=== PATIENT | male | born 1955 | race Caucasian/White ===

== ENCOUNTER 2016-12-30 10:31 | Inpatient (IN) | payer OTHER ==
[~2016-12-30] VITALS: Ht 165.1 cm; Wt 63.0 kg
--- NOTE | ~2016-12-30 | HC ---
[facility] [place] [address] CONSULTATION Name: LORENZA ARMENDARIZ Room #: 211-P ADM IN M.R.#: [id number] Admission: 12/30/16 Attend Phys: Demond Bonner MD Discharge: Date of : 53 Report #: [id number] THIS REPORT FOR: //name// CC: Kyler Bonner REASON FOR CONSULTATION: I was asked to evaluate concerning recurring fever. HISTORY OF PRESENT ILLNESS: The patient was a 61-year-old with short bowel syndrome, on chronic TPN for many years. He has had recurring central venous catheter infections. Two weeks ago, he developed dysuria. He presented to [facility] with fever along with dysuria and some low back discomfort. He was found to have positive urine culture. I do not have access to these cultures at this time. He was treated with antibiotics for 3 or 4 days and then was discharged this weekend on Augmentin. Now returns with fever up to 104 degrees. He has had intermittent cough with minimal sputum production. No change in his chronic shortness of breath. He does have underlying COPD. Has had some low back discomfort. Still has some dysuria without hematuria. No history of nephrolithiasis. No history of prostatitis. He has had one urinary tract infection when he was a boy. No change in his short bowel syndrome. He has an ileostomy, which has been functioning. ALLERGIES: None known. MEDICATIONS: As noted on his MAR, which was reviewed in detail. Most recently on Augmentin. PAST MEDICAL HISTORY: COPD, on 2 liters of oxygen at bedtime; lumbar spine disease with previous surgery; coronary artery disease; Chiari malformation; short bowel syndrome with colon resection; ileostomy; CABG; stroke; umbilical and inguinal hernias; multiple central venous catheters; previous central venous catheter infections; oral surgery with dental extractions; vocal cord papule; anxiety; depression; deaf in his left ear; and MRSA positive in April 2016. FAMILY HISTORY: Noncontributory. SOCIAL HISTORY: Smoker of cigarettes. No alcohol use. REVIEW OF SYSTEMS: Noted above with no additions. PHYSICAL EXAMINATION: VITAL SIGNS: Afebrile, maximum temperature here has been 99.5 degrees, hemodynamically stable with heart rate 103, blood pressure 93/58. Oxygen saturation on 2 liters was 95%. GENERAL: He was alert and cooperative. He had a left upper extremity PICC that he has had in since April that was unremarkable. No adenopathy. HEENT: Dentures otherwise unremarkable. [facility] [address] [place] [address] CONSULTATION Name: LORENZA ARMENDARIZ Room #: 211-P [facility] IN [facility]#: [id number] Admission: 12/30/16 Attend Phys: Demond Bonner MD Discharge: Date of : 53 Report #: [id number] LUNGS: Coarse breath sounds heard mostly anterior. Posterior was clear. HEART: Regular without murmur. ABDOMEN: Soft, mild tenderness in the right lower quadrant. He has right CVA tenderness. Ileostomy was unremarkable. GENITOURINARY: External genitalia unremarkable. RECTAL: Not performed. EXTREMITIES: Unremarkable. LABORATORY STUDIES: Urinalysis: 0-5 wbc's, 0-2 rbc's, moderate bacteria. Hemoglobin 10, WBC 13.3 with 14% bands, platelet count 177,000. Sodium 136, potassium 3.1, bicarbonate 20, creatinine 1.9, lactate 1.6 and magnesium 1.2. IMPRESSION: This is a 61-year-old with recurring fever. In the past, this has been related to central venous catheter infections. I would question whether we are dealing with that at this time. He does have bacteriuria and was diagnosed with urinary tract infection last week. This may still be the case. Mild renal insufficiency. PLAN: Recommend CT scan imaging to ensure no obstruction and to reevaluate his abdomen and pelvis. Continue IV antibiotic therapy, both gram-positive and gram-negative coverage. Repeat urine culture. Check blood cultures. We will adjust his antibiotics pending culture results. Obtain outside microbiology reports. <ELECTRONICALLY SIGNED> By: Anthony Bullard MD 01/01/17 0839 1756 [id number] Anthony Bullard MD /nt
[~2016-12-30 10:31] MED LIST: ACETAMINOPHEN325 M1 PO; ACTIGALL300 MG PO; ALBUTEROL2.5 MG/0.5 INH; AMBIEN 10 MG TA10 MG PO; AMINOPHYLLINE PO; AMITRIPTYLINE H50 M2 PO; AMITRIPTYLINE H50 M4 PO; AMOXICILLIN 50500 M1 PO; ANACIN 400-321 EACH PO; ASPIR-TRIN325 MG PO; ASPIRIN EC325 M1 PO; ASPIRIN325 PO; ASPIRIN81 M2 PO; ATORVASTATIN CA40 MG PO; AUGMENTIN 875875 MG PO; BACLOFEN 10 MG10 MG PO; BACLOFEN 10MG T10 M1 PO; BACLOFEN 10MG T10 MG PO; BAYER CHEWABLE81 MG PO; CARISOPRODOL 3350 M1 PO; CARISOPRODOL 3350 MG PO; CARISOPRODOL350 MG PO; CELEXA 20 MG TA20 M1 PO; CELEXA 20 MG TA20 MG PO; CENTRUM SILVER1 EAC2 PO; CENTRUM SILVER1 EAC4 PO; CHANTIX1 EACH PO; DILAUDID 2 MG TA2 MG PO; FENTANYL PA12 MCG/H1 TRANSDERM; FENTANYL PA50 MCG/HR TRANSDERM; FLOMAX0.4 MG PO; GATTEX5 MG SUBQ; HYDROCODON-ACE1 EA12 PO; HYDROCODON-ACE1 EAC8 PO; HYDROCODON-ACE1 EACH PO; HYDROCODONE-AP1 EA10 PO; HYDROCODONE-AP1 EA12 PO; HYDROCODONE-APA1 TA1 PO; IMDUR 30 MG TAB30 M1 PO; ITRACONAZOLE 1100 M1; KEFLEX500 MG PO; KLOR-CON 1010 MEQ PO; LACTINEX PO; LASIX 20 MG TAB20 MG PO; LASIX 40 MG TAB40 M1 PO; LEVAQUIN 500 M500 M2 PO; LIPITOR40 MG PO; LOMOTIL TABLET1 EACH PO; LOPRESSOR50 PO; LORTAB 5-500 T1 EAC1 PO; NEXIUM40 MG PO; NICOTINE TRANSD21 M1 TRANSDERM; NITROGLYCERIN0.4 MG SUBLING; NORCO 5-325 TA1 EACH PO; NORMAL SALINE 0.9% IV; NORMAL SALINE FL5 ML IV; NYSTATIN; NYSTATIN 1100000 U/M SW&SWALLOW; NYSTATIN100000 UN1 PO; ONDANSETRON HCL4 M2 PO; OPIUM TINC10 MG/1 ML PO; OXYCODONE-ACET1 EACH PO; PANTOPRAZOLE SO40 MG PO; PERCOCET 7.5-31 EACH PO; POTASSIUM20 PO; PPN IV; PREDNISONE 10 M10 M1 PO; PREDNISONE 10 M10 MG PO; PREDNISONE 20 M20 MG PO; PREDNISONE PO; PREDNISONE50 MG PO; PROMETHAZINE-C120 ML PO; PROZAC 10 MG CA10 MG PO; PROZAC 20 MG20 M1 PO; QUETIAPINE FUMA25 MG PO; RISPERDAL 1 MG T1 MG PO; SEROQUEL 25 MG25 M1 PO; SEROQUEL 25 MG25 M2 PO; SIMVASTATIN40 MG PO; SLOW-MAG64 M1 PO; SLOW-MAG64 MG PO; SODIUM CHLORI1000 ML IR; SODIUM CHLORID100 M4 IV; SOMA250 MG PO; SPIRIVA INH; SPORANOX10 MG/ML SWISH&SPIT; SYMBICORT160 MCG/4. INH; TAMSULOSIN HCL0.4 M1 PO; TESSALON PERLE100 MG PO; TOPROL XL50 MG PO; TPN ELECTROLYTE20 M1; TRAMADOL 50 MG50 MG PO; ULTRAM 50MG TAB50 MG PO; URSODIOL300 MG PO; VANC750 IV; VANCOMYCIN HCL IV; VANCOMYCIN HCL1 GM IV; VENTOLIN HFA 1818 GM INH; VENTOLIN17 GM INH; VITAMIN D 5050000 I1 PO; VITAMIN D1000 UNI1 PO; VITAMIN D310000 UNIT PO; ZOCOR40 MG PO; ZOFRAN4 MG PO
[2016-12-30 11:32] LABS: HEMATOCRIT 29.7 % (42.0-52.0); MCH 29.6 pg (26.0-34.0); MCHC 33.8 g/dL (28.0-37.0); MCV 87.6 fL (80.0-100.0); PLATELET COUNT 177 thou/uL (150-400); RBC 3.39 mil/uL (4.50-6.00); WBC 13.3 thou/uL (4.0-11.0)
[2016-12-30 11:33] LABS: MANUAL DIFF YES
[2016-12-30 11:34] LABS: CALCIUM 7.9 mg/dL (8.5-10.1); CREATININE 1.9 mg/dL (0.7-1.3); POTASSIUM 3.1 mmol/L (3.5-5.1)
[2016-12-30 12:08] LABS: ABSOLUTE NEUTROPHILS 12.5 thou/uL (1.4-8.2); PLATELET ESTIMATE NORMAL; TOTAL CELL COUNT 100
[2016-12-30 12:26] LABS: URINE BILIRUBIN NEGATIVE (Negative); URINE BLOOD 3+ (Negative); URINE COLOR YELLOW; URINE GLUCOSE-RANDOM* NEGATIVE (Negative); URINE KETONES NEGATIVE (Negative); URINE LEUKOCYTES-REFLEX 1+ (Negative); URINE PROTEIN (DIPSTICK) TRACE (Negative); URINE SPECIFIC GRAVITY 1.015 (1.003-1.035); URINE UROBILINOGEN 0.2 E.U./dl (0.2-1.0)
[2016-12-30 12:48] LABS: CASTS None Seen /LPF (None Seen); CRYSTALS None Seen /LPF (None Seen); SQUAMOUS None Seen /LPF (0-3); URINE RBC 0-2 Rare /HPF (0-2); URINE WBC-REFLEX 0-5 Rare /HPF (0-5)
[2016-12-30 14:03] VITALS: BP 93/58
[2016-12-30 14:20] VITALS: BP 93/58
[2016-12-30 20:07] VITALS: BP 107/64
[2016-12-30 23:35] VITALS: BP 80/48
[2016-12-31 04:32] VITALS: BP 115/90
[2016-12-31 07:46] LABS: HEMATOCRIT 27.4 % (42.0-52.0); HEMOGLOBIN 9.1 gm/dL (14.0-18.0); MCH 29.6 pg (26.0-34.0); MCHC 33.3 g/dL (28.0-37.0); MCV 89.1 fL (80.0-100.0); PLATELET COUNT 176 thou/uL (150-400); RBC 3.08 mil/uL (4.50-6.00); RDW 14.3 % (10.5-14.5); WBC 14.3 thou/uL (4.0-11.0)
[2016-12-31 07:48] LABS: MANUAL DIFF YES
[2016-12-31 08:08] LABS: ALBUMIN 2.1 g/dL (3.4-5.0); CALCIUM 8.1 mg/dL (8.5-10.1); MAGNESIUM 3.1 mg/dL (1.8-2.4); TOTAL BILIRUBIN 0.9 mg/dL (<0.1-1.0); TOTAL PROTEIN 6.1 g/dL (6.4-8.2)
[2016-12-31 08:09] LABS: POTASSIUM 4.1 mmol/L (3.5-5.1)
[2016-12-31 08:17] VITALS: BP 101/54
[2016-12-31 09:00] LABS: ABSOLUTE NEUTROPHILS 11.9 thou/uL (1.4-8.2); PLATELET ESTIMATE NORMAL; TOTAL CELL COUNT 100
[2016-12-31 11:52] VITALS: BP 112/63
[2016-12-31 15:37] VITALS: BP 99/52
[2016-12-31 20:00] VITALS: BP 149/81
[2017-01-01 04:45] VITALS: BP 116/61
[2017-01-01 08:20] LABS: ABSOLUTE NEUTROPHILS 6.5 thou/uL (1.4-8.2); BASOPHILS 0.3 % (0.0-2.0); EOSINOPHILS 2.1 % (0.0-3.0); HEMATOCRIT 26.4 % (42.0-52.0); HEMOGLOBIN 8.9 gm/dL (14.0-18.0); LYMPHOCYTES 9.7 % (24.0-44.0); MCH 29.9 pg (26.0-34.0); MCHC 33.8 g/dL (28.0-37.0); MCV 88.6 fL (80.0-100.0); MONOCYTES 9.8 % (1.0-8.0); PLATELET COUNT 169 thou/uL (150-400); POLYS 78.1 % (36.0-66.0); RBC 2.98 mil/uL (4.50-6.00); RDW 14.6 % (10.5-14.5); WBC 8.4 thou/uL (4.0-11.0)
[2017-01-01 08:31] LABS: CALCIUM 8.3 mg/dL (8.5-10.1); CREATININE 1.8 mg/dL (0.7-1.3); MAGNESIUM 2.3 mg/dL (1.8-2.4); POTASSIUM 3.7 mmol/L (3.5-5.1)
[2017-01-01 08:35] LABS: MANUAL DIFF NO
[2017-01-01 15:41] VITALS: BP 115/59
[2017-01-01 19:29] VITALS: BP 152/89
[2017-01-02 02:46] VITALS: BP 132/75
[2017-01-02 02:48] LABS: ABSOLUTE NEUTROPHILS 6.4 thou/uL (1.4-8.2); BASOPHILS 0.3 % (0.0-2.0); EOSINOPHILS 2.7 % (0.0-3.0); HEMOGLOBIN 10.1 gm/dL (14.0-18.0); MCH 29.6 pg (26.0-34.0); MCHC 33.7 g/dL (28.0-37.0); MCV 87.7 fL (80.0-100.0); MONOCYTES 7.8 % (1.0-8.0); PLATELET COUNT 196 thou/uL (150-400); POLYS 76.2 % (36.0-66.0); RBC 3.43 mil/uL (4.50-6.00); RDW 14.2 % (10.5-14.5); WBC 8.5 thou/uL (4.0-11.0)
[2017-01-02 02:58] LABS: MANUAL DIFF NO
[2017-01-02 03:01] LABS: CALCIUM 8.6 mg/dL (8.5-10.1); CREATININE 1.6 mg/dL (0.7-1.3); POTASSIUM 3.4 mmol/L (3.5-5.1)
[2017-01-02 07:33] VITALS: BP 139/69
[2017-01-02 11:47] VITALS: BP 174/110
[2017-01-02 15:41] VITALS: BP 146/67
[2017-01-02 15:46] VITALS: BP 146/67
[2017-01-02 19:42] VITALS: BP 158/72
[2017-01-03] VITALS (7 sets, daily range): BP systolic 139–169; BP diastolic 64–91
[2017-01-03] MEDS ORDERED: CEFTRIAXON1 GM/50 M1 IVPB (08:32)
== END 2017-01-03 16:46 | disposition home health service (06) | DRG 314 ==
LOC: ER 10:31 → EROBS 13:33 → 2N 13:33 → ENTRNSPT 01-03 16:06 → 2N 01-03 16:46
PROVIDERS: Emergency Medicine; Internal Medicine; Nurse Practitioner
PROC: 02HV33Z Insertion of Infusion Device into Superior Vena Cava, Percutaneous Approach (ICD-10-PCS; principal; 2017-01-03)
PROC: 3E0436Z Introduction of Nutritional Substance into Central Vein, Percutaneous Approach (ICD-10-PCS; 2017-01-03)
PROC: 02HV33Z Insertion of Infusion Device into Superior Vena Cava, Percutaneous Approach (ICD-10-PCS; 2017-01-03)
PROC: B5181ZA Fluoroscopy of Superior Vena Cava using Low Osmolar Contrast, Guidance (ICD-10-PCS; 2017-01-03)
PROC: B548ZZA Ultrasonography of Superior Vena Cava, Guidance (ICD-10-PCS; 2017-01-03)
DX: T80.219A Unspecified infection due to central venous catheter, initial encounter (principal); A41.50 Gram-negative sepsis, unspecified; R65.21 Severe sepsis with septic shock; E43 Unspecified severe protein-calorie malnutrition; N17.9 Acute kidney failure, unspecified; K56.69 Other intestinal obstruction; N39.0 Urinary tract infection, site not specified; E87.6 Hypokalemia; E16.2 Hypoglycemia, unspecified; I25.10 Atherosclerotic heart disease of native coronary artery without angina pectoris; J44.9 Chronic obstructive pulmonary disease, unspecified; F32.9 Major depressive disorder, single episode, unspecified; F41.9 Anxiety disorder, unspecified; F17.210 Nicotine dependence, cigarettes, uncomplicated; Z86.73 Personal history of transient ischemic attack (TIA), and cerebral infarction without residual deficits; I25.2 Old myocardial infarction; Z68.23 Body mass index [BMI] 23.0-23.9, adult; Z95.1 Presence of aortocoronary bypass graft; Z93.2 Ileostomy status; Z87.442 Personal history of urinary calculi; Z99.81 Dependence on supplemental oxygen
CPT/HCPCS: 10081

== ENCOUNTER 2017-01-25 13:09 | Inpatient (IN) | payer OTHER ==
[~2017-01-25] VITALS: Ht 165.1 cm; Wt 59.9 kg
--- NOTE | ~2017-01-25 | HC ---
[facility] [place] [place] [address] CONSULTATION Name: LORENZA ARMENDARIZ Room #: 460-P ADM IN M.R.#: [id number] Admission: 01/25/17 Attend Phys: Dee Kumar Discharge: Date of : 53 Report #: [id number] THIS REPORT FOR: //name// CC: Dee Kumar NO PCP REASON FOR CONSULTATION: I was asked to evaluate concerning high fever. HISTORY OF PRESENT ILLNESS: The patient was a 61-year-old, known from his previous hospitalizations where he has had recurring central venous catheter infections. He has underlying chronic obstructive pulmonary disease, coronary artery disease, short bowel syndrome on home total parenteral nutrition. His current issues started after ischemic bowel issue in 08/2012. He had gut that required distal two thirds of small bowel resection and a subtotal colectomy. Since then he has been on total parenteral nutrition. He has had a short period of time when they tried him off, but he was losing weight and not doing well. Subsequently, he has had recurring bacteremia. Over the last 4 years, in 10/2012 he had Barbara glabrata bacteremia, in 01/2013 a Klebsiella and a Staph epidermidis bacteremia, in 2014 had diphtheroids bacteremia, 07/2015 Staph epidermidis, 09/2015 Staph epidermidis diphtheroids, 12/2016 Klebsiella pneumoniae, presents now with 2/2 cultures positive for gram-negative bacilli. Yesterday, he had acute onset of rigors with hypotension, confusion, shortness of breath. He was brought in to the Emergency Room. Blood cultures were drawn and now are growing gram-negative bacilli. He has a right internal jugular PICC catheter that was placed in December. He requires nocturnal total parenteral nutrition. There has been no significant change in his respiratory status prior to this event. He did have an episode of nausea and vomiting. That has resolved. His small bowel ostomy has been functioning well. No dysuria. No rashes or decubiti. He has had no travel. ALLERGIES: None. MEDICATIONS: As noted on his MAR, now on vancomycin, cefepime, micafungin. He just finished a course of ceftriaxone for his recent bacteremia. PAST MEDICAL, FAMILY HISTORY, AND SOCIAL HISTORY: As noted on his history and physical, which are reviewed in detail, also that in my previous consultations. REVIEW OF SYSTEMS: Noted above. PHYSICAL EXAMINATION: VITAL SIGNS: He is afebrile and hemodynamically stable. Maximum temperature yesterday was 103 degrees. He is on 3 liters of oxygen per nasal cannula. GENERAL: He was alert and cooperative and pleasant, in no acute distress. He was thin. HEENT: Unremarkable. He is edentulous. NECK: Supple. [address] [address] CONSULTATION Name: KALALORENZA YESICA Room #: 460-P [facility] IN M.R.#: [id number] Admission: 01/25/17 Attend Phys: Dee Kumar Discharge: Date of : 53 Report #: [id number] LUNGS: Decreased breath sounds bilaterally. No consolidation. HEART: Regular, without murmur. CHEST: Right chest tunneled catheter site was unremarkable. ABDOMEN: Soft and nontender. His ostomy was unremarkable. GENITOURINARY: External genitalia unremarkable. EXTREMITIES: Unremarkable. LABORATORY STUDIES: CT scan of his chest did show a left lung nodule that is being followed. Right upper lobe infiltrate is new from his previous scan. Sodium 137, potassium 5.1, bicarbonate 23, creatinine 1.4. Hemoglobin 9.5, platelet count 134,000, white count was 7.2. Blood cultures, gram-negative bacilli 2/2. IMPRESSION: A 61-year-old with gram-negative bacteremia, central venous catheter source seems most likely. This is an ongoing problem over the last 4 years following a short bowel syndrome with need for total parenteral nutrition. Also, underlying chronic obstructive pulmonary disease, coronary artery disease. He does have a nodule in his left lung that will need further follow up by Pulmonary Medicine. The right upper lobe area may be aspiration induced. RECOMMENDATIONS: We will continue combination antibiotic coverage pending identification of the bacteremia. We will need to have the central venous catheter taken out. We will have GI Service evaluate again for the consideration of nocturnal tube feeding possibly or any other thoughts to improve his nutrition without the use of total parenteral nutrition. Since these have been different organisms in the past, I am doubting endocarditis, more likely just poor technique in his infusion program. <ELECTRONICALLY SIGNED> By: Anthony Bullard MD 01/27/17 1215 1139 1206 Anthony Bullard MD /nt
--- NOTE | ~2017-01-25 | EKG ---
[address] [place] [address] ELECTROCARDIOGRAM REPORT Name: SANIYALORENZA Ervin YESICA Room #: 460-P ADM IN M.R.#: [id number] Admission: 01/25/17 Attend Phys: Dee Kumar Discharge: Date of : 53 Report #: [id number] THIS REPORT FOR: //name// [facility] ED Test Date: 2017-01-25 Test Time: 13:18:12 Pat Name: LORENZA ARMENDARIZ Department: Room: 460 Gender: M Glass Maker: DEDE : 1955 Requested By: Ke Franco Order Number: [id number] MD: Tim Godinez Measurements Intervals [place] Rate: 103 P: 74 FL: 132 QRS: 77 QRSD: 107 T: 89 QT: 379 QTc: 496 Interpretive Statements Sinus tachycardia RSR' in V1 or V2, right VCD Borderline prolonged QT interval Compared to ECG 04/22/2016 12:48:13 Atrial premature complex(es) no longer present Electronically Signed On 01-27-2017 8:20:21 CDT by Tim Godinez [email or web address] <ELECTRONICALLY SIGNED> By: Tim Godinez MD, [facility] 01/27/17 0820 1318 1318 Tim Godinez MD, [facility] /EPI
--- NOTE | ~2017-01-25 | HC ---
[facility] [place] [address] CONSULTATION Name: LORENZA ARMENDARIZ Room #: 460-P [facility] IN M.R.#: [id number] Admission: 01/25/17 Attend Phys: Dee Kumar Discharge: 01/29/17 Date of : 53 Report #: [id number] THIS REPORT FOR: //name// CC: Dee Kumar NO PCP DATE OF SERVICE: 01/25/2017 REFERRING PROVIDER: Dr. Kumar. REASON FOR CONSULTATION: Chest pain and shortness of breath. HISTORY OF PRESENT ILLNESS: Our group was asked to see the patient in consultation while hospitalized at [facility]. A pleasant 61-year-old male with a past history of COPD, states reasonably well controlled on Symbicort twice daily ____ p.r.n. albuterol, also has a history of short gut syndrome for which he has been on TPN, he states for about 1 year, was just recently hospitalized for Klebsiella bacteremia in December for which he had a central venous catheter exchange. PICC line was removed and a tunneled IJ catheter was put in place. Family brought him to the Emergency Department because of pain in the left upper quadrant and left lower chest, near syncope and perhaps some confusion ____ recalls awakening this morning, but does not remember details arriving to the hospital, was much more alert this evening. Has been afebrile here, but denies any fever at home, chills or sweats. He was placed initially on BiPAP for unclear reasons, perhaps due to tachypnea and possibly hypoxemia, although he is much more comfortable this evening. He is on nasal cannula 3 liters. The patient typically requires 2 liters nasal cannula with sleep. ALLERGIES: None known. CURRENT MEDICATIONS: 1. Micafungin. 2. DuoNeb. 3. Isosorbide mononitrate. 4. Seroquel 25 at bedtime. 5. Citalopram 20 mg at bedtime. 6. Metoprolol 50 mg twice daily. 7. Enoxaparin daily. 8. Solu-Medrol. 9. Cefepime. PAST MEDICAL HISTORY: 1. Short bowel syndrome, chronically on TPN in the past year, although able to take oral medications, chronic ileostomy. 2. COPD. [facility] [address] [place] [address] CONSULTATION Name: LORENZA ARMENDARIZ YESICA Room #: 460-P [facility] IN .R.#: [id number] Admission: 01/25/17 Attend Phys: Dee Kumar Discharge: 01/29/17 Date of : 53 Report #: [id number] 3. Coronary artery disease. 4. History of prior CVA. 5. Umbilical and inguinal hernias. 6. Prior dental extractions. SOCIAL HISTORY: History of tobacco use. No alcohol consumption. FAMILY HISTORY: Noncontributory due to significant pulmonary disease. REVIEW OF SYSTEMS: CONSTITUTIONAL: Denies any fevers or chills. Some disorientation noted. ENT: No upper respiratory congestion, rhinorrhea or dysphagia. CARDIOVASCULAR: Some left-sided lower chest pain, somewhat pleuritic in nature. GASTROINTESTINAL: No nausea or vomiting. Has an ileostomy and prior colon resection, significant thin ostomy output. GENITOURINARY: No dysuria, no frequency. INTEGUMENT: Denies any rash. MUSCULOSKELETAL: Generalized weakness and difficulty maintaining weight on TPN. PHYSICAL EXAMINATION: VITAL SIGNS: Temperature max 39.4, temperature current 36.8, pulse 60s, respiratory rate 18, blood pressure 113/60. GENERAL: This is a thin, cachectic elderly male, in no distress. Awake, conversant. HEENT: Clear oropharynx. No thrush. Mallampati 1 airway. NECK: Supple, no lymphadenopathy, right tunneled IJ catheter in place. No surrounding erythema or fluctuance. LUNGS: Diminished in the left base, but otherwise clear. No wheezes or crackles. CARDIOVASCULAR: Heart regular. No murmurs noted. ABDOMEN: Soft. Ostomy in place. No masses, nontender. EXTREMITIES: With muscular atrophy, 2+ pulses, no edema. LABORATORY DATA: White blood cell count 7000, hemoglobin 9.5, hematocrit 28 and platelet count 134. Sodium 142, potassium 2.7, chloride 114, bicarbonate 15, BUN 17, creatinine 1.1, glucose 55, calcium 5.7, alkaline phosphatase 291. Total protein 4.6, albumin 2.0, lipase 36. Arterial blood gas on BiPAP revealed pH 7.38, pCO2 of 29, pO2 of 72, bicarbonate 17. Cultures are pending. Chest x-ray reveals a tunneled right IJ catheter in place. There is significant elevation in the left hemidiaphragm with some opacification of the left base of the chest; mild scoliosis, mediastinal shift to the left appreciated, although the patient is rotated to left making more difficult to interpret, right lung appears clear. IMPRESSION: 1. Delirium, likely due to infectious process. [facility] [address] [place] [address] CONSULTATION Name: LORENZA ARMENDARIZ Room #: 460-P DIS IN M.R.#: [id number] Admission: 01/25/17 Attend Phys: Dee Kumar Discharge: 01/29/17 Date of : 53 Report #: [id number] 2. Possible left basilar infiltrate or pleural effusion. 3. Febrile illness, worrisome for pneumonia and/or recurrent central venous catheter infection, most likely other source. 4. Chronic obstructive pulmonary disease. 5. Metabolic acidosis, likely related to ostomy loss. 6. Multiple electrolyte abnormalities, also likely to ostomy loss. SUGGESTIONS: 1. Supplemental oxygen, BiPAP p.r.n. for refractory hypoxemia. 2. CT scan of the chest. 3. Infectious Disease was consulted to assist with management of previously evaluated before for bacteremia. 4. Replace electrolytes. 5. IV fluids. 6. Resume TPN when able. 7. Additional recommendations to follow. Thank you for requesting our suggestions. <ELECTRONICALLY SIGNED> By: Nabeel Mc MD 02/03/17 0916 2132 04 Nabeel Mc MD /nt
--- NOTE | ~2017-01-25 | HC ---
[facility] [place] [address] CONSULTATION Name: LORENZA ARMENDARIZ Room #: 460-P ADM IN M.R.#: [id number] Admission: 01/25/17 Attend Phys: Dee Kumar Discharge: Date of : 53 Report #: [id number] THIS REPORT FOR: //name// CC: Dee Kumar NO PCP DATE OF SERVICE: 01/27/2017 DATE OF SERVICE: 01/27/2017. REFERRING PROVIDER: Dee Kumar MD. REASON FOR CONSULTATION: Line sepsis. HISTORY OF PRESENT ILLNESS: The patient is a 61-year-old male who is well known to me as I have operated on him numerous times for acute bowel and multiple take backs, leaving him with short bowel syndrome. The patient has had a few subsequent events of jejunostomy prolapsing that has required revision as well. The patient is sustained with IV fluids through tunneled lines after trying multiple bouts of administrating fluids through a port, which continuously became infected. The patient has been doing well at his usual state of health until last month when he was admitted for fever of unknown origin. The patient was ultimately treated with IV antibiotics and dismissed home and unfortunately has returned once again with dyspnea and shortness of breath with findings of an infected tunneled line. The patient's line has been removed and as he is doing much better now, I am requested to evaluate for the possibility of replacement of a central line for long-term access. PAST MEDICAL HISTORY: Ischemic bowel status post multiple explorations, short bowel syndrome, chronic pain syndrome, dyslipidemia, prior TIA, Chiari malformation, multiple episodes of line sepsis, protein-calorie malnutrition, COPD with nocturnal oxygen utilization, coronary artery disease status post CABG, anemia of chronic disease, chronic panic disorder, and hiatal hernia status post EGD with dilatation. HOME MEDICATIONS: Tramadol, Gas-X, nitroglycerin, Celexa, Ambien, Flomax, fentanyl patch, ursodiol, amitriptyline, Symbicort, aspirin, Seroquel, albuterol, Percocet, Zofran, and [place]. ALLERGIES: No known drug allergies. FAMILY HISTORY: Reviewed and noncontributory. SOCIAL HISTORY: The patient continues to smoke 1 pack per day and has done so for 47 years. He does not utilize alcohol or illicit drugs. [address] [address] CONSULTATION Name: KALALORENZA YESICA Room #: 460-P [facility] IN M.R.#: [id number] Admission: 01/25/17 Attend Phys: Dee Kumar Discharge: Date of : 53 Report #: [id number] REVIEW OF SYSTEMS: GENERAL: The patient denies any recent fevers or chills. HEENT: No change in vision or change in hearing. NECK: No swelling or difficulty swallowing. HEART: No chest pain or palpitations. LUNGS: No cough or shortness of breath. ABDOMEN: No abdominal pain, nausea, or vomiting. GENITOURINARY: No dysuria or hematuria. ENDOCRINE: No polyuria or polydipsia. HEMATOLOGIC: No history of bleeding or easy bruising. EXTREMITIES: No history of weakness or limited range of motion. NEUROLOGIC: No history of syncope or near syncopal episodes. SKIN AND INTEGUMENT: No history of abnormal lesions or moles. PSYCHIATRIC: Chronic panic disorder. PHYSICAL EXAMINATION: VITAL SIGNS: Temperature 96.8, pulse 52, respirations 19, and blood pressure 150/85. He stands 5 feet 5 inches tall and weighs 132 pounds. GENERAL: Alert and oriented, in no acute distress. HEENT: Normocephalic and atraumatic. Pupils are equal, round, and reactive to light. NECK: Supple without lymphadenopathy. Trachea is midline. HEART: Regular rate and rhythm. LUNGS: Decreased air entry at the bases bilaterally with coarse breath sounds. ABDOMEN: Soft, nontender, and nondistended. Jejunostomy is pink, patent, and functional. GENITOURINARY: Normal external male genitalia. EXTREMITIES: No clubbing, cyanosis, or edema. NEUROLOGIC: Cranial nerves 2-12 are grossly intact. PSYCHIATRIC: Normal mood and affect. SKIN AND INTEGUMENT: No other abnormal lesions or moles. LABORATORY AND X-RAY DATA: CBC showed white blood cell count of 12,300, hemoglobin 11.4, and platelets 167,000. Creatinine is 1.3. Liver function enzymes are largely normal. Albumin is low at 2.8. Culture results were positive for Gram-negative bacteremia. ASSESSMENT AND PLAN: A 61-year-old male with short bowel syndrome, chronic obstructive pulmonary disease, and shortness of breath as of late who was recently admitted with Gram-negative bacteremia, likely secondary to infected tunneled central venous catheter. At this time, once it is okay with Dr. Bullard from the infectious disease standpoint, we will proceed with IR placed tunneled line once again. I have no objection to the patient taking oral intake in addition to IV fluids for staying hydrated and will defer this to the gastroenterology service for management of short bowel syndrome. [address] [address] CONSULTATION Name: LORENZA ARMENDARIZ Room #: 460-P ADM IN M.R.#: [id number] Admission: 01/25/17 Attend Phys: Dee Kumar Discharge: Date of : 53 Report #: [id number] I sincerely appreciate this consult. I will follow closely and leave any further recommendations in the patient's chart as appropriate. <ELECTRONICALLY SIGNED> By: Jennifer Orellana MD, FACS 01/29/17 0914 1517 0046 Jennifer Orellana MD, FACS /nt
[~2017-01-25 13:09] MED LIST changes: +CEFTRIAXON1 GM/50 M1 IVPB
[2017-01-25 13:10] VITALS: BP 151/80
[2017-01-25 13:40] LABS: HEMATOCRIT 27.9 % (42.0-52.0); HEMOGLOBIN 9.5 gm/dL (14.0-18.0); MCH 30.6 pg (26.0-34.0); MCHC 34.1 g/dL (28.0-37.0); MCV 89.5 fL (80.0-100.0); PLATELET COUNT 134 thou/uL (150-400); RBC 3.12 mil/uL (4.50-6.00); RDW 14.8 % (10.5-14.5); WBC 7.2 thou/uL (4.0-11.0)
[2017-01-25 13:42] LABS: MANUAL DIFF YES
[2017-01-25 13:49] LABS: ABG SAMPLE TYPE ARTERIAL; BE(vivo) -7.3 mmol/L (-2 to +3); HCO3 16.6 mmol/L (22.0-26.0); LACTATE 1.24 mmol/L (0.5-2.0); O2(CT) 16.2 mL/dL (15.0-23.0); O2Hb 84.3 % (92.0-98.0); PCO2 29.1 mmHg (35.0-45.0); PO2 56.4 mmHg (80.0-100.0); pH 7.373 (7.360-7.450); sO2 89.2 % (92.0-98.0); tCO2 17.5 mmol/L (24.0-30.0)
[2017-01-25 13:50] LABS: STICK SITE R.RADIAL
[2017-01-25 13:57] LABS: ALKALINE PHOSPHATASE 291 U/L (46-116); ANION GAP 13 mmol/L (7-16); BUN 17 mg/dL (7-18); CHLORIDE 114 mmol/L (98-107); CO2 15 mmol/L (21-32); CREATININE 1.1 mg/dL (0.7-1.3); GLUCOSE 55 mg/dL (74-106); SGOT 41 U/L (15-37); SGPT 35 U/L (30-65); SODIUM 142 mmol/L (136-145); TOTAL BILIRUBIN 0.4 mg/dL (<0.1-1.0); TOTAL PROTEIN 4.6 g/dL (6.4-8.2); TROPONIN-I < 0.04 ng/mL (<0.04-0.07)
[2017-01-25 13:59] LABS: CALCIUM 5.7 mg/dL (8.5-10.1); POTASSIUM 2.7 mmol/L (3.5-5.1)
[2017-01-25 14:10] LABS: ABSOLUTE NEUTROPHILS 6.4 thou/uL (1.4-8.2); TOTAL CELL COUNT 100
[2017-01-25 15:03] VITALS: BP 144/72
[2017-01-25 15:08] LABS: ABG SAMPLE TYPE ARTERIAL; HCO3 16.8 mmol/L (22.0-26.0); LACTATE 0.94 mmol/L (0.5-2.0); O2(CT) 16.7 mL/dL (15.0-23.0); O2Hb 91.7 % (92.0-98.0); PO2 72.5 mmHg (80.0-100.0); pH 7.381 (7.360-7.450); sO2 94.6 % (92.0-98.0); tCO2 17.7 mmol/L (24.0-30.0)
[2017-01-25 15:09] LABS: Pressure Support 6 cm H20; STICK SITE R.RADIAL
[2017-01-25 15:52] VITALS: BP 144/72
[2017-01-25 16:00] VITALS: BP 101/72
[2017-01-25 19:13] VITALS: BP 113/60
[2017-01-26 00:12] VITALS: BP 112/63
[2017-01-26 04:16] VITALS: BP 101/42
[2017-01-26 05:31] LABS: ABG SAMPLE TYPE ARTERIAL; BE(vivo) -3.9 mmol/L (-2 to +3); HCO3 21.7 mmol/L (22.0-26.0); LACTATE 0.93 mmol/L (0.5-2.0); O2(CT) 17.5 mL/dL (15.0-23.0); O2Hb 96.8 % (92.0-98.0); PCO2 41.5 mmHg (35.0-45.0); PO2 102.1 mmHg (80.0-100.0); pH 7.336 (7.360-7.450); sO2 97.3 % (92.0-98.0)
[2017-01-26 05:32] LABS: STICK SITE LBA
[2017-01-26 06:33] VITALS: BP 141/60
[2017-01-26 07:00] LABS: ALBUMIN 2.8 g/dL (3.4-5.0); CREATININE 1.4 mg/dL (0.7-1.3); PHOSPHORUS 4.7 mg/dL (2.5-4.9)
[2017-01-26 07:09] LABS: CALCIUM 9.1 mg/dL (8.5-10.1); POTASSIUM 5.1 mmol/L (3.5-5.1)
[2017-01-26 09:00] VITALS: BP 131/66
[2017-01-26 16:09] VITALS: BP 118/62
[2017-01-26 20:00] VITALS: BP 114/63
[2017-01-27 04:00] VITALS: BP 128/66
[2017-01-27 05:36] LABS: ABSOLUTE NEUTROPHILS 10.7 thou/uL (1.4-8.2); BASOPHILS 0.9 % (0.0-2.0); HEMOGLOBIN 11.4 gm/dL (14.0-18.0); LYMPHOCYTES 7.8 % (24.0-44.0); MCH 29.7 pg (26.0-34.0); MCHC 33.5 g/dL (28.0-37.0); MCV 88.6 fL (80.0-100.0); MONOCYTES 4.5 % (1.0-8.0); PLATELET COUNT 167 thou/uL (150-400); POLYS 86.8 % (36.0-66.0); RBC 3.83 mil/uL (4.50-6.00); RDW 15.4 % (10.5-14.5); WBC 12.3 thou/uL (4.0-11.0)
[2017-01-27 05:41] LABS: MANUAL DIFF NO
[2017-01-27 05:55] LABS: ALBUMIN 2.8 g/dL (3.4-5.0); CALCIUM 8.9 mg/dL (8.5-10.1); CREATININE 1.3 mg/dL (0.7-1.3); MAGNESIUM 1.9 mg/dL (1.8-2.4); POTASSIUM 5.2 mmol/L (3.5-5.1); TOTAL BILIRUBIN 0.3 mg/dL (<0.1-1.0)
[2017-01-27 08:34] VITALS: BP 154/72
[2017-01-27 19:46] VITALS: BP 150/85
[2017-01-28 04:43] VITALS: BP 140/77
[2017-01-28 06:54] LABS: ALBUMIN 3.3 g/dL (3.4-5.0); CALCIUM 9.9 mg/dL (8.5-10.1); CREATININE 1.5 mg/dL (0.7-1.3); MAGNESIUM 1.9 mg/dL (1.8-2.4); PHOSPHORUS 3.9 mg/dL (2.5-4.9); POTASSIUM 5.3 mmol/L (3.5-5.1)
[2017-01-28 08:10] VITALS: BP 135/81
[2017-01-28 08:29] VITALS: BP 135/81
[2017-01-28 13:33] VITALS: BP 123/63
[2017-01-28 15:53] VITALS: BP 145/85
[2017-01-28 20:14] VITALS: BP 133/67
[2017-01-29 04:47] VITALS: BP 133/70
[2017-01-29 07:09] LABS: ALBUMIN 2.9 g/dL (3.4-5.0); CALCIUM 9.4 mg/dL (8.5-10.1); CREATININE 1.4 mg/dL (0.7-1.3); PHOSPHORUS 3.6 mg/dL (2.5-4.9)
[2017-01-29 08:00] VITALS: BP 139/62
[2017-01-29 08:24] LABS: POTASSIUM 4.1 mmol/L (3.5-5.1)
[2017-01-29 12:29] VITALS: BP 111/73
[2017-01-29 15:18] VITALS: BP 111/73
[2017-01-29] MEDS ORDERED: LEVAQUIN 7750 MG/152 IV (15:30)
[2017-01-29 15:34] VITALS: BP 139/70
[2017-01-29 15:43] VITALS: BP 111/73
== END 2017-01-29 17:31 | disposition home health service (06) | DRG 314 ==
LOC: ER 13:09 → EROBS 14:46 → 4W 14:46
PROVIDERS: Hospitalist; Internal Medicine Pulmonary Disease; Physician Assistant; Specialist
DX: T80.211A Bloodstream infection due to central venous catheter, initial encounter (principal); A41.9 Sepsis, unspecified organism; J69.0 Pneumonitis due to inhalation of food and vomit; J96.21 Acute and chronic respiratory failure with hypoxia; J44.1 Chronic obstructive pulmonary disease with (acute) exacerbation; E87.2 Acidosis; K91.2 Postsurgical malabsorption, not elsewhere classified; N17.9 Acute kidney failure, unspecified; E46 Unspecified protein-calorie malnutrition; I69.351 Hemiplegia and hemiparesis following cerebral infarction affecting right dominant side; I25.10 Atherosclerotic heart disease of native coronary artery without angina pectoris; F17.210 Nicotine dependence, cigarettes, uncomplicated; E83.51 Hypocalcemia; E87.6 Hypokalemia; K76.0 Fatty (change of) liver, not elsewhere classified; Y83.8 Other surgical procedures as the cause of abnormal reaction of the patient, or of later complication, without mention of misadventure at the time of the procedure; Z93.2 Ileostomy status; Z95.1 Presence of aortocoronary bypass graft; I25.2 Old myocardial infarction; Z79.899 Other long term (current) drug therapy; Z68.22 Body mass index [BMI] 22.0-22.9, adult; Y92.89 Other specified places as the place of occurrence of the external cause; K21.9 Gastro-esophageal reflux disease without esophagitis
CPT/HCPCS: 10045

== ENCOUNTER 2017-02-04 10:02 | Inpatient (IN) | payer OTHER ==
[2017-02-04] VITALS (7 sets, daily range): BP systolic 120–157; BP diastolic 70–100
[~2017-02-04] VITALS: Ht 165.1 cm; Wt 54.9 kg
--- NOTE | ~2017-02-04 | EKG ---
[address] [place] [place] [address] ELECTROCARDIOGRAM REPORT Name: KALALORENZA YESICA Room #: 170-10 ADM IN M.R.#: [id number] Admission: 02/04/17 Attend Phys: Leonardo Clayton DO Discharge: Date of : 53 Report #: [id number] THIS REPORT FOR: //name// [facility] ED Test Date: 2017-02-04 Test Time: 10:45:10 Pat Name: LORENZA ARMENDARIZ Department: Room: 170 Gender: M Financial Aid: Doug GOOD : 1955 Requested By: Richie Santana Order Number: [id number] MD: Larry Castillo Measurements Intervals [place] Rate: 109 P: 66 [place]: 151 QRS: 26 QRSD: 89 T: 57 QT: 278 QTc: 375 Interpretive Statements Sinus tachycardia Atrial premature complex Biatrial enlargement RSR' in V1 or V2, right VCD or RVH Compared to ECG 01/25/2017 13:18:12 Atrial premature complex(es) now present Atrial abnormality now present Right ventricular hypertrophy now present Electronically Signed On 02-04-2017 13:07:04 CDT by Larry Castillo [email or web address] <ELECTRONICALLY SIGNED> By: Larry Castillo MD 02/04/17 1307 1045 1045 Larry Castillo MD /EPI
[~2017-02-04 10:02] MED LIST changes: +LEVAQUIN 7750 MG/152 IV
[2017-02-04 10:50] LABS: ABSOLUTE NEUTROPHILS 10.4 thou/uL (1.4-8.2); BASOPHILS 0.2 % (0.0-2.0); EOSINOPHILS 3.3 % (0.0-3.0); HEMATOCRIT 47.7 % (42.0-52.0); HEMOGLOBIN 16.2 gm/dL (14.0-18.0); LYMPHOCYTES 20.1 % (24.0-44.0); MCH 29.4 pg (26.0-34.0); MCHC 33.9 g/dL (28.0-37.0); MCV 86.7 fL (80.0-100.0); MONOCYTES 9.4 % (1.0-8.0); PLATELET COUNT 459 thou/uL (150-400); RDW 14.8 % (10.5-14.5); WBC 15.6 thou/uL (4.0-11.0)
[2017-02-04 10:52] LABS: ANION GAP 10 mmol/L (7-16); BUN 58 mg/dL (7-18); CALCIUM 10.3 mg/dL (8.5-10.1); CHLORIDE 94 mmol/L (98-107); CO2 25 mmol/L (21-32); CREATININE 2.8 mg/dL (0.7-1.3); MANUAL DIFF NO; POTASSIUM 4.4 mmol/L (3.5-5.1); SODIUM 129 mmol/L (136-145)
[2017-02-04 11:02] LABS: ALBUMIN 3.9 g/dL (3.4-5.0); ALKALINE PHOSPHATASE 375 U/L (46-116); SGPT 88 U/L (30-65); TOTAL BILIRUBIN 0.4 mg/dL (<0.1-1.0); TROPONIN-I < 0.04 ng/mL (<0.04-0.07)
[2017-02-04 11:48] LABS: SGOT 67 U/L (15-37)
[2017-02-04 11:49] LABS: GLUCOSE 106 mg/dL (74-106); TOTAL PROTEIN 9.8 g/dL (6.4-8.2)
[2017-02-05 00:03] VITALS: BP 130/71
[2017-02-05 05:08] VITALS: BP 110/49
[2017-02-05 06:16] LABS: HEMATOCRIT 40.3 % (42.0-52.0); MCH 29.4 pg (26.0-34.0); MCHC 33.5 g/dL (28.0-37.0); MCV 87.7 fL (80.0-100.0); RDW 14.4 % (10.5-14.5); WBC 16.5 thou/uL (4.0-11.0)
[2017-02-05 06:20] LABS: HEMOGLOBIN 13.5 gm/dL (14.0-18.0); MANUAL DIFF YES; PLATELET COUNT 366 thou/uL (150-400)
[2017-02-05 07:01] LABS: CALCIUM 9.2 mg/dL (8.5-10.1); CREATININE 2.8 mg/dL (0.7-1.3); MAGNESIUM 2.2 mg/dL (1.8-2.4)
[2017-02-05 07:02] LABS: POTASSIUM 3.2 mmol/L (3.5-5.1)
[2017-02-05 08:16] VITALS: BP 112/51
[2017-02-05 08:42] LABS: ABSOLUTE NEUTROPHILS 11.6 thou/uL (1.4-8.2); TOTAL CELL COUNT 100
[2017-02-05 08:43] LABS: ANISOCYTOSIS SLIGHT
[2017-02-05 15:30] VITALS: BP 96/52
[2017-02-05 19:43] VITALS: BP 105/53
[2017-02-06 04:30] VITALS: BP 104/55; BP 105/42
[2017-02-06 08:00] VITALS: BP 107/59
[2017-02-06 08:33] LABS: ABSOLUTE NEUTROPHILS 6.1 thou/uL (1.4-8.2); BASOPHILS 0.6 % (0.0-2.0); EOSINOPHILS 5.3 % (0.0-3.0); HEMATOCRIT 35.1 % (42.0-52.0); HEMOGLOBIN 11.7 gm/dL (14.0-18.0); LYMPHOCYTES 19.2 % (24.0-44.0); MCH 29.4 pg (26.0-34.0); MCHC 33.3 g/dL (28.0-37.0); MCV 88.2 fL (80.0-100.0); MONOCYTES 9.3 % (1.0-8.0); POLYS 65.6 % (36.0-66.0); RBC 3.98 mil/uL (4.50-6.00); RDW 14.5 % (10.5-14.5); WBC 9.4 thou/uL (4.0-11.0)
[2017-02-06 08:36] LABS: MANUAL DIFF NO; PLATELET COUNT 259 thou/uL (150-400)
[2017-02-06 08:41] LABS: CALCIUM 8.7 mg/dL (8.5-10.1); POTASSIUM 4.2 mmol/L (3.5-5.1)
[2017-02-06 08:42] LABS: CREATININE 1.5 mg/dL (0.7-1.3)
[2017-02-06 16:00] VITALS: BP 99/54
[2017-02-06 16:28] VITALS: BP 99/54
[2017-02-06 17:18] VITALS: BP 99/54
== END 2017-02-06 16:59 | disposition home health service (06) | DRG 314 ==
LOC: ER 10:02 → EROBS 12:10 → 4S 12:10 → ENTRNSPT 02-06 16:52 → 4S 02-06 16:59
PROVIDERS: Emergency Medicine; Family Medicine; Nurse Practitioner
PROC: 3E0336Z Introduction of Nutritional Substance into Peripheral Vein, Percutaneous Approach (ICD-10-PCS; principal; 2017-02-04)
DX: T80.211A Bloodstream infection due to central venous catheter, initial encounter (principal); N17.1 Acute kidney failure with acute cortical necrosis; E87.1 Hypo-osmolality and hyponatremia; I69.351 Hemiplegia and hemiparesis following cerebral infarction affecting right dominant side; E46 Unspecified protein-calorie malnutrition; K91.2 Postsurgical malabsorption, not elsewhere classified; F41.9 Anxiety disorder, unspecified; J44.9 Chronic obstructive pulmonary disease, unspecified; F32.9 Major depressive disorder, single episode, unspecified; F17.210 Nicotine dependence, cigarettes, uncomplicated; Y83.8 Other surgical procedures as the cause of abnormal reaction of the patient, or of later complication, without mention of misadventure at the time of the procedure; I25.10 Atherosclerotic heart disease of native coronary artery without angina pectoris; Z95.1 Presence of aortocoronary bypass graft; I25.2 Old myocardial infarction; Z93.2 Ileostomy status; Z79.899 Other long term (current) drug therapy; Z68.20 Body mass index [BMI] 20.0-20.9, adult; Z71.6 Tobacco abuse counseling; Z28.21 Immunization not carried out because of patient refusal; Y92.89 Other specified places as the place of occurrence of the external cause
CPT/HCPCS: 10100

== ENCOUNTER 2017-04-22 12:09 | Emergency (ER) | payer OTHER ==
[~2017-04-22] VITALS: Ht 165.1 cm; Wt 62.9 kg
--- NOTE | ~2017-04-22 | EKG ---
[place] [address] [facility] [place] [employer] [address] ELECTROCARDIOGRAM REPORT Name: DIDIMADISYNLORENZA RUGGIERO YESICA Room #: DEP [facility]#: [id number] Admission: 04/22/17 Attend Phys: Discharge: 04/22/17 Date of : 53 Report #: [id number] THIS REPORT FOR: //name// [facility] ED Test Date: 2017-04-22 Test Time: 12:20:45 Pat Name: LORENZA ARMENDARIZ Department: Room: Gender: M Filter Tender: [id number] : 1955 Requested By: Sangeeta Saldana Order Number: [id number] MD: Tim Godinez Measurements Intervals [place] Rate: 56 P: 23 [place]: 152 QRS: 13 QRSD: 126 T: 88 QT: 452 QTc: 437 Interpretive Statements Sinus rhythm Incomplete right bundle branch block Nonspecific ST and T wave abnormality Compared to ECG 02/04/2017 10:45:10 Sinus tachycardia no longer present Electronically Signed On 04-23-2017 9:22:45 POTABLE W[employer] TREATMENT OPERATOR by Tim Godinez [email or web address] <ELECTRONICALLY SIGNED> By: Tim Godinez MD, [facility] 12/921 1220 1220 Tim Godinez MD, [facility] /EPI
[2017-04-22 12:40] LABS: ABG SAMPLE TYPE ARTERIAL; BE(vivo) 0.2 mmol/L (-2 to +3); LACTATE 0.59 mmol/L (0.5-2.0); O2(CT) 15.9 mL/dL (15.0-23.0); O2Hb 90.8 % (92.0-98.0); PCO2 47.1 mmHg (35.0-45.0); PO2 70.4 mmHg (80.0-100.0); sO2 93.4 % (92.0-98.0); tCO2 27.5 mmol/L (24.0-30.0)
[2017-04-22 12:41] LABS: STICK SITE L.BRACHIAL
[2017-04-22 12:51] LABS: ABSOLUTE NEUTROPHILS 4.2 thou/uL (1.4-8.2); BASOPHILS 0.2 % (0.0-2.0); EOSINOPHILS 10.7 % (0.0-3.0); HEMATOCRIT 34.9 % (42.0-52.0); HEMOGLOBIN 11.6 gm/dL (14.0-18.0); LYMPHOCYTES 26.5 % (24.0-44.0); MCH 28.2 pg (26.0-34.0); MCHC 33.3 g/dL (28.0-37.0); MCV 84.7 fL (80.0-100.0); MONOCYTES 6.4 % (1.0-8.0); PLATELET COUNT 241 thou/uL (150-400); POLYS 56.2 % (36.0-66.0); RBC 4.12 mil/uL (4.50-6.00); RDW 13.2 % (10.5-14.5); WBC 7.4 thou/uL (4.0-11.0)
[2017-04-22 12:53] LABS: MANUAL DIFF NO
[2017-04-22 12:55] LABS: ANION GAP 9 mmol/L (7-16); BUN 19 mg/dL (7-18); CALCIUM 9.1 mg/dL (8.5-10.1); CHLORIDE 106 mmol/L (98-107); CO2 27 mmol/L (21-32); CREATININE 1.3 mg/dL (0.7-1.3); GLUCOSE 90 mg/dL (74-106); POTASSIUM 3.1 mmol/L (3.5-5.1); SODIUM 142 mmol/L (136-145)
[2017-04-22 12:57] LABS: APTT 28.4 Seconds (24.5-32.8); PROTIME 10.2 Seconds (9.3-11.4)
[2017-04-22 13:03] LABS: TROPONIN-I < 0.04 ng/mL (<0.06)
[2017-04-22] MEDS ORDERED: DURAGESIC1 EAC1 TRANSDERM (13:27)
[2017-04-22] MEDS ORDERED: ULTRAM 50MG TAB50 MG PO (13:28)
[2017-04-22] MEDS ORDERED: PERCOCET 7.5-31 EACH PO (13:28)
[2017-04-22] MEDS ORDERED: ATORVASTATIN CA40 MG PO (13:29)
[2017-04-22] MEDS ORDERED: FLEXERIL PO (13:33)
[2017-04-22] MEDS ORDERED: ZOFRAN4 MG PO (13:33)
[2017-04-22] MEDS ORDERED: MAGNESIUM (13:33)
[2017-04-22] MEDS ORDERED: POTASSIUM (13:33)
[2017-04-22] MEDS ORDERED: DOXYCYCLINE 10100 MG PO (14:43)
[2017-04-22] MEDS ORDERED: PREDNISONE 20 M20 MG PO (14:43)
[2017-04-22 15:06] VITALS: BP 151/51
== END 2017-04-22 15:07 | disposition home or self-care (01) ==
LOC: ER 12:09
PROVIDERS: Emergency Medicine
DX: J44.9 Chronic obstructive pulmonary disease, unspecified (principal); J18.9 Pneumonia, unspecified organism; F17.210 Nicotine dependence, cigarettes, uncomplicated; F41.9 Anxiety disorder, unspecified; F32.9 Major depressive disorder, single episode, unspecified; I25.2 Old myocardial infarction; I25.10 Atherosclerotic heart disease of native coronary artery without angina pectoris; Z86.73 Personal history of transient ischemic attack (TIA), and cerebral infarction without residual deficits; Z95.1 Presence of aortocoronary bypass graft

== ENCOUNTER → 2017-05-09 | Outpatient (CLI) | payer OTHER ==
[~2017-05-09] MED LIST changes: +AMBIEN 5 MG TABL5 M1 PO; +CEFTRIAXONE250 MG IJ; +DOXYCYCLINE 10100 MG PO; +DURAGESIC1 EAC1 TRANSDERM; +FLEXERIL PO; +IRON325 PO; +LEVAQUIN 750 M750 MG PO; -LOPRESSOR50 PO; +MAGNESIUM; +MUCINEX600 MG PO; +MYCAMINE100 MG IV; +NITROSTAT0.4 M1 SUBLING; +POTASSIUM; +PROBIOTIC1 EAC2 PO; +PROTONIX40 M1 PO; +TOPROL XL25 MG PO; +VANCOMYCIN1 GM/1001 IV; +VITAMIN D31000 UNIT PO
== END ==
LOC: RAD 09:36
DX: J98.11 Atelectasis (principal); G47.33 Obstructive sleep apnea (adult) (pediatric)

== ENCOUNTER 2017-06-30 18:48 | Inpatient (IN) | payer OTHER ==
[~2017-06-30] VITALS: Ht 152.4 cm; Wt 58.1 kg
--- NOTE | ~2017-06-30 | EKG ---
[place] [address] [facility] [place] [address] ELECTROCARDIOGRAM REPORT Name: KALALORENZA YESICA Room #: 170-20 ADM IN M.R.#: [id number] Admission: 06/30/17 Attend Phys: Dee Kumar Discharge: Date of : 53 Report #: [id number] THIS REPORT FOR: //name// [facility] ED Test Date: 2017-06-30 Test Time: 19:12:33 Pat Name: LORENZA ARMENDARIZ Department: Room: 170 Gender: M Admissions Evaluator: MZOOK : 1955 Requested By: Austin Gilbert Order Number: [id number] MD: Tim Godinez Measurements Intervals [place] Rate: 104 P: 37 NC: 137 QRS: 58 QRSD: 119 T: 41 QT: 338 QTc: 445 Interpretive Statements Sinus tachycardia Incomplete right bundle branch block Compared to ECG 04/22/2017 12:20:45 Sinus tachycardia is now present Nonspecific change in the ST and T-wave segments Electronically Signed On 07-01-2017 7:22:10 DATA REVIEW SPECIALIST by Tim Godinez [email or web address] <ELECTRONICALLY SIGNED> By: Tim Godinez MD, [facility] 07/01/17 07 11 11 Tim Godinez MD, [facility] /EPI
[~2017-06-30 18:48] MED LIST changes: -AMBIEN 5 MG TABL5 M1 PO; -CEFTRIAXONE250 MG IJ; -IRON325 PO; -LEVAQUIN 750 M750 MG PO; -MUCINEX600 MG PO; -MYCAMINE100 MG IV; -NITROSTAT0.4 M1 SUBLING; -PROBIOTIC1 EAC2 PO; -PROTONIX40 M1 PO; -VANCOMYCIN1 GM/1001 IV; -VITAMIN D31000 UNIT PO
[2017-06-30 18:59] VITALS: BP 116/70
[2017-06-30 19:09] LABS: ABSOLUTE NEUTROPHILS 5.3 thou/uL (1.4-8.2); BASOPHILS 0.5 % (0.0-2.0); EOSINOPHILS 1.5 % (0.0-3.0); HEMATOCRIT 37.9 % (42.0-52.0); MCH 29.4 pg (26.0-34.0); MCHC 34.2 g/dL (28.0-37.0); MONOCYTES 6.9 % (1.0-8.0); PLATELET COUNT 261 thou/uL (150-400); POLYS 77.1 % (36.0-66.0); RBC 4.41 mil/uL (4.50-6.00); RDW 15.3 % (10.5-14.5); WBC 6.8 thou/uL (4.0-11.0)
[2017-06-30 19:13] LABS: CALCIUM 9.1 mg/dL (8.5-10.1); CREATININE 1.5 mg/dL (0.7-1.3); POTASSIUM 4.5 mmol/L (3.5-5.1)
[2017-07-01] VITALS (7 sets, daily range): BP systolic 115–163; BP diastolic 56–79
[2017-07-01] MEDS ORDERED: SYMBICORT160 MCG/4. INH (01:57)
[2017-07-01 05:09] LABS: HEMATOCRIT 42.3 % (42.0-52.0); HEMOGLOBIN 14.1 gm/dL (14.0-18.0); MCHC 33.3 g/dL (28.0-37.0); MCV 87.2 fL (80.0-100.0); RBC 4.86 mil/uL (4.50-6.00); RDW 15.8 % (10.5-14.5)
[2017-07-01 05:18] LABS: ALBUMIN 3.2 g/dL (3.4-5.0); CALCIUM 9.3 mg/dL (8.5-10.1); CREATININE 1.6 mg/dL (0.7-1.3); POTASSIUM 4.5 mmol/L (3.5-5.1); TOTAL BILIRUBIN 0.4 mg/dL (<0.1-1.0)
[2017-07-01 05:33] LABS: TOTAL PROTEIN 7.7 g/dL (6.4-8.2)
[2017-07-01] MEDS ORDERED: ATORVASTATIN CA40 MG PO (11:45)
[2017-07-01] MEDS ORDERED: VITAMIN D31000 UNIT PO (11:46)
[2017-07-01] MEDS ORDERED: NITROSTAT0.4 M1 SUBLING (11:46)
[2017-07-01] MEDS ORDERED: CENTRUM SILVER1 EAC2 PO (11:46)
[2017-07-01] MEDS ORDERED: IRON325 PO (16:24)
[2017-07-02 04:24] LABS: HEMATOCRIT 33.8 % (42.0-52.0); MCH 29.2 pg (26.0-34.0); MCHC 33.5 g/dL (28.0-37.0); MCV 87.3 fL (80.0-100.0); RBC 3.87 mil/uL (4.50-6.00); WBC 2.7 thou/uL (4.0-11.0)
[2017-07-02 04:40] LABS: CALCIUM 8.1 mg/dL (8.5-10.1); CREATININE 1.4 mg/dL (0.7-1.3); PHOSPHORUS 3.4 mg/dL (2.5-4.9); POTASSIUM 3.9 mmol/L (3.5-5.1)
[2017-07-02 04:42] LABS: HEMOGLOBIN 11.3 gm/dL (14.0-18.0)
[2017-07-02 09:06] VITALS: BP 114/56
[2017-07-02 09:08] VITALS: BP 116/65
[2017-07-02 16:29] VITALS: BP 139/73
[2017-07-02 19:26] VITALS: BP 152/75
[2017-07-02 22:15] LABS: URINE BILIRUBIN NEGATIVE (Negative); URINE BLOOD NEGATIVE (Negative); URINE CLARITY CLEAR; URINE COLOR YELLOW; URINE GLUCOSE-RANDOM* NEGATIVE (Negative); URINE KETONES NEGATIVE (Negative); URINE LEUKOCYTES NEGATIVE (Negative); URINE NITRITE NEGATIVE (Negative); URINE PROTEIN (DIPSTICK) NEGATIVE (Negative); URINE SPECIFIC GRAVITY <= 1.005 (1.005-1.035); URINE UROBILINOGEN 0.2 E.U./dl (0.2-1.0)
[2017-07-03 04:20] LABS: ABSOLUTE NEUTROPHILS 2.6 thou/uL (1.4-8.2); BASOPHILS 0.4 % (0.0-2.0); EOSINOPHILS 5.9 % (0.0-3.0); HEMATOCRIT 33.9 % (42.0-52.0); HEMOGLOBIN 11.4 gm/dL (14.0-18.0); LYMPHOCYTES 25.3 % (24.0-44.0); MCH 28.9 pg (26.0-34.0); MCHC 33.5 g/dL (28.0-37.0); MCV 86.2 fL (80.0-100.0); MONOCYTES 11.9 % (1.0-8.0); PLATELET COUNT 186 thou/uL (150-400); POLYS 56.5 % (36.0-66.0); RBC 3.93 mil/uL (4.50-6.00); RDW 15.6 % (10.5-14.5); WBC 4.6 thou/uL (4.0-11.0)
[2017-07-03 04:29] LABS: CALCIUM 8.7 mg/dL (8.5-10.1); CREATININE 1.5 mg/dL (0.7-1.3); POTASSIUM 4.2 mmol/L (3.5-5.1)
[2017-07-03 05:35] VITALS: BP 102/56
[2017-07-03 08:22] VITALS: BP 122/61
[2017-07-03 16:34] VITALS: BP 125/64
[2017-07-03 20:11] VITALS: BP 110/50
[2017-07-03 22:11] LABS: ADENOVIRUS Negative (Negative); INFLUENZA A Negative (Negative); INFLUENZA B Negative (Negative); METAPNEUMOVIRUS Negative (Negative); PARAINFLUENZA 1 Negative (Negative); PARAINFLUENZA 2 Negative (Negative); PARAINFLUENZA 3 Negative (Negative); RHINOVIRUS Negative (Negative); RSV A Negative (Negative); RSV B Negative (Negative)
[2017-07-04 02:07] LABS: HEMATOCRIT 32.1 % (42.0-52.0); HEMOGLOBIN 10.8 gm/dL (14.0-18.0); MCH 29.4 pg (26.0-34.0); MCHC 33.6 g/dL (28.0-37.0); MCV 87.4 fL (80.0-100.0); RBC 3.67 mil/uL (4.50-6.00); RDW 15.9 % (10.5-14.5)
[2017-07-04 02:38] LABS: CALCIUM 8.5 mg/dL (8.5-10.1); CREATININE 1.7 mg/dL (0.7-1.3); POTASSIUM 4.3 mmol/L (3.5-5.1)
[2017-07-04 03:11] VITALS: BP 97/44
[2017-07-04 08:00] VITALS: BP 112/61
[2017-07-04 16:00] VITALS: BP 145/71
[2017-07-04 19:29] VITALS: BP 121/58
[2017-07-05 03:59] VITALS: BP 109/50
[2017-07-05 08:42] VITALS: BP 107/51
[2017-07-05 16:45] VITALS: BP 125/58
[2017-07-05 19:50] VITALS: BP 119/78
[2017-07-06 04:18] VITALS: BP 109/44
[2017-07-06 05:14] LABS: HEMATOCRIT 33.3 % (42.0-52.0); HEMOGLOBIN 11.1 gm/dL (14.0-18.0); MCH 29.4 pg (26.0-34.0); MCHC 33.5 g/dL (28.0-37.0); MCV 87.9 fL (80.0-100.0); RBC 3.78 mil/uL (4.50-6.00); RDW 15.9 % (10.5-14.5); WBC 4.7 thou/uL (4.0-11.0)
[2017-07-06 05:28] LABS: CALCIUM 8.4 mg/dL (8.5-10.1); CREATININE 1.4 mg/dL (0.7-1.3); POTASSIUM 4.5 mmol/L (3.5-5.1)
[2017-07-06 08:00] VITALS: BP 138/85
[2017-07-06 16:00] VITALS: BP 132/62
[2017-07-06 19:23] VITALS: BP 133/76
[2017-07-07 03:55] VITALS: BP 126/48
[2017-07-07 06:09] LABS: HEMATOCRIT 36.5 % (42.0-52.0); MCH 28.7 pg (26.0-34.0); MCHC 32.9 g/dL (28.0-37.0); MCV 87.3 fL (80.0-100.0); RBC 4.18 mil/uL (4.50-6.00); RDW 15.5 % (10.5-14.5); WBC 6.1 thou/uL (4.0-11.0)
[2017-07-07 06:25] LABS: CALCIUM 8.8 mg/dL (8.5-10.1); CREATININE 1.5 mg/dL (0.7-1.3); POTASSIUM 4.2 mmol/L (3.5-5.1)
[2017-07-07 07:28] VITALS: BP 120/64
[2017-07-07 10:07] VITALS: BP 120/64
[2017-07-07 12:31] VITALS: BP 120/64
[2017-07-07] MEDS ORDERED: MUCINEX600 MG PO (13:58)
[2017-07-07] MEDS ORDERED: MYCAMINE100 MG IV (13:58)
[2017-07-07] MEDS ORDERED: PROTONIX40 M1 PO (13:58)
[2017-07-07] MEDS ORDERED: VANCOMYCIN1 GM/1001 IV (13:58)
[2017-07-07] MEDS ORDERED: PROBIOTIC1 EAC2 PO (13:58)
== END 2017-07-07 18:21 | disposition home or self-care (01) | DRG 314 ==
LOC: ER 18:48 → 4S 21:24 → EROBS 21:24 → 4S 07-01 14:30 → ENTRNSPT 07-07 17:35 → 4S 07-07 18:21
PROVIDERS: Hospitalist; Nurse Practitioner; Nurse Practitioner Acute Care; Radiology Diagnostic Radiology; Specialist
PROC: 02PYX3Z Removal of Infusion Device from Great Vessel, External Approach (ICD-10-PCS; principal; 2017-07-04)
PROC: B548ZZA Ultrasonography of Superior Vena Cava, Guidance (ICD-10-PCS; 2017-07-07)
PROC: 02HV33Z Insertion of Infusion Device into Superior Vena Cava, Percutaneous Approach (ICD-10-PCS; 2017-07-07)
PROC: B5181ZA Fluoroscopy of Superior Vena Cava using Low Osmolar Contrast, Guidance (ICD-10-PCS; 2017-07-07)
DX: T80.211A Bloodstream infection due to central venous catheter, initial encounter (principal); A41.9 Sepsis, unspecified organism; J18.9 Pneumonia, unspecified organism; J44.0 Chronic obstructive pulmonary disease with (acute) lower respiratory infection; J96.10 Chronic respiratory failure, unspecified whether with hypoxia or hypercapnia; K91.2 Postsurgical malabsorption, not elsewhere classified; E46 Unspecified protein-calorie malnutrition; I25.10 Atherosclerotic heart disease of native coronary artery without angina pectoris; F17.210 Nicotine dependence, cigarettes, uncomplicated; G89.29 Other chronic pain; Y83.8 Other surgical procedures as the cause of abnormal reaction of the patient, or of later complication, without mention of misadventure at the time of the procedure; Z95.1 Presence of aortocoronary bypass graft; Z79.82 Long term (current) use of aspirin; Z79.899 Other long term (current) drug therapy; Y92.89 Other specified places as the place of occurrence of the external cause
CPT/HCPCS: 10100

== ENCOUNTER 2017-07-26 19:17 | Inpatient (IN) | payer OTHER ==
[~2017-07-26] VITALS: Ht 165.1 cm; Wt 59.0 kg
--- NOTE | ~2017-07-26 | HC ---
[facility] [place] [address] CONSULTATION Name: LORENZA ARMENDARIZ Room #: 402-P ADM IN M.R.#: [id number] Admission: 07/26/17 Attend Phys: Bar Hannah MD Discharge: Date of : 53 Report #: [id number] THIS REPORT FOR: //name// CC: FAM physician/PCP Kyler Vega DATE OF SERVICE: 07/27/2017 ATTENDING PHYSICIAN: Dr. Vega. REASON FOR EVALUATION: Gram-negative septicemia. HISTORY OF PRESENT ILLNESS: Chart reviewed, the patient examined. This is a 62-year-old gentleman with extensive medical history. He has been hospitalized multiple times, has severe chronic obstructive pulmonary disease, O2 requiring; chronic pain, on narcotics; does have short gut, is on total parenteral nutrition; longstanding indwelling central venous catheter, currently a PICC line in his right upper extremity who apparently was found by his sisters at home down. He had fallen, presumably hit his head. He was not responsive. He was febrile to 103, perhaps up to the last 2-3 days. Evaluation included chest x-ray, which showed some linear infiltrates. Influenza antigen was negative. CBC, white count was normal initially, with a jump to 24.5 earlier today. Blood cultures collected at the time of admission are now growing gram-negative rods. Previously he has had several septicemias including klebsiella, stenotrophomonas, valentina and Staphylococcus epidermidis. Empirically started on ciprofloxacin and vancomycin. He is actually fairly lucid at this point. ALLERGIES: None known. MEDICATIONS: Include Zosyn, isosorbide mononitrate, tamsulosin, quetiapine, citalopram, vancomycin, metoprolol, ferrous sulfate, cholecalciferol, atorvastatin, aspirin, pantoprazole, ursodiol, amitriptyline, oxycodone. PAST MEDICAL HISTORY: Above noted, O2 requiring chronic obstructive pulmonary disease, has vasculopathy with known coronary artery disease, chronic back pain with previous surgery, short bowel syndrome, complete colonic resection with ileostomy, Chiari malformation, previous strokes. SOCIAL HISTORY: Smokes 3-5 cigarettes a day. No ethanol. No illicit drug use. FAMILY HISTORY: Noncontributory. REVIEW OF SYSTEMS: Does admit to a nonproductive cough. He notes his pulmonary status is about the same. He has not had significant GI related complaint; however, earlier had some dry heaves. [address] [address] CONSULTATION Name: LORENZA ARMENDARIZ YESICA Room #: 402-P [facility]#: [id number] Admission: 07/26/17 Attend Phys: Bar Hannah MD Discharge: Date of : 53 Report #: [id number] PHYSICAL EXAMINATION: GENERAL: He is alert. He appears chronically ill, undernourished, mild to moderate distress. VITAL SIGNS: Temperature 98, pulse 66, respirations 18, blood pressure 111/65. SKIN: Warm. HEENT: Nasal cannula oxygen in place. NECK: Supple. LUNGS: Diminished, few scattered crackles. I do not think there is anything for consolidation. HEART: Regular, has some ectopy, soft systolic murmur. ABDOMEN: Soft, nontender, nondistended. There are no peritoneal signs. GENITOURINARY: Deferred. RECTAL: Deferred. LABORATORY DATA: Blood cultures, as described above, gram-negative rods. CBC: White count 24.5, H and H 11.6 and 34.6, platelets of 148. Electrolytes: Sodium 129, potassium 3.9, chloride 96, bicarbonate 22, BUN and creatinine 36 and 2.2, glucose of 109. ABGs, pH 7.417, pCO2 of 27.7, pO2 of 86.9, lactate of 1.28. ASSESSMENT AND PLAN: Gram-negative septicemia without a clear source, certainly cannot exclude the lungs given the severity of his illness, although his lack of symptomology in the setting of, I am sure, minimal reserve makes it less likely. Line is a possibility as this has been diagnosed in the past. We will check a urinalysis, although he has been on antibiotics. Go and check some liver function tests as well to exclude the possibility of perhaps some biliary source. Based on what is isolated, we may need additional imaging studies to exclude an intraabdominal process. At this point, he is not overtly toxic. <ELECTRONICALLY SIGNED> By: Eliseo Aponte MD 07/28/17 [phone] Eliseo Aponte MD /nt
--- NOTE | ~2017-07-26 | EKG ---
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 : 1955 Requested By: Selin Mayen Order Number: [id number] MD: Tim Godinez Measurements Intervals [place] Rate: 107 P: 58 [place]: 140 QRS: 48 QRSD: 104 T: 195 QT: 302 QTc: 403 Interpretive Statements Sinus tachycardia Atrial premature complexes RSR' in V1 or V2, right VCD Nonspecific T abnormalities, lateral leads Compared to ECG 06/30/2017 19:12:33 Atrial premature complex(es) now present T-wave abnormality now present Electronically Signed On 07-27-2017 14:06:54 CDT by Tim Godinez [email or web address] <ELECTRONICALLY SIGNED> By: Tim Godinez MD, [facility] 07/27/17 1406 24 Tim Godinez MD, [facility] /EPI
--- NOTE | ~2017-07-26 | 2DMMODE ---
[facility] [address] [facility] [place] [address] 2 D/M-MODE ECHOCARDIOGRAM Name: KALALORENZA YESICA Room #: 402-P ADM IN M.R.#: [id number] Admission: 07/26/17 Attend Phys: Bar Hannah MD Discharge: Date of : 53 Date of Service: 07/29/17 0850 Report #: [id number] THIS REPORT FOR: //name// APPROVED REPORT Study performed: 07/29/2017 08:05:55 EXAM: Comprehensive 2D, Doppler, and color-flow Echocardiogram Patient Location: Bedside Room #: 402 Status: routine BSA: 1.67 HR: 66 bpm BP: 97/46 mmHg Rhythm: NSR, IRREGULAR Other Information Study Quality: Fair Technically limited study due to body habitus, lung disease. Indications Recurrent sepsis/bacteremia. Hx: CABG, CVA, COPD 2D Dimensions RVDd: 34.97 mm LVEF(%): 44.87 (>50%) IVSd: 13.31 (7-11mm) LVOT Diam: 21.05 (18-24mm) LVDd: 53.44 mm PWd: 12.65 (7-11mm) LVDs: 41.43 (25-40mm) Aortic Root: 38.40 mm Schaeffer's LVEF: 44.87 % Volumes Left Atrial Volume (Systole) Single Plane 4CH: 46.73 mL Single Plane 2CH: 38.95 mL LA ESV Index: 27.00 mL/m2 Aortic Valve AoV Peak Jose J.: 1.50 m/s AO Peak Gr.: 9.05 mmHg LVOT Max P.59 mmHg LVOT Max V: 1.38 m/s JOSE A Vmax: 3.19 cm2 Mitral Valve [facility] [address] [place] [address] 2 D/M-MODE ECHOCARDIOGRAM Name: LORENZA ARMENDARIZ YESICA Room #: [address] [place] [address] IN ..#: [id number] Admission: 07/26/17 Attend Phys: Bar Hannah MD Discharge: Date of : 53 Date of Service: 07/29/17 0850 Report #: [id number] E/A Ratio: 0.8 MV Decel. Time: 269.88 ms MV E Max Jose J.: 0.76 m/s MV A Jose J.: 0.93 m/s MV PHT: 78.26 ms IVRT: 87.66 ms Pulmonary Vein P Vein S: 0.50 m/s P Vein D: 0.67 m/s P Vein S/D Ratio: 0.75 Tricuspid Valve TR Peak Jose J.: 2.61 m/s RAP Estimate: 10.00 mmHg TR Peak Gr.: 27.22 mmHg PA Pressure: 37.00 mmHg Left Ventricle The left ventricle is normal size. There is normal LV segmental wall motion. Mild concentric left ventricular hypertrophy. Left ventricular systolic function is normal. LVEF is 50-55%. Mild diastolic dysfunction is present (impaired relaxation pattern). Right Ventricle The right ventricle is normal size. The right ventricular systolic function is normal. Atria The left atrium size is normal. The right atrium size is normal. Aortic Valve The aortic valve is not well visualized. Appears sclerotic. No aortic regurgitation is present. There is no aortic valvular stenosis. Mitral Valve Mild mitral annular calcification, submitral calcification. No mitral regurgitation. Tricuspid Valve The tricuspid valve is normal in structure. Mild tricuspid regurgitation. Estimated PAP is 35-40mmHg. Pulmonic Valve [facility] [address] [place] [address] 2 D/M-MODE ECHOCARDIOGRAM Name: LORENZA ARMENDARIZ YESICA Room #: 402-P [facility] IN M.R.#: [id number] Admission: 07/26/17 Attend Phys: Bar Hannah MD Discharge: Date of : 53 Date of Service: 07/29/17 0850 Report #: [id number] Pulmonic valve is not well visualized. Great Vessels Aortic root is borderline dilated. Ascending aorta is not well visualized. IVC is normal in size and collapses <50% with inspiration. Pericardium There is no pericardial effusion. <Conclusion> Left ventricular systolic function is normal. There is normal LV segmental wall motion. LVEF 50-55%. Mild diastolic dysfunction The aortic valve is not well visualized. Appears sclerotic. No aortic regurgitation or stenosis. Mild mitral annular calcification, submitral calcification. No mitral regurgitation. Mild tricuspid regurgitation. Estimated pulmonary artery pressure 35-40mmHg. There is no pericardial effusion. <ELECTRONICALLY SIGNED> By: Tim Godinez MD, FACC 07/29/1750 9 9 Tim Godinez MD, FACC /INF
--- NOTE | ~2017-07-26 | P ---
[facility] [place] [address] PROCEDURE REPORT Name: LORENZA ARMENDARIZ Room #: 402-P [facility] IN M.R.#: [id number] Admission: 07/26/17 Attend Phys: Bar Hannah MD Discharge: Date of : 53 Report #: [id number] THIS REPORT FOR: //name// CC: [facility] physician/PCP Bar Hannah BRIEF HISTORY: The patient is a 62-year-old male with a history of short-bowel syndrome who has been receiving TPN on a long-term basis. He has had multiple episodes of line sepsis and recently admitted with another episode of line sepsis. After discussion, it was felt best to manage him with tube feedings rather than TPN. PREOPERATIVE DIAGNOSES: Short-bowel syndrome with malnutrition, also solid food dysphagia. POSTOPERATIVE DIAGNOSES: Short-bowel syndrome with malnutrition, also solid food dysphagia and duodenal diverticulum. MEDICATIONS: Deep sedation with propofol per anesthesia. SPECIMEN: None. ESTIMATED BLOOD LOSS: 3 mL. PROCEDURE: Percutaneous endoscopic gastrostomy tube placement and Uriostegui dilation. FINDINGS: Prior to propofol sedation, procedure of PEG tube placement discussed with the patient as well as potential risks, benefits, and complications. He indicates he understands and desires to proceed. With the patient in supine position, head and chest raised about 20 degrees, the Fuji video endoscope was inserted in the cervical esophagus under direct vision without difficulty. Examination of this organ through its entire length with normal esophageal mucosa down the squamocolumnar junction. The patient reports intermittent dysphagia. He has been dilated in the past, which has been helpful. No strictures or masses were seen in the esophagus today. Scope was advanced in the stomach, was examined on end view as well as retroflexed views. He had normal appearing mucosa. Upon retroflexion, no mass lesions were seen. A hiatus hernia was not seen. Distal stomach was normal. Pylorus, normal. Duodenal bulb was normal. Examination of the duodenal sweep revealed a postbulbar duodenal diverticulum. This has been previously noted. The scope was then withdrawn back into the stomach. In the body of the stomach, the light was aimed against the anterior gastric wall and excellent transilluminating light was seen just left of midline about the costal margin above the ostomy site. The stomach was fully insufflated with air. The skin was prepped and draped using usual sterile technique. Subsequently, the skin was infiltrated [address] [address] PROCEDURE REPORT Name: LORENZA ARMENDARIZ Room #: 402-P [facility] IN .R.#: [id number] Admission: 07/26/17 Attend Phys: Bar Hannah MD Discharge: Date of : 53 Report #: [id number] with Xylocaine and using the safetrack technique, a skinny needle was guided into gastric lumen under direct endoscopic vision. Subsequently, the needle was withdrawn. A small skin incision was made with a scalpel and the introducing trocar was introduced through the same tract without difficulty under direct endoscopic vision. Guidewire was inserted, retrieved and pulled out the mouth. Subsequently, a 20-Indonesian feeding gastrostomy tube was guided over the wire. The tube was pulled into position. The external restraining disk was applied. The scope was reinserted and final adjustments were made under direct endoscopic vision. The patient tolerated the procedure well. Subsequently, he was dilated with a passage of 52-Indonesian Uriostegui dilator with no resistance. DISPOSITION: PEG tube placed without difficulty. We will allow him to start liquids in about 6 hours and resume tube feedings later today. He should return for dilation on an as needed basis. <ELECTRONICALLY SIGNED> By: Michael Michael MD 08/05/17 2032 1138 1315 Michael Michael MD /nt
[~2017-07-26 19:17] MED LIST changes: +IRON325 PO; +MUCINEX600 MG PO; +MYCAMINE100 MG IV; +NITROSTAT0.4 M1 SUBLING; +PROBIOTIC1 EAC2 PO; +PROTONIX40 M1 PO; +VANCOMYCIN1 GM/1001 IV; +VITAMIN D31000 UNIT PO
[2017-07-26 19:19] VITALS: BP 101/63
[2017-07-26 19:44] LABS: BE(vivo) -5.6 mmol/L (-2 to +3); HCO3 17.4 mmol/L (22.0-26.0); PCO2 27.7 mmHg (35.0-45.0); PO2 86.9 mmHg (80.0-100.0); pH 7.417 (7.360-7.450); sO2 96.9 % (92.0-98.0)
[2017-07-26 19:47] LABS: HEMATOCRIT 36.4 % (42.0-52.0); HEMOGLOBIN 12.3 gm/dL (14.0-18.0); MCH 29.1 pg (26.0-34.0); MCHC 33.7 g/dL (28.0-37.0); MCV 86.4 fL (80.0-100.0); PLATELET COUNT 150 thou/uL (150-400); RBC 4.22 mil/uL (4.50-6.00); RDW 15.5 % (10.5-14.5); WBC 9.1 thou/uL (4.0-11.0)
[2017-07-26 19:53] LABS: CALCIUM 9.1 mg/dL (8.5-10.1); CREATININE 2.1 mg/dL (0.7-1.3); POTASSIUM 3.2 mmol/L (3.5-5.1)
[2017-07-26] MEDS ORDERED: PERCOCET 7.5-31 EACH PO (20:12)
[2017-07-26] MEDS ORDERED: TOPROL XL50 MG PO (20:13)
[2017-07-26] MEDS ORDERED: SPIRIVA INH (20:14)
[2017-07-26] MEDS ORDERED: FLEXERIL PO (20:15)
[2017-07-26 20:27] LABS: ABSOLUTE NEUTROPHILS 7.9 thou/uL (1.4-8.2)
[2017-07-26 21:03] VITALS: BP 104/54
[2017-07-26 22:09] VITALS: BP 113/65
[2017-07-27 05:23] LABS: HEMATOCRIT 34.6 % (42.0-52.0); HEMOGLOBIN 11.6 gm/dL (14.0-18.0); MCH 28.5 pg (26.0-34.0); MCHC 33.6 g/dL (28.0-37.0); MCV 84.8 fL (80.0-100.0); RBC 4.08 mil/uL (4.50-6.00); RDW 15.6 % (10.5-14.5)
[2017-07-27 05:32] LABS: CALCIUM 9.3 mg/dL (8.5-10.1); CREATININE 2.2 mg/dL (0.7-1.3); POTASSIUM 3.9 mmol/L (3.5-5.1)
[2017-07-27 05:34] LABS: WBC 24.5 thou/uL (4.0-11.0)
[2017-07-27 05:40] VITALS: BP 119/66
[2017-07-27 07:36] VITALS: BP 105/57
[2017-07-27 17:20] VITALS: BP 117/65
[2017-07-27 20:00] VITALS: BP 121/70
[2017-07-27 20:55] LABS: ALBUMIN 2.6 g/dL (3.4-5.0); DIRECT BILIRUBIN 0.2 mg/dL (<0.1-0.3); TOTAL BILIRUBIN 0.5 mg/dL (<0.1-1.0); TOTAL PROTEIN 6.9 g/dL (6.4-8.2)
[2017-07-28 03:13] LABS: URINE BILIRUBIN NEGATIVE (Negative); URINE BLOOD TRACE (Negative); URINE CLARITY CLEAR; URINE COLOR YELLOW; URINE GLUCOSE-RANDOM* NEGATIVE (Negative); URINE KETONES NEGATIVE (Negative); URINE LEUKOCYTES-REFLEX NEGATIVE (Negative); URINE NITRITE-REFLEX NEGATIVE (Negative); URINE PROTEIN (DIPSTICK) NEGATIVE (Negative); URINE SPECIFIC GRAVITY <= 1.005 (1.005-1.035); URINE UROBILINOGEN 0.2 E.U./dl (0.2-1.0)
[2017-07-28 04:00] VITALS: BP 111/62
[2017-07-28 07:47] LABS: BASOPHILS 0.3 % (0.0-2.0); EOSINOPHILS 6.4 % (0.0-3.0); HEMATOCRIT 32.9 % (42.0-52.0); HEMOGLOBIN 11.1 gm/dL (14.0-18.0); LYMPHOCYTES 15.2 % (24.0-44.0); MCH 28.8 pg (26.0-34.0); MCHC 33.8 g/dL (28.0-37.0); MCV 85.2 fL (80.0-100.0); MONOCYTES 11.8 % (1.0-8.0); PLATELET COUNT 158 thou/uL (150-400); POLYS 66.3 % (36.0-66.0); RBC 3.86 mil/uL (4.50-6.00); RDW 15.8 % (10.5-14.5); WBC 12.1 thou/uL (4.0-11.0)
[2017-07-28 08:04] LABS: CALCIUM 8.8 mg/dL (8.5-10.1); POTASSIUM 3.3 mmol/L (3.5-5.1)
[2017-07-28 09:26] VITALS: BP 103/64
[2017-07-28 16:25] VITALS: BP 103/56
[2017-07-28 16:39] LABS: AMP/METHAMP Negative (Negative); BARBITURATES Negative (Negative); BENZODIAZEPINES Negative (Negative); COCAINE Negative (Negative); METHADONE Negative (Negative); OPIATES Negative (Negative); PCP Negative (Negative)
[2017-07-28 20:00] VITALS: BP 95/56
[2017-07-29 04:00] VITALS: BP 97/46
[2017-07-29 07:26] LABS: ABSOLUTE NEUTROPHILS 5.5 thou/uL (1.4-8.2); BASOPHILS 0.4 % (0.0-2.0); EOSINOPHILS 13.2 % (0.0-3.0); HEMATOCRIT 32.7 % (42.0-52.0); HEMOGLOBIN 11.2 gm/dL (14.0-18.0); LYMPHOCYTES 18.1 % (24.0-44.0); MCH 29.2 pg (26.0-34.0); MCHC 34.4 g/dL (28.0-37.0); MCV 84.9 fL (80.0-100.0); MONOCYTES 8.2 % (1.0-8.0); PLATELET COUNT 167 thou/uL (150-400); POLYS 60.1 % (36.0-66.0); RBC 3.85 mil/uL (4.50-6.00); RDW 14.9 % (10.5-14.5); WBC 9.1 thou/uL (4.0-11.0)
[2017-07-29 07:45] LABS: CALCIUM 8.5 mg/dL (8.5-10.1); CREATININE 1.9 mg/dL (0.7-1.3); POTASSIUM 3.3 mmol/L (3.5-5.1)
[2017-07-29 07:51] LABS: ALBUMIN 2.4 g/dL (3.4-5.0); DIRECT BILIRUBIN 0.2 mg/dL (<0.1-0.3); TOTAL BILIRUBIN 0.5 mg/dL (<0.1-1.0); TOTAL PROTEIN 6.6 g/dL (6.4-8.2)
[2017-07-29 09:26] VITALS: BP 98/57
[2017-07-29 12:40] VITALS: BP 105/64; BP 112/51; BP 95/59
[2017-07-29 16:13] VITALS: BP 98/53
[2017-07-29 20:25] VITALS: BP 118/55
[2017-07-29 22:14] LABS: ADENOVIRUS Negative (Negative); INFLUENZA A Negative (Negative); INFLUENZA B Negative (Negative); METAPNEUMOVIRUS Negative (Negative); PARAINFLUENZA 1 Negative (Negative); PARAINFLUENZA 2 Negative (Negative); PARAINFLUENZA 3 Negative (Negative); RHINOVIRUS Negative (Negative); RSV A Negative (Negative); RSV B Negative (Negative)
[2017-07-30 04:00] VITALS: BP 95/58
[2017-07-30 04:08] LABS: BASOPHILS 0.4 % (0.0-2.0); EOSINOPHILS 15.2 % (0.0-3.0); LYMPHOCYTES 24.5 % (24.0-44.0); MCH 29.3 pg (26.0-34.0); MCHC 34.3 g/dL (28.0-37.0); MCV 85.4 fL (80.0-100.0); PLATELET COUNT 199 thou/uL (150-400); POLYS 50.9 % (36.0-66.0); RBC 3.75 mil/uL (4.50-6.00); RDW 15.1 % (10.5-14.5); WBC 7.9 thou/uL (4.0-11.0)
[2017-07-30 04:22] LABS: CALCIUM 8.6 mg/dL (8.5-10.1); CREATININE 1.8 mg/dL (0.7-1.3); POTASSIUM 3.6 mmol/L (3.5-5.1)
[2017-07-30 07:05] VITALS: BP 112/67
[2017-07-30 11:15] VITALS: BP 109/71
[2017-07-30 15:36] VITALS: BP 121/73
[2017-07-30 20:00] VITALS: BP 107/66
[2017-07-30 23:56] VITALS: BP 103/51
[2017-07-31 04:00] VITALS: BP 97/67
[2017-07-31 05:39] LABS: HEMOGLOBIN 11.5 gm/dL (14.0-18.0); MCHC 33.8 g/dL (28.0-37.0); MCV 85.9 fL (80.0-100.0); RBC 3.96 mil/uL (4.50-6.00); WBC 10.9 thou/uL (4.0-11.0)
[2017-07-31 05:51] LABS: POTASSIUM 4.5 mmol/L (3.5-5.1)
[2017-07-31 07:03] LABS: CREATININE 1.7 mg/dL (0.7-1.3)
[2017-07-31 07:05] LABS: CALCIUM 8.2 mg/dL (8.5-10.1); TOTAL BILIRUBIN 0.4 mg/dL (<0.1-1.0)
[2017-07-31 07:07] LABS: ALBUMIN 2.6 g/dL (3.4-5.0); TOTAL PROTEIN 5.8 g/dL (6.4-8.2)
[2017-07-31 07:15] VITALS: BP 120/74
[2017-07-31 15:07] VITALS: BP 104/58
[2017-07-31 20:24] VITALS: BP 118/72
[2017-08-01 04:06] VITALS: BP 133/59
[2017-08-01 05:35] LABS: ABSOLUTE NEUTROPHILS 7.1 thou/uL (1.4-8.2); BASOPHILS 0.4 % (0.0-2.0); EOSINOPHILS 15.3 % (0.0-3.0); HEMATOCRIT 32.5 % (42.0-52.0); HEMOGLOBIN 11.2 gm/dL (14.0-18.0); MCH 29.5 pg (26.0-34.0); MCHC 34.6 g/dL (28.0-37.0); MCV 85.4 fL (80.0-100.0); MONOCYTES 5.9 % (1.0-8.0); PLATELET COUNT 298 thou/uL (150-400); POLYS 58.4 % (36.0-66.0); RBC 3.81 mil/uL (4.50-6.00); RDW 15.1 % (10.5-14.5); WBC 12.2 thou/uL (4.0-11.0)
[2017-08-01 05:42] LABS: CALCIUM 8.7 mg/dL (8.5-10.1); CREATININE 1.7 mg/dL (0.7-1.3); POTASSIUM 4.9 mmol/L (3.5-5.1)
[2017-08-01 07:05] VITALS: BP 99/40
[2017-08-01 07:23] VITALS: BP 143/58
[2017-08-01 15:00] VITALS: BP 107/53
[2017-08-01 20:27] VITALS: BP 113/67
[2017-08-02 03:26] LABS: ABSOLUTE NEUTROPHILS 5.7 thou/uL (1.4-8.2); BASOPHILS 0.4 % (0.0-2.0); HEMATOCRIT 31.8 % (42.0-52.0); HEMOGLOBIN 10.9 gm/dL (14.0-18.0); LYMPHOCYTES 20.7 % (24.0-44.0); MCH 29.4 pg (26.0-34.0); MCHC 34.3 g/dL (28.0-37.0); MCV 85.7 fL (80.0-100.0); PLATELET COUNT 322 thou/uL (150-400); POLYS 56.9 % (36.0-66.0); RBC 3.71 mil/uL (4.50-6.00); RDW 15.5 % (10.5-14.5)
[2017-08-02 03:33] LABS: CALCIUM 8.5 mg/dL (8.5-10.1); CREATININE 1.6 mg/dL (0.7-1.3); POTASSIUM 4.5 mmol/L (3.5-5.1)
[2017-08-02 03:37] LABS: ALBUMIN 2.4 g/dL (3.4-5.0); DIRECT BILIRUBIN 0.1 mg/dL (<0.1-0.3); TOTAL BILIRUBIN 0.4 mg/dL (<0.1-1.0); TOTAL PROTEIN 6.5 g/dL (6.4-8.2)
[2017-08-02 04:21] VITALS: BP 99/56
[2017-08-02 07:10] VITALS: BP 106/59
[2017-08-02 20:00] VITALS: BP 144/59
[2017-08-03 04:30] LABS: ABSOLUTE NEUTROPHILS 5.8 thou/uL (1.4-8.2); BASOPHILS 0.4 % (0.0-2.0); EOSINOPHILS 12.7 % (0.0-3.0); HEMATOCRIT 34.5 % (42.0-52.0); HEMOGLOBIN 11.7 gm/dL (14.0-18.0); MCH 29.4 pg (26.0-34.0); MCHC 33.8 g/dL (28.0-37.0); PLATELET COUNT 350 thou/uL (150-400); POLYS 53.9 % (36.0-66.0); RBC 3.97 mil/uL (4.50-6.00); RDW 15.5 % (10.5-14.5); WBC 10.7 thou/uL (4.0-11.0)
[2017-08-03 04:42] LABS: CALCIUM 8.9 mg/dL (8.5-10.1); CREATININE 1.6 mg/dL (0.7-1.3)
[2017-08-03 07:05] VITALS: BP 110/36
[2017-08-03 13:56] VITALS: BP 116/64
[2017-08-03 17:02] VITALS: BP 113/55
[2017-08-03 19:09] VITALS: BP 118/62
[2017-08-04] VITALS (9 sets, daily range): BP systolic 90–173; BP diastolic 33–91
[2017-08-04 06:36] LABS: ABSOLUTE NEUTROPHILS 3.6 thou/uL (1.4-8.2); BASOPHILS 0.6 % (0.0-2.0); HEMATOCRIT 29.2 % (42.0-52.0); HEMOGLOBIN 10.2 gm/dL (14.0-18.0); LYMPHOCYTES 26.5 % (24.0-44.0); MCH 30.1 pg (26.0-34.0); MCHC 34.9 g/dL (28.0-37.0); MCV 86.4 fL (80.0-100.0); MONOCYTES 7.1 % (1.0-8.0); PLATELET COUNT 305 thou/uL (150-400); POLYS 51.8 % (36.0-66.0); RBC 3.38 mil/uL (4.50-6.00)
[2017-08-04 06:48] LABS: CALCIUM 8.5 mg/dL (8.5-10.1); CREATININE 1.6 mg/dL (0.7-1.3); POTASSIUM 4.3 mmol/L (3.5-5.1)
[2017-08-05] VITALS: BP 99/66
[2017-08-05 04:00] VITALS: BP 124/62
[2017-08-05 06:23] LABS: ABSOLUTE NEUTROPHILS 8.5 thou/uL (1.4-8.2); BASOPHILS 0.4 % (0.0-2.0); EOSINOPHILS 3.1 % (0.0-3.0); HEMATOCRIT 32.7 % (42.0-52.0); HEMOGLOBIN 11.2 gm/dL (14.0-18.0); LYMPHOCYTES 17.1 % (24.0-44.0); MCH 29.1 pg (26.0-34.0); MCHC 34.1 g/dL (28.0-37.0); MCV 85.2 fL (80.0-100.0); MONOCYTES 3.8 % (1.0-8.0); PLATELET COUNT 332 thou/uL (150-400); POLYS 75.6 % (36.0-66.0); RBC 3.83 mil/uL (4.50-6.00); RDW 14.9 % (10.5-14.5); WBC 11.2 thou/uL (4.0-11.0)
[2017-08-05 06:36] LABS: CALCIUM 9.2 mg/dL (8.5-10.1); CREATININE 1.6 mg/dL (0.7-1.3); POTASSIUM 4.1 mmol/L (3.5-5.1)
[2017-08-05 09:40] VITALS: BP 119/72
[2017-08-05 16:29] VITALS: BP 110/62
[2017-08-05 20:00] VITALS: BP 123/52
[2017-08-06 04:00] VITALS: BP 119/63
[2017-08-06 05:50] LABS: ABSOLUTE NEUTROPHILS 7.3 thou/uL (1.4-8.2); BASOPHILS 0.4 % (0.0-2.0); EOSINOPHILS 5.1 % (0.0-3.0); HEMATOCRIT 32.3 % (42.0-52.0); HEMOGLOBIN 10.9 gm/dL (14.0-18.0); LYMPHOCYTES 15.9 % (24.0-44.0); MCH 29.3 pg (26.0-34.0); MCHC 33.7 g/dL (28.0-37.0); MCV 86.8 fL (80.0-100.0); MONOCYTES 5.9 % (1.0-8.0); PLATELET COUNT 286 thou/uL (150-400); POLYS 72.7 % (36.0-66.0); RBC 3.72 mil/uL (4.50-6.00); RDW 14.7 % (10.5-14.5)
[2017-08-06 06:10] LABS: CALCIUM 8.7 mg/dL (8.5-10.1); CREATININE 1.4 mg/dL (0.7-1.3); POTASSIUM 3.6 mmol/L (3.5-5.1)
[2017-08-06 07:26] VITALS: BP 120/64
[2017-08-06 11:23] VITALS: BP 106/60
[2017-08-06 19:21] VITALS: BP 124/74
[2017-08-07 04:45] VITALS: BP 111/50
[2017-08-07 06:03] LABS: ABSOLUTE NEUTROPHILS 4.3 thou/uL (1.4-8.2); BASOPHILS 0.4 % (0.0-2.0); EOSINOPHILS 9.8 % (0.0-3.0); HEMATOCRIT 29.3 % (42.0-52.0); LYMPHOCYTES 20.4 % (24.0-44.0); MCH 29.5 pg (26.0-34.0); MCV 86.7 fL (80.0-100.0); MONOCYTES 6.3 % (1.0-8.0); PLATELET COUNT 257 thou/uL (150-400); POLYS 63.1 % (36.0-66.0); RBC 3.38 mil/uL (4.50-6.00); RDW 14.8 % (10.5-14.5); WBC 6.8 thou/uL (4.0-11.0)
[2017-08-07 06:18] LABS: CALCIUM 8.6 mg/dL (8.5-10.1); CREATININE 1.5 mg/dL (0.7-1.3); POTASSIUM 3.7 mmol/L (3.5-5.1)
[2017-08-07 08:28] VITALS: BP 103/52
[2017-08-07 17:37] VITALS: BP 121/42
[2017-08-07 20:10] VITALS: BP 119/70
[2017-08-08 04:24] VITALS: BP 137/57
[2017-08-08 08:13] VITALS: BP 123/69
[2017-08-08 16:45] VITALS: BP 126/62
[2017-08-08 17:18] VITALS: BP 126/62
[2017-08-08 17:20] VITALS: BP 126/62
[2017-08-08 17:59] VITALS: BP 126/62
== END 2017-08-08 18:41 | disposition home health service (06) | DRG 314 ==
LOC: ER 19:17 → 4N 20:33 → EROBS 20:33 → 4N 21:33
PROVIDERS: Emergency Medicine; Family Medicine; Hospitalist; Nurse Practitioner; Nurse Practitioner Acute Care; Specialist
DX: T80.211A Bloodstream infection due to central venous catheter, initial encounter (principal); J18.9 Pneumonia, unspecified organism; N17.9 Acute kidney failure, unspecified; J96.11 Chronic respiratory failure with hypoxia; E87.1 Hypo-osmolality and hyponatremia; K91.2 Postsurgical malabsorption, not elsewhere classified; E46 Unspecified protein-calorie malnutrition; F11.20 Opioid dependence, uncomplicated; T85.79XA Infection and inflammatory reaction due to other internal prosthetic devices, implants and grafts, initial encounter; J44.0 Chronic obstructive pulmonary disease with (acute) lower respiratory infection; I25.10 Atherosclerotic heart disease of native coronary artery without angina pectoris; F41.8 Other specified anxiety disorders; F17.210 Nicotine dependence, cigarettes, uncomplicated; E87.6 Hypokalemia; G89.29 Other chronic pain; M54.9 Dorsalgia, unspecified; E86.0 Dehydration; I12.9 Hypertensive chronic kidney disease with stage 1 through stage 4 chronic kidney disease, or unspecified chronic kidney disease; R74.0 Nonspecific elevation of levels of transaminase and lactic acid dehydrogenase [LDH]; N18.3 Chronic kidney disease, stage 3 (moderate); R13.10 Dysphagia, unspecified; K57.10 Diverticulosis of small intestine without perforation or abscess without bleeding; B34.9 Viral infection, unspecified; K21.9 Gastro-esophageal reflux disease without esophagitis; E78.5 Hyperlipidemia, unspecified; Z93.2 Ileostomy status; Z95.1 Presence of aortocoronary bypass graft; Z86.73 Personal history of transient ischemic attack (TIA), and cerebral infarction without residual deficits; Z68.21 Body mass index [BMI] 21.0-21.9, adult; Z79.899 Other long term (current) drug therapy; Z79.82 Long term (current) use of aspirin
CPT/HCPCS: 10790; 62110; 62900; 70005

== ENCOUNTER 2017-08-13 18:18 | Inpatient (IN) | payer OTHER ==
[~2017-08-13] VITALS: Ht 165.1 cm; Wt 61.2 kg
--- NOTE | ~2017-08-13 | HC ---
[facility] [place] [address] CONSULTATION Name: LORENZA ARMENDARIZ Room #: 463-P [facility] IN M.R.#: [id number] Admission: 08/13/17 Attend Phys: Israel Damon MD Discharge: 08/22/17 Date of : 53 Report #: [id number] THIS REPORT FOR: //name// CC: Israel Carrion DATE OF SERVICE: 08/14/2017 REASON FOR CONSULTATION: Acute renal failure. HISTORY OF PRESENT ILLNESS: This 62-year-old patient well known to our service, previously followed with known short gut syndrome, on chronic TPN, prone to dehydration and electrolyte abnormalities. He has been stable on TPN until recently when he underwent the removal of a central venous catheter for Gram-negative septicemia and was placed with a PEG tube. He had been receiving 4-5 liters of intravenous fluids daily to remain hydrated due to his excessive jejunostomy losses, has been getting only 1-2 liters total enterally, has become obviously rather dehydrated on that program, his creatinine has risen and electrolytes are abnormal. PAST MEDICAL HISTORY: He has had previous severe longstanding COPD, on home oxygen with previous stroke, coronary artery bypass, marked ischemic bowel disease, multiple ischemic bowel, multiple bowel resections, and short gut syndrome. FAMILY HISTORY: Positive for throat cancer and lymphoma. SOCIAL HISTORY: He is a cigarette smoker. HOME MEDICATIONS: Include albuterol inhaler, Elavil 50 mg t.i.d., aspirin 325 mg daily, atorvastatin 40 mg daily, vitamin D3 2000 units daily, Celexa 40 mg daily, fentanyl patch every 3 days, iron, furosemide 20 mg p.r.n., isosorbide 30 mg daily, metoprolol 50 mg daily, Protonix 40 mg daily, Flomax 0.4 mg daily, Spiriva, ursodiol 300 mg daily and Ambien. REVIEW OF SYSTEMS: GENERAL: He is feeling poorly. He is weak. He has high jejunostomy output. EYES: His vision is okay. ENT: Hearing okay, swallows okay. ENDOCRINE: He has had some glucose intolerance in the past. RESPIRATORY: Easily short winded on home O2. CARDIAC: No chest pain, previous heart bypass, severe peripheral vascular disease. GASTROINTESTINAL: Large jejunostomy outputs. GENITOURINARY: Occasional decreased urinary stream. NEUROLOGIC: Intermittent confusion, generalized weakness. [facility] [address] [place] [address] CONSULTATION Name: LORENZA ARMENDARIZ Room #: 463-P [facility] IN M.R.#: [id number] Admission: 08/13/17 Attend Phys: Israel Damon MD Discharge: 08/22/17 Date of : 53 Report #: [id number] PHYSICAL EXAMINATION: GENERAL: This is a cachectic elderly gentleman, looking older than his stated age. SKIN: Somewhat decreased turgor. SKELETAL: Well developed, well nourished, nonobese. HEENT: Extraocular movements are full. Vision intact. No scleral icterus. Hearing intact. Mucous membranes dry. NECK: Veins are flat. CHEST: Shows diminished breath sounds. HEART: Regular. ABDOMEN: Soft with jejunostomy and PEG tube. EXTREMITIES: Show no edema. LABORATORY DATA: Sodium 120, potassium 4.1, chloride 79, bicarbonate 30, creatinine 2.6, and BUN 63. ASSESSMENT: 1. Acute kidney injury. Creatinine is up. Sodium is down. Decreased free water clearance. Severe volume depletion. IV saline appropriately being given. This should correct the situation. I will increase fluids. He certainly needs a better fluid regimen if he is to survive outside the hospital. 2. Short gut syndrome with chronic malnutrition, formally on TPN. 3. Severe chronic obstructive pulmonary disease, on home oxygen. 4. Cigarette smoking. 5. History of coronary artery bypass. 6. Peripheral arterial disease. 7. Multiple bowel resections for ischemic bowel. <ELECTRONICALLY SIGNED> By: Davonte Tate MD 08/25/17 1052 0955 1302 Davonte Tate MD /nt
--- NOTE | ~2017-08-13 | HC ---
[facility] [place] [address] CONSULTATION Name: LORENZA ARMENDARIZ Room #: 463-P ADM IN M.R.#: [id number] Admission: 08/13/17 Attend Phys: Israel Damon MD Discharge: Date of : 53 Report #: [id number] THIS REPORT FOR: //name// CC: Israel Carrion DATE OF SERVICE: 08/17/2017 REFERRING PROVIDER: Liban Bucio MD REASON FOR CONSULTATION: Malnutrition and short gut syndrome. HISTORY OF PRESENT ILLNESS: The patient is a 62-year-old male who is well known to me as he underwent numerous abdominal explorations for necrotic bowel resulting in short gut syndrome. The patient has been on chronic longstanding TPN and IV fluid rehydration through various ports and tunneled catheters over the years with recurrent infections. He is admitted now for Gram-negative septicemia where his PICC line has shown gram-negative rods and has been removed. As the patient does have short gut syndrome, he necessitates long-term IV access and request was made for evaluation for possible port placement once again. PAST MEDICAL HISTORY: Extensive and includes necrotic bowel, COPD that is oxygen dependent, peripheral vascular disease, coronary artery disease, chronic back pain, short gut syndrome, Chiari malformation, prior strokes. HOME MEDICATIONS: Include isosorbide mononitrate, Flomax, quetiapine, citalopram, metoprolol, iron, cholecalciferol, atorvastatin, aspirin, pantoprazole, ursodiol, amitriptyline, oxycodone and he is on Zosyn and vancomycin. ALLERGIES: No known drug allergies. FAMILY HISTORY: Reviewed and noncontributory. SOCIAL HISTORY: He smokes 3-5 cigarettes daily and has done so for several years, does not utilize illicit drugs or alcohol. REVIEW OF SYSTEMS: GENERAL: The patient denies nocturnal fevers or chills. HEENT: No change in vision, change in hearing. NECK: No swelling or difficulty swallowing. HEART: No chest pain, palpitations. LUNGS: No cough or shortness of breath. ABDOMEN: No nausea, no vomiting. GENITOURINARY: No dysuria or hematuria. [facility] [address] [place] [address] CONSULTATION Name: LORENZA ARMENDARIZ Room #: 463-P [facility] IN .R.#: [id number] Admission: 08/13/17 Attend Phys: Israel Damon MD Discharge: Date of : 53 Report #: [id number] ENDOCRINE: No polyuria, polydipsia. HEMATOLOGIC: No history of bleeding or easy bruising. EXTREMITIES: No history of weakness or limited range of motion. NEUROLOGIC: No history of syncope or near syncopal episodes. SKIN AND INTEGUMENT: No history of abnormal lesions or moles. PSYCHIATRIC: No history of anxiety or depression. PHYSICAL EXAMINATION: VITAL SIGNS: Temperature 98.2, pulse 55, respirations 20, blood pressure 143/59. He is 5 feet 5 inches tall and weighs 120 pounds. GENERAL: Alert and oriented, in no acute distress. HEENT: Normocephalic, atraumatic. Pupils are equal, round, reactive to light. NECK: Supple, without lymphadenopathy. Trachea midline. HEART: Regular rate and rhythm. LUNGS: Decreased air entry at the bases bilaterally. ABDOMEN: Soft, nontender, nondistended. Ostomy is pink, patent and functional. GENITOURINARY: Normal external male genitalia. EXTREMITIES: No clubbing, cyanosis or edema. NEUROLOGIC: Cranial nerves 2-12 are grossly intact. PSYCHIATRIC: Normal mood and affect. SKIN AND INTEGUMENT: No abnormal lesions or moles. LABORATORY AND X-RAY DATA: CBC shows white blood cell count of 4.0 thousand, hemoglobin 9.8, platelets 230,000, creatinine 1.3. ASSESSMENT AND PLAN: A 62-year-old male with gram-negative septicemia from a line infection who has short gut syndrome and necessitates long-term IV access of some form. At this time, the patient is on IV antibiotic therapy per the direction of Infectious Disease and underwent PEG tube placement recently by Gastroenterology. As the patient does necessitate new access, once cleared by Infectious Disease, I will have Interventional Radiology attempt to place a port either in the thigh or in the lower abdomen where the patient has some subcutaneous tissue present. Placement of a port in the upper chest would certainly result in erosion as he has no subcutaneous tissue that would be present overlying the port. All the above was discussed with the patient in detail and he agrees to proceed as outlined. I sincerely appreciate this consult. I will follow along closely and leave any further recommendations in the patient's chart as appropriate. <ELECTRONICALLY SIGNED> By: Jennifer Orellana MD, FACS 08/19/17 1934 0928 1056 Jennifer Orellana MD, FACS /nt
[2017-08-13 18:19] VITALS: BP 146/76
[2017-08-13 20:28] LABS: ABSOLUTE NEUTROPHILS 5.5 thou/uL (1.4-8.2); BASOPHILS 0.2 % (0.0-2.0); EOSINOPHILS 1.6 % (0.0-3.0); HEMATOCRIT 39.1 % (42.0-52.0); HEMOGLOBIN 13.6 gm/dL (14.0-18.0); LYMPHOCYTES 18.3 % (24.0-44.0); MCH 29.5 pg (26.0-34.0); MCHC 34.8 g/dL (28.0-37.0); MCV 84.8 fL (80.0-100.0); MONOCYTES 11.7 % (1.0-8.0); PLATELET COUNT 383 thou/uL (150-400); POLYS 68.2 % (36.0-66.0); RBC 4.61 mil/uL (4.50-6.00); RDW 14.1 % (10.5-14.5); WBC 8.1 thou/uL (4.0-11.0)
[2017-08-13 20:37] LABS: CREATININE 2.5 mg/dL (0.7-1.3); POTASSIUM 4.8 mmol/L (3.5-5.1)
[2017-08-13 21:34] VITALS: BP 134/63
[2017-08-13 21:35] VITALS: BP 134/63
[2017-08-14 00:56] LABS: CALCIUM 9.4 mg/dL (8.5-10.1); CREATININE 2.6 mg/dL (0.7-1.3); POTASSIUM 4.1 mmol/L (3.5-5.1)
[2017-08-14 04:52] VITALS: BP 100/54
[2017-08-14 08:09] LABS: URINE CREATININE-RANDOM* 49.7 mg/dL; URINE SODIUM-RANDOM* < 5.0 mmol/L
[2017-08-14 08:56] VITALS: BP 120/64
[2017-08-14 09:35] LABS: HEMATOCRIT 36.4 % (42.0-52.0); HEMOGLOBIN 12.7 gm/dL (14.0-18.0); MCH 29.6 pg (26.0-34.0); MCV 84.5 fL (80.0-100.0); RBC 4.31 mil/uL (4.50-6.00); RDW 13.7 % (10.5-14.5); WBC 6.7 thou/uL (4.0-11.0)
[2017-08-14 09:45] LABS: POTASSIUM 4.1 mmol/L (3.5-5.1)
[2017-08-14 09:48] LABS: CALCIUM 9.6 mg/dL (8.5-10.1); CREATININE 2.6 mg/dL (0.7-1.3)
[2017-08-14 16:00] LABS: CALCIUM 9.1 mg/dL (8.5-10.1); CREATININE 2.5 mg/dL (0.7-1.3); POTASSIUM 3.7 mmol/L (3.5-5.1)
[2017-08-14 16:14] VITALS: BP 122/64
[2017-08-14 20:19] VITALS: BP 125/66
[2017-08-15 05:09] VITALS: BP 95/48
[2017-08-15 05:50] LABS: ALBUMIN 2.5 g/dL (3.4-5.0); CALCIUM 8.5 mg/dL (8.5-10.1); CREATININE 1.8 mg/dL (0.7-1.3); MAGNESIUM 1.3 mg/dL (1.8-2.4); PHOSPHORUS 3.8 mg/dL (2.5-4.9); POTASSIUM 3.5 mmol/L (3.5-5.1)
[2017-08-15 08:51] VITALS: BP 95/57
[2017-08-15 16:03] VITALS: BP 109/57
[2017-08-15 19:44] VITALS: BP 106/50
[2017-08-16 04:22] VITALS: BP 87/56
[2017-08-16 05:54] LABS: ALBUMIN 2.3 g/dL (3.4-5.0); CALCIUM 8.3 mg/dL (8.5-10.1); CREATININE 1.4 mg/dL (0.7-1.3); MAGNESIUM 1.8 mg/dL (1.8-2.4); POTASSIUM 4.4 mmol/L (3.5-5.1)
[2017-08-16 08:00] VITALS: BP 90/39
[2017-08-16 16:01] VITALS: BP 100/61
[2017-08-16 19:46] VITALS: BP 138/69
[2017-08-17 03:29] VITALS: BP 101/40
[2017-08-17 05:21] LABS: HEMATOCRIT 28.5 % (42.0-52.0); MCHC 34.4 g/dL (28.0-37.0); MCV 87.2 fL (80.0-100.0); RBC 3.27 mil/uL (4.50-6.00)
[2017-08-17 05:35] LABS: CALCIUM 8.7 mg/dL (8.5-10.1); CREATININE 1.3 mg/dL (0.7-1.3); POTASSIUM 4.6 mmol/L (3.5-5.1)
[2017-08-17 05:37] LABS: HEMOGLOBIN 9.8 gm/dL (14.0-18.0); PLATELET COUNT 230 thou/uL (150-400)
[2017-08-17 09:44] LABS: ABSOLUTE NEUTROPHILS 1.4 thou/uL (1.4-8.2); ANISOCYTOSIS SLIGHT
[2017-08-17 16:00] VITALS: BP 133/86
[2017-08-17 20:28] VITALS: BP 143/59
[2017-08-18 05:00] VITALS: BP 108/54
[2017-08-18 07:59] VITALS: BP 105/57
[2017-08-18 09:08] LABS: ALBUMIN 2.7 g/dL (3.4-5.0); CALCIUM 9.6 mg/dL (8.5-10.1); CREATININE 1.4 mg/dL (0.7-1.3); MAGNESIUM 1.2 mg/dL (1.8-2.4); PHOSPHORUS 3.9 mg/dL (2.5-4.9); POTASSIUM 5.4 mmol/L (3.5-5.1)
[2017-08-18 15:42] VITALS: BP 107/49
[2017-08-18 19:12] LABS: IgA 128 mg/dL (61-437); IgG 937 mg/dL (700-1600)
[2017-08-18 19:46] VITALS: BP 115/62
[2017-08-18 20:07] LABS: IgM 756 mg/dL (20-172)
[2017-08-19 04:47] VITALS: BP 95/38
[2017-08-19 06:35] LABS: ALBUMIN 2.2 g/dL (3.4-5.0); CALCIUM 8.7 mg/dL (8.5-10.1); CREATININE 1.4 mg/dL (0.7-1.3); MAGNESIUM 1.1 mg/dL (1.8-2.4)
[2017-08-19 06:46] LABS: HEMATOCRIT 29.4 % (42.0-52.0); HEMOGLOBIN 9.9 gm/dL (14.0-18.0); MCH 29.6 pg (26.0-34.0); MCHC 33.7 g/dL (28.0-37.0); MCV 87.8 fL (80.0-100.0); RBC 3.35 mil/uL (4.50-6.00); WBC 4.9 thou/uL (4.0-11.0)
[2017-08-19 06:56] LABS: INR 1.1; PROTIME 11.4 Seconds (9.3-11.4)
[2017-08-19 07:12] LABS: SGOT 19 U/L (15-37); SGPT 25 U/L (30-65); TOTAL BILIRUBIN 0.3 mg/dL (<0.1-1.0); TOTAL PROTEIN 6.1 g/dL (6.4-8.2)
[2017-08-19 07:50] VITALS: BP 86/38
[2017-08-19 16:47] VITALS: BP 116/59
[2017-08-19 20:08] VITALS: BP 118/58
[2017-08-20 05:37] VITALS: BP 99/65
[2017-08-20 07:58] VITALS: BP 104/46
[2017-08-20 16:08] VITALS: BP 135/62
[2017-08-20 19:40] VITALS: BP 122/56
[2017-08-21 03:07] VITALS: BP 89/58
[2017-08-21 07:34] VITALS: BP 95/56
[2017-08-21 16:30] VITALS: BP 121/71
[2017-08-21 20:02] VITALS: BP 117/62
[2017-08-22 04:05] VITALS: BP 107/82
[2017-08-22 08:21] VITALS: BP 116/58
[2017-08-22 15:20] VITALS: BP 98/55
[2017-08-22 15:42] VITALS: BP 116/58
[2017-08-22 18:14] VITALS: BP 116/58
== END 2017-08-22 19:15 | disposition home or self-care (01) | DRG 314 ==
LOC: ER 18:18 → EROBS 20:52 → 4W 20:52
PROVIDERS: Emergency Medicine; Hospitalist; Internal Medicine Geriatric Medicine; Internal Medicine Nephrology; Nurse Practitioner Family; Radiology Diagnostic Radiology
PROC: B548ZZA Ultrasonography of Superior Vena Cava, Guidance (ICD-10-PCS; principal; 2017-08-20)
PROC: B5181ZA Fluoroscopy of Superior Vena Cava using Low Osmolar Contrast, Guidance (ICD-10-PCS; principal; 2017-08-20)
PROC: 02HV33Z Insertion of Infusion Device into Superior Vena Cava, Percutaneous Approach (ICD-10-PCS; principal; 2017-08-20)
PROC: 0JH83WZ Insertion of Totally Implantable Vascular Access Device into Abdomen Subcutaneous Tissue and Fascia, Percutaneous Approach (ICD-10-PCS; principal; 2017-08-20)
DX: T80.211A Bloodstream infection due to central venous catheter, initial encounter (principal); E43 Unspecified severe protein-calorie malnutrition; N17.9 Acute kidney failure, unspecified; E87.1 Hypo-osmolality and hyponatremia; K91.2 Postsurgical malabsorption, not elsewhere classified; E46 Unspecified protein-calorie malnutrition; J44.9 Chronic obstructive pulmonary disease, unspecified; I25.10 Atherosclerotic heart disease of native coronary artery without angina pectoris; F17.210 Nicotine dependence, cigarettes, uncomplicated; I73.9 Peripheral vascular disease, unspecified; G89.29 Other chronic pain; M54.9 Dorsalgia, unspecified; F32.9 Major depressive disorder, single episode, unspecified; F41.9 Anxiety disorder, unspecified; N18.9 Chronic kidney disease, unspecified; K21.9 Gastro-esophageal reflux disease without esophagitis; E78.5 Hyperlipidemia, unspecified; R13.10 Dysphagia, unspecified; E86.0 Dehydration; E87.5 Hyperkalemia; Z93.2 Ileostomy status; Z95.1 Presence of aortocoronary bypass graft; I25.2 Old myocardial infarction; Z86.73 Personal history of transient ischemic attack (TIA), and cerebral infarction without residual deficits; Z80.8 Family history of malignant neoplasm of other organs or systems; Z68.22 Body mass index [BMI] 22.0-22.9, adult; Z79.82 Long term (current) use of aspirin; Z79.899 Other long term (current) drug therapy
CPT/HCPCS: 10045

== ENCOUNTER 2017-08-23 17:06 | Inpatient (IN) | payer OTHER ==
[~2017-08-23] VITALS: Ht 152.4 cm; Wt 60.3 kg
--- NOTE | ~2017-08-23 | EKG ---
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1955 Requested By: Anthony Odom Order Number: [id number] MD: Tim Godinez Measurements Intervals [place] Rate: 81 P: 75 VT: 144 QRS: 60 QRSD: 101 T: 42 QT: 406 QTc: 472 Interpretive Statements Sinus rhythm RSR' in V1 or V2, right VCD Abnormal T, consider ischemia, anterior leads Compared to ECG 07/26/2017 19:25:38 Sinus tachycardia no longer present Atrial premature complex(es) no longer present Electronically Signed On 08-24-2017 12:07:23 CDT by Tim Godinez [email or web address] <ELECTRONICALLY SIGNED> By: Tim Godinez MD, [facility] 08/24/17 [phone] Tim Godinez MD, [facility] /EPI
[2017-08-23 17:21] VITALS: BP 127/81
[2017-08-23 18:03] LABS: BASOPHILS 0.4 % (0.0-2.0); EOSINOPHILS 4.5 % (0.0-3.0); HEMATOCRIT 34.1 % (42.0-52.0); HEMOGLOBIN 11.6 gm/dL (14.0-18.0); LYMPHOCYTES 23.9 % (24.0-44.0); MCH 29.5 pg (26.0-34.0); MCV 86.8 fL (80.0-100.0); MONOCYTES 7.4 % (1.0-8.0); PLATELET COUNT 252 thou/uL (150-400); POLYS 63.8 % (36.0-66.0); RBC 3.93 mil/uL (4.50-6.00); RDW 13.9 % (10.5-14.5); WBC 7.8 thou/uL (4.0-11.0)
[2017-08-23 18:12] LABS: ANION GAP 8 mmol/L (7-16); BUN 21 mg/dL (7-18); CALCIUM 9.7 mg/dL (8.5-10.1); CHLORIDE 97 mmol/L (98-107); CO2 29 mmol/L (21-32); CREATININE 1.5 mg/dL (0.7-1.3); GLUCOSE 132 mg/dL (74-106); POTASSIUM 4.3 mmol/L (3.5-5.1); SODIUM 134 mmol/L (136-145)
[2017-08-23 18:20] LABS: ALBUMIN 2.9 g/dL (3.4-5.0); LIPASE 61 U/L (73-393); SGOT 42 U/L (15-37); SGPT 44 U/L (30-65); TOTAL BILIRUBIN 0.3 mg/dL (<0.1-1.0); TOTAL PROTEIN 7.6 g/dL (6.4-8.2)
[2017-08-23 18:35] LABS: TROPONIN-I < 0.04 ng/mL (<0.06)
[2017-08-23 20:17] VITALS: BP 136/65
[2017-08-23 21:30] VITALS: BP 145/84
[2017-08-23 21:34] VITALS: BP 136/74
[2017-08-24 03:28] VITALS: BP 84/44
[2017-08-24 05:44] LABS: CALCIUM 9.2 mg/dL (8.5-10.1); CREATININE 1.4 mg/dL (0.7-1.3); MAGNESIUM 2.1 mg/dL (1.8-2.4); POTASSIUM 4.1 mmol/L (3.5-5.1)
[2017-08-24 16:17] VITALS: BP 117/61
[2017-08-24 20:11] VITALS: BP 112/66
[2017-08-25 03:08] VITALS: BP 91/47
[2017-08-25 08:00] VITALS: BP 115/78
[2017-08-25 12:13] VITALS: BP 115/78
[2017-08-25 12:17] VITALS: BP 115/78
[2017-08-25 12:48] VITALS: BP 115/78
== END 2017-08-25 15:45 | disposition home health service (06) | DRG 392 ==
LOC: ER 17:06 → EROBS 21:24 → 4W 21:24
PROVIDERS: Emergency Medicine; Nurse Practitioner Acute Care
DX: K91.2 Postsurgical malabsorption, not elsewhere classified (principal); J96.10 Chronic respiratory failure, unspecified whether with hypoxia or hypercapnia; I25.10 Atherosclerotic heart disease of native coronary artery without angina pectoris; F32.9 Major depressive disorder, single episode, unspecified; F41.9 Anxiety disorder, unspecified; G89.4 Chronic pain syndrome; F17.210 Nicotine dependence, cigarettes, uncomplicated; J44.9 Chronic obstructive pulmonary disease, unspecified; N18.3 Chronic kidney disease, stage 3 (moderate); E83.42 Hypomagnesemia; F15.90 Other stimulant use, unspecified, uncomplicated; Z93.1 Gastrostomy status; Z87.01 Personal history of pneumonia (recurrent); Z79.899 Other long term (current) drug therapy; Z93.3 Colostomy status; I25.2 Old myocardial infarction; Z86.73 Personal history of transient ischemic attack (TIA), and cerebral infarction without residual deficits; Z95.1 Presence of aortocoronary bypass graft; Z99.81 Dependence on supplemental oxygen
CPT/HCPCS: 10045

== ENCOUNTER 2017-08-27 03:33 | Emergency (ER) | payer OTHER ==
[~2017-08-27] VITALS: Ht 165.1 cm; Wt 59.4 kg
[2017-08-27 04:41] VITALS: BP 120/69
== END 2017-08-27 04:43 | disposition home or self-care (01) ==
LOC: ER 03:33
DX: Z43.1 Encounter for attention to gastrostomy (principal); I25.10 Atherosclerotic heart disease of native coronary artery without angina pectoris; J44.9 Chronic obstructive pulmonary disease, unspecified; Z95.1 Presence of aortocoronary bypass graft; F32.9 Major depressive disorder, single episode, unspecified; F41.9 Anxiety disorder, unspecified; Z86.73 Personal history of transient ischemic attack (TIA), and cerebral infarction without residual deficits; F17.210 Nicotine dependence, cigarettes, uncomplicated

== ENCOUNTER → 2017-08-29 | Outpatient (CLI) | payer OTHER ==
--- NOTE | ~2017-08-29 | P ---
[facility] [place] [address] PROCEDURE REPORT Name: LORENZA ARMENDARIZ Room #: REG [facility]#: [id number] Admission: 08/29/17 Attend Phys: Kyler Carrion MD Discharge: Date of : 53 Report #: [id number] THIS REPORT FOR: //name// CC: KYLER Carrion DATE OF SERVICE: 08/29/2017 BRIEF HISTORY: The patient is a 62-year-old male well known to me with short bowel syndrome. A PEG tube was placed several weeks ago. The tube became dislodged and he presented to the Emergency Room where a temporary tube was placed. He presents today for insertion of a gastrostomy tube. It is noted that this fistula is only several weeks old and may not be fully matured. PREOPERATIVE DIAGNOSIS: Short bowel syndrome with need for nutritional support and dislodged PEG tube. POSTOPERATIVE DIAGNOSIS: Short bowel syndrome with need for nutritional support and dislodged PEG tube. MEDICATIONS: Deep sedation with propofol for anesthesia. SPECIMEN: None. ESTIMATED BLOOD LOSS: None. PROCEDURE: Percutaneous endoscopic PEG tube placement. FINDINGS: Since the fistula may not be fully matured, it was decided the safest approach would be to place a new PEG tube through the existing fistula. DESCRIPTION OF PROCEDURE: With the patient in supine position, his head and chest raised about 20-30 degrees, the [employer] video endoscope was inserted in the cervical esophagus under direct vision without difficulty. Examination of this organ through its entire length revealed normal esophageal mucosa down the squamocolumnar junction. Squamocolumnar junction was noted to be unremarkable. Scope was advanced in the stomach, was examined on end view as well as retroflexed views. He had normal-appearing mucosa. Upon retroflexion, no mass lesions were seen. The pylorus, duodenal bulb and postbulbar duodenal sweep were inspected and noted to be unremarkable. Scope was drawn back in the stomach and the existing tube and balloon were seen in the body of the stomach anteriorly. We passed the guidewire alongside the tube into the gastric lumen. We then grasped the guidewire with a polypectomy snare. Subsequently, the balloon was let down and the temporary tube was withdrawn. The guidewire was pulled, the wire was pulled out of the mouth, a 20-Maltese feeding gastrostomy tube was advanced over the wire. The leading edge was seen coming through the [facility] [address] [place] [address] PROCEDURE REPORT Name: LORENZA ARMENDARIZ [facility] [id number] Admission: 08/29/17 Attend Phys: Kyler Carrion MD Discharge: Date of : 53 Report #: [id number] fistula. The tube was pulled in position and an external restraining device was applied. The patient tolerated the procedure well. CONDITION OF THE PATIENT UPON DISCHARGE: Follow the procedure, the patient was drowsy, will be discharged home when fully ambulatory. INSTRUCTIONS TO THE PATIENT AND FAMILY AT THE TIME OF DISCHARGE: We will have the patient resume his tube feedings. He has also continued to take supplemental fluids due to short bowel syndrome. He will follow up in the office as previously instructed. By: 1225 2224 Michael Michael MD /nt
== END | disposition home or self-care (01) ==
LOC: GI 09:20
DX: K91.2 Postsurgical malabsorption, not elsewhere classified (principal); K94.20 Gastrostomy complication, unspecified; J44.9 Chronic obstructive pulmonary disease, unspecified; I50.9 Heart failure, unspecified; Z87.440 Personal history of urinary (tract) infections; Z79.82 Long term (current) use of aspirin; Z79.899 Other long term (current) drug therapy; Z98.0 Intestinal bypass and anastomosis status; Z79.891 Long term (current) use of opiate analgesic; Z98.890 Other specified postprocedural states; Z86.19 Personal history of other infectious and parasitic diseases

== ENCOUNTER 2017-09-27 20:36 | Inpatient (IN) | payer OTHER ==
[~2017-09-27] VITALS: Ht 165.1 cm; Wt 55.8 kg
--- NOTE | ~2017-09-27 | EKG ---
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1955 Requested By: Richie Santana Order Number: [id number] MD: Larry Castillo Measurements Intervals [place] Rate: 92 P: 72 [place]: 140 QRS: 49 QRSD: 103 T: 89 QT: 427 QTc: 529 Interpretive Statements Sinus rhythm RSR' in V1 or V2, probably normal variant Abnrm T, anterior lead, similar to prior Prolonged QT interval Compared to ECG 08/23/2017 17:47:53 Prolonged QT interval now present Electronically Signed On 09-28-2017 12:15:34 CDT by Larry Castillo [email or web address] <ELECTRONICALLY SIGNED> By: Larry Castillo MD 09/28/17 1215 34 34 Larry Castillo MD /EPI
--- NOTE | ~2017-09-27 | EKG ---
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
--- NOTE | ~2017-09-27 | 2DMMODE ---
[facility] [address] [place] [address] 2 D/M-MODE ECHOCARDIOGRAM Name: LORENZA ARMENDARIZ Room #: 211-P [facility] IN M.R.#: [id number] Admission: 09/27/17 Attend Phys: Kyler Vega MD Discharge: Date of : 53 Date of Service: 09/30/17 0947 Report #: [id number] THIS REPORT FOR: //name// APPROVED REPORT Study performed: 09/30/2017 09:18:56 EXAM: Comprehensive 2D, Doppler, and color-flow Echocardiogram Patient Location: Echo lab Room #: 211 Status: routine BSA: 1.61 HR: 62 bpm BP: 103/66 mmHg Rhythm: NSR Other Information Study Quality: Adequate/low window. Technically limited study due to COPD. Indications Elevated troponin. Hx: [place], CABG, CVA, COPD. (Complete echo done 07/29/17) 2D Dimensions LVEF(%): 48.85 (>50%) IVSd: 13.26 (7-11mm) LVDd: 57.29 mm PWd: 10.63 (7-11mm) LVDs: 42.95 (25-40mm) Schaeffer's LVEF: 48.85 % Aortic Valve AoV Peak Jose J.: 1.43 m/s AO Peak Gr.: 8.20 mmHg Tricuspid Valve TR Peak Jose J.: 2.42 m/s RAP Estimate: 10.00 mmHg TR Peak Gr.: 23.35 mmHg PA Pressure: 33.00 mmHg Left Ventricle The left ventricle is normal size. Left ventricular systolic function is low normal. LVEF is 50%. Mild diastolic dysfunction is present (impaired relaxation pattern). [facility] [email or web address] [address] 2 D/M-MODE ECHOCARDIOGRAM Name: LORENZA ARMENDARIZ Room #: 211-P [facility] IN .R.#: [id number] Admission: 09/27/17 Attend Phys: Kyler Vega MD Discharge: Date of : 53 Date of Service: 09/30/17 0947 Report #: [id number] Right Ventricle The right ventricle is normal size. Aortic Valve The Aortic valve is sclerotic. No aortic regurgitation is present. There is no aortic valvular stenosis. Mitral Valve The mitral valve is normal in structure. Mild mitral annular calcification. Trace mitral regurgitation. No evidence of mitral valve stenosis. Tricuspid Valve The tricuspid valve is normal in structure. Trace tricuspid regurgitation. Estimated PAP is 30-35mmHg. Great Vessels IVC is normal in size and collapses <50% with inspiration. Pericardium There is no pericardial effusion. <Conclusion> The left ventricle is normal size. Left ventricular systolic function is low normal. Mild diastolic dysfunction is present (impaired relaxation pattern). The right ventricle is normal size. The Aortic valve is sclerotic. Mild mitral annular calcification. Trace mitral regurgitation. Trace tricuspid regurgitation. Estimated PAP is 30-35mmHg. <ELECTRONICALLY SIGNED> By: Jonathan Kang MD 09/30/17946 6 6 Jonathan Kang MD /INF
--- NOTE | ~2017-09-27 | EKG ---
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
[2017-09-27 20:36] VITALS: BP 134/74
[2017-09-27] MEDS ORDERED: AMBIEN 5 MG TABL5 M1 PO (21:01)
[2017-09-27] MEDS ORDERED: CEFTRIAXONE250 MG IJ (21:02)
[2017-09-27] MEDS ORDERED: PREDNISONE 10 M10 MG PO (21:03)
[2017-09-27 21:40] LABS: ABSOLUTE NEUTROPHILS 5.3 thou/uL (1.4-8.2); BASOPHILS 0.4 % (0.0-2.0); HEMOGLOBIN 11.3 gm/dL (14.0-18.0); LYMPHOCYTES 21.5 % (24.0-44.0); MCH 29.7 pg (26.0-34.0); MCHC 33.3 g/dL (28.0-37.0); MCV 89.3 fL (80.0-100.0); MONOCYTES 8.5 % (1.0-8.0); PLATELET COUNT 234 thou/uL (150-400); POLYS 68.6 % (36.0-66.0); RBC 3.81 mil/uL (4.50-6.00); RDW 13.9 % (10.5-14.5); WBC 7.8 thou/uL (4.0-11.0)
[2017-09-27 21:49] LABS: CALCIUM 9.3 mg/dL (8.5-10.1); CREATININE 1.2 mg/dL (0.7-1.3); POTASSIUM 4.3 mmol/L (3.5-5.1)
[2017-09-27 21:57] LABS: TOTAL BILIRUBIN 0.9 mg/dL (<0.1-1.0); TOTAL PROTEIN 7.2 g/dL (6.4-8.2)
[2017-09-27 22:14] VITALS: BP 131/79
[2017-09-27 23:04] LABS: INR 1.1; PROTIME 11.1 Seconds (9.3-11.4)
[2017-09-27 23:30] VITALS: BP 141/85
[2017-09-28 04:30] VITALS: BP 130/86
[2017-09-28 06:42] LABS: HEMATOCRIT 36.5 % (42.0-52.0); MCH 29.1 pg (26.0-34.0); MCHC 32.9 g/dL (28.0-37.0); MCV 88.5 fL (80.0-100.0); RBC 4.12 mil/uL (4.50-6.00); RDW 13.9 % (10.5-14.5); WBC 6.8 thou/uL (4.0-11.0)
[2017-09-28 06:56] LABS: CALCIUM 9.8 mg/dL (8.5-10.1); CREATININE 1.3 mg/dL (0.7-1.3); POTASSIUM 4.5 mmol/L (3.5-5.1)
[2017-09-28 06:59] LABS: TROPONIN-I 0.69 ng/mL (<0.06)
[2017-09-28 07:30] VITALS: BP 124/80
[2017-09-28 11:35] VITALS: BP 105/83
[2017-09-28 15:30] VITALS: BP 98/58
[2017-09-28 19:38] VITALS: BP 110/59
[2017-09-29 03:32] LABS: CALCIUM 9.2 mg/dL (8.5-10.1); CREATININE 1.7 mg/dL (0.7-1.3)
[2017-09-29 04:30] VITALS: BP 115/66
[2017-09-29 07:05] VITALS: BP 108/65
[2017-09-29 11:15] VITALS: BP 105/64
[2017-09-29 15:30] VITALS: BP 92/53
[2017-09-29 17:39] LABS: MAGNESIUM 1.3 mg/dL (1.8-2.4)
[2017-09-29 19:52] VITALS: BP 89/52
[2017-09-29 21:33] VITALS: BP 110/62
[2017-09-30 04:03] VITALS: BP 108/61
[2017-09-30 04:45] LABS: HEMATOCRIT 36.1 % (42.0-52.0); HEMOGLOBIN 11.9 gm/dL (14.0-18.0); MCH 29.1 pg (26.0-34.0); MCHC 32.9 g/dL (28.0-37.0); MCV 88.6 fL (80.0-100.0); RBC 4.08 mil/uL (4.50-6.00); RDW 13.8 % (10.5-14.5); WBC 10.1 thou/uL (4.0-11.0)
[2017-09-30 04:54] LABS: ALBUMIN 2.5 g/dL (3.4-5.0); BUN 47 mg/dL (7-18); CALCIUM 8.3 mg/dL (8.5-10.1); CHLORIDE 51 mmol/L (98-107); CO2 31 mmol/L (21-32); CREATININE 1.7 mg/dL (0.7-1.3); MAGNESIUM 1.2 mg/dL (1.8-2.4); SGOT 16 U/L (15-37); SGPT 21 U/L (30-65); TOTAL BILIRUBIN 0.4 mg/dL (<0.1-1.0); TOTAL PROTEIN 6.8 g/dL (6.4-8.2)
[2017-09-30 04:56] LABS: ANION GAP < 0 mmol/L (7-16)
[2017-09-30 04:58] LABS: POTASSIUM 2.2 mmol/L (3.5-5.1); SODIUM 75 mmol/L (136-145)
[2017-09-30 05:05] LABS: GLUCOSE 152 mg/dL (74-106)
[2017-09-30 07:25] VITALS: BP 103/66
[2017-09-30 12:45] VITALS: BP 123/69
[2017-09-30 15:05] LABS: CALCIUM 8.2 mg/dL (8.5-10.1); MAGNESIUM 1.3 mg/dL (1.8-2.4)
[2017-09-30 15:12] LABS: POTASSIUM 4.5 mmol/L (3.5-5.1)
[2017-09-30 15:20] VITALS: BP 108/57
[2017-09-30 20:00] VITALS: BP 118/71
[2017-10-01 04:00] VITALS: BP 115/57
[2017-10-01 04:18] LABS: HEMATOCRIT 32.5 % (42.0-52.0); HEMOGLOBIN 10.9 gm/dL (14.0-18.0); MCH 29.6 pg (26.0-34.0); MCHC 33.7 g/dL (28.0-37.0); MCV 87.6 fL (80.0-100.0); RBC 3.7 mil/uL (4.50-6.00); RDW 13.8 % (10.5-14.5)
[2017-10-01 04:30] LABS: MAGNESIUM 1.9 mg/dL (1.8-2.4); PHOSPHORUS 3.8 mg/dL (2.5-4.9)
[2017-10-01 04:32] LABS: ALBUMIN 2.2 g/dL (3.4-5.0); CALCIUM 7.9 mg/dL (8.5-10.1); CREATININE 1.7 mg/dL (0.7-1.3); POTASSIUM 3.9 mmol/L (3.5-5.1); TOTAL BILIRUBIN 0.3 mg/dL (<0.1-1.0); TOTAL PROTEIN 5.8 g/dL (6.4-8.2)
[2017-10-01 07:20] VITALS: BP 118/59
[2017-10-01 11:33] VITALS: BP 126/54
[2017-10-01 15:06] VITALS: BP 126/54
[2017-10-01 15:20] VITALS: BP 104/58
[2017-10-01 19:47] VITALS: BP 122/58
[2017-10-02 04:30] VITALS: BP 11/56; BP 110/56
[2017-10-02 05:32] LABS: ABSOLUTE NEUTROPHILS 6.9 thou/uL (1.4-8.2); BASOPHILS 0.1 % (0.0-2.0); HEMATOCRIT 34.2 % (42.0-52.0); HEMOGLOBIN 11.4 gm/dL (14.0-18.0); LYMPHOCYTES 9.2 % (24.0-44.0); MCH 29.6 pg (26.0-34.0); MCHC 33.2 g/dL (28.0-37.0); MCV 89.1 fL (80.0-100.0); MONOCYTES 6.6 % (1.0-8.0); PLATELET COUNT 363 thou/uL (150-400); POLYS 84.1 % (36.0-66.0); RBC 3.84 mil/uL (4.50-6.00); RDW 13.9 % (10.5-14.5); WBC 8.2 thou/uL (4.0-11.0)
[2017-10-02 05:53] LABS: CALCIUM 8.4 mg/dL (8.5-10.1); CREATININE 1.2 mg/dL (0.7-1.3); POTASSIUM 5.2 mmol/L (3.5-5.1)
[2017-10-02 07:19] VITALS: BP 117/63
[2017-10-02 11:28] VITALS: BP 117/75
[2017-10-02] MEDS ORDERED: PREDNISONE 10 M10 MG PO (13:59)
[2017-10-02] MEDS ORDERED: LEVAQUIN 750 M750 MG PO (13:59)
[2017-10-02 14:17] VITALS: BP 126/54
== END 2017-10-02 15:15 | disposition home health service (06) | DRG 280 ==
LOC: ER 20:36 → EROBS 21:49 → 2N 21:49 → ENTRNSPT 10-02 14:25 → EDTRNSPTSTS 10-02 14:29 → 2N 10-02 15:15
PROVIDERS: Emergency Medicine; Hospitalist; Internal Medicine Cardiovascular Disease; Nurse Practitioner Family
PROC: 05HY33Z Insertion of Infusion Device into Upper Vein, Percutaneous Approach (ICD-10-PCS; principal; 2017-09-27)
DX: I21.4 Non-ST elevation (NSTEMI) myocardial infarction (principal); G93.40 Encephalopathy, unspecified; I50.33 Acute on chronic diastolic (congestive) heart failure; N17.9 Acute kidney failure, unspecified; J44.1 Chronic obstructive pulmonary disease with (acute) exacerbation; J96.11 Chronic respiratory failure with hypoxia; K91.2 Postsurgical malabsorption, not elsewhere classified; I69.951 Hemiplegia and hemiparesis following unspecified cerebrovascular disease affecting right dominant side; I13.0 Hypertensive heart and chronic kidney disease with heart failure and stage 1 through stage 4 chronic kidney disease, or unspecified chronic kidney disease; I25.10 Atherosclerotic heart disease of native coronary artery without angina pectoris; J44.9 Chronic obstructive pulmonary disease, unspecified; F32.9 Major depressive disorder, single episode, unspecified; F41.9 Anxiety disorder, unspecified; G89.4 Chronic pain syndrome; E78.00 Pure hypercholesterolemia, unspecified; E86.0 Dehydration; N18.3 Chronic kidney disease, stage 3 (moderate); F17.210 Nicotine dependence, cigarettes, uncomplicated; Z79.899 Other long term (current) drug therapy; Z95.1 Presence of aortocoronary bypass graft; I25.2 Old myocardial infarction; Z93.2 Ileostomy status; Z90.3 Acquired absence of stomach [part of]
CPT/HCPCS: 10081

== ENCOUNTER 2017-11-07 14:20 | Inpatient (IN) | payer OTHER ==
[~2017-11-07] VITALS: Ht 165.1 cm; Wt 57.9 kg
--- NOTE | ~2017-11-07 | O ---
[facility] [place] [address] OPERATIVE REPORT Name: LORENZA ARMENDARIZ Room #: 417-I ADM IN M.R.#: [id number] Admission: 11/07/17 Attend Phys: Harsh Winter MD Discharge: Date of : 53 Report #: [id number] THIS REPORT FOR: //name// CC: Harsh Winter NO PCP DATE OF SERVICE: 11/10/2017 PREOPERATIVE DIAGNOSES: 1. Indwelling PEG tube with desire for removal. 2. Short bowel syndrome. 3. Prior necrotic bowel. 4. Oxygen dependent chronic obstructive pulmonary disease. 5. Coronary artery disease. POSTOPERATIVE DIAGNOSES: 1. Indwelling PEG tube with desire for removal. 2. Short bowel syndrome. 3. Prior necrotic bowel. 4. Oxygen dependent chronic obstructive pulmonary disease. 5. Coronary artery disease. PROCEDURE PERFORMED: Thorough esophagogastroduodenoscopy (EGD) with removal of indwelling percutaneous endoscopic gastrostomy (PEG) tube. SURGEON: Jennifer Orellana MD. PHOTO TECHNOLOGIST: None. ANESTHESIA: Monitored anesthesia care. ESTIMATED BLOOD LOSS: None. COMPLICATIONS: None. SPECIMENS: PEG tube to pathology. INDICATIONS: The patient is a 62-year-old male, well known to me from a prior episode of necrotic bowel that required multiple exploratory laparotomies and bowel resections, which has ultimately left him with short bowel syndrome and chronic malnutrition. The patient has been maintained with long-term Gas-X therapy as well as TPN and IV fluids via multiple indwelling subcutaneous ports that intermittently become infected. A trial was performed with PEG tube placement for enteral supplementation; however, the patient has had no absorption whatsoever from any tube feeds delivered into his stomach and has actually made him feel significantly worse with weight loss and general [facility] [address] [place] [address] OPERATIVE REPORT Name: LORENZA ARMENDARIZ Room #: 417-I [facility] IN .R.#: [id number] Admission: 11/07/17 Attend Phys: Harsh Winter MD Discharge: Date of : 53 Report #: [id number] malaise. As the patient's PEG tube has been in place for 3-1/2 months and he has had worsening in his overall functional status, he has requested removal, which is being performed today. DESCRIPTION OF PROCEDURE: After explaining the risks, benefits and alternatives of the procedure with the patient in detail in the preoperative holding area and obtaining consent, the patient was brought to the endoscopy suite supine on his hospital bed. After conducting a thorough timeout procedure verifying correct patient and procedure, the patient was given monitored anesthesia care. Once adequate anesthesia was obtained, the Olympus upper endoscope was used to intubate the oropharynx, was traversed down into the gastric lumen with ease. Scope was advanced to second portion of duodenum where no evidence of duodenitis, gastritis, esophagitis, mass, lesions or ulcerations were seen. A retroflexion view of the scope within the gastric lumen showed evidence of a very small hiatal hernia. Scope was straightened out, and the stomach was fully insufflated. A loop snare was placed down the EGD scope and was used to grasp the internal flange of the PEG tube, which was pushed away from the gastric wall. The PEG tube was then pulled up externally and cut at the skin level with suture scissors. The entire stomach was fully desufflated and the EGD scope with the snare and the internal flange of the PEG tube were then removed in full via the oropharynx. This completed the procedure with full removal of the entire PEG tube. At the end of the procedure, all instrument, needle and sponge counts were correct. The patient tolerated the procedure without incident, was awakened in the endoscopy suite and transitioned to the recovery room in stable condition where his gastrocutaneous fistula tract will be covered with a dry gauze dressing and allowed to close on its own accord. <ELECTRONICALLY SIGNED> By: Jennifer Orellana MD, FACS 11/10/17 1329 0805 0927 Jennifer Orellana MD, FACS /nt
--- NOTE | ~2017-11-07 | HC ---
[facility] [place] [address] CONSULTATION Name: LORENZA ARMENDARIZ Room #: 417-I ADM IN M.R.#: [id number] Admission: 11/07/17 Attend Phys: Harsh Winter MD Discharge: Date of : 53 Report #: [id number] THIS REPORT FOR: //name// CC: Harsh Winter NO PCP REASON FOR CONSULTATION: I was asked to evaluate the patient concerning candidemia. HISTORY OF PRESENT ILLNESS: The patient was a 62-year-old, admitted on 11/07/2017 with a 3-day history of fever up to 104 degrees. Along with this, he has been lethargic. He has had mild chills. Some sweats. No seizure activity. No change in mental status. He does have a right groin Port-A-Cath in place. This is due to his underlying short bowel syndrome and need for IV access. He has had multiple IV access placements in his upper extremities. He has had multiple complications including recurring bacteremia and candidemia. His most recent bacteremia documented was in July of this year with Pseudomonas aeruginosa. Prior to that, he had one blood culture positive for yeast. Prior to that he had Stenotrophomonas in the blood in January 2017, Klebsiella bacteremia December 2016, diphtheroids September 2015, coag negative Staph September 2015, coag negative Staph July 2015. I attempted to remove his IV access and get him off TPN. He had a PEG tube placed and had been working with GI service to increase his antimotility agents. Apparently, according to the patient, he failed this and was losing weight. He was therefore put back on TPN after he had replacement of his Port-A-Cath into his right groin region August 20. His weight now remains stable. He has been very fatigued. No change in his intermittent cough with occasional sputum production. No pleuritic chest pain. No palpitations or syncopal episodes. He is edentulous. He has had no oral lesions. Denies any visual changes or hearing changes. No rashes or decubiti. He has had no nausea or vomiting. His PEG tube was removed today. He has moderate to large amount of small bowel output from his small bowel ostomy. This dramatically increases with any fluids placed into his PEG tube or taken orally. No dysuria or frequency. No back or flank pain. No neurologic issues. Mental status has been normal. Mood has been unremarkable. ALLERGIES: None known. MEDICATIONS: As noted on his JUL, now including ceftriaxone, fluconazole, azithromycin, Solu-Medrol, pantoprazole, Seroquel, citalopram, isosorbide mononitrate, tamsulosin, enoxaparin, ursodiol, amitriptyline, cyclobenzaprine, multivitamin, aspirin, metoprolol, atorvastatin, iron, guaifenesin, albuterol, oxycodone, fentanyl. While at home, he was doing vancomycin locks in the Port-A-Cath. He has been doing this for the last 2 months. PAST MEDICAL HISTORY AND PAST SURGICAL HISTORY: As noted in his history and [address] [address] CONSULTATION Name: LORENZA ARMENDARIZ YESICA Room #: 417-I ADM IN M.R.#: [id number] Admission: 11/07/17 Attend Phys: Harsh Winter MD Discharge: Date of : 53 Report #: [id number] physical, which was reviewed. Most notable for gastroesophageal reflux, short bowel syndrome, coronary artery disease, COPD, hypertension, hyperlipidemia, previous ischemic bowel, coronary artery bypass grafting, back surgery, multiple abdominal surgeries with small bowel ostomy, Chiari malformation, dental extractions, vocal cord papule, anxiety, depression, deaf in his left ear, multiple central venous access infections, umbilical and inguinal herniorrhaphies. FAMILY HISTORY: Noncontributory. SOCIAL HISTORY: He is a smoker of cigarettes. No significant alcohol intake. REVIEW OF SYSTEMS: As noted above. PHYSICAL EXAMINATION: VITAL SIGNS: Currently afebrile and hemodynamically stable. GENERAL: He is alert and cooperative. He had a loose nonproductive cough. HEENT: Eyes: Unremarkable. He is deaf in left ear, unchanged. Edentulous with no oral lesions. NECK: Supple. No adenopathy. SKIN: Unremarkable with no rashes or decubiti. LUNGS: Decreased breath sounds bilaterally. No consolidation. HEART: Regular without appreciable murmur, gallop or rub. ABDOMEN: Right groin Port-A-Cath site was unremarkable. Abdomen was soft. His small bowel ostomy was unremarkable. PEG tube site was dressed. Abdomen is otherwise soft. Nontender. No masses. No hepatosplenomegaly. No CVA tenderness. GENITOURINARY: External genitalia unremarkable. EXTREMITIES: Unremarkable. NEUROLOGIC: Nonfocal. PSYCHIATRIC EVALUATION: Normal mood and mental status. LABORATORY STUDIES: Chest x-ray was reviewed. Found no acute pulmonary infiltrates. Abdominal ultrasound, fatty liver. Sodium 139, potassium 4.7, bicarbonate 24, creatinine 1.2, alkaline phosphatase 272, ALT 43, albumin at 2.4, hemoglobin 10.9. WBC 7.4, platelet count 169,000. Blood cultures from 11/07/2017, yeast in 1 out of 2 cultures. IMPRESSION: A 62-year-old with complicated intraabdominal infection with yeast. Previously had Barbara lusitaniae which was fluconazole resistant as of June 2017. Would be concerned about similar organism. His risk factor for candidemia is his central venous access including his Port-A-Cath as well as he is on TPN for short bowel syndrome. Renal function now improved. He had acute kidney injury with a creatinine to 1.6, now down to 1.2, which is his baseline. Anemia with hemoglobin of 10.9, [facility] [address] [place] [address] CONSULTATION Name: LORENZA ARMENDARIZ Room #: 417-I [facility]#: [id number] Admission: 11/07/17 Attend Phys: Harsh Winter MD Discharge: Date of : 53 Report #: [id number] which is stable from his previous. No leukocytosis. Now has his PEG tube removed. His malnutrition due to his short bowel syndrome controlled with TPN. RECOMMENDATION: We will continue IV antibiotic therapy with micafungin. Repeat blood cultures. The patient had an echocardiogram in September, which showed no definite valvular heart disease. We will continue observation with next set of blood cultures. If he has continued candidemia, will need further evaluation of the heart valves as well as removal of his Port-A-Cath. We will need to have discussion regarding his TPN and Port-A-Cath at this time. Very difficult to manage this with central venous catheter remaining in place. Definitely is at risk for relapse. Will also need ophthalmology evaluation. We will continue with nutritional support. Respiratory care for his bronchitis, underlying COPD. <ELECTRONICALLY SIGNED> By: Anthony Bullard MD 11/12/17 1213 1141 1536 Anthony Bullard MD /nt
--- NOTE | ~2017-11-07 | HC ---
[facility] [place] [address] CONSULTATION Name: LORENZA ARMENDARIZ Room #: 417-I ADM IN M.R.#: [id number] Admission: 11/07/17 Attend Phys: Kyler Vega MD Discharge: Date of : 53 Report #: [id number] THIS REPORT FOR: //name// CC: Kyler Vega NO PCP DATE OF SERVICE: 11/08/2017 REFERRING PROVIDER: Kyler Vega MD. REASON FOR CONSULT: Indwelling PEG tube with desire for removal. 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 The patient has been maintained with ongoing IV fluids and TPN through multiple ports, which has intermittently become infected and required removal and replacement. The patient most recently underwent placement of a PEG tube on multiple occasions by Dr. Michael first on 07/26 and then replacement on the after accidental dislodgement and as it has been in place for 2-1/2 to 3 months, he has seen progressive decline as far as weight loss is concerned and a generalized feeling of being unwell. Any time he received any tube feed material, it immediately came out of his ostomy due to his short bowel syndrome and his malnutrition has worsened as opposed to ongoing TPN from prior. As such, he requests removal of his PEG tube with conversion back to TPN for maintenance of nutrition. It is for that reason, I am asked to evaluate as I have operated on him numerous times in the past. PAST MEDICAL HISTORY: Extensive and includes necrotic bowel, COPD that is oxygen independent, peripheral vascular disease, coronary artery disease, chronic back pain, short gut syndrome, prior Chiari malformation and prior strokes. HOME MEDICATIONS: Includes isosorbide mononitrate, Flomax, quetiapine, citalopram, metoprolol, iron, cholecalciferol, atorvastatin, aspirin, pantoprazole, ursodiol, amitriptyline, oxycodone. ALLERGIES: No known drug allergies. FAMILY HISTORY: Reviewed and noncontributory. SOCIAL HISTORY: The patient smokes 3-5 cigarettes daily and has done so for several years, does not utilize alcohol or illicit drugs. REVIEW OF SYSTEMS: GENERAL: The patient denies nocturnal fevers or chills. HEENT: No change in vision, change in hearing. [facility] [address] [place] [address] CONSULTATION Name: LORENZA ARMENDARIZ YESICA Room #: 417-I [facility] IN ..#: [id number] Admission: 11/07/17 Attend Phys: Kyler Vega MD Discharge: Date of : 53 Report #: [id number] NECK: No swelling or difficulty swallowing. HEART: No chest pain or palpitations. LUNGS: No cough or shortness of breath. ABDOMEN: No nausea, no vomiting. GENITOURINARY: No dysuria or hematuria. ENDOCRINE: No polyuria, polydipsia. HEMATOLOGIC: No history of bleeding or easy bruising. EXTREMITIES: No history of weakness or limited range of motion. NEUROLOGIC: No history of syncope or near syncopal episodes. SKIN AND INTEGUMENT: No history of abnormal lesions or moles. PSYCHIATRIC: No history of anxiety or depression. PHYSICAL EXAMINATION: VITAL SIGNS: Temperature 97.6, pulse 66, respirations 20, blood pressure 124/72. He is 5 feet 5 inches tall and weighs 127 pounds. GENERAL: Alert and oriented, in no acute distress. HEENT: Normocephalic, atraumatic. Pupils equal, round, reactive to light. NECK: Supple, without lymphadenopathy. Trachea midline. HEART: Regular rate and rhythm. LUNGS: Decreased air entry at his bases bilaterally. ABDOMEN: Soft, nontender, nondistended. Ostomy is pink, patent and functional. PEG tube is intact. GENITOURINARY: Normal external male genitalia. EXTREMITIES: No clubbing, cyanosis or edema. NEUROLOGIC: Cranial nerves 2-12 are grossly intact. PSYCHIATRIC: Normal mood and affect. SKIN AND INTEGUMENT: No abnormal lesions or moles. LABORATORY AND X-RAY DATA: CBC showed a white blood cell count of 4.5 thousand, hemoglobin 11.7, platelets 150,000. Creatinine is 1.6. Troponin is negative. Lactic acid normal at 1.2. Urinalysis negative. BNP 971. ASSESSMENT AND PLAN: A 62-year-old male who presented to the hospital with shortness of air and fever, which has shown resolution while hospitalized and could be secondary to atelectasis or some other pulmonic process. The patient has had a PEG tube in place for nearly 2-1/2 months and desires removal as he has shown worsening in his nutrition and overall feeling of being unwell. He would like to convert back to TPN, which is a reasonable thing at this juncture. As such, we will proceed with the EGD and PEG removal Friday morning. Risks, benefits, and alternatives of that have been discussed with the patient in detail and he agrees to proceed as outlined. [address] [address] CONSULTATION Name: LORENZA ARMENDARIZ Room #: 417-I ADM IN M.R.#: [id number] Admission: 11/07/17 Attend Phys: Kyler Vega MD Discharge: Date of : 53 Report #: [id number] I sincerely appreciate this consult. I will follow along while hospitalized and leave any further recommendations in the patient's chart as appropriate. <ELECTRONICALLY SIGNED> By: Jennifer Orellana MD, FACS 11/09/17 1000 1549 56 Jennifer Orellana MD, FACS /nt
[~2017-11-07 14:20] MED LIST changes: +AMBIEN 5 MG TABL5 M1 PO; +CEFTRIAXONE250 MG IJ; +LEVAQUIN 750 M750 MG PO
[2017-11-07 14:24] VITALS: BP 106/42
[2017-11-07 15:46] LABS: ABSOLUTE NEUTROPHILS 3.9 thou/uL (1.4-8.2); BASOPHILS 0.9 % (0.0-2.0); EOSINOPHILS 0.1 % (0.0-3.0); HEMATOCRIT 34.7 % (42.0-52.0); HEMOGLOBIN 11.7 gm/dL (14.0-18.0); LYMPHOCYTES 7.6 % (24.0-44.0); MCH 29.3 pg (26.0-34.0); MCHC 33.7 g/dL (28.0-37.0); MCV 86.9 fL (80.0-100.0); MONOCYTES 4.8 % (1.0-8.0); PLATELET COUNT 150 thou/uL (150-400); POLYS 86.6 % (36.0-66.0); RBC 3.99 mil/uL (4.50-6.00); RDW 14.2 % (10.5-14.5); WBC 4.5 thou/uL (4.0-11.0)
[2017-11-07 15:51] LABS: ANION GAP 9 mmol/L (7-16); BUN 27 mg/dL (7-18); CALCIUM 9.1 mg/dL (8.5-10.1); CHLORIDE 99 mmol/L (98-107); CO2 25 mmol/L (21-32); CREATININE 1.6 mg/dL (0.7-1.3); GLUCOSE 99 mg/dL (74-106); POTASSIUM 3.7 mmol/L (3.5-5.1); SODIUM 133 mmol/L (136-145)
[2017-11-07 16:00] LABS: TROPONIN-I <0.06 ng/mL (<0.06)
[2017-11-07 20:45] LABS: URINE BILIRUBIN NEGATIVE (Negative); URINE BLOOD 2+ (Negative); URINE CLARITY CLEAR; URINE COLOR YELLOW; URINE GLUCOSE-RANDOM* NEGATIVE (Negative); URINE KETONES NEGATIVE (Negative); URINE LEUKOCYTES-REFLEX NEGATIVE (Negative); URINE NITRITE-REFLEX NEGATIVE (Negative); URINE PROTEIN (DIPSTICK) 1+ (Negative); URINE UROBILINOGEN 0.2 E.U./dl (0.2-1.0)
[2017-11-07 20:54] LABS: BACTERIA-REFLEX 1-9 Few /HPF (None Seen); CASTS None Seen /LPF (None Seen); CRYSTALS None Seen /LPF (None Seen); SQUAMOUS None Seen /LPF (0-3); URINE RBC 0-2 Rare /HPF (0-2); URINE WBC-REFLEX None Seen /HPF (0-5)
[2017-11-07 22:26] VITALS: BP 136/71
[2017-11-07 22:58] VITALS: BP 144/72
[2017-11-08 03:32] VITALS: BP 125/48
[2017-11-08 05:54] LABS: CALCIUM 8.8 mg/dL (8.5-10.1); CREATININE 1.6 mg/dL (0.7-1.3); POTASSIUM 4.4 mmol/L (3.5-5.1)
[2017-11-08 08:10] VITALS: BP 124/72
[2017-11-08 16:34] VITALS: BP 122/70
[2017-11-08 19:48] VITALS: BP 113/63
[2017-11-09 04:27] VITALS: BP 129/72
[2017-11-09 05:28] LABS: HEMATOCRIT 32.6 % (42.0-52.0); HEMOGLOBIN 11.1 gm/dL (14.0-18.0); MCH 29.3 pg (26.0-34.0); MCHC 34.1 g/dL (28.0-37.0); MCV 85.9 fL (80.0-100.0); RBC 3.79 mil/uL (4.50-6.00); RDW 14.2 % (10.5-14.5)
[2017-11-09 05:49] LABS: ALBUMIN 2.4 g/dL (3.4-5.0); CALCIUM 8.7 mg/dL (8.5-10.1); CREATININE 1.3 mg/dL (0.7-1.3); POTASSIUM 4.9 mmol/L (3.5-5.1); TOTAL BILIRUBIN 0.2 mg/dL (<0.1-1.0); TOTAL PROTEIN 6.6 g/dL (6.4-8.2)
[2017-11-09 07:45] VITALS: BP 133/71
[2017-11-09 19:23] VITALS: BP 153/75
[2017-11-10 04:21] VITALS: BP 137/66
[2017-11-10 06:13] LABS: HEMATOCRIT 32.7 % (42.0-52.0); HEMOGLOBIN 10.9 gm/dL (14.0-18.0); MCH 29.1 pg (26.0-34.0); MCHC 33.3 g/dL (28.0-37.0); MCV 87.4 fL (80.0-100.0); RBC 3.75 mil/uL (4.50-6.00); RDW 14.5 % (10.5-14.5); WBC 7.4 thou/uL (4.0-11.0)
[2017-11-10 06:40] LABS: ALBUMIN 2.4 g/dL (3.4-5.0); CALCIUM 8.4 mg/dL (8.5-10.1); CREATININE 1.2 mg/dL (0.7-1.3); POTASSIUM 4.7 mmol/L (3.5-5.1); TOTAL BILIRUBIN 0.2 mg/dL (<0.1-1.0); TOTAL PROTEIN 6.5 g/dL (6.4-8.2)
[2017-11-10 10:00] VITALS: BP 151/70
[2017-11-10 19:20] VITALS: BP 136/75
[2017-11-11 03:56] VITALS: BP 148/75
[2017-11-11 07:00] VITALS: BP 156/75
[2017-11-11 07:08] VITALS: BP 118/60
[2017-11-11 14:36] LABS: CALCIUM 8.6 mg/dL (8.5-10.1); CREATININE 1.3 mg/dL (0.7-1.3); MAGNESIUM 1.5 mg/dL (1.8-2.4)
[2017-11-11 15:46] VITALS: BP 144/73
[2017-11-11 19:15] VITALS: BP 148/80
[2017-11-12 04:00] VITALS: BP 122/62
[2017-11-12 07:07] VITALS: BP 150/75
[2017-11-12 07:59] LABS: MAGNESIUM 1.4 mg/dL (1.8-2.4); TOTAL PROTEIN 5.7 g/dL (6.4-8.2)
[2017-11-12 08:02] LABS: CREATININE 1.3 mg/dL (0.7-1.3); POTASSIUM 4.7 mmol/L (3.5-5.1); TOTAL BILIRUBIN 0.3 mg/dL (<0.1-1.0)
[2017-11-12 08:03] LABS: ALBUMIN 2.4 g/dL (3.4-5.0); CALCIUM 8.2 mg/dL (8.5-10.1)
[2017-11-12 16:07] VITALS: BP 152/74
[2017-11-12 16:15] VITALS: BP 154/78
[2017-11-12 20:10] VITALS: BP 149/90
[2017-11-13 03:40] VITALS: BP 125/75
[2017-11-13 07:00] VITALS: BP 125/81
[2017-11-13 08:57] LABS: CALCIUM 8.4 mg/dL (8.5-10.1); CREATININE 1.2 mg/dL (0.7-1.3); MAGNESIUM 1.6 mg/dL (1.8-2.4); POTASSIUM 4.7 mmol/L (3.5-5.1)
[2017-11-13 15:43] VITALS: BP 140/60
[2017-11-13 19:10] VITALS: BP 130/74
[2017-11-14 04:36] VITALS: BP 127/72
[2017-11-14 07:00] VITALS: BP 126/82
[2017-11-14 07:26] LABS: CALCIUM 8.2 mg/dL (8.5-10.1); MAGNESIUM 1.7 mg/dL (1.8-2.4); PHOSPHORUS 2.1 mg/dL (2.5-4.9); POTASSIUM 4.2 mmol/L (3.5-5.1)
[2017-11-14 09:19] LABS: HEMATOCRIT 32.1 % (42.0-52.0); HEMOGLOBIN 10.8 gm/dL (14.0-18.0); MCH 29.2 pg (26.0-34.0); MCHC 33.7 g/dL (28.0-37.0); MCV 86.7 fL (80.0-100.0); RBC 3.71 mil/uL (4.50-6.00); RDW 14.3 % (10.5-14.5); WBC 10.2 thou/uL (4.0-11.0)
[2017-11-14 14:48] VITALS: BP 126/82
[2017-11-14] MEDS ORDERED: MYCAMINE100 MG IV (15:11)
[2017-11-14 15:43] VITALS: BP 126/82
[2017-11-14 16:27] VITALS: BP 126/82
== END 2017-11-14 17:30 | disposition home health service (06) | DRG 314 ==
LOC: ER 14:20 → 4E 20:34 → EROBS 20:34 → 4E 23:00 → ENTRNSPT 11-14 17:23 → 4E 11-14 17:30
PROVIDERS: Emergency Medicine; Hospitalist; Internal Medicine; Nurse Practitioner Family
PROC: 0DP6XUZ Removal of Feeding Device from Stomach, External Approach (ICD-10-PCS; 2017-11-10)
PROC: 0DJ08ZZ Inspection of Upper Intestinal Tract, Via Natural or Artificial Opening Endoscopic (ICD-10-PCS; 2017-11-10)
PROC: B548ZZA Ultrasonography of Superior Vena Cava, Guidance (ICD-10-PCS; principal; 2017-11-13)
PROC: B5181ZA Fluoroscopy of Superior Vena Cava using Low Osmolar Contrast, Guidance (ICD-10-PCS; principal; 2017-11-13)
PROC: 02HV33Z Insertion of Infusion Device into Superior Vena Cava, Percutaneous Approach (ICD-10-PCS; principal; 2017-11-13)
DX: T80.211A Bloodstream infection due to central venous catheter, initial encounter (principal); E43 Unspecified severe protein-calorie malnutrition; J18.9 Pneumonia, unspecified organism; A41.9 Sepsis, unspecified organism; N17.9 Acute kidney failure, unspecified; K91.2 Postsurgical malabsorption, not elsewhere classified; J44.1 Chronic obstructive pulmonary disease with (acute) exacerbation; B49 Unspecified mycosis; I69.951 Hemiplegia and hemiparesis following unspecified cerebrovascular disease affecting right dominant side; J44.0 Chronic obstructive pulmonary disease with (acute) lower respiratory infection; I25.10 Atherosclerotic heart disease of native coronary artery without angina pectoris; F32.9 Major depressive disorder, single episode, unspecified; F41.9 Anxiety disorder, unspecified; G89.4 Chronic pain syndrome; N18.3 Chronic kidney disease, stage 3 (moderate); F17.210 Nicotine dependence, cigarettes, uncomplicated; I73.9 Peripheral vascular disease, unspecified; I12.9 Hypertensive chronic kidney disease with stage 1 through stage 4 chronic kidney disease, or unspecified chronic kidney disease; B37.9 Candidiasis, unspecified; E78.5 Hyperlipidemia, unspecified; K21.9 Gastro-esophageal reflux disease without esophagitis; Z93.3 Colostomy status; Z79.82 Long term (current) use of aspirin; Z99.81 Dependence on supplemental oxygen; I25.2 Old myocardial infarction; Z93.2 Ileostomy status; Z90.49 Acquired absence of other specified parts of digestive tract; Z95.1 Presence of aortocoronary bypass graft; Z93.1 Gastrostomy status; Z68.21 Body mass index [BMI] 21.0-21.9, adult; Y83.8 Other surgical procedures as the cause of abnormal reaction of the patient, or of later complication, without mention of misadventure at the time of the procedure; Y92.89 Other specified places as the place of occurrence of the external cause
CPT/HCPCS: 10183; 62110; 62900

== ENCOUNTER 2018-02-24 13:20 | Emergency (ER) | payer OTHER ==
[~2018-02-24] VITALS: Ht 165.1 cm; Wt 59.0 kg
[2018-02-24 16:35] VITALS: BP 103/68
== END 2018-02-24 16:30 | disposition home or self-care (01) ==
LOC: ER 13:20
DX: Z45.2 Encounter for adjustment and management of vascular access device (principal); I25.2 Old myocardial infarction; I25.10 Atherosclerotic heart disease of native coronary artery without angina pectoris; J44.9 Chronic obstructive pulmonary disease, unspecified; G89.29 Other chronic pain; N18.3 Chronic kidney disease, stage 3 (moderate); F17.210 Nicotine dependence, cigarettes, uncomplicated; Z99.81 Dependence on supplemental oxygen; Z95.1 Presence of aortocoronary bypass graft

== ENCOUNTER → 2018-02-25 | Outpatient (CLI) | payer OTHER ==
[~2018-02-25] VITALS: Ht 165.1 cm; Wt 59.0 kg
[2018-02-25 09:05] LABS: HEMATOCRIT 35.1 % (42.0-52.0); HEMOGLOBIN 11.9 gm/dL (14.0-18.0); MCH 27.9 pg (26.0-34.0); MCHC 33.8 g/dL (28.0-37.0); MCV 82.5 fL (80.0-100.0); RBC 4.26 mil/uL (4.50-6.00); RDW 13.8 % (10.5-14.5)
[2018-02-25 09:12] LABS: CALCIUM 9.7 mg/dL (8.5-10.1); CREATININE 1.4 mg/dL (0.7-1.3); POTASSIUM 3.8 mmol/L (3.5-5.1)
[2018-02-25 09:19] LABS: APTT 27.7 Seconds (24.5-32.8); PROTIME 10.5 Seconds (9.3-11.4)
== END | disposition home or self-care (01) ==
LOC: SPEC 06:25
PROVIDERS: Radiology Vascular & Interventional Radiology
DX: Z45.2 Encounter for adjustment and management of vascular access device (principal); I13.0 Hypertensive heart and chronic kidney disease with heart failure and stage 1 through stage 4 chronic kidney disease, or unspecified chronic kidney disease; N18.3 Chronic kidney disease, stage 3 (moderate); I50.9 Heart failure, unspecified; I25.2 Old myocardial infarction; E78.5 Hyperlipidemia, unspecified; J44.9 Chronic obstructive pulmonary disease, unspecified; G89.4 Chronic pain syndrome; F32.9 Major depressive disorder, single episode, unspecified; F41.9 Anxiety disorder, unspecified; F17.210 Nicotine dependence, cigarettes, uncomplicated; Z79.01 Long term (current) use of anticoagulants; Z98.890 Other specified postprocedural states; Z86.73 Personal history of transient ischemic attack (TIA), and cerebral infarction without residual deficits; Z95.1 Presence of aortocoronary bypass graft; Z79.899 Other long term (current) drug therapy; Z87.440 Personal history of urinary (tract) infections

== ENCOUNTER → 2018-03-10 | Outpatient (CLI) | payer OTHER | END | disposition home or self-care (01) | LOC: SPEC 11:54 | DX: Z45.2 Encounter for adjustment and management of vascular access device (principal); I25.10 Atherosclerotic heart disease of native coronary artery without angina pectoris; I25.2 Old myocardial infarction; J44.1 Chronic obstructive pulmonary disease with (acute) exacerbation; F41.9 Anxiety disorder, unspecified; F32.9 Major depressive disorder, single episode, unspecified; F17.210 Nicotine dependence, cigarettes, uncomplicated; Z79.899 Other long term (current) drug therapy; Z98.890 Other specified postprocedural states; Z90.49 Acquired absence of other specified parts of digestive tract; Z95.1 Presence of aortocoronary bypass graft; Z99.81 Dependence on supplemental oxygen ==

== ENCOUNTER 2018-03-21 20:14 | Emergency (ER) | payer OTHER ==
[~2018-03-21] VITALS: Ht 165.1 cm; Wt 59.9 kg
[2018-03-21 20:18] VITALS: BP 123/70
[2018-03-22] MEDS ORDERED: HEP-LOCK F100 UNIT/1 IV (22:54)
== END 2018-03-21 20:51 | disposition home or self-care (01) ==
LOC: ER 20:14
DX: Z43.1 Encounter for attention to gastrostomy (principal); Z23 Encounter for immunization; J44.9 Chronic obstructive pulmonary disease, unspecified; F32.9 Major depressive disorder, single episode, unspecified; F41.9 Anxiety disorder, unspecified; I25.2 Old myocardial infarction; I25.810 Atherosclerosis of coronary artery bypass graft(s) without angina pectoris; N18.3 Chronic kidney disease, stage 3 (moderate); F17.210 Nicotine dependence, cigarettes, uncomplicated

== ENCOUNTER 2018-03-22 20:00 | Inpatient (IN) | payer OTHER ==
[~2018-03-22] VITALS: Ht 152.4 cm; Wt 59.0 kg
--- NOTE | ~2018-03-22 | EKG ---
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 : 1955 Requested By: Mariam Rocha Order Number: [id number] MD: Larry Castillo Measurements Intervals [place] Rate: 98 P: 61 LA: 141 QRS: 11 QRSD: 104 T: 49 QT: 435 QTc: 556 Interpretive Statements Sinus rhythm RSR' in V1 or V2, right VCD or RVH Compared to ECG 09/28/2017 10:29:49 Right ventricular hypertrophy now present RSR' in V1 or V2 now present Possible ischemia no longer present Electronically Signed On 03-22-2018 20:58:27 DIRECTOR PAYER by Larry Castillo [email or web address] <ELECTRONICALLY SIGNED> By: Larry Castillo MD 03/22/182057 10 10 Larry Castillo MD /EPI
--- NOTE | ~2018-03-22 | HC ---
[facility] [place] [address] CONSULTATION Name: LORENZA ARMENDARIZ Room #: 463-P ADM IN M.R.#: [id number] Admission: 03/22/18 Attend Phys: Bar Hannah MD Discharge: Date of : 53 Report #: [id number] THIS REPORT FOR: //name// CC: RAIN physician/PCP FAM unknown Bar Hannah DATE OF SERVICE: 03/23/2018 REASON FOR CONSULTATION: Evaluate fever, leukocytosis and dyspnea. HISTORY OF PRESENT ILLNESS: The patient is a 62-year-old, known from his previous hospitalizations with underlying COPD and short gut syndrome. He has had issues with recurring central venous catheter infections. He has been dealing with this for several years now. He has had repeated trials to maintain nutrition and hydration of intravenous fluids, but has failed. He now has a left upper extremity PICC in place. This was placed several weeks ago. His previous one fell out. He received daily TPN and supplements with enteral nutrition and hydration. Still has a large output from his ileostomy. He has not been feeling well for several days. Yesterday, he became more short of breath, having chills, cough with clear sputum production, presents to the Emergency Room. Initial white count was 2000, on repeat it is up to 23,000. Also noted to have increased liver function test. The patient has had no abdominal pain, nausea, vomiting. He has had no dysuria or frequency. No rash or decubiti. No chest pain. He is dyspneic on exertion mostly. Typically, he is on 3 liters of oxygen per nasal cannula and now is up to 4 liters. REVIEW OF SYSTEMS: A 10-point review of systems is otherwise negative. ALLERGIES: None known. MEDICATIONS: As noted on his MAR, now on azithromycin and ceftriaxone. PAST MEDICAL HISTORY: Extensive, but most notable for gastroesophageal reflux, short bowel syndrome, coronary artery disease, peripheral vascular disease, COPD, hypertension, hyperlipidemia. He has an ischemic bowel requiring his bowel resections. Coronary artery bypass grafting, back surgery, multiple abdominal surgeries most recently with revision of his ileostomy, Budd-Chiari malformation, dental extractions, vocal cord papule, anxiety, depression, deaf in his left ear, umbilical and inguinal herniorrhaphies. FAMILY HISTORY: Noncontributory. SOCIAL HISTORY: Smoker of cigarettes. No significant alcohol intake. PHYSICAL EXAMINATION: [facility] [address] [place] [address] CONSULTATION Name: LORENZA ARMENDARIZ Room #: 463-P [facility] IN M.R.#: [id number] Admission: 03/22/18 Attend Phys: Bar Hannah MD Discharge: Date of : 53 Report #: [id number] VITAL SIGNS: He was afebrile. Maximum temperature was 38.6 earlier today. Heart rate was 68, respiratory rate 20, blood pressure 113/60. GENERAL: He was alert and cooperative. Hoarse voice, thin, appeared his stated age. HEENT: Eyes without icterus. Mouth without mucositis or lesion. Deaf in his left ear unchanged. NECK: Supple with no thyromegaly, adenopathy or JVD. SKIN: Without rashes or decubiti. No palpable adenopathy. LUNGS: Decreased breath sounds bilaterally with no consolidation. HEART: Regular without appreciable murmur, gallop or rub. ABDOMEN: Soft, nontender, no hepatosplenomegaly or mass. Ileostomy, left lower quadrant was unremarkable. EXTREMITIES: Left upper extremity PICC site without drainage or erythema. External genitalia unremarkable without lesion or rash. NEUROLOGIC: Cranial nerves intact, other than evidence of a hoarse voice and left ear deafness. Strength in his upper and lower extremities was normal. Sensation in upper and lower extremities to touch normal. PSYCHIATRIC: Normal mood and mental status. LABORATORY STUDIES: Chest x-ray, left lower lobe atelectasis versus infiltrate. Blood cultures are pending. ABG on 3 liters showed a pO2 of 66, pCO2 of 37, pH 7.39. Sodium 137, potassium 4.1, bicarbonate 27, creatinine 1.8. Hemoglobin 9.3, platelet count 92,000, WBC 23.1. Lactate 1.9. Influenza antigen negative. Alkaline phosphatase 1428, AST 94, ALT 117, bilirubin 1.2. Note that his baseline creatinine is 1 and previous alkaline phosphatase on 11/12 was 211. IMPRESSION: A 62-year-old with fever, leukocytosis, acute renal injury, elevated liver function test and shortness of breath of left lower lobe, atelectasis, infiltrate. At this point, it is still possible we are dealing with central venous catheter infection. Exacerbation of chronic obstructive pulmonary disease also considered. May be developing community-acquired pneumonia with more hydration. We will need to watch his left lower lobe infiltrate. I am suspecting elevated alkaline phosphatase from his TPN. Primary biliary tract disease also considered. RECOMMENDATION: We will continue antibiotic coverage for possible pneumonia versus central venous catheter infection versus cholangitis. We will use vancomycin, Zosyn, micafungin. Image his liver by ultrasound. Repeat liver function tests and CBC as well as chest x-ray. Continue full support for COPD exacerbation. <ELECTRONICALLY SIGNED> By: Anthony Bullard MD 03/24/18 1813 1406 1639 Anthony Bullard MD /nt
[2018-03-22 20:04] VITALS: BP 105/51
[2018-03-22 20:24] LABS: HEMATOCRIT 30.3 % (42.0-52.0); HEMOGLOBIN 10.2 gm/dL (14.0-18.0); MCH 27.4 pg (26.0-34.0); MCHC 33.6 g/dL (28.0-37.0); MCV 81.4 fL (80.0-100.0); RBC 3.73 mil/uL (4.50-6.00); RDW 14.2 % (10.5-14.5); WBC 2.4 thou/uL (4.0-11.0)
[2018-03-22 20:37] LABS: ANION GAP 12 mmol/L (7-16); BUN 27 mg/dL (7-18); CALCIUM 8.8 mg/dL (8.5-10.1); CHLORIDE 104 mmol/L (98-107); CO2 24 mmol/L (21-32); CREATININE 1.8 mg/dL (0.7-1.3); GLUCOSE 80 mg/dL (74-106); POTASSIUM 3.1 mmol/L (3.5-5.1); SODIUM 140 mmol/L (136-145)
[2018-03-22 20:46] LABS: BE(vivo) -2.4 mmol/L (-2 to +3); HCO3 22.2 mmol/L (22.0-26.0); PCO2 37.1 mmHg (35.0-45.0); PO2 66.5 mmHg (80.0-100.0); pH 7.394 (7.360-7.450); sO2 93.2 % (92.0-98.0)
[2018-03-22 20:47] LABS: ALBUMIN 2.6 g/dL (3.4-5.0); SGOT 94 U/L (15-37); SGPT 117 U/L (30-65); TOTAL BILIRUBIN 1.2 mg/dL (<0.1-1.0); TOTAL PROTEIN 6.8 g/dL (6.4-8.2); TROPONIN-I <0.06 ng/mL (<0.06)
[2018-03-22 20:52] LABS: PLATELET COUNT 97 thou/uL (150-400)
[2018-03-22 21:57] VITALS: BP 165/79
[2018-03-22 22:04] VITALS: BP 95/48
[2018-03-22] MEDS ORDERED: HEP-LOCK F100 UNIT/1 IV (22:54)
[2018-03-22 23:05] VITALS: BP 102/54
[2018-03-23 04:21] VITALS: BP 127/50
[2018-03-23 05:43] LABS: HEMATOCRIT 27.8 % (42.0-52.0); HEMOGLOBIN 9.3 gm/dL (14.0-18.0); MCH 27.2 pg (26.0-34.0); MCHC 33.5 g/dL (28.0-37.0); MCV 81.1 fL (80.0-100.0); RBC 3.42 mil/uL (4.50-6.00); RDW 14.3 % (10.5-14.5)
[2018-03-23 05:48] LABS: WBC 23.1 thou/uL (4.0-11.0)
[2018-03-23 05:57] LABS: CALCIUM 8.2 mg/dL (8.5-10.1); CREATININE 1.8 mg/dL (0.7-1.3); MAGNESIUM 1.3 mg/dL (1.8-2.4); POTASSIUM 4.1 mmol/L (3.5-5.1)
[2018-03-23 08:13] VITALS: BP 113/60
[2018-03-23 15:01] VITALS: BP 96/56
[2018-03-23 20:12] VITALS: BP 109/61
[2018-03-24 00:20] VITALS: BP 102/63
[2018-03-24 04:06] VITALS: BP 117/63
[2018-03-24 07:00] LABS: EOSINOPHILS 0.6 % (0.0-3.0); HEMATOCRIT 25.9 % (42.0-52.0); HEMOGLOBIN 8.5 gm/dL (14.0-18.0); LYMPHOCYTES 4.5 % (24.0-44.0); MCH 27.3 pg (26.0-34.0); MCHC 32.9 g/dL (28.0-37.0); MCV 83.1 fL (80.0-100.0); MONOCYTES 3.5 % (1.0-8.0); POLYS 91.4 % (36.0-66.0); RBC 3.11 mil/uL (4.50-6.00); RDW 14.7 % (10.5-14.5)
[2018-03-24 07:36] LABS: ALBUMIN 2.1 g/dL (3.4-5.0); CALCIUM 8.2 mg/dL (8.5-10.1); CREATININE 1.5 mg/dL (0.7-1.3); POTASSIUM 4.6 mmol/L (3.5-5.1); TOTAL BILIRUBIN 0.7 mg/dL (<0.1-1.0)
[2018-03-24 08:00] VITALS: BP 116/59
[2018-03-24 08:30] LABS: PLATELET COUNT 69 thou/uL (150-400); PLATELET ESTIMATE SLIGHTLY DECREASED
[2018-03-24 16:00] VITALS: BP 134/71
[2018-03-24 20:38] VITALS: BP 128/61
[2018-03-25 02:00] VITALS: BP 133/69
[2018-03-25 03:53] LABS: ALBUMIN 2.2 g/dL (3.4-5.0); CREATININE 1.4 mg/dL (0.7-1.3); MAGNESIUM 2.6 mg/dL (1.8-2.4); PHOSPHORUS 3.5 mg/dL (2.5-4.9); POTASSIUM 4.4 mmol/L (3.5-5.1); TOTAL BILIRUBIN 0.6 mg/dL (<0.1-1.0); TOTAL PROTEIN 6.3 g/dL (6.4-8.2)
[2018-03-25 08:15] VITALS: BP 148/74
[2018-03-25 13:16] VITALS: BP 144/80
[2018-03-25 19:12] VITALS: BP 167/78
[2018-03-26 04:04] LABS: CREATININE 1.4 mg/dL (0.7-1.3); MAGNESIUM 2.3 mg/dL (1.8-2.4); PHOSPHORUS 2.8 mg/dL (2.5-4.9); POTASSIUM 4.2 mmol/L (3.5-5.1)
[2018-03-26 05:00] VITALS: BP 129/52
[2018-03-26 06:08] LABS: ADENOVIRUS Negative (Negative); INFLUENZA A Negative (Negative); INFLUENZA B Negative (Negative); METAPNEUMOVIRUS Negative (Negative); PARAINFLUENZA 1 Negative (Negative); PARAINFLUENZA 2 Negative (Negative); PARAINFLUENZA 3 Negative (Negative); RHINOVIRUS Negative (Negative); RSV A Negative (Negative); RSV B Negative (Negative)
[2018-03-26 08:56] VITALS: BP 147/63
[2018-03-26 16:50] VITALS: BP 148/76
[2018-03-26 19:51] VITALS: BP 150/72
[2018-03-27 04:26] VITALS: BP 155/78
[2018-03-27 05:19] LABS: ALBUMIN 2.1 g/dL (3.4-5.0); CALCIUM 7.9 mg/dL (8.5-10.1); CREATININE 1.4 mg/dL (0.7-1.3); PHOSPHORUS 3.4 mg/dL (2.5-4.9); POTASSIUM 4.6 mmol/L (3.5-5.1)
[2018-03-27 09:27] VITALS: BP 150/63
[2018-03-27 14:55] VITALS: BP 178/86
[2018-03-27 19:52] VITALS: BP 178/90
[2018-03-28 04:03] VITALS: BP 129/45
[2018-03-28 04:29] LABS: CALCIUM 7.5 mg/dL (8.5-10.1); CREATININE 1.3 mg/dL (0.7-1.3)
[2018-03-28 07:47] VITALS: BP 135/53
[2018-03-28 14:31] VITALS: BP 125/69
[2018-03-28 20:30] VITALS: BP 137/62
[2018-03-29 04:30] VITALS: BP 134/59
[2018-03-29 07:48] LABS: MAGNESIUM 1.7 mg/dL (1.8-2.4); PHOSPHORUS 3.6 mg/dL (2.5-4.9)
[2018-03-29 07:50] LABS: CALCIUM 7.7 mg/dL (8.5-10.1); CREATININE 1.2 mg/dL (0.7-1.3); POTASSIUM 3.4 mmol/L (3.5-5.1); TOTAL BILIRUBIN 0.5 mg/dL (<0.1-1.0); TOTAL PROTEIN 5.7 g/dL (6.4-8.2)
[2018-03-29 08:45] VITALS: BP 147/90
[2018-03-29 11:33] VITALS: BP 175/82
[2018-03-29 20:55] VITALS: BP 145/77
[2018-03-30 07:59] LABS: CALCIUM 8.2 mg/dL (8.5-10.1); CREATININE 1.1 mg/dL (0.7-1.3); MAGNESIUM 1.9 mg/dL (1.8-2.4); PHOSPHORUS 3.3 mg/dL (2.5-4.9); POTASSIUM 3.8 mmol/L (3.5-5.1)
[2018-03-30 08:19] VITALS: BP 175/104
[2018-03-30 12:45] VITALS: BP 175/81
[2018-03-30 21:00] VITALS: BP 167/82
[2018-03-31 08:08] VITALS: BP 159/88
[2018-03-31 10:21] VITALS: BP 159/88
[2018-03-31 14:20] VITALS: BP 162/80
[2018-03-31 16:13] VITALS: BP 163/72
[2018-03-31 19:44] VITALS: BP 156/78
[2018-04-01 08:29] VITALS: BP 126/50
[2018-04-01 08:32] VITALS: BP 126/50
[2018-04-01] MEDS ORDERED: ZOSYN 3.373.375 GM/1 IV (08:55)
[2018-04-01 22:22] VITALS: BP 116/74
[2018-04-02 07:35] VITALS: BP 104/60
[2018-04-02 17:59] VITALS: BP 159/88
== END 2018-04-02 18:30 | disposition home health service (06) | DRG 314 ==
LOC: ER 20:00 → 4W 21:12 → SICU 21:12 → EROBS 21:12 → 4W 22:44 → SICU 03-29 11:27
PROVIDERS: Hospitalist; Nurse Practitioner Acute Care; Specialist; Student in an Organized Health Care Education/Training Program
PROC: 05HC33Z Insertion of Infusion Device into Left Basilic Vein, Percutaneous Approach (ICD-10-PCS; principal; 2018-03-25)
PROC: 0W9B3ZZ Drainage of Left Pleural Cavity, Percutaneous Approach (ICD-10-PCS; 2018-04-02)
DX: T80.211A Bloodstream infection due to central venous catheter, initial encounter (principal); A41.9 Sepsis, unspecified organism; J96.21 Acute and chronic respiratory failure with hypoxia; J18.9 Pneumonia, unspecified organism; K83.1 Obstruction of bile duct; N17.9 Acute kidney failure, unspecified; J44.1 Chronic obstructive pulmonary disease with (acute) exacerbation; K91.2 Postsurgical malabsorption, not elsewhere classified; D61.818 Other pancytopenia; J90 Pleural effusion, not elsewhere classified; J44.0 Chronic obstructive pulmonary disease with (acute) lower respiratory infection; I25.10 Atherosclerotic heart disease of native coronary artery without angina pectoris; F32.9 Major depressive disorder, single episode, unspecified; F41.9 Anxiety disorder, unspecified; G89.4 Chronic pain syndrome; N18.3 Chronic kidney disease, stage 3 (moderate); R74.0 Nonspecific elevation of levels of transaminase and lactic acid dehydrogenase [LDH]; K21.9 Gastro-esophageal reflux disease without esophagitis; I73.9 Peripheral vascular disease, unspecified; E78.5 Hyperlipidemia, unspecified; F17.210 Nicotine dependence, cigarettes, uncomplicated; I12.9 Hypertensive chronic kidney disease with stage 1 through stage 4 chronic kidney disease, or unspecified chronic kidney disease; E87.6 Hypokalemia; Z60.2 Problems related to living alone; E86.0 Dehydration; Z23 Encounter for immunization; I25.2 Old myocardial infarction; Z90.49 Acquired absence of other specified parts of digestive tract; Z93.2 Ileostomy status; Z95.1 Presence of aortocoronary bypass graft; Z86.73 Personal history of transient ischemic attack (TIA), and cerebral infarction without residual deficits; Z93.1 Gastrostomy status; Z98.818 Other dental procedure status; Z79.82 Long term (current) use of aspirin; Z79.899 Other long term (current) drug therapy
CPT/HCPCS: 10045; 15002

== ENCOUNTER 2018-04-17 11:17 | Emergency (ER) | payer OTHER ==
[~2018-04-17] VITALS: Ht 165.1 cm; Wt 55.3 kg
[~2018-04-17 11:17] MED LIST changes: +HEP-LOCK F100 UNIT/1 IV; +ZOSYN 3.373.375 GM/1 IV
[2018-04-17 12:44] VITALS: BP 142/103
== END 2018-04-17 12:46 | disposition home or self-care (01) ==
LOC: ER 11:17
DX: T82.524A Displacement of infusion catheter, initial encounter (principal); I25.10 Atherosclerotic heart disease of native coronary artery without angina pectoris; J44.9 Chronic obstructive pulmonary disease, unspecified; F32.9 Major depressive disorder, single episode, unspecified; F41.9 Anxiety disorder, unspecified; G89.4 Chronic pain syndrome; N18.3 Chronic kidney disease, stage 3 (moderate); Z90.49 Acquired absence of other specified parts of digestive tract; Z86.73 Personal history of transient ischemic attack (TIA), and cerebral infarction without residual deficits

== ENCOUNTER → 2018-04-30 | Outpatient (CLI) | payer OTHER ==
[~2018-04-30] VITALS: Ht 165.1 cm; Wt 59.0 kg
--- NOTE | ~2018-04-30 | P ---
[facility] [place] [address] PROCEDURE REPORT Name: LORENZA ARMENDARIZ Room #: REG [facility]#: [id number] Admission: 04/30/18 Attend Phys: Michael Michael MD Discharge: Date of : 53 Report #: [id number] THIS REPORT FOR: //name// CC: Michael Carrion MD TYPE OF REPORT: Upper endoscopy report. BRIEF HISTORY: The patient is a 62-year-old male known to me with a history of dysphagia and previous dilation. PREOPERATIVE DIAGNOSIS: Recurrent dysphagia. POSTOPERATIVE DIAGNOSES: 1. Dysphagia. 2. Small hiatus hernia. 3. Diverticulum, second portion of the duodenum. MEDICATIONS: Deep sedation with propofol per Anesthesia. SPECIMEN: None. ESTIMATED BLOOD LOSS: None. PROCEDURE: EGD with insertion of the guidewire and dilation of esophagus. FINDINGS: Prior to propofol sedation, procedure of upper endoscopy and dilation was reviewed with the patient as well as potential risks and its complications. He indicates he understands and desires to proceed. DESCRIPTION OF PROCEDURE: With the patient in the left lateral decubitus position, the Olympus videoendoscope was inserted in the cervical esophagus under direct vision without difficulty. Examination of this organ through its entire length revealed normal esophageal mucosa down the squamocolumnar junction. No evidence of ulcers, erosions or Van esophagus. Intermittently, a 2 cm sliding type of hiatus hernia was seen. As far as his dysphagia, no strictures or rings were seen. However, he did have benefit from her previous dilation about 2 years ago. Scope was advanced in the stomach, was examined on end view as well as retroflexed views. He was noted to have normal-appearing mucosa. No ulcers or erosions were seen. The defect from previous PEG tube was noted in the body of the stomach and was well healed. Pylorus and duodenal bulb were unremarkable. The second portion of duodenum, a diverticulum was seen. The duodenal papilla was on the edge of the diverticulum. The scope was advanced down to the third portion of the duodenum, which was noted to be unremarkable. At that point, [facility] [address] [place] [address] PROCEDURE REPORT Name: LORENZA ARMENDARIZ Room #: REG [facility].#: [id number] Admission: 04/30/18 Attend Phys: Michael Michael MD Discharge: Date of : 53 Report #: [id number] scope was slowly withdrawn and careful circumferential views confirmed the above finding. A guidewire was inserted through the scope with the tip of the antrum of the stomach. He was subsequently dilated over a wire with a 51-Mohawk Uriostegui dilator. CONDITION OF THE PATIENT UPON DISCHARGE: Following procedure, the patient drowsy and will be discharged home when fully ambulatory. INSTRUCTIONS TO THE PATIENT AND FAMILY AT THE TIME OF DISCHARGE: He has had recurrent dysphagia. No strictures were seen today. He is to return for dilation on an as needed basis due to recurrence symptoms of dysphagia. He will otherwise follow up with Dr. Kyler Carrion. The patient did make a statement that when drinking liquids, he will often cough. He may be having a component of aspiration of thin liquids. We will have him return on a later date for a video swallow to further evaluate for aspiration. By: 0948 [id number] Michael Michael MD /nt
== END | disposition home or self-care (01) ==
LOC: GI
DX: R13.10 Dysphagia, unspecified (principal); K44.9 Diaphragmatic hernia without obstruction or gangrene; K57.10 Diverticulosis of small intestine without perforation or abscess without bleeding; J45.901 Unspecified asthma with (acute) exacerbation; D64.9 Anemia, unspecified; I21.4 Non-ST elevation (NSTEMI) myocardial infarction; I25.10 Atherosclerotic heart disease of native coronary artery without angina pectoris; F41.9 Anxiety disorder, unspecified; F32.9 Major depressive disorder, single episode, unspecified; F17.210 Nicotine dependence, cigarettes, uncomplicated; E78.5 Hyperlipidemia, unspecified; I13.0 Hypertensive heart and chronic kidney disease with heart failure and stage 1 through stage 4 chronic kidney disease, or unspecified chronic kidney disease; N18.9 Chronic kidney disease, unspecified; I50.9 Heart failure, unspecified; K21.9 Gastro-esophageal reflux disease without esophagitis; Z98.890 Other specified postprocedural states; Z79.899 Other long term (current) drug therapy; Z99.81 Dependence on supplemental oxygen; Z95.1 Presence of aortocoronary bypass graft
CPT/HCPCS: 62110; 62900

== ENCOUNTER 2018-05-20 16:18 | Emergency (ER) | payer OTHER ==
[~2018-05-20] VITALS: Ht 165.1 cm; Wt 56.7 kg
[2018-05-20 16:52] LABS: BE(vivo) -2.9 mmol/L (-2 to +3); HCO3 21.6 mmol/L (22.0-26.0); PCO2 36.1 mmHg (35.0-45.0); PO2 70.1 mmHg (80.0-100.0); pH 7.394 (7.360-7.450); sO2 94.1 % (92.0-98.0)
--- NOTE | 2018-05-20 17:03 | EKG ---
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1955 Requested By: Felicita Barrett Order Number: [id number] MD: Tim Godinez Measurements Intervals [place] Rate: 76 P: 52 WV: 137 QRS: 45 QRSD: 107 T: 134 QT: 450 QTc: 507 Interpretive Statements Sinus rhythm RSR' in V1 or V2, right VCD Nonspecific repol abnormality, diffuse leads Prolonged QT interval Baseline wander in lead(s) Compared to ECG 03/22/2018 20:11:44 Nonspecific change in the ST and T-wave segments Electronically Signed On 05-20-2018 17:03:22 SHOE IRONER by Tim Godinez [email or web address] <ELECTRONICALLY SIGNED> By: Tim Godinez MD, [facility] 05/20/18 1703 1628 1628 Tim Godinez MD, [facility] /EPI
[2018-05-20 17:20] LABS: ABSOLUTE NEUTROPHILS 4.1 thou/uL (1.4-8.2); BASOPHILS 0.8 % (0.0-2.0); EOSINOPHILS 3.5 % (0.0-3.0); HEMATOCRIT 28.5 % (42.0-52.0); HEMOGLOBIN 9.6 gm/dL (14.0-18.0); LYMPHOCYTES 30.7 % (24.0-44.0); MCHC 33.8 g/dL (28.0-37.0); MCV 79.9 fL (80.0-100.0); PLATELET COUNT 315 thou/uL (150-400); RBC 3.56 mil/uL (4.50-6.00); RDW 16.8 % (10.5-14.5); WBC 7.6 thou/uL (4.0-11.0)
[2018-05-20 17:25] LABS: ANION GAP 8 mmol/L (7-16); BUN 10 mg/dL (7-18); CALCIUM 8.6 mg/dL (8.5-10.1); CHLORIDE 100 mmol/L (98-107); CO2 29 mmol/L (21-32); CREATININE 1.2 mg/dL (0.7-1.3); GLUCOSE 99 mg/dL (74-106); POTASSIUM 3.3 mmol/L (3.5-5.1); SODIUM 137 mmol/L (136-145)
[2018-05-20 17:33] LABS: ALBUMIN 2.3 g/dL (3.4-5.0); SGOT 26 U/L (15-37); SGPT 22 U/L (30-65); TOTAL BILIRUBIN 0.2 mg/dL (<0.1-1.0); TOTAL PROTEIN 7.4 g/dL (6.4-8.2); TROPONIN-I <0.06 ng/mL (<0.06)
[2018-05-20] MEDS ORDERED: MEDROLDOSEPACK PO (18:05)
[2018-05-20] MEDS ORDERED: VIBRAMYCIN 100100 M2 PO (18:05)
[2018-05-20 18:06] VITALS: BP 119/53
== END 2018-05-20 18:11 | disposition home or self-care (01) ==
LOC: ER 16:18
PROVIDERS: Physician Assistant
DX: J44.1 Chronic obstructive pulmonary disease with (acute) exacerbation (principal); R09.02 Hypoxemia; R94.5 Abnormal results of liver function studies; I21.4 Non-ST elevation (NSTEMI) myocardial infarction; I25.10 Atherosclerotic heart disease of native coronary artery without angina pectoris; F32.9 Major depressive disorder, single episode, unspecified; F41.9 Anxiety disorder, unspecified; G89.4 Chronic pain syndrome; N18.3 Chronic kidney disease, stage 3 (moderate); F17.210 Nicotine dependence, cigarettes, uncomplicated; Z95.1 Presence of aortocoronary bypass graft; Z86.73 Personal history of transient ischemic attack (TIA), and cerebral infarction without residual deficits; Z87.01 Personal history of pneumonia (recurrent); Z86.14 Personal history of Methicillin resistant Staphylococcus aureus infection

== ENCOUNTER 2018-05-29 19:27 | Inpatient (IN) | payer OTHER ==
[~2018-05-29] VITALS: Ht 165.1 cm; Wt 67.9 kg
[2018-05-29 19:27] VITALS: BP 136/71
[~2018-05-29 19:27] MED LIST changes: +MEDROLDOSEPACK PO; +VIBRAMYCIN 100100 M2 PO
[2018-05-29 20:00] LABS: ABSOLUTE NEUTROPHILS 8.1 thou/uL (1.4-8.2); BASOPHILS 0.7 % (0.0-2.0); EOSINOPHILS 1.1 % (0.0-3.0); HEMATOCRIT 29.4 % (42.0-52.0); HEMOGLOBIN 9.8 gm/dL (14.0-18.0); LYMPHOCYTES 13.3 % (24.0-44.0); MCH 26.5 pg (26.0-34.0); MCHC 33.2 g/dL (28.0-37.0); MCV 79.7 fL (80.0-100.0); MONOCYTES 8.7 % (1.0-8.0); PLATELET COUNT 245 thou/uL (150-400); POLYS 76.2 % (36.0-66.0); RBC 3.68 mil/uL (4.50-6.00); WBC 10.7 thou/uL (4.0-11.0)
[2018-05-29 20:10] LABS: ANION GAP 7 mmol/L (7-16); BUN 27 mg/dL (7-18); CALCIUM 8.9 mg/dL (8.5-10.1); CHLORIDE 97 mmol/L (98-107); CO2 28 mmol/L (21-32); CREATININE 1.3 mg/dL (0.7-1.3); GLUCOSE 95 mg/dL (74-106); POTASSIUM 3.8 mmol/L (3.5-5.1); SODIUM 132 mmol/L (136-145)
[2018-05-29 20:18] LABS: ALBUMIN 2.4 g/dL (3.4-5.0); MAGNESIUM 1.5 mg/dL (1.8-2.4); SGOT 30 U/L (15-37); SGPT 27 U/L (30-65); TOTAL BILIRUBIN 0.4 mg/dL (<0.1-1.0); TOTAL PROTEIN 7.2 g/dL (6.4-8.2); TROPONIN-I <0.06 ng/mL (<0.06)
[2018-05-29 20:25] LABS: HCO3 23.7 mmol/L (22.0-26.0); PCO2 VENOUS 44.6 mmHg (41.0-51.0)
[2018-05-29 21:12] VITALS: BP 125/75
[2018-05-29 21:41] VITALS: BP 135/88
[2018-05-29 22:00] VITALS: BP 137/80
--- NOTE | 2018-05-30 03:03 | NUR ---
PT ARRIVED BY TRANSPORT FROM ED PT ORIENTATED TO ROOM AND CALL LIGHT VS STABLE NO ISSUES OVERNIGHT.
[2018-05-30 04:42] VITALS: BP 125/57
[2018-05-30 07:28] VITALS: BP 159/67
--- NOTE | 2018-05-30 10:24 | NUR ---
VASCULAR ACCESS ASSESSED PT. PICC LINE PULLED OUT NUMEROUS CM AND DRESSED BY HVN ON 05/27. CXR SHOWS LINE TIP IS AT JUNCTION OF SVC AND INOMINATE VEIN. DISCUSSED POSITION WITH PT. ALSO NOTIFIED ROM RN THAT DR FRAZIER NEEDS TO LOOK AT CXR. RECOMMENDED THAT PT GO TO IR ON FRIDAY TO HAVE LINE REPOSITIONED FOR OPTIMAL PLACEMENT. CURRENTLY HAS MEROPENUM AND METHYPREDNISONE ORDERED.
--- NOTE | 2018-05-30 12:41 | NUR ---
SPOKE TO DR FRAZIER, ORDERS PLACED FOR IR TO CHANGE OUT EXISTING PICC LINE ON FRIDAY
--- NOTE | 2018-05-30 13:41 | EKG ---
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1955 Requested By: Anthony Odom Order Number: [id number] MD: Larry Castillo Measurements Intervals [place] Rate: 70 P: 49 MT: 140 QRS: 30 QRSD: 105 T: 48 QT: 405 QTc: 437 Interpretive Statements Sinus rhythm Probable left atrial enlargement Nonspecific T abnrm, anterolateral leads Compared to ECG 05/20/2018 16:28:59 Early repolarization no longer present Electronically Signed On 05-30-2018 13:40:56 A AUXILIARY by Larry Castillo [email or web address] <ELECTRONICALLY SIGNED> By: Larry Castillo MD 05/30/18 1340 46 46 Larry Castillo MD /EPI
[2018-05-30 14:00] VITALS: BP 130/51
--- NOTE | 2018-05-30 14:39 | NUR ---
TOWARDS POC PT A/O X4, VSS, AFEBRILE. PAIN MANAGED BY MEDS. TPN ON HOLD FOR TONIGHT DUE TO IV PICC LINE CONCERNS. PT NEED TO BE SCHEDULED FOR IR FOR ADVANCEMENT OF PICC LINE. IV TEAM CANT DO IT BECAUSE OF CHRONIC SCARRING OF VEINS. PROVIDER IS AWARE. NO CONCERNS VOICED WILL CONTINUE TO MONITOR.
[2018-05-30 19:14] VITALS: BP 143/61
--- NOTE | 2018-05-31 01:56 | NUR ---
PT GIVEN ORAL PAIN MEDICINE PT WAS ABLE TO SLEEP MOST OF THE NIGHT NO ISSUES OVERNIGHT PT USED CALL LIGHT EFFECTIVELY.
[2018-05-31 03:47] VITALS: BP 113/57
--- NOTE | 2018-05-31 05:26 | HC ---
[facility] [place] [address] CONSULTATION Name: LORENZA ARMENDARIZ Room #: 457-P [facility] IN M.R.#: [id number] Admission: 05/29/18 Attend Phys: Dee Kumar Discharge: Date of : 53 Report #: [id number] THIS REPORT FOR: //name// CC: Dee Carrion DATE OF SERVICE: 05/30/2018 INFECTIOUS DISEASE CONSULTATION ATTENDING PHYSICIAN: Dee Kumar MD REASON FOR EVALUATION: Pneumonitis, complicated by hypoxemia. HISTORY OF PRESENT ILLNESS: Chart reviewed, patient examined. This is a 62-year-old with extensive medical history including known O2-requiring COPD, also has a short gut syndrome, on long-term parenteral nutrition. He has had multiple infectious complications including line-related sepsis previously and more recently was confirmed to have yeast species. Also, he was seen in the Emergency Room on 05/20/2018. He was discharged home. At that point, blood cultures did confirm yeast septicemia and also, sputum with Gram-negatives including Haemophilus influenza and Pseudomonas that was intermediate to ceftazidime and cefepime. He returned to the Emergency Room with complaints of progressive shortness of breath, in particular over the course of last week with associated cough that has been nonproductive. Apparently, he has had some rhinorrhea as well, fevers, chills and has required increased O2 per nasal cannula, which he takes on a chronic basis. He is not encephalopathic. He was started empirically on meropenem and given a dose of fluconazole. ALLERGIES: None known. MEDICATIONS: Currently include fluconazole 200 IV daily, isosorbide mononitrate, tamsulosin, quetiapine, citalopram, metoprolol, Lactobacillus, ferrous sulfate, cholecalciferol, atorvastatin, aspirin, budesonide, pantoprazole, Ursodiol, amitriptyline, meropenem 1 g q. 8, methylprednisolone, TPN, p.r.n. analgesics and antiemetics. PAST MEDICAL HISTORY: As described above, has known severe vasculopathy including coronary artery disease, previous strokes with right-sided paresis with previous CABG x 2, short gut with colon resection, ileostomy, has chronic TPN, has malabsorption issue, O2 requiring COPD, depression, anxiety, recurrent infectious complications. SOCIAL HISTORY: Smokes 1/2 pack a day for 50 years. No ethanol. No illicit drug use. [address] [address] CONSULTATION Name: LORENZA ARMENDARIZ YESICA Room #: 457-P [facility] IN .R.#: [id number] Admission: 05/29/18 Attend Phys: Dee Kumar Discharge: Date of : 53 Report #: [id number] FAMILY HISTORY: Noncontributory. REVIEW OF SYSTEMS: A 10-point review of systems otherwise as above. Denies significant gastrointestinal-related complaints at this point. No abdominal pain. PHYSICAL EXAMINATION: GENERAL: He appears chronically ill, acute component, is undernourished. He is pleasant, alert, cooperative. VITAL SIGNS: Temperature 97.5, pulse 65, respirations 18, blood pressure 125/57. SKIN: Warm, dry, no rashes. HEENT: Nasal cannula oxygen in place. NECK: Supple. Extraocular muscles intact. LUNGS: Scattered coarse breath sounds, overall diminished. HEART: Regular. I do not appreciate any murmur. ABDOMEN: Soft. There are no peritoneal signs. It is not tender. EXTREMITIES: Distal lower extremities without edema. GENITOURINARY: Deferred. RECTAL: Deferred. LABORATORY DATA: Influenza antigen was negative. Electrolytes: Sodium 132, potassium 3.8, chloride 97, bicarbonate is 28, BUN and creatinine 27 and 1.3, anion gap of 7, glucose of 95. LFTs unremarkable with the exception of alkaline phosphatase elevated at 384, albumin 2.4, total protein 7.2. Estimated GFR of 56. CBC: White count of 10.7, H and H of 9.8 and 29.4, platelets of 245. Chest x-ray, no acute processes. Chronic left basilar scarring. ASSESSMENT: Yeast fungemia. Blood cultures have been repeated. We will increase the fluconazole to 400 IV daily. Does have the positive sputum, although there is no evidence radiographically of pneumonitis. I think it is reasonable to continue the meropenem to cover what was isolated within the last 10 days. At baseline, he is very tenuous. In all likelihood, we will have to exchange out the catheter. We will see what the followup blood cultures determine. We will continue supportive care with supplemental oxygen at this point and I do not think he requires positive pressure assistance. We will monitor expectantly. <ELECTRONICALLY SIGNED> By: Eliseo Aponte MD 05/31/18 0526 0733 2301 Eliseo Aponte MD /nt
[2018-05-31 07:18] VITALS: BP 108/58
--- NOTE | 2018-05-31 12:46 | NUR ---
TOWARDS POC PT A/O X4, VSS, AFEBRILE. PAIN MANAGED BY MEDS. PT IN 3L O2 PER RT. NO CONCERNS VOICED. WILL CONTINUE TO MONITOR.
[2018-05-31 16:06] VITALS: BP 129/57
[2018-05-31 19:25] VITALS: BP 134/72
[2018-06-01 03:43] VITALS: BP 111/59
--- NOTE | 2018-06-01 06:15 | NUR ---
CONCERNS ABOUT INSOMNIA. ORDER OBTAINED FOR HOME DOSE OF AMBIEN 10MG QHS, SLEPT WELL THRU NIGHT. GIVEN OXYCODONE FOR HEADACHE, BACK PAIN. I MADE DANISHA DAVIDSON NP AWARE OF POSITIVE GRAM STAIN BLOOD CULTURE = YEAST. PICC LINE TO BE REPOSITIONED TODAY FOR TPN INFUSIONS TO RESUME. IVF NS STARTED 75ML/HR.
--- NOTE | 2018-06-01 10:16 | NUR ---
Nutrition: REC resume pt's usual TPN regimen when appropriate. 2100 ML to run nocturnally: 200 gm dextrose, 90 gm AA, 240 mL 20% lipids MWF.
[2018-06-01 12:08] VITALS: BP 123/72
--- NOTE | 2018-06-01 13:42 | NUR ---
PT ADMITTED RELATED TO COPD EXACERBATION. CM REVIEWED CHART AND SPOKE WITH CARE TEAM. CM MET WITH PT AT BEDSIDE THIS DAY. PT IS A&O X4. CM ROLE INTRODUCED. PT INDICATED HE LIVES IN A HOUSE WITH HIS FAMILY WITH 4 STEPS TO ENTER AND NO STEPS INSIDE. PT INDICATED HE HAD BEEN ON SERVICE WITH [facility] AND THE HER WOULD LIKE TO USE THEM AGAIN UPON DC. PT HAD TPN NIKHIL BARON. PT INDICATED HE HAS ALL RECOMMENDED DME WALKER, WHEELCHAIRS, AND HOME O2. PT INDICATED SHE PLANS TO RETURN HOME ONCE MEDICALLY STABLE. CM TO FOLLOW INDICATED WITH DC PLANNING.
[2018-06-01 15:24] VITALS: BP 139/83
[2018-06-01 15:27] VITALS: BP 146/72
--- NOTE | 2018-06-01 15:41 | NUR ---
PT A/OX4, CONVERSANT, VSS, PAIN MANAGED WITH MEDICATION. PICC REPLACED WITH IR TODAY. TPN TO START TONIGHT WITH PHARMACY MANAGAING. FOLLOWED BY DR BALDERRAMA. CONTINUES ON ANTIBIOTICS. ILEOSTOMY OUTPUT PER HIS NORM PROVIDES SELF CARE OF ILLIOSTOMY, CONTINENT WITH URINAL. ABLE TO MAKE NEEDS KNOWN. CALL LIGHT IN REACH. CONTINUE TO MONITOR
--- NOTE | 2018-06-01 15:49 | 2DMMODE ---
[facility] [address] [place] [address] 2 D/M-MODE ECHOCARDIOGRAM Name: KALALORENZA YESICA Room #: 457-P ADM IN M.R.#: [id number] Admission: 05/29/18 Attend Phys: Dee Amaral Discharge: Date of : 53 Date of Service: 06/01/18 1549 Report #: [id number] THIS REPORT FOR: //name// APPROVED REPORT Study performed: 06/01/2018 14:10:02 EXAM: Comprehensive 2D, Doppler, and color-flow Echocardiogram Patient Location: Echo lab Room #: [facility] Status: routine BSA: 1.75 HR: 60 bpm BP: 123/72 mmHg Rhythm: NSR Other Information Study Quality: Fair Indications NSTEMI, CABG, CVA, COPD, SOA 2D Dimensions IVSd: 11.63 (7-11mm) LVOT Diam: 20.69 (18-24mm) LVDd: 64.28 mm PWd: 11.11 (7-11mm) LVDs: 38.13 (25-40mm) Aortic Root: 41.46 mm IVC: 25.00 mm Volumes Left Atrial Volume (Systole) Single Plane 4CH: 38.79 mL Single Plane 2CH: 40.44 mL LA ESV Index: 26.19 mL/m2 Aortic Valve AoV Peak Jose J.: 1.46 m/s AO Peak Gr.: 8.55 mmHg LVOT Max P.38 mmHg LVOT Max V: 1.36 m/s JOSE A Vmax: 3.12 cm2 Mitral Valve E/A Ratio: 1.2 MV Decel. Time: 249.36 ms MV E Max Jose J.: 1.11 m/s MV A Jose J.: 0.91 m/s MV PHT: 72.32 ms [facility] [address] [address] 2 D/M-MODE ECHOCARDIOGRAM Name: LORENZA ARMENDARIZ YESICA Room #: 457-P [facility] IN M.R.#: [id number] Admission: 05/29/18 Attend Phys: Dee Amaral Discharge: Date of : 53 Date of Service: 06/01/18 1549 Report #: [id number] IVRT: 110.73 ms Pulmonary Valve PV Peak Jose J.: 0.88 m/s PV Peak Gr.: 3.15 mmHg Pulmonary Vein P Vein S: 0.76 m/s P Vein D: 0.59 m/s P Vein S/D Ratio: 1.29 Tricuspid Valve TR Peak Jose J.: 1.00 m/s RAP Estimate: 15.00 mmHg TR Peak Gr.: 3.99 mmHg Left Ventricle The left ventricle is normal size. There is normal LV segmental wall motion. There is normal left ventricular wall thickness. The left ventricular systolic function is normal. The left ventricular ejection fraction is within the normal range. LVEF is 55-60%. Right Ventricle Right ventricle is not well visualized. The right ventricular systolic function is normal. Atria The left atrium size is normal. The right atrium size is normal. Aortic Valve The aortic valve is not well visualized, mild sclerosis suggested. No aortic regurgitation is present. There is no aortic valvular stenosis. Mitral Valve Mild mitral annular calcification Trace mitral regurgitation. No evidence of mitral valve stenosis. Tricuspid Valve The tricuspid valve is normal in structure. Trace tricuspid regurgitation. Unable to assess PA pressure. Pulmonic Valve Pulmonic valve is not well visualized. There [place] [address] 2 D/M-MODE ECHOCARDIOGRAM Name: LORENZA ARMENDARIZ YESICA Room #: 457-P [facility] IN .R.#: [id number] Admission: 05/29/18 Attend Phys: Dee Amaral Discharge: Date of : 53 Date of Service: 06/01/18 1549 Report #: [id number] regurgitation. Great Vessels Aortic root is dilated. IVC is dilated and collapses <50% with inspiration. Pericardium There is no pericardial effusion. <Conclusion> Technically difficult study The left ventricular systolic function is normal. There is normal LV segmental wall motion. LVEF 55-60%. The aortic valve is not well visualized, mild sclerosis suggested. No aortic regurgitation or stenosis Mild mitral annular calcification. Trace mitral regurgitation. Pulmonary artery pressure could not be reliably ascertained There is no pericardial effusion. <ELECTRONICALLY SIGNED> By: Tim Godinez MD, FAC 06/01/18 1549 1549 1549 Tim Godinez MD, FACC /INF
[2018-06-01 19:27] VITALS: BP 146/63
[2018-06-02 06:39] VITALS: BP 142/68
[2018-06-02 07:17] LABS: CALCIUM 8.5 mg/dL (8.5-10.1); CREATININE 1.2 mg/dL (0.7-1.3); MAGNESIUM 2.4 mg/dL (1.8-2.4); PHOSPHORUS 3.4 mg/dL (2.5-4.9); TOTAL BILIRUBIN 0.3 mg/dL (<0.1-1.0); TOTAL PROTEIN 5.7 g/dL (6.4-8.2)
[2018-06-02 07:22] VITALS: BP 137/71
--- NOTE | 2018-06-02 14:21 | NUR ---
TOWARDS POC PT A/O X4, VSS, AFEBRILE, PAIN MANAGED BY MEDS. REMAINED TO 3L O2. PT SEEMS COMFORTABLE ON HIS ROOM. NO CONCERNS VOICED. WILL CONTINUE TO MONITOR.
--- NOTE | 2018-06-02 15:25 | NUR ---
IT IS ANTIPCATED THAT PT WILL EVENTUALLY DISCHARGE HOME WITH [facility] AND IV ABX AND TPN THROUGH [facility]. REFERRAL SENT TO [facility] AWAITING IV RECS. CM TO FOLLOW INDICATED WITH DC PLANNING.
--- NOTE | 2018-06-02 15:30 | NUR ---
dp sent referral to [facility], will follow up to ensure delivery of fax.
[2018-06-02 16:50] VITALS: BP 141/69
[2018-06-02 20:03] VITALS: BP 133/64
[2018-06-03 04:12] LABS: ADENOVIRUS Negative (Negative); INFLUENZA A Negative (Negative); INFLUENZA B Negative (Negative); METAPNEUMOVIRUS Negative (Negative); PARAINFLUENZA 1 Negative (Negative); PARAINFLUENZA 2 Negative (Negative); PARAINFLUENZA 3 Negative (Negative); RHINOVIRUS Negative (Negative); RSV A Negative (Negative); RSV B Negative (Negative)
[2018-06-03 04:40] VITALS: BP 144/83
[2018-06-03 06:22] LABS: CALCIUM 8.6 mg/dL (8.5-10.1); CREATININE 1.1 mg/dL (0.7-1.3); MAGNESIUM 2.5 mg/dL (1.8-2.4); PHOSPHORUS 3.5 mg/dL (2.5-4.9); POTASSIUM 4.9 mmol/L (3.5-5.1)
--- NOTE | 2018-06-03 06:22 | NUR ---
ASSUME CARE 1900. PT/VITSALS STABLE. INTERMITTENT BACK/HIP PAIN. PT/OT WORKING TO HELP WITH ACTIVITY LEVEL. ASSESSMENT CHARTED. PROGRESSING WELL WITH POC. PLAN IS TOP CONTINUE MONITOR AND IMPROVING PULMONARY FUNCTION. CONTINUE TPN FEEDING AND MONITOR OVERALL HEALTH. WILL CONTINUE TO MONITOR AND FOLLOW WITH POC
[2018-06-03 08:20] VITALS: BP 132/71
[2018-06-03 15:30] VITALS: BP 154/70
[2018-06-03 19:06] VITALS: BP 169/56
[2018-06-04 03:51] VITALS: BP 120/66
--- NOTE | 2018-06-04 04:21 | NUR ---
PT EDEMATOUS AND SOB WITH CRACKLE LUNG SOUNDS AT BEGINNING OF SHIFT PROVIDER CALLED ORDER FOR LASIXS GIVEN AND HOLD FLUIDS AND TPN. PT WAS ABLE TO BE WEANED BACK DOWN TO 2L AT 2ND HALF OF SHIFT.
[2018-06-04 05:42] LABS: ALBUMIN 2.1 g/dL (3.4-5.0); CALCIUM 8.6 mg/dL (8.5-10.1); CREATININE 1.1 mg/dL (0.7-1.3); PHOSPHORUS 4.1 mg/dL (2.5-4.9); POTASSIUM 4.7 mmol/L (3.5-5.1)
[2018-06-04 07:30] VITALS: BP 143/76
--- NOTE | 2018-06-04 11:35 | NUR ---
PATIENT STATES HE IS DOING MUCH BETTER TODAY. NO COMPLAINTS EXCEPT FOR CHRONIC BACK AND HIP PAIN. RESTING QUIETLY IN BED. TOLERATING DIET. LEFT HAND EDEMA NOTED BUT IMPROVING. BLOOD CULTURE POSITIVE FOR YEAST THIS AM. NIGHT RN NOTIFIED SLAVA LARSON NP. PATIENT ON FLUCONAZOLE AND ERTAPENEM. PATIENT IS HOPING TO GO HOME SOON. WAITING ON DR. BALDERRAMA TO ROUND FOR ANTIBIOTIC ORDER TO GO HOME ON. PATIENT VERY PLEASANT AND COOPERATIVE. USING URINAL AT BEDSIDE. MONITORING ON HOURLY ROUNDS.
--- NOTE | 2018-06-04 14:31 | NUR ---
CM CALLED [facility] AND NOTIFIED THEM THAT PT WILL LIKELY DC ON PPN AND TWO IV ABX. THEY INDICATED THEY WOULD BE ABLE TO SUPPLY HIS PPN. CM TO FAX HIS IV ABX RECS ONCE INDICATED. CM TO FOLLOW INDICATED WITH DC PLANNING.
[2018-06-04 16:45] VITALS: BP 145/67
[2018-06-04 18:58] VITALS: BP 146/77
[2018-06-05 03:12] VITALS: BP 135/68
[2018-06-05 07:18] VITALS: BP 129/71
--- NOTE | 2018-06-05 07:28 | NUR ---
progress pt a/o x4. vss, tele intact reading sr/st/sb with some pacs. voiding per urinal. taking oxycodone for pain. picc to manda with good blood return to both ports left hand is edematous tpn on hold. has ileostomy that he performs self care of, loose brown stool noted. o2 at 2 to 3 liters. iv antibiotics continue, possible picc removal and midline placement sometime this shift. continue to monitor.
--- NOTE | 2018-06-05 09:07 | TEE ---
[facility] [address] [place] [address] TRANSESOPHAGEAL ECHOCARDIOGRAM Name: LORENZA ARMENDARIZ Room #: 457-P ADM IN M.R.#: [id number] Admission: 05/29/18 Attend Phys: Dee Amaral Discharge: Date of : 53 Date of Service: 06/05/18906 Report #: [id number] THIS REPORT FOR: //name// APPROVED REPORT Study performed: 06/05/2018 08:37:09 EXAM: Comprehensive 2D, Doppler, and color-flow Echocardiogram Patient Location: [facility] Room #: 457 Status: routine BSA: 1.59 HR: 66 bpm BP: 129/71 mmHg Rhythm: NSR Other Information Study Quality: Good Indications Recurrent cadidemia. Hx:CABG, COPD Procedure After obtaining informed consent, patient underwent transesophageal echo in the [employer] [facility]. Type of Sedation : Conscious Sedation Sedation was administered by Yandy Cano RN. Sedation was achieved intravenously with: Versed (4) Fentanyl (50) Transesophageal probe was inserted and advanced into esophagus without difficulty by Tim Godinez MD. The GIA was performed without complications. Throughout the procedure, the blood pressure, pulse oximetry, cardiac rhythm, and rate were monitored. The patient tolerated the procedure without adverse effects. Recovery from conscious sedation was uneventful and vital signs were stable. Left Ventricle The left ventricle is normal size. There is normal LV segmental wall motion. There is normal left ventricular wall thickness. The left ventricular systolic function is normal. [facility] [address] [place] [address] TRANSESOPHAGEAL ECHOCARDIOGRAM Name: LORENZA ARMENDARIZ Room #: 457-P ADM IN M.R.#: [id number] Admission: 05/29/18 Attend Phys: Dee Amaral Discharge: Date of : 53 Date of Service: 06/05/18 0907 Report #: [id number] The left ventricular ejection fraction is within the normal range. LVEF is 55-60%. Right Ventricle The right ventricle is normal size. The right ventricular systolic function is normal. Atria The left atrium size is normal. No thrombus is visualized in the left atrium or appendage. No shunting noted by contrast bubble injection. The right atrium size is normal. Catheter tip is present in the right atrium. Aortic Valve The aortic valve is normal in structure. No aortic regurgitation is present. There is no aortic valvular stenosis. Mitral Valve The mitral valve is normal in structure. Mild mitral regurgitation. No evidence of mitral valve stenosis. Tricuspid Valve The tricuspid valve is normal in structure. Trace tricuspid regurgitation. Pulmonic Valve The pulmonary valve is normal in structure. There is no pulmonic valvular regurgitation. Great Vessels The aortic root is normal in size. Mild scattered atherosclerosis of aorta IVC is normal in size and collapses >50% with inspiration. Pericardium There is no pericardial effusion. <Conclusion> The left ventricular systolic function is normal. There is normal LV segmental wall motion. LVEF is 55-60%. No thrombus is visualized in the left atrium or appendage. No shunting noted by contrast bubble injection. Catheter tip is present in the right atrium. The aortic valve is normal in structure. No aortic regurgitation or stenosis [facility] [address] [address] TRANSESOPHAGEAL ECHOCARDIOGRAM Name: LORENZA ARMENDARIZ YESICA Room #: 457-P ADM IN M.R.#: [id number] Admission: 05/29/18 Attend Phys: Dee Amaral Discharge: Date of : 53 Date of Service: 06/05/18906 Report #: [id number] The mitral valve is normal in structure. Mild mitral regurgitation Mild scattered atherosclerosis of aorta There is no pericardial effusion. <ELECTRONICALLY SIGNED> By: Tim Godinez MD, FACC 06/05/18906 6 6 Tim Godinez MD, FACC /INF
--- NOTE | 2018-06-05 09:58 | NUR ---
REPORT CALLED TO WES LOCKHART RN TO ASSUME CARE POST GIA, PATIENT REMAINS DROWSY, VSS
[2018-06-05 10:44] VITALS: BP 127/75
--- NOTE | 2018-06-05 14:03 | NUR ---
Nutrition: Need for PPN noted. Would recommend ordering 250 mL 20% lipids daily to provide nearly comparable amount of calories as TPN was providing.
--- NOTE | 2018-06-05 15:45 | NUR ---
CARE TEAM INDICATED THAT PT WILL LIKELY HER HERE OVER THE WEEKEND. CM NOTIFIED [facility] AND [facility]. SHOULD PT DISCHARGE OVER THER WEEKEND [facility] WILL NEED TO HAVE ORDERS FAXED FOR HOME HEALTH SERVICES AND ORDERS WILL NEED TO BE SENT TO [facility] FOR IV ABX AND PPN. CM TO FOLLOW INDICATED WITH DC PLANNING. [facility]--
[2018-06-05 15:51] VITALS: BP 137/72
--- NOTE | 2018-06-05 19:52 | NUR ---
ASSUMED CARE AT 0700. AXOX4. GIA DONE. PICC D/C AND MIDLINE PUT IN PER ID. PPN STARTED PER . ILEOSTOMY INTACT AND SELF CARE DONE BY PT. NO S/S ACUTE DISTRESS NOTED OR REPORTED AM SHIFT.
[2018-06-05 20:06] VITALS: BP 167/69
--- NOTE | 2018-06-06 03:54 | NUR ---
PT GIVEN ORAL PAIN MEDICINE PT SLEPT MOST OF THE NIGHT PT USED CALL LIGHT EFFECTIVELY NO ISSUES OVERNIGHT.
[2018-06-06 04:05] VITALS: BP 141/65
[2018-06-06 06:04] LABS: CALCIUM 8.2 mg/dL (8.5-10.1); PHOSPHORUS 3.5 mg/dL (2.5-4.9); POTASSIUM 4.5 mmol/L (3.5-5.1)
[2018-06-06 08:00] VITALS: BP 120/68
--- NOTE | 2018-06-06 15:28 | NUR ---
TOWARDS POC PT A/O X4, VSS, AFEBRILE. PAIN MANAGED BY MEDS. NO CONCERNS VOICED. WILL CONTINUE TO MONITOR.
[2018-06-06 15:58] VITALS: BP 104/68
[2018-06-06 19:10] VITALS: BP 109/66
--- NOTE | 2018-06-07 01:47 | NUR ---
PT SLEPT MOST OF THE NIGHT NO ISSUES OVERNIGHT PT USED CALL LIGHT EFFECTIVELY VS STABLE.
[2018-06-07 04:00] VITALS: BP 112/66
[2018-06-07 05:24] LABS: ABSOLUTE NEUTROPHILS 5.2 thou/uL (1.4-8.2); BASOPHILS 0.1 % (0.0-2.0); EOSINOPHILS 4.9 % (0.0-3.0); HEMATOCRIT 30.9 % (42.0-52.0); HEMOGLOBIN 9.9 gm/dL (14.0-18.0); LYMPHOCYTES 19.7 % (24.0-44.0); MCH 26.3 pg (26.0-34.0); MCHC 32.1 g/dL (28.0-37.0); MCV 81.9 fL (80.0-100.0); MONOCYTES 11.9 % (1.0-8.0); PLATELET COUNT 217 thou/uL (150-400); POLYS 63.4 % (36.0-66.0); RBC 3.77 mil/uL (4.50-6.00); RDW 17.1 % (10.5-14.5); WBC 8.2 thou/uL (4.0-11.0)
[2018-06-07 05:43] LABS: ALBUMIN 1.8 g/dL (3.4-5.0); CALCIUM 8.6 mg/dL (8.5-10.1); POTASSIUM 4.8 mmol/L (3.5-5.1); TOTAL BILIRUBIN 0.4 mg/dL (<0.1-1.0); TOTAL PROTEIN 5.3 g/dL (6.4-8.2)
[2018-06-07 07:45] VITALS: BP 98/67
--- NOTE | 2018-06-07 11:07 | NUR ---
ASSUMED CARE THIS AM, SHIFT ASSESSMENT DONE. BP LOW THIS AM. RECEIVING PPN, ANTIBITOCS. REPORTED BACK PAIN, PRN PAIN MED GTIVEN. DENIES ANY NAUSEA, VOMITING. WILL CONTINUE TO ASSESS AND ASSIST WITH ADLs NEEDED.
[2018-06-07 12:49] VITALS: BP 114/76
[2018-06-07 20:10] VITALS: BP 114/65
[2018-06-08 03:22] VITALS: BP 115/66
--- NOTE | 2018-06-08 05:36 | NUR ---
PT LYING IN BED. VOIDING PER URINAL. PERCOCET PROVIDING PAIN RELIEF. RESTING COMFORTABLY. NO NEEDS VOICED. CALL LIGHT WITHIN REACH. WILL CONTINUE TO PROVIDE FREQUENT OBSERVATION.
[2018-06-08 07:18] VITALS: BP 103/71
[2018-06-08 14:51] VITALS: BP 128/72
[2018-06-08 15:16] VITALS: BP 128/72
[2018-06-08] MEDS ORDERED: FLUCONAZOL400 MG/205 IVPB (16:28)
[2018-06-08] MEDS ORDERED: CLINIMIX IV (16:30)
[2018-06-08 19:05] VITALS: BP 118/69
--- NOTE | 2018-06-08 20:12 | NUR ---
Pt stable during the shift, is progressing towards goals. Pain medication given for chronic back pain. PPN and lipids started. No issues or complaints noted for this shift.
[2018-06-09 03:22] VITALS: BP 103/87
--- NOTE | 2018-06-09 05:40 | NUR ---
PT ON 3L NC WITH DIMINISHED LUNG SOUNDS. PPN AND LIPIDS RUNNING THROUGH MIDLINE. PAIN MEDICATION GIVEN X2. PT SLEPT WELL ALL NIGHT. PROGRESSING TOWARDS MEETING GOALS.
[2018-06-09 07:25] VITALS: BP 94/63
[2018-06-09 13:10] VITALS: BP 128/72
[2018-06-09 14:59] VITALS: BP 97/65
--- NOTE | 2018-06-09 15:00 | NUR ---
PT IS TO DISCHARGE HOME THIS DAY. PT IS TO HAVE HOME IV ABX THROUGH [facility] AND HH SERVICES TH[facility]OUGH [facility]. DRUG IS TO BE DELIVERED THIS EVENING. PT IS TO BE SEEN BY HOME HEALTH TOMORROW. NO OTHER CM INTERVENTION INDICATED AT THIS TIME. CASE CLOSED. [facility]--
== END 2018-06-09 17:36 | disposition home health service (06) | DRG 314 ==
LOC: ER 19:27 → 4W 20:48 → EROBS 20:48 → 4W 21:39 → ENTRNSPT 06-09 16:52 → 4W 06-09 17:36
PROVIDERS: Emergency Medicine; Internal Medicine Infectious Disease; Nurse Practitioner Acute Care; ADMIT Hospitalist
PROC: B5181ZA Fluoroscopy of Superior Vena Cava using Low Osmolar Contrast, Guidance (ICD-10-PCS; principal; 2018-06-01)
PROC: 02HV33Z Insertion of Infusion Device into Superior Vena Cava, Percutaneous Approach (ICD-10-PCS; principal; 2018-06-01)
PROC: 05PYX3Z Removal of Infusion Device from Upper Vein, External Approach (ICD-10-PCS; principal; 2018-06-01)
PROC: 05HY33Z Insertion of Infusion Device into Upper Vein, Percutaneous Approach (ICD-10-PCS; 2018-06-05)
PROC: B24BZZ4 Ultrasonography of Heart with Aorta, Transesophageal (ICD-10-PCS; 2018-06-05)
DX: T80.211A Bloodstream infection due to central venous catheter, initial encounter (principal); A41.89 Other specified sepsis; J15.1 Pneumonia due to Pseudomonas; J96.20 Acute and chronic respiratory failure, unspecified whether with hypoxia or hypercapnia; J44.0 Chronic obstructive pulmonary disease with (acute) lower respiratory infection; J44.1 Chronic obstructive pulmonary disease with (acute) exacerbation; K91.2 Postsurgical malabsorption, not elsewhere classified; B49 Unspecified mycosis; E46 Unspecified protein-calorie malnutrition; I25.10 Atherosclerotic heart disease of native coronary artery without angina pectoris; F32.9 Major depressive disorder, single episode, unspecified; M62.84 Sarcopenia; D50.9 Iron deficiency anemia, unspecified; E83.42 Hypomagnesemia; F41.9 Anxiety disorder, unspecified; H91.92 Unspecified hearing loss, left ear; N18.3 Chronic kidney disease, stage 3 (moderate); F17.210 Nicotine dependence, cigarettes, uncomplicated; E83.41 Hypermagnesemia; K21.9 Gastro-esophageal reflux disease without esophagitis; B37.9 Candidiasis, unspecified; Y83.8 Other surgical procedures as the cause of abnormal reaction of the patient, or of later complication, without mention of misadventure at the time of the procedure; Z68.24 Body mass index [BMI] 24.0-24.9, adult; Y92.89 Other specified places as the place of occurrence of the external cause; Z86.14 Personal history of Methicillin resistant Staphylococcus aureus infection; I25.2 Old myocardial infarction; Z95.1 Presence of aortocoronary bypass graft; Z86.73 Personal history of transient ischemic attack (TIA), and cerebral infarction without residual deficits; Z79.82 Long term (current) use of aspirin; Z79.899 Other long term (current) drug therapy
CPT/HCPCS: 10045; 27000

== ENCOUNTER 2018-06-21 10:52 | Inpatient (IN) | payer OTHER ==
[~2018-06-21] VITALS: Ht 165.1 cm; Wt 55.6 kg
[~2018-06-21 10:52] MED LIST changes: +CLINIMIX IV; +FLUCONAZOL400 MG/205 IVPB
[2018-06-21 10:53] VITALS: BP 141/49
[2018-06-21 11:29] LABS: ABSOLUTE NEUTROPHILS 5.5 thou/uL (1.4-8.2); BASOPHILS 0.7 % (0.0-2.0); EOSINOPHILS 5.6 % (0.0-3.0); HEMOGLOBIN 9.9 gm/dL (14.0-18.0); LYMPHOCYTES 18.5 % (24.0-44.0); MCH 27.7 pg (26.0-34.0); MCHC 34.2 g/dL (28.0-37.0); MCV 80.9 fL (80.0-100.0); MONOCYTES 7.7 % (1.0-8.0); PLATELET COUNT 283 thou/uL (150-400); POLYS 67.5 % (36.0-66.0); RBC 3.58 mil/uL (4.50-6.00); RDW 17.7 % (10.5-14.5); WBC 8.2 thou/uL (4.0-11.0)
[2018-06-21 11:37] LABS: ANION GAP 6 mmol/L (7-16); BUN 27 mg/dL (7-18); CALCIUM 8.7 mg/dL (8.5-10.1); CHLORIDE 90 mmol/L (98-107); CO2 26 mmol/L (21-32); CREATININE 1.8 mg/dL (0.7-1.3); GLUCOSE 107 mg/dL (74-106); POTASSIUM 5.6 mmol/L (3.5-5.1); SODIUM 122 mmol/L (136-145)
[2018-06-21 11:46] LABS: ALBUMIN 2.8 g/dL (3.4-5.0); LIPASE 48 U/L (73-393); MAGNESIUM 2.2 mg/dL (1.8-2.4); SGOT 38 U/L (15-37); SGPT 36 U/L (30-65); TOTAL BILIRUBIN 0.3 mg/dL (<0.1-1.0); TOTAL PROTEIN 7.2 g/dL (6.4-8.2); TROPONIN-I <0.06 ng/mL (<0.06)
[2018-06-21 11:56] LABS: BE(vivo) -6.6 mmol/L (-2 to +3); HCO3 19.4 mmol/L (22.0-26.0); PCO2 VENOUS 40.9 mmHg (41.0-51.0); PO2 VENOUS 49.6 mmHg (35.0-45.0)
[2018-06-21 13:30] VITALS: BP 133/70
[2018-06-21 14:32] VITALS: BP 131/58
[2018-06-21 15:04] LABS: URINE BILIRUBIN NEGATIVE (Negative); URINE BLOOD NEGATIVE (Negative); URINE CLARITY CLEAR; URINE COLOR YELLOW; URINE GLUCOSE-RANDOM* NEGATIVE (Negative); URINE KETONES NEGATIVE (Negative); URINE LEUKOCYTES-REFLEX TRACE (Negative); URINE NITRITE-REFLEX NEGATIVE (Negative); URINE PROTEIN (DIPSTICK) NEGATIVE (Negative); URINE SPECIFIC GRAVITY <= 1.005 (1.005-1.035); URINE UROBILINOGEN 0.2 E.U./dl (0.2-1.0)
--- NOTE | 2018-06-21 15:36 | NUR ---
ASSUMED CARE OF PT AT 14:33. ARRIVED TO ROOM FROM ED IN STABLE CONDITION. ADMISSION HISTORY AND ASSESSMENT COMPLETED. BELONGINGS INCLUDE PERSONAL OXYGEN TANK, JACKET, CLOTHES, SLIPPERS, CELL PHONE. A&O,X4. C/O GENERALIZED CHRONIC ARTHRITIS PAIN AND ABD/LEFT GROIN PAIN, PAIN MEDS GIVEN ORDERED. PAIN PATCH IN PLACE LEFT LOWER BACK. DENIES SOA OR CHEST PAIN. [address] ON ADMISSION. PT USUALLY WEARS 3 L NC AT HOME PRN. CLEAR LUNG SOUNDS, COUGH NOTED. HX SMOKING. REGULAR HEART SOUNDS. ACTIVE BOWEL SOUNDS, CHRONIC ILEOSTOMY IN PLACE. TERAN CATHETER IN PLACE UPON ADMISSION DUE TO INABILITY TO URINATE IN ED. SKIN INTACT, BRUSING AND SCARS NOTED. NO EDEMA. PT IN STABLE CONDITION. WILL CONTINUE TO MONITOR.
--- NOTE | 2018-06-21 18:37 | NUR ---
NEW ORDERS FROM DR. BAUTISTA. NPO AFTER MIDNIGHT FOR POSSIBLE SURGICAL PROCEDURE TOMORROW AND HOLD HEPARIN DOSE.
[2018-06-21 19:22] VITALS: BP 135/70
--- NOTE | 2018-06-21 22:11 | EKG ---
[place] [address] [address] [place] [address] ELECTROCARDIOGRAM REPORT Name: LORENZA ARMENDARIZ Room #: 453-P ADM IN M.R.#: [id number] ������������������ Admission: 06/21/18 ������������������ Attend Phys: Kyler Vega MD Discharge: ������������������ Date of : 53 Report #: [id number] ����������������������������������������������������������������� [id number] THIS REPORT FOR: //name// [facility] ED Test Date: 2018-06-21 Test Time: 11:49:55 Pat Name: LORENZA ARMENDARIZ Department: Room: 453 Gender: M [employer]: as : 1955 Requested By: Anthony Odom Order Number: [id number] MD: Larry Castillo Measurements Intervals [place] Rate: 65 P: 56 SD: 159 QRS: 9 QRSD: 110 T: -40 QT: 517 QTc: 538 Interpretive Statements Sinus rhythm RSR' in V1 or V2, right VCD or RVH Borderline T abnormalities, diffuse leads Prolonged QT interval Compared to ECG 05/29/2018 19:47:32 Right ventricular hypertrophy now present RSR' in V1 or V2 now present T-wave abnormality now present Prolonged QT interval now present Electronically Signed On 06-21-2018 22:10:58 COMFORT STATION ATTENDANT by Larry Castillo [email or web address] ��������������������������������������������� <ELECTRONICALLY SIGNED> ���������������������������������������� By: Larry Castillo MD ��������������������������������������������� 06/21/18 2210 1149 1149 Larry Castillo MD /EPI
[2018-06-22 03:30] VITALS: BP 123/56
[2018-06-22 05:39] LABS: HEMATOCRIT 28.9 % (42.0-52.0); HEMOGLOBIN 9.6 gm/dL (14.0-18.0); MCH 27.2 pg (26.0-34.0); MCHC 33.1 g/dL (28.0-37.0); MCV 82.2 fL (80.0-100.0); RBC 3.52 mil/uL (4.50-6.00); RDW 17.8 % (10.5-14.5); WBC 5.5 thou/uL (4.0-11.0)
[2018-06-22 05:51] LABS: CALCIUM 8.6 mg/dL (8.5-10.1); CREATININE 1.4 mg/dL (0.7-1.3); POTASSIUM 5.5 mmol/L (3.5-5.1)
--- NOTE | 2018-06-22 06:18 | NUR ---
PATIENTS CARE WERE ASSUMED AT SHIFT CHANGE. PATIENT WAS ASSESSED AND MEDS WERE PASSED. RT TX WAS ORDERED AND PATIENT DID BETTER. PATIENT DID PRODUCE ALOT OF URINE THIS SHIFT(200CC) PATIENT DOES CARE FOR HIS OWN ILLIOSTOMY. HOURLY ROUNDING WAS DONE. PATIENT APPERED TO HAVE A RESTLESS SLEEP. THE BED IS IN A LOW AND LOCKED POSITION
[2018-06-22 08:01] VITALS: BP 114/65
--- NOTE | 2018-06-22 11:44 | NUR ---
ASSUMED PT CARE AT 0645. PT IS AWAKE AND A/OX4 WITH NO ISSUES OR CONCERNS AT THIS TIME. PT HAS BEEN NPO SINCE MIDNIGHT PENDING POSSIBLE HERNIA REPAIR, ORDERS WERE PUT IN FROM SURGURY. WILL CONTINUE TO MONITOR
--- NOTE | 2018-06-22 14:14 | NUR ---
PT ADMITTED RELATED TO ABD PAIN, HERNIA, AND HYPONATREMIA. CM REVIEWED CHART AND SPOKE WITH CARE TEAM. CM MET WITH PT AT BEDSIDE THIS DAY. PT IS A&O X4. CM ROLE INTRODUCED. PT INDICATED HE LIVES IN A HOUSE WITH HIS FAMILY WITH 4 STEPS TO ENTER AND NO STEPS INSIDE. PT INDICATED HE HAD BEEN ON SERVICE WITH [facility] AND THE HER WOULD LIKE TO USE THEM AGAIN UPON DC. PT HAD TPN NIKHIL BARON. PT INDICATED HE HAS ALL RECOMMENDED DME WALKER, WHEELCHAIRS, AND HOME O2. PT INDICATED SHE PLANS TO RETURN HOME ONCE MEDICALLY STABLE. CM TO FOLLOW INDICATED WITH DC PLANNING.
[2018-06-22 16:52] VITALS: BP 134/44
[2018-06-22 19:25] VITALS: BP 132/55
--- NOTE | 2018-06-23 01:01 | NUR ---
PATIENT CALM AND COOPERATIVE WITH MEDS AND CARE. PATIENT DENIED PAIN OR DISCOMFORT. PATIENT HAS AN ILESTOMY BAG IN PLACE. FALL PRECAUTION IN PLACE. CALL LIGHT AND PERSONAL ITEMS WITHIN REACH. PATIENT IN BED ASLEEP AT THIS TIME BREATHING REGULAR AND UNLABOURED.
[2018-06-23 04:13] VITALS: BP 150/74
[2018-06-23 08:09] VITALS: BP 135/72
[2018-06-23 10:35] LABS: BASOPHILS 0.3 % (0.0-2.0); HEMATOCRIT 29.1 % (42.0-52.0); HEMOGLOBIN 9.6 gm/dL (14.0-18.0); LYMPHOCYTES 24.3 % (24.0-44.0); MCH 27.4 pg (26.0-34.0); MCHC 32.8 g/dL (28.0-37.0); MCV 83.6 fL (80.0-100.0); MONOCYTES 7.8 % (1.0-8.0); PLATELET COUNT 270 thou/uL (150-400); POLYS 65.6 % (36.0-66.0); RBC 3.49 mil/uL (4.50-6.00); RDW 18.5 % (10.5-14.5); WBC 6.1 thou/uL (4.0-11.0)
[2018-06-23 10:41] LABS: CALCIUM 8.8 mg/dL (8.5-10.1); CREATININE 1.3 mg/dL (0.7-1.3); POTASSIUM 4.1 mmol/L (3.5-5.1)
[2018-06-23 11:12] LABS: ANISOCYTOSIS 1+
--- NOTE | 2018-06-23 13:50 | NUR ---
CARE TEAM INDICATED THAT PT IS MEDICALLY STABLE TO DISCHARGE HOME THIS DAY. PT WILL NEED ORDERS TO RESUME HOME HEALTH SERVICES TH[facility]OUGH [facility] AND [facility] FOR HIS PPN AND IV ABX. ORDERS ARE TO BE SENT TO BOTH ONCE COMPLETED. [facility]--
[2018-06-23 14:27] VITALS: BP 135/72
[2018-06-23 14:29] VITALS: BP 135/72
--- NOTE | 2018-06-23 14:39 | NUR ---
patient will discharge today, dp sent dc paperwork to [facility] and kelli Turcios will call to ensure delivery of dc papers
--- NOTE | 2018-06-23 17:24 | HC ---
[facility] [place] [address] [place] [address] CONSULTATION Name: LORENZA ARMENDARIZ Room #: 453-P [facility] IN M.R.#: [id number] Admission: 06/21/18 ������������������ Attend Phys: Kyler Vega MD Discharge: 06/23/18 ������������������ Date of : 53 Report #: [id number] THIS REPORT FOR: //name// CC: Kyler Vega DATE OF SERVICE: 06/22/2018 INFECTIOUS DISEASE CONSULTATION: REASON FOR CONSULTATION: I was asked to evaluate concerning candidemia. 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 He is now 3 weeks into his treatment course with fluconazole. The organism was not identified by the laboratory. I do not have sensitivity reports. The patient has tolerated his medications well without side effect. His left upper extremity PICC was exchanged over a wire by Interventional Radiology. Once I identified it that he had candidemia, I abandoned this site. He now has a midline catheter in the right upper extremity. He is tolerating this well without issue. He has had no cardiopulmonary issues. He did not followup. He is recommended with Ophthalmology evaluation. He has had normal ileostomy output. Yesterday, he had increased abdominal pain in the left groin associated with a known inguinal hernia. He was unable to reduce this. Due to the pain, he was admitted. This now has been reduced and General Surgery has seen him with recommendations for further observation. In addition, he had urinary retention. Indwelling Zuñiga catheter was placed. His creatinine went up to 1.8. It is now 1.4 with a baseline of 1.0. No fever, chills or sweats. Today, he feels back to his baseline. He has had no cough or sputum production changed from his baseline. ALLERGIES: None. MEDICATIONS: As noted on his MAR, which were reviewed. Currently, on fluconazole. PAST MEDICAL HISTORY, FAMILY HISTORY AND SOCIAL HISTORY: Unchanged from his previous consultation several weeks ago. REVIEW OF SYSTEMS: As noted above, 10-point review was otherwise negative. PHYSICAL EXAMINATION: VITAL SIGNS: Afebrile and hemodynamically stable. GENERAL: He is alert and cooperative. No change in his hoarse voice. HEENT: Without scleral icterus or conjunctivitis. NECK: Supple. Mouth without mucositis. [address] [address] CONSULTATION Name: LORENZA ARMENDARIZ YESICA Room #: 453-P [facility] IN M.R.#: [id number] Admission: 06/21/18 ������������������ Attend Phys: Kyler Vega MD Discharge: 06/23/18 ������������������ Date of : 53 Report #: [id number] LUNGS: Decreased breath sounds bilaterally with no consolidation or adventitial sounds. HEART: Regular, without murmur. ABDOMEN: Soft and nontender. Left inguinal hernia was reduced. Ileostomy was unremarkable with no surrounding swelling or erythema. EXTREMITIES: Right upper extremity midline catheter exit site was unremarkable. There was no erythema or drainage. Without edema. Cranial nerves intact other than hoarse voice. Strength in his upper and lower extremities was normal. PSYCHIATRIC: Mood normal. LABORATORY STUDIES: Creatinine is 1.4. Hemoglobin 9.6, white count 5.5, platelet count 264,000. Urinalysis unremarkable. CT of the abdomen and pelvis: Distended bladder. Otherwise, no change. Alkaline phosphatase 308, bilirubin 0.3, lipase 48, AST 38, ALT 36. Chest x-ray, no acute process. Repeat blood cultures are pending. IMPRESSION: 1. A 63-year-old now 19 days into his treatment course with fluconazole for candidemia. This was central venous catheter related. He had negative blood cultures on 06/04/2018. He had a negative transesophageal echocardiogram. The patient has not been compliant to follow up with Ophthalmology evaluation. He has not had a dilated eye exam. 2. Presents with left inguinal pain, now resolved. 3. Short bowel syndrome. RECOMMENDATION: We will complete his course of fluconazole this week. Would have the patient come back for repeat blood cultures next week. If repeat blood cultures are negative, then would proceed with central venous catheter replacement. This was discussed with the patient at the bedside. I also discussed the case with General Surgery. His urinary retention will be addressed by primary care. ��������������������������������������������� <ELECTRONICALLY SIGNED> ���������������������������������������� By: Anthony Bullard MD ��������������������������������������������� 06/23/18 1724 [id number] [id number] Anthony Bullard MD /nt
== END 2018-06-23 16:00 | disposition home health service (06) | DRG 682 ==
LOC: ER 10:52 → EROBS 13:12 → 4W 13:12 → ENTRNSPT 06-23 15:34 → EDTRNSPTSTS 06-23 15:36 → 4W 06-23 16:00
PROVIDERS: Emergency Medicine; ADMIT Hospitalist
DX: N17.9 Acute kidney failure, unspecified (principal); E43 Unspecified severe protein-calorie malnutrition; K91.2 Postsurgical malabsorption, not elsewhere classified; E87.1 Hypo-osmolality and hyponatremia; I69.351 Hemiplegia and hemiparesis following cerebral infarction affecting right dominant side; J44.1 Chronic obstructive pulmonary disease with (acute) exacerbation; E87.5 Hyperkalemia; K40.90 Unilateral inguinal hernia, without obstruction or gangrene, not specified as recurrent; B37.9 Candidiasis, unspecified; N18.3 Chronic kidney disease, stage 3 (moderate); I25.10 Atherosclerotic heart disease of native coronary artery without angina pectoris; D64.9 Anemia, unspecified; E86.0 Dehydration; E87.6 Hypokalemia; F41.9 Anxiety disorder, unspecified; F32.9 Major depressive disorder, single episode, unspecified; H91.92 Unspecified hearing loss, left ear; R33.9 Retention of urine, unspecified; F17.210 Nicotine dependence, cigarettes, uncomplicated; I12.9 Hypertensive chronic kidney disease with stage 1 through stage 4 chronic kidney disease, or unspecified chronic kidney disease; Z68.20 Body mass index [BMI] 20.0-20.9, adult; I25.2 Old myocardial infarction; Z95.1 Presence of aortocoronary bypass graft; Z99.81 Dependence on supplemental oxygen; Z87.01 Personal history of pneumonia (recurrent); Z86.14 Personal history of Methicillin resistant Staphylococcus aureus infection; Z79.82 Long term (current) use of aspirin; Z79.899 Other long term (current) drug therapy
CPT/HCPCS: 10045

== ENCOUNTER → 2018-06-30 | Outpatient (CLI) | payer OTHER ==
--- NOTE | 2018-06-30 15:41 | NUR ---
IV TEAM REPLACED MIDLINE. SEE IV TEAM NOTES.
--- NOTE | 2018-06-30 15:44 | NUR ---
VASCULAR ACCESS CONSULTED FOR MIDLINE REPLACEMENT ORDERED BY DR BARR. PT ACCIDENTALY PULLED TRUNG ML OUT. DISCUSSED BENEFITS AND RISK OF ML, VERBALIZED UNDERSTANDING AND GAVE VERBAL CONSENT TO PROCEDE. PT WAS PREPPED AND DRAPED FOR MAX BARRIER PRECAUTIONS. SHRUTHI BRACHIAL WAS WIDELY PATENT WITH USG, 1% LIDOCAINE GIVEN SQ. 4FR POWER MIDLINE TRIMMED TO 13CM INSERTED TO 0CM WITH BRISK BR. MIDLINE SECURED AND WALLET CARD GIVEN TO PT.ML RELEASED FOR IMMEDIATE USE.
== END | disposition home or self-care (01) ==
LOC: OPONC 13:47
DX: Z45.2 Encounter for adjustment and management of vascular access device (principal); J44.9 Chronic obstructive pulmonary disease, unspecified; I50.9 Heart failure, unspecified; R41.82 Altered mental status, unspecified; F32.9 Major depressive disorder, single episode, unspecified; Z87.19 Personal history of other diseases of the digestive system; Z98.0 Intestinal bypass and anastomosis status; Z79.899 Other long term (current) drug therapy; Z79.82 Long term (current) use of aspirin; Z98.890 Other specified postprocedural states
CPT/HCPCS: 27000

== ENCOUNTER 2018-07-09 16:22 | Inpatient (IN) | payer OTHER ==
[~2018-07-09] VITALS: Ht 165.1 cm; Wt 49.9 kg
[2018-07-09 18:51] VITALS: BP 141/73
[2018-07-09 20:10] VITALS: BP 158/50
[2018-07-09] MEDS ORDERED: VENTOLIN HFA 1818 GM INH (22:04)
[2018-07-09] MEDS ORDERED: LASIX 20 MG TAB20 MG PO (22:06)
[2018-07-09 23:50] VITALS: BP 144/59
[2018-07-10 00:53] LABS: CALCIUM 8.6 mg/dL (8.5-10.1); CREATININE 1.8 mg/dL (0.7-1.3); POTASSIUM 4.6 mmol/L (3.5-5.1)
--- NOTE | 2018-07-10 03:23 | NUR ---
ASSESSMENT: PT ARRIVED TO THE UNIT AT 1900 VIA EMS FROM [facility]. PT IS ALERT AND ORIENT TIMES FOUR. PRADHAN. UP AD EL AND REFUSES BED ALARM. DOES HAVE A STEADY GAIT. SB PER MONITOR. VSS, AFEBRILE. C/O PAIN IN BACK, HIPS AND LEGS. REQUESTING A BREATHING TREATMENT. NO ORDERS UNTIL CREDIT INVESTIGATOR DANISHA GRANT SAW PT AT APPROXIMATELY 0000. CONSULT FOR IR IN THE AM PENDING. IVF INITIATED, NA WAS 118. PT STATES THAT HE IS WANTING A PICC ALIDA SO THAT HE CAN RESUME HIS TPN AND GET HYDRATIONS. SLOW PROGRESS TOWARDS DC GOALS. WILL CONTINUE TO MONITOR.
[2018-07-10 04:40] VITALS: BP 136/73
[2018-07-10 07:58] VITALS: BP 104/70
--- NOTE | 2018-07-10 10:05 | NUR ---
ASSESSMENT: CM REVIEWED CHART AND MET WITH PATIENT AT THE BEDSIDE. PT IS ALERT AND ORIENTED X4. PT WAS ADMITTED DUE TO DEHYDRATION/SHORT GUT SYNDROME. PTS PICC CAME OUT AND IS BEING REPLACED TODAY. PT REPORTS HE LIVES AT HOME WITH HIS FAMILY. PT REPORTS TWO STEPS TO ENTER THE HOME WITH HANDRAILS AND NO STEPS HE USES ONCE INSIDE. PT REPORTS HE HAS [facility] AND IS ON SERVICE WITH [employer] WHO IS SUPPLYING HIS PPN AND PLANS TO RETURN TO THIS AT DISCHARGE. CM CONTACTED [facility] [phone] TO NOTIFY THEM AND SENT REFERRAL AND THAT PATIENT WILL LIKELY DISCHAGRE TODAY. [facility]. PT REPORTS HE HAS A WALKER AT HOME, WHEELCHAIR, AND OXYGEN SUPPLIED (UNSURE THE PROVIDERS NAME). PT REPORTS HE HAS A GRAB BAR AND SHOWER CHAIR. CM WILL CONTINUE TO FOLLOW TO ASSIST NEEDED.
[2018-07-10 10:40] LABS: CALCIUM 8.2 mg/dL (8.5-10.1); CREATININE 1.3 mg/dL (0.7-1.3); POTASSIUM 4.6 mmol/L (3.5-5.1)
--- NOTE | 2018-07-10 10:56 | NUR ---
HAD A PICC LINE PLACED THIS AM. WILL BE DISCHARGE HOME THIS AM. PATIENT IS IN AGREEMENT. HE CAME JUST FOR PICC LINE PLACEMENT. HE IS ALERT ORIENTED X4.
[2018-07-10 11:06] VITALS: BP 104/70
== END 2018-07-10 12:14 | disposition home or self-care (01) | DRG 682 ==
LOC: 3W 16:22 → ENTRNSPT 07-10 12:01 → EDTRNSPTSTS 07-10 12:04 → 3W 07-10 12:14
PROVIDERS: Nurse Practitioner Acute Care; ADMIT Hospitalist
PROC: 05HY33Z Insertion of Infusion Device into Upper Vein, Percutaneous Approach (ICD-10-PCS; principal; 2018-07-10)
DX: N17.9 Acute kidney failure, unspecified (principal); E43 Unspecified severe protein-calorie malnutrition; E87.1 Hypo-osmolality and hyponatremia; J96.11 Chronic respiratory failure with hypoxia; Z68.1 Body mass index [BMI] 19.9 or less, adult; K91.2 Postsurgical malabsorption, not elsewhere classified; I25.10 Atherosclerotic heart disease of native coronary artery without angina pectoris; J44.9 Chronic obstructive pulmonary disease, unspecified; F32.9 Major depressive disorder, single episode, unspecified; F41.9 Anxiety disorder, unspecified; G89.4 Chronic pain syndrome; N18.3 Chronic kidney disease, stage 3 (moderate); F17.210 Nicotine dependence, cigarettes, uncomplicated; K40.90 Unilateral inguinal hernia, without obstruction or gangrene, not specified as recurrent; Z86.73 Personal history of transient ischemic attack (TIA), and cerebral infarction without residual deficits; I25.2 Old myocardial infarction; Z95.1 Presence of aortocoronary bypass graft; Z93.2 Ileostomy status; Z93.1 Gastrostomy status; Z79.82 Long term (current) use of aspirin; Z79.899 Other long term (current) drug therapy; Z87.01 Personal history of pneumonia (recurrent)
CPT/HCPCS: 10879

== ENCOUNTER → 2018-11-13 | Outpatient (CLI) | payer OTHER ==
[~2018-11-13] VITALS: Ht 165.1 cm; Wt 56.7 kg
[~2018-11-13] MED LIST changes: +PROBIOTIC1 EAC1 PO; +TRELEGY ELLIPT1 EACH INH
--- NOTE | ~2018-11-13 | P ---
[facility] [place] [address] PROCEDURE REPORT Name: LORENZA ARMENDARIZ Room #: REG [facility]#: [id number] Admission: 11/13/18 ������������������ Attend Phys: Micahel Michael MD Discharge: ������������������ Date of : 53 Report #: [id number] THIS REPORT FOR: //name// CC: Michael Carrion BRIEF HISTORY: The patient is a 63-year-old male, known to me with a history of recurring esophageal dysphagia. History is noted for short bowel syndrome with previous gut involving the distal two-thirds of his small bowel and colon down to the rectosigmoid junction. He has had previous problems with dysphagia and presents for repeat dilation. PREOPERATIVE DIAGNOSIS: Dysphagia. POSTOPERATIVE DIAGNOSES: 1. Dctuacgv-al-ciwasi exudative esophagitis suggested of Barbara esophagitis. 2. Diffuse gastritis, previously noted. 3. Small duodenal diverticulum. 4. Vocal cord nodule. 5. Moderate Schatzki ring. 6. Small hiatus hernia. MEDICATIONS: Deep sedation with propofol per Anesthesia. SPECIMEN: Brushings of esophagus for Barbara. ESTIMATED BLOOD LOSS: 3 mL. PROCEDURE: EGD with brush seen and insertion of guidewire and dilation of esophagus over a guidewire with Savary dilator. FINDINGS: Prior to propofol sedation, the procedure of upper endoscopy and dilation was discussed with the patient as well as potential risks and its complications. He indicates he understands and desires to proceed. DESCRIPTION OF PROCEDURE: With the patient in left lateral decubitus position, the Olympus video endoscope was inserted in the cervical esophagus under direct vision without difficulty. Examination of this organ throughout its entire length revealed thick whitish exudate suggestive of Barbara esophagitis. Brushings were obtained. No ulcers, erosions or mass lesions were seen. In the distal esophagus, at the level of squamocolumnar junction, a moderate ring was seen. A small hiatus hernia was seen as well. The mucosa is unremarkable. The scope was advanced in the stomach, was examined on end view as well as retroflexed views. He was noted to have a diffuse erythematous gastritis without ulcers, erosions or bleeding lesions. Upon retroflexion, no mass lesions were seen. The pylorus was normal. Duodenal bulb was normal. Scope [address] [address] PROCEDURE REPORT Name: LORENZA ARMENDARIZ [id number] Admission: 11/13/18 ������������������ Attend Phys: Michael Michael MD Discharge: ������������������ Date of : 53 Report #: [id number] was advanced into the duodenal sweep, and the duodenal papilla was identified and noted to be normal. In the region of the papilla, but not involving the papilla, a small diverticulum was seen. This has been previously noted. At that point, the scope was slowly withdrawn and careful circumferential views confirmed the above findings. Also, a guidewire was inserted through the biopsy channel of the scope and scope withdrawn over the wire. In addition, the patient was noted to have a benign appearing nodule on one of his vocal cords and this was photographed. Subsequently, he was dilated with passage of 51-Tristanian Savary dilator over the wire. CONDITION OF THE PATIENT UPON DISCHARGE: Following the procedure, the patient drowsy and prepared for flexible sigmoidoscopy. INSTRUCTIONS TO THE PATIENT AND FAMILY AT THE TIME OF DISCHARGE: He has had benefit from dilation in the past week and continue to dilate on an as needed basis due to symptoms of recurrent dysphagia. We will follow up on brushings of esophagus. I suspect his Latasha likely related to ____ and treatment for his COPD. If he does have Terell, we will treat him. He does have a vocal cord nodule. We will discuss with the patient, advised him to follow up with an ENT physician for further evaluation. He has been a long-term smoker and certainly risk for neoplastic disease. ��������������������������������������������� ���������������������������������������� By: ��������������������������������������������� [id number] Michael Michael MD /nt
--- NOTE | ~2018-11-13 | P ---
[facility] [place] [address] PROCEDURE REPORT Name: LORENZA ARMENDARIZ Room #: REG [facility]#: [id number] Admission: 11/13/18 ������������������ Attend Phys: Michael Michael MD Discharge: ������������������ Date of : 53 Report #: [id number] THIS REPORT FOR: //name// CC: Michael Chávez MD OUTPATIENT UPPER ENDOSCOPY BRIEF HISTORY: The patient is a 63-year-old male who has a necrotic colon and distal small bowel with massive small bowel resection and subtotal colectomy. He presents today for colorectal screening regarding his rectal stump, which was not removed at the time of surgery. PREOPERATIVE DIAGNOSIS: Average risk screening for rectal cancer. POSTOPERATIVE DIAGNOSES: Mild diversion colitis. MEDICATIONS: Deep sedation with propofol per anesthesia. SPECIMEN: None. ESTIMATED BLOOD LOSS: None. PROCEDURE: Flexible sigmoidoscopy. FINDINGS: Prior to propofol sedation, procedure of Flexible sigmoidoscopy discussed with the patient as well as potential risks and its complications. He indicates he understands and desires to proceed. DESCRIPTION OF PROCEDURE: With the patient in left lateral decubitus position, digital examination was completed, which revealed no abnormalities. Subsequently, the Olympus video endoscope was inserted in the anus and advanced under direct vision. The scope was passed carefully to the blind end of the rectal stump. He did have balls of mucus scattered throughout the rectum. We irrigated and flushed and displaced these as much as possible. We were able to see the blind end, which was completely unremarkable. The scope was withdrawn. We visualized mucosa as well as possible. There were some limitations with these mucous balls, but overall, the mucosa was intact without evidence of ulceration. No neoplastic lesions were seen. 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 Significant inflammatory changes were not seen. Due to the fact that his rectum is nonfunctional, we did not attempt to retroflex the scope in the distal rectum as well as could be visualized, no mass or neoplastic lesions were seen. Scope was withdrawn. The patient tolerated the procedure well. CONDITION OF THE PATIENT UPON DISCHARGE: Following procedure, the patient [facility] [place] [place] [address] [place] [address] PROCEDURE REPORT Name: LORENZA ARMENDARIZ Room #: REG [facility].#: [id number] Admission: 11/13/18 ������������������ Attend Phys: Michael Michael MD Discharge: ������������������ Date of : 53 Report #: [id number] drowsy and arousable. He will be discharged home when fully ambulatory. INSTRUCTIONS TO THE PATIENT AND FAMILY AT THE TIME OF DISCHARGE: The patient with mild diversion proctitis. He is asymptomatic. For rectal cancer screening, this exam is negative. Suggest followup flex sig in about 5 years. ��������������������������������������������� ���������������������������������������� By: ��������������������������������������������� [id number] Michael Michael MD /nt
== END | disposition home or self-care (01) ==
LOC: GI 08:11
DX: Z12.11 Encounter for screening for malignant neoplasm of colon (principal); K62.89 Other specified diseases of anus and rectum; K29.70 Gastritis, unspecified, without bleeding; K57.10 Diverticulosis of small intestine without perforation or abscess without bleeding; K22.8 Other specified diseases of esophagus; K22.2 Esophageal obstruction; K44.9 Diaphragmatic hernia without obstruction or gangrene; K31.7 Polyp of stomach and duodenum; K21.9 Gastro-esophageal reflux disease without esophagitis; J38.2 Nodules of vocal cords; D64.9 Anemia, unspecified; I13.0 Hypertensive heart and chronic kidney disease with heart failure and stage 1 through stage 4 chronic kidney disease, or unspecified chronic kidney disease; N18.3 Chronic kidney disease, stage 3 (moderate); I50.9 Heart failure, unspecified; E78.5 Hyperlipidemia, unspecified; I25.2 Old myocardial infarction; J43.9 Emphysema, unspecified; G89.4 Chronic pain syndrome; F41.9 Anxiety disorder, unspecified; F32.9 Major depressive disorder, single episode, unspecified; F17.210 Nicotine dependence, cigarettes, uncomplicated; Z98.0 Intestinal bypass and anastomosis status; Z87.19 Personal history of other diseases of the digestive system; Z95.1 Presence of aortocoronary bypass graft; Z86.73 Personal history of transient ischemic attack (TIA), and cerebral infarction without residual deficits; Z98.890 Other specified postprocedural states; Z79.899 Other long term (current) drug therapy; Z79.82 Long term (current) use of aspirin
CPT/HCPCS: 62110; 62900

== ENCOUNTER → 2018-12-28 | Outpatient (CLI) | payer OTHER ==
[~2018-12-28] VITALS: Ht 165.1 cm; Wt 56.7 kg
[2018-12-28 12:15] VITALS: BP 104/74
== END | disposition home or self-care (01) ==
LOC: SPEC 10:24 → OPONC 10:24
DX: Z45.2 Encounter for adjustment and management of vascular access device (principal); K91.2 Postsurgical malabsorption, not elsewhere classified; I50.9 Heart failure, unspecified; N18.9 Chronic kidney disease, unspecified; J44.9 Chronic obstructive pulmonary disease, unspecified; E78.5 Hyperlipidemia, unspecified; I25.2 Old myocardial infarction; D64.9 Anemia, unspecified; F17.210 Nicotine dependence, cigarettes, uncomplicated; I25.10 Atherosclerotic heart disease of native coronary artery without angina pectoris; Z98.0 Intestinal bypass and anastomosis status; Z95.1 Presence of aortocoronary bypass graft; Z79.899 Other long term (current) drug therapy; Z86.73 Personal history of transient ischemic attack (TIA), and cerebral infarction without residual deficits; Z98.890 Other specified postprocedural states

== ENCOUNTER 2019-06-28 13:05 | Inpatient (IN) | payer OTHER ==
[~2019-06-28] VITALS: Ht 165.1 cm; Wt 59.9 kg
[2019-06-28 13:05] VITALS: BP 134/73; BP 67/48
[2019-06-28 14:02] LABS: ABSOLUTE NEUTROPHILS 2.9 thou/uL (1.4-8.2); BASOPHILS 0.5 % (0.0-2.0); EOSINOPHILS 5.9 % (0.0-3.0); HEMATOCRIT 36.2 % (42.0-52.0); HEMOGLOBIN 11.7 gm/dL (14.0-18.0); MCH 27.8 pg (26.0-34.0); MCHC 32.4 g/dL (28.0-37.0); MCV 85.7 fL (80.0-100.0); MONOCYTES 9.1 % (1.0-8.0); PLATELET COUNT 186 thou/uL (150-400); POLYS 55.5 % (36.0-66.0); RBC 4.23 mil/uL (4.50-6.00); RDW 13.9 % (10.5-14.5); WBC 5.2 thou/uL (4.0-11.0)
[2019-06-28 14:12] LABS: CALCIUM 9.1 mg/dL (8.5-10.1); CREATININE 1.2 mg/dL (0.7-1.3); POTASSIUM 4.5 mmol/L (3.5-5.1)
[2019-06-28 14:18] LABS: ALBUMIN 2.6 g/dL (3.4-5.0); TOTAL BILIRUBIN 0.3 mg/dL (<0.1-1.0); TOTAL PROTEIN 7.2 g/dL (6.4-8.2)
[2019-06-28 15:40] VITALS: BP 182/82
[2019-06-28 16:26] VITALS: BP 194/76
[2019-06-28 16:34] LABS: URINE BILIRUBIN NEGATIVE (Negative); URINE BLOOD NEGATIVE (Negative); URINE CLARITY CLEAR; URINE COLOR YELLOW; URINE GLUCOSE-RANDOM* NEGATIVE (Negative); URINE KETONES NEGATIVE (Negative); URINE LEUKOCYTES-REFLEX NEGATIVE (Negative); URINE NITRITE-REFLEX NEGATIVE (Negative); URINE PROTEIN (DIPSTICK) NEGATIVE (Negative); URINE UROBILINOGEN 0.2 E.U./dl (0.2-1.0)
[2019-06-28 17:00] VITALS: BP 200/78
[2019-06-28 19:04] VITALS: BP 162/76
--- NOTE | 2019-06-28 19:29 | NUR ---
Compained of pain in abd, pain medication given and worked. NPO, no n/v; BP elevated, Dr. Vega claimed he would give the patient BP medication. The night nurse is aware.
--- NOTE | 2019-06-29 02:57 | NUR ---
PT CARE ASSUMED WITH PT IN BED SLEEPING.PT IS A/O X4.PT IS ON 3L OF O2 NASAL CANULA.PT C/O PAIN AND PAIN MAGANGED WITH FENTANYL.PT HAS AN ILEOSTOMY BAG AND USES A URINAL.PT HAS A PICC LINE IN THE TRUNG DOUBLE LUMEN.WILL CONTINUE TO MONITOR POC
[2019-06-29 05:59] LABS: ABSOLUTE NEUTROPHILS 3.8 thou/uL (1.4-8.2); BASOPHILS 0.2 % (0.0-2.0); EOSINOPHILS 4.4 % (0.0-3.0); HEMATOCRIT 39.3 % (42.0-52.0); HEMOGLOBIN 12.7 gm/dL (14.0-18.0); LYMPHOCYTES 22.5 % (24.0-44.0); MCH 27.7 pg (26.0-34.0); MCHC 32.4 g/dL (28.0-37.0); MCV 85.6 fL (80.0-100.0); MONOCYTES 7.4 % (1.0-8.0); PLATELET COUNT 191 thou/uL (150-400); POLYS 65.5 % (36.0-66.0); RBC 4.59 mil/uL (4.50-6.00); RDW 14.1 % (10.5-14.5); WBC 5.8 thou/uL (4.0-11.0)
[2019-06-29 06:13] LABS: CALCIUM 9.1 mg/dL (8.5-10.1); CREATININE 1.2 mg/dL (0.7-1.3); MAGNESIUM 1.6 mg/dL (1.8-2.4); POTASSIUM 4.4 mmol/L (3.5-5.1)
[2019-06-29 06:22] LABS: LIPASE 567 U/L (73-393); TRIGLYCERIDE 101 mg/dL (<150)
[2019-06-29 07:05] VITALS: BP 143/90
[2019-06-29 14:40] VITALS: BP 170/92
--- NOTE | 2019-06-29 16:47 | NUR ---
PT ADMITTED RELATED TO ABD PAIN, N/V, HYPONATREMIAM PANCREATITIS. CM REVIEWED CHART AND SPOKE WITH CARE TEAM. CM MET WITH PT AT BEDSIDE THIS DAY. PT IS A&O X4. CM ROLE INTRODUCED. PT INDICATED HE LIVES IN A HOUSE WITH HIS FAMILY WITH 4 STEPS TO ENTER AND NO STEPS INSIDE. PT INDICATED HE HAD BEEN ON HOME HEALTH SERVICE PT BUT COULDN'T REMEMBER PROVIDER. HE WOULD LIKE TO USE THEM AGAIN UPON DC. PT HAD TPN NIKHIL BARON. PT INDICATED HE HAS ALL RECOMMENDED DME WALKER, WHEELCHAIRS, AND HOME O2. PT HAD BEEN ON 3L CONTINUOUSE WITH [employer] O[employer] DIRECTOR BUSINESS DEVELOPMENT. PT INDICATED SHE PLANS TO RETURN HOME ONCE MEDICALLY STABLE. CM TO FOLLOW INDICATED WITH DC PLANNING.
[2019-06-29 19:26] VITALS: BP 134/86
--- NOTE | 2019-06-29 21:42 | NUR ---
PATIENT IS ALERT AND ORIENTED WITH FAMILY AT BEDSIDE FOR PART OF THE AFTERNOON. SEEN BY GI AND ADVANCED TO A DIET AND WILL START TPN THIS EVENING. ABDOMINAL PAIN IS BEING MANAGED WELL BY IV PAIN MED AND IS REQUESTING FOOD. FAMILY IS ASKING ABOUT RESULTS OF THE CT SCAN IN REGARD TO POSSIBLE CANCER.
--- NOTE | 2019-06-30 01:46 | NUR ---
TPN infusing per PICC line. Patient resting quietly with eyes closed. Respirations even and non-labored.
[2019-06-30 05:59] VITALS: BP 134/86
[2019-06-30 06:27] LABS: HEMATOCRIT 37.2 % (42.0-52.0); MCH 27.4 pg (26.0-34.0); MCHC 32.3 g/dL (28.0-37.0); MCV 84.9 fL (80.0-100.0); RBC 4.38 mil/uL (4.50-6.00); RDW 14.1 % (10.5-14.5); WBC 5.5 thou/uL (4.0-11.0)
[2019-06-30 06:45] LABS: CREATININE 1.1 mg/dL (0.7-1.3); POTASSIUM 4.6 mmol/L (3.5-5.1)
[2019-06-30 07:00] VITALS: BP 128/80
--- NOTE | 2019-06-30 12:56 | NUR ---
Assumed pt care at 7am.Assessment completed.vss.pt in bed with whispering voice restless and c/o back pain rated 10/10.Fentanyl ivp given as ordered with partial relief.Pt wanted to resumed regular food but has to wait till seen by Dr Vega.Pt take care of his ileostomy.No further c/o. Will continue to monitor.
[2019-06-30 15:15] VITALS: BP 147/82
[2019-06-30 19:04] VITALS: BP 138/80
--- NOTE | 2019-07-01 03:03 | NUR ---
ASSUMED CARE OF PT AT 1900HRS. PT IS AOX4 ADN LETS NEEDS BE KNOWN. PT IS UP AD EL. TPN INITIATED AT HS. PT REPORTED SOME PAIN AND WAS TREATED WITH PRN PAIN MEDS. PT WAS ABLE TO GET COMFORTABLE AND SLEEP PART OF THE SHIFT. VSS AND NO S/S OF ACUTE DISTRESS. WILL CONTINUE TO MONITOR.
[2019-07-01 08:14] VITALS: BP 134/62
[2019-07-01 09:11] LABS: GLOBULIN TOTAL 4.3 g/dL (2.2-3.9); M-SPIKE 0.7 g/dL (Not Observed)
[2019-07-01 14:28] VITALS: BP 134/62
[2019-07-01 14:49] VITALS: BP 134/62
--- NOTE | 2019-07-01 16:20 | NUR ---
CARE TEAM INDICATED THAT PT IS MEDICALLY STABLE TO DC HOME THIS DAY. ORDERS SENT TO [facility] PT'S TPN THEY CONTACTED PT AND HE MADE AN ORDER. PT TO CALL CM WITH HIS HH PROVIDER AND ORDERS TO BE SENT TO THEM. PT HAS PORTABLE TANK FOR DISHCARGE HOME. FAMILY TO TRANSPORT. NO OTHER CM INTERVENTION INDICATED. CASE CLOSED.
--- NOTE | 2019-07-01 16:28 | NUR ---
Assumed pt care at 7am.Pt in and out of bed independently.Assessment completed.vss.Pt tolrated meds and diet.Pain shot given per pt request with releif.Dr Vega here,dc order noted.Dc summary compile and reviewed with pt. Picc line flushed and clamped.natural science manager arranged for home health.At 1615,pt dc home with in wc accompanied by lizzr.
== END 2019-07-01 16:22 | disposition home health service (06) | DRG 438 ==
LOC: ER 13:05 → 4W 15:22 → EROBS 15:22 → 4W 16:44
PROVIDERS: Internal Medicine Hematology & Oncology; Nurse Practitioner; Nurse Practitioner Family; ADMIT Hospitalist
DX: K85.90 Acute pancreatitis without necrosis or infection, unspecified (principal); E43 Unspecified severe protein-calorie malnutrition; E87.1 Hypo-osmolality and hyponatremia; J90 Pleural effusion, not elsewhere classified; I13.0 Hypertensive heart and chronic kidney disease with heart failure and stage 1 through stage 4 chronic kidney disease, or unspecified chronic kidney disease; J96.10 Chronic respiratory failure, unspecified whether with hypoxia or hypercapnia; I50.9 Heart failure, unspecified; N18.9 Chronic kidney disease, unspecified; J44.9 Chronic obstructive pulmonary disease, unspecified; I25.10 Atherosclerotic heart disease of native coronary artery without angina pectoris; F17.210 Nicotine dependence, cigarettes, uncomplicated; G89.29 Other chronic pain; F03.90 Unspecified dementia, unspecified severity, without behavioral disturbance, psychotic disturbance, mood disturbance, and anxiety; M54.9 Dorsalgia, unspecified; R74.0 Nonspecific elevation of levels of transaminase and lactic acid dehydrogenase [LDH]; K74.60 Unspecified cirrhosis of liver; Z95.1 Presence of aortocoronary bypass graft; Z90.49 Acquired absence of other specified parts of digestive tract; Z99.81 Dependence on supplemental oxygen; Z86.73 Personal history of transient ischemic attack (TIA), and cerebral infarction without residual deficits; I25.2 Old myocardial infarction; Z93.2 Ileostomy status; Z87.01 Personal history of pneumonia (recurrent); Z98.1 Arthrodesis status; Z68.22 Body mass index [BMI] 22.0-22.9, adult; Z93.3 Colostomy status; Z79.82 Long term (current) use of aspirin; Z79.891 Long term (current) use of opiate analgesic; Z79.899 Other long term (current) drug therapy
CPT/HCPCS: 10040

== ENCOUNTER 2019-08-30 06:24 | Inpatient (IN) | payer OTHER ==
[~2019-08-30] VITALS: Ht 165.1 cm; Wt 57.1 kg
[2019-08-30 06:24] VITALS: BP 155/75
[2019-08-30 07:03] LABS: ABSOLUTE NEUTROPHILS 7.1 thou/uL (1.4-8.2); BASOPHILS 0.2 % (0.0-2.0); EOSINOPHILS 0.7 % (0.0-3.0); HEMATOCRIT 32.9 % (42.0-52.0); HEMOGLOBIN 10.9 gm/dL (14.0-18.0); LYMPHOCYTES 19.1 % (24.0-44.0); MCH 28.3 pg (26.0-34.0); MCHC 33.2 g/dL (28.0-37.0); MCV 85.1 fL (80.0-100.0); MONOCYTES 6.3 % (1.0-8.0); PLATELET COUNT 155 thou/uL (150-400); POLYS 73.7 % (36.0-66.0); RBC 3.86 mil/uL (4.50-6.00); RDW 15.9 % (10.5-14.5); WBC 9.6 thou/uL (4.0-11.0)
[2019-08-30 07:13] LABS: APTT 29.4 Seconds (24.5-32.8); INR 1.2
[2019-08-30 07:23] LABS: ALBUMIN 2.6 g/dL (3.4-5.0); CALCIUM 8.6 mg/dL (8.5-10.1); CREATININE 1.2 mg/dL (0.7-1.3); MAGNESIUM 1.3 mg/dL (1.8-2.4); TOTAL BILIRUBIN 0.5 mg/dL (<0.1-1.0); TOTAL PROTEIN 7.1 g/dL (6.4-8.2)
[2019-08-30 07:25] LABS: TROPONIN-I 10.38 ng/mL (<0.06)
[2019-08-30 07:26] LABS: POTASSIUM 2.8 mmol/L (3.5-5.1)
[2019-08-30 07:35] LABS: BE(vivo) 0.3 mmol/L (-2 to +3); HCO3 26.4 mmol/L (22.0-26.0); PCO2 48.8 mmHg (35.0-45.0); PO2 97.3 mmHg (80.0-100.0); pH 7.351 (7.360-7.450); sO2 97.1 % (92.0-98.0)
--- NOTE | 2019-08-30 07:59 | EKG ---
[facility] [place] [address] ELECTROCARDIOGRAM REPORT Name: LORENZA ARMENDARIZ Room #: REG [facility].#: [id number] Admission: 08/30/19 Attend Phys: Discharge: Date of : 53 Report #: [id number] THIS REPORT FOR: cc: FAM - Family physician unknown FAM - Family physician unknown Tim Godinez MD [facility] ~ THIS REPORT FOR: //name// [facility] ED Test Date: 2019-08-30 Test Time: 06:35:34 Pat Name: LORENZA ARMENDARIZ Department: Room: Gender: M Indigo Mixer: : 1955 Requested By: Anthony Odom Order Number: [id number] MD: Tim Godinez Measurements Intervals [place] Rate: 93 P: 43 AR: 145 QRS: 10 QRSD: 116 T: 11 QT: 439 QTc: 547 Interpretive Statements Sinus rhythm with atrial premature complexes Incomplete right bundle branch block Nonspecific ST and T wave abnormality Compared to ECG 06/21/2018 11:49:55 No significant change was found Electronically Signed On 08-30-2019 7:58:16 CDT by Tim Godinez [email or web address] <ELECTRONICALLY SIGNED> By: Tim Godinez MD, FACC 08/30/19 0758 [id number] [id number] Tim Godinez MD, [facility] /EPI
[2019-08-30 10:00] LABS: CREATININE 1.3 mg/dL (0.7-1.3)
[2019-08-30 10:03] VITALS: BP 149/91
[2019-08-30 11:35] VITALS: BP 158/85
[2019-08-30 12:30] VITALS: BP 128/83
[2019-08-30 16:06] VITALS: BP 147/80
--- NOTE | 2019-08-30 18:01 | NUR ---
[age] YEAR OLD MALE ADMITTED TO 3WEST ROOM [address] OF [address]. TURNER. PT WAS BROUGHT INTO THE ER PER EMS, AFTER BEING FOUND AT HOME IN THE TRIPOD POSIION. PT ON 3L O2 WAS 90% PT ALERT AND ORIENTED TIMES FOUR. VSS, SR ON TELE. PT HAS C/O SOA. DENIES PAIN AT THIS TIME. PT UP TO SIDE OF BED TO USE URINAL. PT TOLERATES MEDS, BUT HAS POOR APPETITE. WILL CONTINUE TO MONITOR.
[2019-08-30 21:10] VITALS: BP 136/86
[2019-08-31 04:17] VITALS: BP 131/69
[2019-08-31 04:58] LABS: ABSOLUTE NEUTROPHILS 10.9 thou/uL (1.4-8.2); BASOPHILS 0.1 % (0.0-2.0); HEMATOCRIT 30.9 % (42.0-52.0); HEMOGLOBIN 10.2 gm/dL (14.0-18.0); LYMPHOCYTES 6.6 % (24.0-44.0); MCH 28.1 pg (26.0-34.0); MCHC 32.9 g/dL (28.0-37.0); MCV 85.3 fL (80.0-100.0); MONOCYTES 1.6 % (1.0-8.0); PLATELET COUNT 134 thou/uL (150-400); POLYS 91.7 % (36.0-66.0); RBC 3.63 mil/uL (4.50-6.00); RDW 16.4 % (10.5-14.5); WBC 11.9 thou/uL (4.0-11.0)
[2019-08-31 05:21] LABS: ALBUMIN 2.2 g/dL (3.4-5.0); CALCIUM 8.4 mg/dL (8.5-10.1); CREATININE 1.2 mg/dL (0.7-1.3); MAGNESIUM 1.8 mg/dL (1.8-2.4); POTASSIUM 3.7 mmol/L (3.5-5.1); TOTAL BILIRUBIN 0.4 mg/dL (<0.1-1.0); TOTAL PROTEIN 6.6 g/dL (6.4-8.2)
[2019-08-31 05:35] LABS: TROPONIN-I 5.75 ng/mL (<0.06)
--- NOTE | 2019-08-31 05:55 | NUR ---
PT HAS BEEN PLEASANT THIS ENTIRE SHIFT, AFTER INITIAL ASSESSMENT AND MEDICATION ADMINISTRATION, PATIENT HAS BEEN ABLE TO GET A FULL/COMPLETE NIGHT'S REST WITH THE HELP OF [facility]. PT SUSTAINED HR OF 70s THROUGHOUT SHIFT. MEDICATION WAS PROVIDED PER JUL. NO SIGNIFICATN CHANGES TO STATUS. STILL OF 4L OF OXYGEN, RR 16, 96O2. VERY STABLE THIS SHIFT AND NO CONCERN OF PAIN. PATIENT IS SELF SUFFICIENT WITH THE CARE FOR THE ILEOSTOMY. THE DOUBLE LUMEN PICC LINE DRESSING MAY NEED TO BE ADDRESSED SOMETIME DURING THE AM SHIFT. WILL CONTINUE TO MONITOR
[2019-08-31 08:00] VITALS: BP 125/70; BP 175/70
[2019-08-31 12:32] VITALS: BP 128/66
--- NOTE | 2019-08-31 16:02 | NUR ---
ASSESSMENT: CM REVIEWED CHART AND SPOKE WITH PATIENT VIA PHONE. PT WAS ADMITTED FROM HOME DUE TO NSTEMI/COPD AND RULED OUT FOR COVID 19. PT LIVES AT HOME WITH HIS FAMILY. PT REPORTS HAVING 3 STEPS TO ENTER THE HOME AND NO STEPS ONCE INSIDE. PT STATES HE NORMALLY AMBULATES INDEPENDENTLY BUT HAS ALOT OF DME AT HOME INCLUDING A WALKER, WHEELCHAIR, HOME OXYGEN THROUGH [facility] AT 3L CONTINUOUS. 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 PT HAS HAD [facility] IN THE PAST BUT NOT CURRENTLY THEIR LAST DATE OF SERVICE FOR HIM WAS 05-17-19 (CM CONFIRMED WITH [facility]). CM ASKED IF PATIENT HAD ENOUGH TPN AT HOME AND HE STATES HE IS DUE FOR ANOTHER ORDER LIKELY ON FRIDAY. CM CONTACTED [facility] [phone] (ALLOW EXTENSION NUMBER TO BYPASS TWICE AND IT WILL GO STRAIGHT TO PHARMACY TO NOTIFY AND SPOKE WITH KYLEIGH. HE STATES THAT THEY WILL NEED A RESUMPTION OF ORDERS AT TIME OF DISCHARGE. CONTACT THEM AT DISCHARGE AND FAX SCRIPT ([phone]) OR CALL PHARMACIST EDDIE TAMAYO THE PATIENT ACCOUNTS CLERK THAT WORKS CLOSELY WITH PT AT [facility]. IF PT NEEDS NEW SUPPLIES (DIFFERENT TPN ORDERS) CALL 3-4 HOURS IN ADVANCE.
--- NOTE | 2019-08-31 17:19 | NUR ---
Alert and cooperative; denied pain; vss, afebrile; tolerated PO food, finished about 30% for breakfast and about 30% for lunch, no n/v. Bed rest. Covid negative. transferred to CCU.
--- NOTE | 2019-08-31 18:33 | NUR ---
Assumed patient care at 1730. Patient moved from 3 West to 2 North. He accepted this transition without complaint. Vital signs are stable. Patient is alert and oriented x's 4, O2 is at 2 Liters per nasal cannula. Patient had a wallet with a large amount of ag in it. Security notified, came and counted with patient and this nurse. Money and wallet are now at Security Office. Patient relieved that it is now safe. Patient consumed approximately 30% of Dinner and is now drinking a can of Meron Mist. He has had no output since arrival to this unit. Will report to on-coming nurse.
[2019-08-31 20:12] VITALS: BP 130/72
[2019-09-01] VITALS (8 sets, daily range): BP systolic 117–149; BP diastolic 60–85
--- NOTE | 2019-09-01 05:29 | NUR ---
Assumed pt care at 1900. Pt's A/OX4, [place] on right ear. VSS. C/o right shoulder pain, medicated per EMAR with relief reported. Pt has a hoarse voice which is chronic and a non productive cough,on oxygen @4L/NC.Up ad caterina,encouraged to call for help as needed and agrees to. Continent of bladder,voiding per urinal, has a colostomy which he takes care of himself;liquid green/brown stools noted. Pt has a double RUE PICC with TPN infusing w/o any problems. Resting quietly w/o any distress noted will continue to monitor pt.
--- NOTE | 2019-09-01 08:59 | NUR ---
ASSUMED CARE OF PT AT SHIFT CHANGE, REPORTS OF A.M. LABS BEING DRAWN I POINTED OUT HE'S ELECTROLYTE PROTOCOL, NIGHT NURSE STATES SHE KEISHA LABS LATE. 30 MIN LATER PHARMACY CALLED TO SAY NO LABS RECEIVED, ASKED HIM TO CALL LAB, HE HAD. ASKED NIGHT NURSE WHO WAS CHARTING WHERE SHE PUT THE LABS. SHE SAID LAB. ASKED HER TO DRAW AGAIN SINCE SHE'D TOLD ME SHED DONE. SHE SAID SHE COULDN'T STAY TO DO SO. WE DID A RE-DRAW. CARDIOLOGY CAME UP TO SAY MAKE PT NPO, GIVE LASIX AND POSSIBLE CATH TO BE DONE LATER. REMOVED PT'S TRAY, TOLD HIM HE CAN SWISH WATER AND SPIT AND GAVE HIM AN EXTRA CUP, HOARSE VOICE WHICH HE STATES IS HIS USUAL. COUGH, ENCOURAGED HIM TO DO DEEP SLOW BREATHING. SEE SEPARATE INTERVENTIONS FOR ASSESSMENTS. WILL CONTINUE TO MONITOR
--- NOTE | 2019-09-01 09:40 | 2DMMODE ---
[facility] [address] [place] [address] 2 D/M-MODE ECHOCARDIOGRAM Name: LORENZA ARMENDARIZ Room #: 207-P ADM IN M.R.#: [id number] Admission: 08/30/19 Attend Phys: Mansi Boyle MD Discharge: Date of : 53 Report #: [id number] THIS REPORT FOR: cc: FAM - Family physician unknown FAM - Family physician unknown Jonathan Kang MD ~ APPROVED REPORT Study performed: 09/01/2019 08:55:23 EXAM: Comprehensive 2D, Doppler, and color-flow Echocardiogram Patient Location: Bedside Room #: 207 Status: routine BSA: 1.68 HR: 76 bpm BP: 128/63 mmHg Rhythm: Sinus arrhythmia Other Information Study Quality: Adequate/low parasternal, off axix apicals Indications Short of breath, cough, NSTEMI, CHF. Hx: RI, CABG, COPD. 2D Dimensions RVDd: 37.87 mm IVSd: 11.03 (7-11mm) LVOT Diam: 21.82 (18-24mm) LVDd: 52.54 mm PWd: 10.49 (7-11mm) LVDs: 45.03 (25-40mm) Aortic Root: 37.61 mm Volumes Left Atrial Volume (Systole) Single Plane 4CH: 71.47 mL Single Plane 2CH: 54.73 mL LA ESV Index: 40.00 mL/m2 Aortic Valve AoV Peak Jose J.: 1.46 m/s AO Peak Gr.: 8.55 mmHg LVOT Max P.36 mmHg LVOT Max V: 1.16 m/s [facility] [address] [place] [address] 2 D/M-MODE ECHOCARDIOGRAM Name: LORENZA ARMENDARIZ Room #: 207-P [facility].#: [id number] Admission: 08/30/19 Attend Phys: Ann Mercado Discharge: Date of : 53 Report #: [id number] Vmax: 2.96 cm2 Mitral Valve E/A Ratio: 1.4 MV Decel. Time: 228.02 ms MV E Max Jose J.: 1.27 m/s MV A Jose J.: 0.91 m/s MV PHT: 66.13 ms IVRT: 65.74 ms Pulmonary Valve PV Peak Jose J.: 1.10 m/s PV Peak Gr.: 4.88 mmHg Pulmonary Vein P Vein S: 0.90 m/s P Vein D: 0.93 m/s P Vein S/D Ratio: 0.97 Tricuspid Valve TR Peak Jose J.: 2.73 m/s RAP Estimate: 15.00 mmHg TR Peak Gr.: 30.00 mmHg PA Pressure: 35.00 mmHg Left Ventricle The left ventricle is normal size. There is normal left ventricular wall thickness. Left ventricular systolic function is normal. LVEF is 50-55%. Grade II - pseudonormal filling dynamics. Right Ventricle The right ventricle is normal size. The right ventricular systolic function is low normal. Atria Left atrium is moderately dilated. The right atrium size is normal. Aortic Valve The Aortic valve is midly sclerotic. No aortic regurgitation is present. There is no aortic valvular stenosis. Mitral Valve The mitral valve is normal in structure. Mild mitral annular calcification. Mild to moderate mitral regurgitation. No evidence of mitral valve stenosis. Tricuspid Valve [facility] [place] [address] [place] [address] 2 D/M-MODE ECHOCARDIOGRAM Name: SANIYAAzizaLORENZA [place] Room #: 207-P ADM IN M.R.#: [id number] Admission: 08/30/19 Attend Phys: Ann Mercado Discharge: Date of : 53 Report #: [id number] The tricuspid valve is normal in structure. Mild tricuspid regurgitation. Estimated PAP is 30-35mmHg. Pulmonic Valve The pulmonary valve is normal in structure. Trace pulmonic regurgitation. Great Vessels The aortic root is normal in size. Ascending aorta is not well visualized. IVC is dilated and collapses <50% with inspiration. Pericardium There is no pericardial effusion. <Conclusion> The left ventricle is normal size. There is normal left ventricular wall thickness. Left ventricular systolic function is normal. Grade II - pseudonormal filling dynamics. The right ventricle is normal size. Left atrium is moderately dilated. The Aortic valve is midly sclerotic. Mild to moderate mitral regurgitation. Mild tricuspid regurgitation. Estimated PAP is 30-35mmHg. <ELECTRONICALLY SIGNED> By: Jonathan Kang MD 09/01/19937 7 7 Jonathan Kang MD /INF
[2019-09-01 10:22] LABS: CALCIUM 6.9 mg/dL (8.5-10.1); MAGNESIUM 1.8 mg/dL (1.8-2.4); PHOSPHORUS 2.4 mg/dL (2.5-4.9); POTASSIUM 3.1 mmol/L (3.5-5.1); TOTAL BILIRUBIN 0.2 mg/dL (<0.1-1.0); TOTAL PROTEIN 5.7 g/dL (6.4-8.2)
--- NOTE | 2019-09-01 13:36 | NUR ---
REC PT FROM [facility], NO INTERVENTION PER REPORT. NO NURSE SIGN OFF FOR PT'S RETURN ALTHOUGH BOTH RN'S SHOWED UP ONLY A FEW MIN AFTER THEY LEFT PT R GROIN SITE CDI, SEE SEPARATE DATA FLOW SHEET FOR VS/ASSESSMENT, PT'S BEEN DIRECTED ON RESTRICTIONS. PT IS A&0X4, FOLLOWING RESTRICTIONS. WILL CHECK ORDERS FOR IVF AND FOOD. WILL CONTINUE TO MONITOR, VS WNL
--- NOTE | 2019-09-01 15:59 | CATHLAB ---
[facility] [place] [address] INVASIVE PROCEDURE REPORT Name: LORENZA ARMENDARIZ Room #: 207-P ADM IN M.R.#: [id number] Admission: 08/30/19 Attend Phys: Mansi Boyle MD Discharge: Date of : 53 Report #: [id number] THIS REPORT FOR: cc: FAM - Family physician unknown FAM - Family physician unknown Jonathan Kang MD ~ APPROVED REPORT Study performed: 09/01/2019 12:00:44 Patient Details Patient Status: In-Patient Room #: The patient is a 64 year-old male Event Personnel Jonathan Kang Print Designer, Jocy Shepherd RN RN, Renae Sampson Paschal, Ja'net RTR Monitor Procedures Performed Art Access - R femoral artery* Left Heart Cath Coronaries, Bypass Grafts [id number] LHCCORCABG Hemostasis with Manual pressure Indication CHF Current Status: , Non-STEMI , Dyspnea Risk Factors Chronic Lung DiseaseHypercholesterolemia, Coronary Artery DiseaseHypertension, Tobacco History () Previous Procedures/Diagnoses Previous CABG Procedure Narrative The patient was brought electively to the Cardiac Catheterization Laboratory and was prepped and draped in a sterile manner. The Right Groin^ was infiltrated with 1% Lidocaine subcutaneous anesthesia. A PINNACLE 4FR Sheath #[id number] sheath was inserted into the RFA^. Coronary angiography was performed using coronary diagnostic catheters. The right coronary system was accessed and visualized with a JR4 catheter. The left coronary system was accessed and visualized with a JL4 catheter. The left ventricle was accessed and visualized with a JR4 catheter. Hemostasis was obtained with manual pressure following sheath removal without any complications. The patient [facility] [address] [place] [place] [address] INVASIVE PROCEDURE REPORT Name: SANIYAAzizaLORENZA YESICA Room #: 207-P ADM IN M.R.#: [id number] Admission: 08/30/19 Attend Phys: Ann Mercado Discharge: Date of : 53 Report #: [id number] tolerated the procedure well and there were no complications associated with the procedure. There was no hematoma. Intraoperative Conscious Sedation Sedation start time: 12:29 Case end Time: 13:05 Fentanyl 25 mcg Fluoro Time: 6.52 minutes Dose: DAP 3763.80 cGycm2 454.1 mGy Contrast Type and Amount: Omnipaque 60 ml Coronary Angiography The patient's coronary anatomy is co- dominant. Diagnostic Cath Left Main The left main artery is a patent vessel, with no flow-limiting lesions. LAD There is a total occlusion in the proximal LAD. There is a patent BELTRAN graft with an end to side anastomosis to the mid LAD. After the anastomosis, there is both retrograde and antegrade flow in the [place] LAD. Diagonal 1 The SVG to the first diagonal artery is occluded in the proximal segment. The diagonal artery is filled via collateral blood flow from the apical LAD. Circumflex This is a codominant vessel. There is a total occlusion in the proximal segment. The distal left circumflex artery and OM vessels are filled via bridging collaterals. Right Coronary The RCA has severe diffuse disease in the mid segment, unchanged from prior procedures. The PDA is filled via collateral circulation from the left coronary artery. Ramus The ramus artery is a moderate size caliber vessel, extending down the anterolateral wall to the apex. This vessel is patent, with no flow-limiting lesions. Left Ventriculography Left Ventriculography was not performed. Ejection Fraction was >55% based off patient's Echocardiogram. An LVEDP was measured and there is no gradient across the outflow tract. Hemodynamics The aortic pressure is 143/72 mmHg with a mean of 100 mmHg. The left ventricular pressure is 148/24 mmHg with a mean of mmHg. The left ventricular end diastolic pressure is 29 mmHg. Conclusion [facility] [address] [place] [address] INVASIVE PROCEDURE REPORT Name: LORENZA ARMENDARIZ YESICA Room #: 207-P [facility] IN [facility].#: [id number] Admission: 08/30/19 Attend Phys: Ann Mercado Discharge: Date of : 53 Report #: [id number] 1. There is a patent BELTRAN graft to the LAD. There is a moderate size ramus artery, patent with no flow-limiting lesions. 2. Occluded SVG to the first diagonal artery. The first diagonal artery is filled via collateral circulation from the apical LAD. 3. Occluded left circumflex and RCA, unchanged from prior procedures. The distal vessels are filled via collateral circulation. 4. Normal LV systolic function. 5. Recommend guideline directed medical therapy and risk factor management. <ELECTRONICALLY SIGNED> By: Jonathan Kang MD 09/01/19 1558 1558 1558 Jonathan Kang MD /INF
[2019-09-01 18:38] LABS: CALCIUM 8.2 mg/dL (8.5-10.1); CREATININE 1.4 mg/dL (0.7-1.3); POTASSIUM 3.9 mmol/L (3.5-5.1)
--- NOTE | 2019-09-02 03:55 | NUR ---
ASSUMED CARE AT 1900. PT ALERT AND ORIENTED. VSS. DENIES CHEST PAIN. PT VOIDING PER URINAL. COLOSTOMY BAG INTACT. PT MANAGES HIS OWN COLOSTOMY. SOB, O2 3.5L/HR, SATS >95. TPN AT 181 ML/HR. NO FURTHER C/O. WILL CONTINUE TO MONITOR.
[2019-09-02 04:30] VITALS: BP 161/80
[2019-09-02 05:54] LABS: HEMATOCRIT 33.7 % (42.0-52.0); HEMOGLOBIN 10.9 gm/dL (14.0-18.0); MCH 28.4 pg (26.0-34.0); MCHC 32.5 g/dL (28.0-37.0); MCV 87.4 fL (80.0-100.0); RBC 3.85 mil/uL (4.50-6.00); RDW 16.9 % (10.5-14.5); WBC 11.6 thou/uL (4.0-11.0)
[2019-09-02 06:08] LABS: CALCIUM 8.1 mg/dL (8.5-10.1); CREATININE 1.1 mg/dL (0.7-1.3); POTASSIUM 4.8 mmol/L (3.5-5.1)
[2019-09-02 06:12] LABS: MAGNESIUM 2.3 mg/dL (1.8-2.4); PHOSPHORUS 4.3 mg/dL (2.5-4.9)
[2019-09-02 08:00] VITALS: BP 149/88
--- NOTE | 2019-09-02 08:05 | EKG ---
[facility] [place] [address] ELECTROCARDIOGRAM REPORT Name: LORENZA ARMENDARIZ Room #: 207-P ADM IN M.R.#: [id number] Admission: 08/30/19 Attend Phys: Mansi Boyle MD Discharge: Date of : 53 Report #: [id number] THIS REPORT FOR: cc: RAIN - Family physician unknown FAM - Family physician unknown Tim Godinez MD [facility] ~ THIS REPORT FOR: //name// [facility] Test Date: 2019-09-02 Test Time: 07:34:10 Pat Name: LORENZA ARMENDARIZ Department: Room: 207 P Gender: M Brick Catcher: Jb LEA : 1955 Requested By: Larry Castillo Order Number: [id number] MD: Tim Godinez Measurements Intervals [place] Rate: 81 P: 62 [place]: 141 QRS: 19 QRSD: 118 T: 13 QT: 404 QTc: 469 Interpretive Statements Sinus rhythm Multiple premature complexes, supraven Right ventricular conduction delay Nonspecific T wave abnormality Compared to ECG 08/30/2019 06:35:34 No significant change was found Electronically Signed On 09-02-2019 8:03:21 CDT by Tim Godinez [email or web address] <ELECTRONICALLY SIGNED> By: Tim Godinez MD, [facility] 09/02/19802 3 3 Tim Godinez MD, [facility] /EPI
[2019-09-02 12:00] VITALS: BP 135/54
[2019-09-02 16:00] VITALS: BP 143/89
--- NOTE | 2019-09-02 16:05 | NUR ---
Clinical update faxed to [facility]. Possible dc home in 1-2 days with resumption of his home TPN. Update given to the [facility] Seay at [phone] who can assist with dc planning if needed. [facility] will need hh orders faxed at dc and Tam will need updated TPN script with formula as well. Pt getting iv steroids and iv atb. Will follow.
[2019-09-02 16:10] VITALS: BP 135/54
--- NOTE | 2019-09-02 18:42 | NUR ---
LARGELY INDEPENDENT IN CARES. SINUS ARHYTHMIA WITH PAC'S PER TELE. TPN AT H.S. POOR INTAKE BUT CONSUMES ALL SUPPLEMENTS. WILL CONTINUE TO FOLLOW CLOSELY.
[2019-09-02 19:42] VITALS: BP 151/78
--- NOTE | 2019-09-03 04:31 | NUR ---
ASSUMED CARE OF PT AT 1900HRS. PT IS AOX4 AND LETS NEEDS BE KNOWN. FALL PRECAUTION IN PLACE FOR SAFETY. PT REPORTED SOME PAIN AND WAS TREATED WITH MRN PAIN MEDS. O2 VIA NC CONTINUED AT 3.5L. OSTOMY BAG INTACT AND PT IS ABLE TO TAKE CARE OF OSTOMY. PT WAS ABLE TO GET COMFORTABLE AND SLEEP PART OF THE SHIFT. VSS AND NO S/S OF ACUTE DISTRESS. WILL CONTINUE TO MONITOR.
[2019-09-03 04:37] VITALS: BP 117/77
[2019-09-03 05:53] LABS: ALBUMIN 2.1 g/dL (3.4-5.0); CREATININE 1.1 mg/dL (0.7-1.3); MAGNESIUM 2.1 mg/dL (1.8-2.4); PHOSPHORUS 3.7 mg/dL (2.5-4.9); POTASSIUM 4.2 mmol/L (3.5-5.1); TOTAL BILIRUBIN 0.7 mg/dL (<0.1-1.0); TOTAL PROTEIN 5.9 g/dL (6.4-8.2)
[2019-09-03 07:30] VITALS: BP 143/73; BP 143/76; BP 173/47
--- NOTE | 2019-09-03 09:51 | NUR ---
ASSUMED CARE OF PT AT SHIFT CHANGE, NO NEEDS AT THIS TIME. SEE SEPARATE INTERVENTIONS FOR ASSESSMENTS. PT ONLY COMPLAINT AT THIS TIME IS THAT STAFF AND PHYSICIANS KEEP HIS DOOR SHUT, HOARSE VOICE, CHRONIC.WILL CONTINUE TO MONITOR.
[2019-09-03 11:30] VITALS: BP 118/82; BP 126/65
[2019-09-03] MEDS ORDERED: CEFDINIR300 MG PO (12:37)
[2019-09-03] MEDS ORDERED: DOXYCYCLINE HYC50 MG PO (12:37)
[2019-09-03] MEDS ORDERED: PREDNISONE 20 M20 MG PO (12:41)
[2019-09-03] MEDS ORDERED: COMBIVENT INH (12:41)
[2019-09-03 13:00] VITALS: BP 135/54
[2019-09-03 13:05] VITALS: BP 135/54
--- NOTE | 2019-09-03 13:06 | NUR ---
Pt dcing home today. HH orders faxed to the [facility] and dc summary and instructions faxed to [facility] ([facility]) to resume the pt's same TPN protocal. Pt has transport home. aTm has spoken with him as well. No other needs noted.
[2019-09-03] MEDS ORDERED: GLIPIZIDE 10 MG10 MG PO (13:08)
--- NOTE | 2019-09-03 15:47 | NUR ---
PT DEPARTED AROUND 1445 WITH HIS SISTER ARRIVING TO TAKE HIM HOME. HE WAS IN GOOD SPIRITS. HIS OWN PICC LINE, THAT HE ARRIVED WITH, WAS INTACT, AND TELE REMOVED. CALLED HIS FAMILY TO LET THEM KNOW HE LEFT TWO ITEMS. SEE NOTE FOR DETAILS. IN SUPPLY ROOM HERE IN 2N. SISTER THOUGHT SHE'D RETURN THIS EVENING
--- NOTE | 2019-09-06 09:35 | NUR ---
WAS NOTIFIED ON Friday09/03/29 THAT PT'S INSURANCE CHANGED 05/05/19 TO [facility] AND THEY DO NOT TAKE PT'S INSURANCE. SPOKE WITH PT THIS AM AND HE SAYS SINCE may 2019 THAT [facility] HAS BEEN SENDING A NURSE OUT EVERY FRIDAY TO CHECK PICC AND CHANGE DRESSING AND HE IS FINE WITH THAT CARE ONLY.
== END 2019-09-03 14:53 | disposition home health service (06) | DRG 280 ==
LOC: ER 06:24 → 2N 08:39 → EROBS 08:39 → 3W 08:39 → 2N 08-31 17:32
PROVIDERS: Emergency Medicine; Internal Medicine Cardiovascular Disease; Nurse Practitioner; ADMIT Hospitalist
PROC: 4A023N7 Measurement of Cardiac Sampling and Pressure, Left Heart, Percutaneous Approach (ICD-10-PCS; principal; 2019-08-30)
PROC: B2111ZZ Fluoroscopy of Multiple Coronary Arteries using Low Osmolar Contrast (ICD-10-PCS; principal; 2019-08-30)
DX: I21.4 Non-ST elevation (NSTEMI) myocardial infarction (principal); J96.21 Acute and chronic respiratory failure with hypoxia; J18.9 Pneumonia, unspecified organism; E43 Unspecified severe protein-calorie malnutrition; J96.22 Acute and chronic respiratory failure with hypercapnia; I50.33 Acute on chronic diastolic (congestive) heart failure; J44.1 Chronic obstructive pulmonary disease with (acute) exacerbation; E87.1 Hypo-osmolality and hyponatremia; E87.2 Acidosis; J44.0 Chronic obstructive pulmonary disease with (acute) lower respiratory infection; I13.0 Hypertensive heart and chronic kidney disease with heart failure and stage 1 through stage 4 chronic kidney disease, or unspecified chronic kidney disease; R05 Cough; I25.10 Atherosclerotic heart disease of native coronary artery without angina pectoris; N18.9 Chronic kidney disease, unspecified; J20.9 Acute bronchitis, unspecified; E87.6 Hypokalemia; E83.42 Hypomagnesemia; R79.89 Other specified abnormal findings of blood chemistry; F03.90 Unspecified dementia, unspecified severity, without behavioral disturbance, psychotic disturbance, mood disturbance, and anxiety; F41.9 Anxiety disorder, unspecified; Z20.828 Contact with and (suspected) exposure to other viral communicable diseases; G89.29 Other chronic pain; F11.90 Opioid use, unspecified, uncomplicated; Z87.01 Personal history of pneumonia (recurrent); Z93.3 Colostomy status; Z86.73 Personal history of transient ischemic attack (TIA), and cerebral infarction without residual deficits; I25.2 Old myocardial infarction; Z79.899 Other long term (current) drug therapy; Z85.72 Personal history of non-Hodgkin lymphomas; Z68.20 Body mass index [BMI] 20.0-20.9, adult; Z98.1 Arthrodesis status; Z93.2 Ileostomy status; Z95.1 Presence of aortocoronary bypass graft
CPT/HCPCS: 10081; 10879

== ENCOUNTER 2019-10-04 20:00 | Inpatient (IN) | payer OTHER ==
[~2019-10-04] VITALS: Ht 165.1 cm; Wt 56.2 kg
[~2019-10-04 20:00] MED LIST changes: +CEFDINIR300 MG PO; +COMBIVENT INH; +DOXYCYCLINE HYC50 MG PO; +GLIPIZIDE 10 MG10 MG PO
[2019-10-04 20:01] VITALS: BP 120/55
[2019-10-04 20:33] LABS: BE(vivo) -1.3 mmol/L (-2 to +3); HCO3 22.7 mmol/L (22.0-26.0); PCO2 36.2 mmHg (35.0-45.0); PO2 82.9 mmHg (80.0-100.0); pH 7.416 (7.360-7.450); sO2 96.4 % (92.0-98.0)
[2019-10-04 20:40] LABS: RDW 15.2 % (10.5-14.5)
[2019-10-04 20:42] LABS: ABSOLUTE NEUTROPHILS 12.8 thou/uL (1.4-8.2); BASOPHILS 0.2 % (0.0-2.0); HEMATOCRIT 36.4 % (42.0-52.0); HEMOGLOBIN 12.3 gm/dL (14.0-18.0); LYMPHOCYTES 6.4 % (24.0-44.0); MCH 28.7 pg (26.0-34.0); MCHC 33.7 g/dL (28.0-37.0); MCV 85.3 fL (80.0-100.0); MONOCYTES 6.7 % (1.0-8.0); PLATELET COUNT 186 thou/uL (150-400); POLYS 86.7 % (36.0-66.0); RBC 4.27 mil/uL (4.50-6.00); WBC 14.8 thou/uL (4.0-11.0)
[2019-10-04 20:52] LABS: ANION GAP 7 mmol/L (7-16); BUN 46 mg/dL (7-18); CALCIUM 8.7 mg/dL (8.5-10.1); CHLORIDE 100 mmol/L (98-107); CO2 25 mmol/L (21-32); CREATININE 1.9 mg/dL (0.7-1.3); GLUCOSE 98 mg/dL (74-106); POTASSIUM 4.5 mmol/L (3.5-5.1); SODIUM 132 mmol/L (136-145)
[2019-10-04 21:00] LABS: URINE BILIRUBIN NEGATIVE (Negative); URINE BLOOD TRACE (Negative); URINE CLARITY CLEAR; URINE COLOR YELLOW; URINE GLUCOSE-RANDOM* NEGATIVE (Negative); URINE KETONES NEGATIVE (Negative); URINE LEUKOCYTES-REFLEX NEGATIVE (Negative); URINE NITRITE-REFLEX NEGATIVE (Negative); URINE PROTEIN (DIPSTICK) 1+ (Negative); URINE UROBILINOGEN 0.2 E.U./dl (0.2-1.0)
[2019-10-04 21:01] LABS: ALBUMIN 2.4 g/dL (3.4-5.0); SGOT 45 U/L (15-37); SGPT 28 U/L (30-65); TOTAL BILIRUBIN 0.5 mg/dL (0.2-1.0); TOTAL PROTEIN 6.7 g/dL (6.4-8.2); TROPONIN-I <0.06 ng/mL (<0.06)
[2019-10-04 21:09] LABS: AMP/METHAMP Negative (Negative); BARBITURATES Negative (Negative); BENZODIAZEPINES Negative (Negative); COCAINE Negative (Negative); METHADONE Negative (Negative); OPIATES POSITIVE (Negative); PCP Negative (Negative)
--- NOTE | 2019-10-04 21:19 | NUR ---
CALLED PT'S SISTER TO UPDATE PT'S MED. NO ANSWER
[2019-10-04 21:27] LABS: BACTERIA-REFLEX 1-9 Few /HPF (None Seen); SQUAMOUS 0-3 Few /LPF (0-3); URINE RBC 0-2 Rare /HPF (0-2); URINE WBC-REFLEX 0-5 Rare /HPF (0-5)
[2019-10-04 21:28] LABS: CRYSTALS None Seen /LPF (None Seen); HYALINE CASTS 4-10 Moderate /LPF (None Seen); MUCUS 4-6 Moderate strn/LPF (None Seen)
[2019-10-04 23:52] VITALS: BP 94/46
--- NOTE | 2019-10-04 23:54 | NUR ---
CALLED ICU NURSE ARDEN FOR REPORT,WAS TOLD SHE NEEDED 10 MINUTES TO FISNISH WORK ON ANOTHER PT. SHE WILL CALL BACK
[2019-10-05] VITALS (28 sets, daily range): BP systolic 98–137; BP diastolic 44–64
[2019-10-05 06:33] LABS: CALCIUM 8.1 mg/dL (8.5-10.1); CREATININE 1.9 mg/dL (0.7-1.3); POTASSIUM 5.4 mmol/L (3.5-5.1)
--- NOTE | 2019-10-05 08:46 | EKG ---
[facility] [place] [address] ELECTROCARDIOGRAM REPORT Name: LORENZA ARMENDARIZ Room #: 238-P ADM IN M.R.#: [id number] Admission: 10/04/19 Attend Phys: Israel Damon MD Discharge: Date of : 53 Report #: [id number] THIS REPORT FOR: cc: RAIN - No family physician/PCP FAM - No family physician/PCP Tim Godinez MD [facility] THIS REPORT FOR: //name// [facility] ED Test Date: 2019-10-04 Test Time: 20:04:26 Pat Name: LORENZA ARMENDARIZ Department: Room: 238 Gender: M Full Fashioned Garment Knitter: hi : 1955 Requested By: Mariam Rocha Order Number: [id number] MD: Tim Godinez Measurements Intervals [place] Rate: 85 P: 62 VT: 150 QRS: 34 QRSD: 130 T: -85 QT: 362 QTc: 431 Interpretive Statements Sinus rhythm Incomplete right bundle branch block T wave abnormality, consider inferior and lateral ischemia Compared to ECG 09/02/2019 07:34:10 Atrial premature complexes no longer present T wave abnormality is more pronounced Electronically Signed On 10-05-2019 8:44:43 CDT by Tim Godinez [email or web address] <ELECTRONICALLY SIGNED> By: Tim Godinez MD, [facility] 10/05/19 0844 03 03 Tim Godinez MD, [facility] /EPI
[2019-10-05 08:59] LABS: HEMATOCRIT 37.1 % (42.0-52.0); MCH 28.3 pg (26.0-34.0); MCHC 32.3 g/dL (28.0-37.0); MCV 87.6 fL (80.0-100.0); PLATELET COUNT 151 thou/uL (150-400); RBC 4.24 mil/uL (4.50-6.00); RDW 15.7 % (10.5-14.5); WBC 12.5 thou/uL (4.0-11.0)
[2019-10-05 09:20] LABS: ABSOLUTE NEUTROPHILS 11.1 thou/uL (1.4-8.2); ATYPICAL LYMPHS 1 %; PLATELET ESTIMATE NORMAL
[2019-10-05 09:23] LABS: ANISOCYTOSIS SLIGHT
--- NOTE | 2019-10-05 09:50 | NUR ---
chart review. chary spoke with bedside staff, pt resting in bed with eyes closed, o2 per nasal cannula. unable to visit with suad at this time. pt has been here is not past. he cont to require home tpn for gut syndrome. has [facility] and [facility] for tpn). he lives at home with family, 3 steps to enter, no stairs once inside. has dme walker, wheel chair and o2 3L nasal canula continous, home oxygen and portable tanks from [facility]. will cont following as needed for dc needs. noted per chart pt on 4 L of o2
--- NOTE | 2019-10-05 11:34 | NUR ---
VASCULAR ACCESS TEAM DISCUSSED WITH PAUL GA, PRIOR TO DC PICC LINE ANOTHER FORM OF VASCULAR ACCESS WILL BE NEEDED BY IR PT WELL KNOWN TO US AND UNABLE TO SUCCESSFULLY PLACE LINES ON HIM DUE TO SCARING AND LIMITED PIV AVAILABILITY
--- NOTE | 2019-10-05 13:00 | NUR ---
Notified by lab that COVID test negative. Dr Bullard informed and isolation dc'd.
--- NOTE | 2019-10-05 16:00 | NUR ---
Peripheral line started by IV nurse. IV nurse also removed PICC line per physician orders.
--- NOTE | 2019-10-05 16:01 | NUR ---
PICC LINE DC AFTER PIV STARTED. 38CM PICC REMOVED SITE UNREMARKABLE NO DRAINAGE WHEN LINE REMOVED. PT TOLERATED WELL
--- NOTE | 2019-10-05 19:15 | NUR ---
Report given to RN assuming care. Pt reporting shoulder pain today and wishing to have it checked out during this admission. Frequent emptying of Ileostomy bag this shift. Pt reports more output than normal. Continue to support and work toward nursing goals.
[2019-10-06] VITALS (21 sets, daily range): BP systolic 100–146; BP diastolic 46–84
--- NOTE | 2019-10-06 03:18 | NUR ---
0150 AWAKE. CONTINUED TO COMPLAIN OF LEFT SHOULDER PAIN AND MOVES LEFT ARM WITH GUARDED MOVEMENTS. STATES THE RIGHT SHOULDER FEELS BETTER. MIGUEL TESTING ANALYST NOTIFIED AND MEDICATIONS ORDERED. FENTYL PATCH REMAINS TO LEFT SHOULDER. RESTARTED AMYTRIPTYLINE AND AMBIAN. EATING ICE CREAM. 0300 STATES LEFT SHOULDER FEELS BETTER AND CAN MOVE SHOULDER AND ARM NOW. EATING MORE ICE CREAM AND WATCHING TV. STATES DOESN'T FEEL LIKE SLEEPING RIGHT NOW. ASSIST TO STAND AT BEDSIDE TO VOID WITH ASSIST OF ONE. WORKING ON GOALS AND PLAN OF CARE FOR NOC. PROGRESSING SLOWLY TOWARDS DISCHARGE GOALS FROM ICU. CONTINUE TO ASSES.
[2019-10-06 06:30] LABS: HEMOGLOBIN 10.5 gm/dL (14.0-18.0); MCH 28.6 pg (26.0-34.0); MCHC 32.7 g/dL (28.0-37.0); MCV 87.4 fL (80.0-100.0); PLATELET COUNT 153 thou/uL (150-400); RBC 3.66 mil/uL (4.50-6.00); RDW 15.4 % (10.5-14.5); WBC 6.1 thou/uL (4.0-11.0)
[2019-10-06 06:34] LABS: CALCIUM 7.7 mg/dL (8.5-10.1); CREATININE 1.5 mg/dL (0.7-1.3); MAGNESIUM 1.4 mg/dL (1.8-2.4); POTASSIUM 3.8 mmol/L (3.5-5.1)
--- NOTE | 2019-10-06 09:09 | NUR ---
PATIENT REMAINS ON 4L NC, O2 SATS >96%. PATIENT BECOMES SOB WITH ACTIVITY. REFUSES BREATHING TREATMENTS FROM RT. NON PRODUCTIVE, CONGESTED COUGH NOTED. NO S/S DISTRESS NOTED. PATIENT STANDING UP TO BEDSIDE WITH STB ASSIST. REMAINS WEAK BUT USES OWN STRENGTH TO MOVE AROUND AND STAND. PT SITTING UPRIGHT EATING BREAKFAST, DENIES NEEDS AT THIS TIME. PATIENT CALLS FOR ASSIST APPROPRIATELY. PT PROGRESSING TOWARDS GOALS FOR DISCHARGE.
[2019-10-06 11:36] LABS: ABSOLUTE NEUTROPHILS 4.2 thou/uL (1.4-8.2)
[2019-10-06 11:37] LABS: ANISOCYTOSIS 1+
--- NOTE | 2019-10-06 16:21 | NUR ---
SW reviewed chart and spoke with nursing and attending physician. Pt's COVID-19 test is negative. Pt remains in ICU. Will transfer out of ICU when a bed is available. SW spoke with pt via phone. Pt known to SW from previous hospitalizations. Pt confirms he lives at home with family and is currently receiving TPN and nursing visits through [facility]. Plan is for pt to resume services when discharged. JONELLE is following to assist as needed with discharge planning.
[2019-10-07] VITALS (7 sets, daily range): BP systolic 106–146; BP diastolic 43–61
--- NOTE | 2019-10-07 03:24 | NUR ---
ASSUMED CARE OF PATIENT AT 1900. VSS, AFEBRILE. CONCERNED ABOUT WHEN PICC LINE WILL BE REPLACED. CONTINUES TO HAVE SHOULDER PAIN, PRN MEDS GIVEN ORDERED. SOME RELIEF OBTAINED. PROGRESSING SLOWLY TOWARDS POC GOALS.
--- NOTE | 2019-10-07 11:39 | NUR ---
PATIENT SITTING UP ON EDGE OF BED FOR MORNING ASSESSMENTS, OFFERED ASSISTANCE TO SIT UP IN CHAIR, PATIENT REFUSED. ATE MINIMAL BREAKFAST AND WENT BACK TO SLEEP. VSS, WILL CONTINUE TO MONITOR.
--- NOTE | 2019-10-07 15:03 | NUR ---
SW reviewed chart and spoke with attending physician. Pt remains in ICU. Pt had PICC line removed and will have new line placed in 2-3 days. JONELLE left voice message for [facility] liaison, to provide update. Pt will discharge home and resume home TPN/nursing visits through [facility] when medically stable. JONELLE is following to assist as needed with discharge planning.
[2019-10-08] VITALS: BP 152/61
[2019-10-08 02:00] VITALS: BP 145/66
[2019-10-08 04:00] VITALS: BP 132/48
[2019-10-08 04:27] LABS: HEMATOCRIT 35.8 % (42.0-52.0); HEMOGLOBIN 11.7 gm/dL (14.0-18.0); MCH 28.7 pg (26.0-34.0); MCHC 32.6 g/dL (28.0-37.0); RBC 4.07 mil/uL (4.50-6.00); RDW 15.7 % (10.5-14.5); WBC 4.1 thou/uL (4.0-11.0)
[2019-10-08 04:57] LABS: CALCIUM 8.4 mg/dL (8.5-10.1); CREATININE 1.3 mg/dL (0.7-1.3)
--- NOTE | 2019-10-08 06:06 | NUR ---
ASSUMED CARE AT 1900. PT DENIED SOB OR NAUSEA. REPORTED PAIN IN SHOULDERS AND HIPS, GAVE PRN PERCOCET ONCE. HAD LARGE AMOUNT OF DARK, LIQUID STOOL OUT OF ILEOSTOMY, WHICH PT MANAGED ON HIS OWN. URINATED LARGE AMOUNT OF CLEAR YELLOW URINE. NO FEVER OVERNIGHT. NO OTHER CONCERNS.
--- NOTE | 2019-10-08 13:53 | NUR ---
PT ASSESSMENTS DOCUMENTED. PT TO IR VIA WHEELCHAIR/TELE FOR PICC PLACEMENT AT 1210. PT HAS MED-SURG/TELE TRANSFER ORDERS. PT INDEPENDENT WITH ADL'S. POSSIBLE EXTENDED STAY DEPENDENT TO PROVIDERS ORDERS FOR IV ABX/OR NOT. CASE MANAGMENT UPDATED. SPOKE WITH [employer] FOR A VERBAL ORDER ABOUT TPN. PT DOES NOT LIKE RT'S BREATHING TREATMENTS, WOULD LIKE TO USE HIS OWN TRILIGY INHALER, THIS WAS OK'D BY DR MARROQUIN. WILL PASS BY PHARMACY.
[2019-10-08 15:56] VITALS: BP 132/81
--- NOTE | 2019-10-08 16:24 | NUR ---
JONELLE reviewed chart and spoke with nursing and attending physician. Pt remains in ICU. Pt to have new PICC line placed today. Pt currently off the unit. JONELLE faxed clinical info to [facility] for review. Unsure at this time of pt will need IV abx at time of discharge. JONELLE has paged ID physician to clarify. JONELLE received call from Dulce Maria at [facility], who states they must have orders by the end of today, in order to set pt up over the weekend. Awaiting input from ID at this time. JONELLE is following to assist as needed with discharge planning.
[2019-10-08 16:44] VITALS: BP 132/81
--- NOTE | 2019-10-08 18:29 | NUR ---
PT TRANSFERED FROM ICU IN STABLE CONDITION. ORDERS GIVEN BY DR. BALDERRAMA AND DR. JACKMAN TO DISCHARGE PT TO HOME WITH . DISCHARGE INSTRUCTIONS GIVEN TO PT. PT VERBERLISED UNDERSTANDING.
== END 2019-10-08 18:31 | disposition home health service (06) | DRG 314 ==
LOC: ER 20:00 → EROBS 22:13 → ICU 22:13 → 2N 10-08 15:34
PROVIDERS: Nurse Practitioner Family; Pediatrics; Student in an Organized Health Care Education/Training Program; ADMIT Hospitalist; ATTEND Hospitalist
PROC: 02HV33Z Insertion of Infusion Device into Superior Vena Cava, Percutaneous Approach (ICD-10-PCS; 2019-10-04)
PROC: 02HV33Z Insertion of Infusion Device into Superior Vena Cava, Percutaneous Approach (ICD-10-PCS; principal; 2019-10-08)
PROC: B5181ZA Fluoroscopy of Superior Vena Cava using Low Osmolar Contrast, Guidance (ICD-10-PCS; principal; 2019-10-08)
PROC: B548ZZA Ultrasonography of Superior Vena Cava, Guidance (ICD-10-PCS; principal; 2019-10-08)
DX: T80.211A Bloodstream infection due to central venous catheter, initial encounter (principal); A41.9 Sepsis, unspecified organism; G93.41 Metabolic encephalopathy; R65.21 Severe sepsis with septic shock; N17.9 Acute kidney failure, unspecified; K91.2 Postsurgical malabsorption, not elsewhere classified; J96.11 Chronic respiratory failure with hypoxia; E46 Unspecified protein-calorie malnutrition; I13.0 Hypertensive heart and chronic kidney disease with heart failure and stage 1 through stage 4 chronic kidney disease, or unspecified chronic kidney disease; I50.9 Heart failure, unspecified; N18.9 Chronic kidney disease, unspecified; J44.9 Chronic obstructive pulmonary disease, unspecified; I25.10 Atherosclerotic heart disease of native coronary artery without angina pectoris; I95.9 Hypotension, unspecified; Z20.828 Contact with and (suspected) exposure to other viral communicable diseases; B95.7 Other staphylococcus as the cause of diseases classified elsewhere; Z93.3 Colostomy status; I25.2 Old myocardial infarction; Z95.1 Presence of aortocoronary bypass graft; Z68.20 Body mass index [BMI] 20.0-20.9, adult
CPT/HCPCS: 10078; 10203

== ENCOUNTER → 2019-10-28 | Outpatient (CLI) | payer OTHER ==
[~2019-10-28] MED LIST changes: +PREDNISONE 5 MG5 M1 PO
== END | disposition home or self-care (01) ==
LOC: SPEC 13:18
PROVIDERS: ATTEND Radiology Diagnostic Radiology
DX: Z45.2 Encounter for adjustment and management of vascular access device (principal); I12.9 Hypertensive chronic kidney disease with stage 1 through stage 4 chronic kidney disease, or unspecified chronic kidney disease; N18.9 Chronic kidney disease, unspecified; I25.10 Atherosclerotic heart disease of native coronary artery without angina pectoris; D50.0 Iron deficiency anemia secondary to blood loss (chronic); I50.9 Heart failure, unspecified; J44.9 Chronic obstructive pulmonary disease, unspecified; F17.210 Nicotine dependence, cigarettes, uncomplicated; F32.9 Major depressive disorder, single episode, unspecified; Z98.0 Intestinal bypass and anastomosis status; Z95.1 Presence of aortocoronary bypass graft; Z98.890 Other specified postprocedural states

== ENCOUNTER 2019-10-31 14:43 | Inpatient (IN) | payer OTHER ==
[~2019-10-31] VITALS: Ht 165.1 cm; Wt 57.6 kg
[~2019-10-31 14:43] MED LIST changes: -PREDNISONE 5 MG5 M1 PO
[2019-10-31 15:49] LABS: ABSOLUTE NEUTROPHILS 4.1 thou/uL (1.4-8.2); BASOPHILS 0.3 % (0.0-2.0); EOSINOPHILS 4.8 % (0.0-3.0); HEMATOCRIT 31.3 % (42.0-52.0); HEMOGLOBIN 10.6 gm/dL (14.0-18.0); LYMPHOCYTES 27.7 % (24.0-44.0); MCH 29.3 pg (26.0-34.0); MCHC 33.7 g/dL (28.0-37.0); MCV 86.7 fL (80.0-100.0); MONOCYTES 9.6 % (1.0-8.0); PLATELET COUNT 167 thou/uL (150-400); POLYS 57.6 % (36.0-66.0); RBC 3.61 mil/uL (4.50-6.00); RDW 15.3 % (10.5-14.5); WBC 7.1 thou/uL (4.0-11.0)
[2019-10-31 16:02] LABS: ANION GAP 6 mmol/L (7-16); BUN 28 mg/dL (7-18); CALCIUM 8.2 mg/dL (8.5-10.1); CHLORIDE 105 mmol/L (98-107); CO2 23 mmol/L (21-32); CREATININE 1.3 mg/dL (0.7-1.3); GLUCOSE 88 mg/dL (74-106); POTASSIUM 4.9 mmol/L (3.5-5.1); SODIUM 134 mmol/L (136-145)
[2019-10-31 16:13] LABS: MAGNESIUM 1.8 mg/dL (1.8-2.4); TROPONIN-I <0.06 ng/mL (<0.06)
[2019-10-31 18:33] VITALS: BP 141/64
--- NOTE | 2019-10-31 19:20 | NUR ---
LAB CALLED [facility]ONTAINE STATES NOT REC'D. SPOKE WITH DARLYN WHO STATED HE WILL REC'V IT IN. REPORT HAS BEEN CALLED TO 3W
[2019-10-31 20:35] VITALS: BP 127/72
[2019-10-31 23:56] VITALS: BP 133/52
[2019-11-01 04:03] VITALS: BP 153/75
--- NOTE | 2019-11-01 04:26 | NUR ---
Admission history and assessments completed. Careplan initiated. Patients gait is steady. Up adlib without difficulty. Denies pain. Vital signs and rhythm stable. IVFluids infusing. Enhanced precautions pending results of COVID test done 10/31/19. Afebrile. Normally short of air with any activity r/t COPD, pt still smokes and declined smoking cessation.
--- NOTE | 2019-11-01 07:53 | EKG ---
[facility] [place] [address] ELECTROCARDIOGRAM REPORT Name: LORENZA ARMENDARIZ Room #: 351-P ADM IN M.R.#: [id number] Admission: 10/31/19 Attend Phys: Dee Kumar Discharge: Date of : 53 Report #: [id number] THIS REPORT FOR: cc: RAIN - No family physician/PCP FAM - No family physician/PCP Tim Godinez MD [facility] THIS REPORT FOR: //name// [facility] ED Test Date: 2019-10-31 Test Time: 14:48:48 Pat Name: LORENZA ARMENDARIZ Department: Room: [facility] Gender: M Assistant Sales Manager: JERMAIN : 1955 Requested By: Dileep Max Order Number: [id number] MD: Tim Godinez Measurements Intervals [place] Rate: 53 P: 34 CO: 175 QRS: 9 QRSD: 149 T: 16 QT: 469 QTc: 441 Interpretive Statements Sinus rhythm Right bundle branch block Compared to ECG 10/04/2019 20:04:26 Nonspecific change in the ST and T wave segments Electronically Signed On 11-01-2019 7:52:32 CDT by Tim Godinez [email or web address] <ELECTRONICALLY SIGNED> By: Tim Godinez MD, [facility] 11/01/19 0752 1448 1448 Tim Godinez MD, [facility] /EPI
[2019-11-01 08:01] VITALS: BP 144/67
--- NOTE | 2019-11-01 10:46 | NUR ---
INITIAL ASSESSMENT: Received consult. SW reviewed chart and spoke with nursing. Pt was admitted from home due to respiratory failure. Pt is currently in Enhanced Isolation to r/o COVID-19. Test is pending. Pt with hx of short-gut syndrome. SW spoke with pt via phone. Introduced role of SW. Pt is alert/orientated x 4. Pt reports he lives at home with family. Prior to admission pt was not using DME for ambulation. Pt does have a walker. Pt is normally on 3L of O2 at home. Home O2 provided by [facility]. 2 steps to enter the home. No steps inside. Pt is currently on service with [facility] for home TPN. Pt was recently discharged home from [facility] on 10/07 with home IV abx. Pt has used [facility] in the past. Pt's PCP is Dr. Kyler Carrion. Plan is for pt to return home when medically stable. Pt is hoping to discharge home later today. JONELLE is following to assist as needed with discharge planning.
[2019-11-01 15:11] VITALS: BP 135/61
--- NOTE | 2019-11-01 16:00 | NUR ---
PATIENT MAY BE REMOVED FROM ENHANCED PRECAUTIONS PER DR MARY KAY BALDERRAMA.
--- NOTE | 2019-11-01 16:16 | NUR ---
ASSUMED CARE APPROX 0700. PT ALERT AND ORIENTED X4. ASSESSMENT CHARTED AND VSS. PT ON 4LNC W/ NO SIGNS OF RESPIRTATORY DISTRESS. PT DENIES ACUTE PAIN. PT DENIES CHEST PAIN. COVID RESULTS NEGATIVE. DR. MATHEWS NOTIFIED. PER DR. MATHEWS, PT IS OK TO BE TRANSFERRED TO M/S. CARE TRANSFERRED TO SURY BERRY @1600.
--- NOTE | 2019-11-01 16:50 | NUR ---
report given to albert from 4w, pt belongings packed and sent down with pt to 4w
--- NOTE | 2019-11-01 18:06 | NUR ---
PATIENT TRANSFERRED FROM AROUND 1700. VSS. ALERT X ORIENTED X4. HEART RATE IS 59.USUALLY IN 50S, GOES TO 40S WHEN SLEEPING. PT UP X EL. PT USES URINAL. PT HAS ILEOSTOMY. PICC DOUBLE LUMEN IN RT UPPER ARM WITH D5 NS RUNNING AT 125ML/HR. 4L/O2/NC.HEART HEALTHY DIET. ACHS. CALL LIGHT IN REACH, PT WILL CALL FOR HELP. WILL CONT TO MONITOR.
[2019-11-01 20:18] VITALS: BP 162/72
--- NOTE | 2019-11-02 03:41 | NUR ---
ASSUMED CARE OF PT AT 1900HRS. PT AOX4 AND LETS NEEDS BE KNOWN. PT IS UP AD EL. ASSESSMENT CHARTED. PT REPORTED SOME PAIN AND WAS TREATED WITH PRN PAIN MEDS. PT WAS ABLE TO GET COMFORTABLE AND SLEEP PART OF THE SHIFT. 4L O2 VIA NC CONTINUED. PT WAS ABLE TO GET COMFORTABLE AND SLEEP PART OF THE SHIFT. WILL CONTINUE TO MONITOR.
[2019-11-02 07:31] VITALS: BP 147/69
[2019-11-02] MEDS ORDERED: LEVAQUIN 500 M500 M2 PO (10:55)
[2019-11-02] MEDS ORDERED: PREDNISONE 5 MG5 M1 PO (10:56)
[2019-11-02 11:04] VITALS: BP 147/69
--- NOTE | 2019-11-02 11:32 | NUR ---
Assumed pt care this am, VS stable. Ileostomy bag in place draining yellowish brown liquid stool, pt prefers to do his own ostostomy care. Right hand has been swollen in the am, informed Dr. Kumar, as per MD this is not a concern since he has had his picc line for a long time. DC orders were given, instructions given to the pt, prescriptions have been sent to the pt's pharmacy, pt is aware. POC followed with no sign or verbalization of distress noted. Awaiting for pt's family to pick pt up at the ER.
--- NOTE | 2019-11-02 15:09 | NUR ---
CARE TEAM INDICATED THAT PT IS MEDICALLY STABLE TO DC HOME THIS DAY TO SELF CARE. PT IS ESTABLISHED WITH SERVICES THROUGH [facility] FOR HIS TPN. NO OTHER CM INTERVENTION INDICATED. CASE CLOSED.
== END 2019-11-02 12:30 | disposition home or self-care (01) | DRG 177 ==
LOC: ER 14:43 → EROBS 17:58 → 3W 17:58 → 4W 11-01 17:02
PROVIDERS: Emergency Medicine; ADMIT Hospitalist; ATTEND Hospitalist
DX: J69.0 Pneumonitis due to inhalation of food and vomit (principal); J96.21 Acute and chronic respiratory failure with hypoxia; J44.1 Chronic obstructive pulmonary disease with (acute) exacerbation; I50.9 Heart failure, unspecified; N18.9 Chronic kidney disease, unspecified; I25.10 Atherosclerotic heart disease of native coronary artery without angina pectoris; Z20.828 Contact with and (suspected) exposure to other viral communicable diseases; E83.42 Hypomagnesemia; I25.2 Old myocardial infarction; Z87.01 Personal history of pneumonia (recurrent); Z99.81 Dependence on supplemental oxygen; Z93.2 Ileostomy status; Z87.891 Personal history of nicotine dependence; Z79.899 Other long term (current) drug therapy; Z79.82 Long term (current) use of aspirin; Z79.891 Long term (current) use of opiate analgesic; Z95.1 Presence of aortocoronary bypass graft; Z98.1 Arthrodesis status
CPT/HCPCS: 10045; 10879

== ENCOUNTER 2019-11-23 10:27 | Emergency (ER) | payer OTHER ==
[~2019-11-23] VITALS: Ht 165.1 cm; Wt 56.7 kg
[~2019-11-23 10:27] MED LIST changes: +PREDNISONE 5 MG5 M1 PO
[2019-11-23 15:40] VITALS: BP 126/73
== END 2019-11-23 15:40 | disposition home or self-care (01) ==
LOC: ER 10:27
DX: T82.898A Other specified complication of vascular prosthetic devices, implants and grafts, initial encounter (principal); J44.9 Chronic obstructive pulmonary disease, unspecified; I50.9 Heart failure, unspecified; N18.9 Chronic kidney disease, unspecified; I25.10 Atherosclerotic heart disease of native coronary artery without angina pectoris; F17.210 Nicotine dependence, cigarettes, uncomplicated; Z86.2 Personal history of diseases of the blood and blood-forming organs and certain disorders involving the immune mechanism; Z79.82 Long term (current) use of aspirin; Z79.899 Other long term (current) drug therapy

== ENCOUNTER 2019-12-25 15:09 | Inpatient (IN) | payer OTHER ==
[~2019-12-25] VITALS: Ht 165.1 cm; Wt 56.7 kg
[2019-12-25 15:12] VITALS: BP 76/53
[2019-12-25] MEDS ORDERED: OXYCODON-ACETA1 EAC1 PO (15:22)
[2019-12-25] MEDS ORDERED: FUROSEMIDE 20 M20 M1 PO (15:22)
[2019-12-25] MEDS ORDERED: PROAIR HFA8.5 GM INH (15:23)
[2019-12-25] MEDS ORDERED: ALBUTEROL0.63 MG/3 INH (15:23)
[2019-12-25 15:43] LABS: ABSOLUTE NEUTROPHILS 2.7 thou/uL (1.4-8.2); BASOPHILS 0.7 % (0.0-2.0); EOSINOPHILS 5.7 % (0.0-3.0); HEMATOCRIT 31.5 % (42.0-52.0); HEMOGLOBIN 10.5 gm/dL (14.0-18.0); MCH 27.6 pg (26.0-34.0); MCHC 33.3 g/dL (28.0-37.0); MCV 82.9 fL (80.0-100.0); MONOCYTES 6.2 % (1.0-8.0); PLATELET COUNT 248 thou/uL (150-400); POLYS 58.4 % (36.0-66.0); RDW 13.7 % (10.5-14.5); WBC 4.7 thou/uL (4.0-11.0)
[2019-12-25 15:59] LABS: APTT 28.8 Seconds (24.5-32.8); INR 1.1; PROTIME 10.8 Seconds (9.3-11.4)
[2019-12-25 16:00] LABS: ALBUMIN 2.3 g/dL (3.4-5.0); ANION GAP 7 mmol/L (7-16); BUN 16 mg/dL (7-18); CALCIUM 8.4 mg/dL (8.5-10.1); CHLORIDE 101 mmol/L (98-107); CO2 29 mmol/L (21-32); CREATININE 1.3 mg/dL (0.7-1.3); GLUCOSE 90 mg/dL (74-106); SGOT 44 U/L (15-37); SGPT 29 U/L (30-65); SODIUM 137 mmol/L (136-145); TOTAL BILIRUBIN 0.4 mg/dL (0.2-1.0); TOTAL PROTEIN 6.4 g/dL (6.4-8.2); TROPONIN-I <0.06 ng/mL (<0.06)
[2019-12-25 16:02] LABS: POTASSIUM 2.7 mmol/L (3.5-5.1)
[2019-12-25 18:54] LABS: URINE BILIRUBIN NEGATIVE (Negative); URINE BLOOD NEGATIVE (Negative); URINE CLARITY CLEAR; URINE COLOR YELLOW; URINE GLUCOSE-RANDOM* NEGATIVE (Negative); URINE KETONES NEGATIVE (Negative); URINE LEUKOCYTES-REFLEX NEGATIVE (Negative); URINE NITRITE-REFLEX NEGATIVE (Negative); URINE PROTEIN (DIPSTICK) NEGATIVE (Negative); URINE UROBILINOGEN 0.2 E.U./dl (0.2-1.0)
[2019-12-25 21:00] LABS: ALBUMIN 2.4 g/dL (3.4-5.0); TOTAL PROTEIN 6.4 g/dL (6.4-8.2)
[2019-12-25 21:14] LABS: TSH 16.1 uIU/mL (0.358-3.740)
[2019-12-26 00:12] VITALS: BP 133/55
[2019-12-26 01:05] VITALS: BP 158/101
--- NOTE | 2019-12-26 01:30 | NUR ---
Pt. arrived to the unit from the emergency room accompanied by staff. He is alert and oriented. Pt. offers no complaints. Admission assessment and history is completed. Bed alarm is on.
[2019-12-26 03:41] VITALS: BP 138/79
[2019-12-26 08:01] VITALS: BP 121/76
[2019-12-26 09:01] LABS: HEMATOCRIT 30.3 % (42.0-52.0); MCH 27.9 pg (26.0-34.0); MCHC 33.1 g/dL (28.0-37.0); MCV 84.3 fL (80.0-100.0); RBC 3.6 mil/uL (4.50-6.00); RDW 13.8 % (10.5-14.5); WBC 3.6 thou/uL (4.0-11.0)
[2019-12-26 10:40] LABS: CALCIUM 7.9 mg/dL (8.5-10.1); CREATININE 1.1 mg/dL (0.7-1.3); POTASSIUM 3.3 mmol/L (3.5-5.1)
[2019-12-26 10:41] LABS: MAGNESIUM 1.4 mg/dL (1.8-2.4); PHOSPHORUS 4.6 mg/dL (2.5-4.9)
--- NOTE | 2019-12-26 16:49 | NUR ---
SURY Duomnt is the witness for the Fentloy patch off the patient and into the proper container.
[2019-12-26 20:00] VITALS: BP 140/77
--- NOTE | 2019-12-26 20:09 | NUR ---
A/O, calm and cooperative. mild coughing when trying to swallowing pills. denied pain. vss, afebrile.
[2019-12-27 06:13] LABS: HEMATOCRIT 28.3 % (42.0-52.0); HEMOGLOBIN 9.5 gm/dL (14.0-18.0); MCHC 33.4 g/dL (28.0-37.0); MCV 83.9 fL (80.0-100.0); PLATELET COUNT 171 thou/uL (150-400); RBC 3.38 mil/uL (4.50-6.00); RDW 13.8 % (10.5-14.5); WBC 2.8 thou/uL (4.0-11.0)
[2019-12-27 06:42] LABS: ALBUMIN 2.1 g/dL (3.4-5.0); CALCIUM 7.9 mg/dL (8.5-10.1); POTASSIUM 3.2 mmol/L (3.5-5.1); TOTAL BILIRUBIN 0.3 mg/dL (0.2-1.0); TOTAL PROTEIN 5.7 g/dL (6.4-8.2)
--- NOTE | 2019-12-27 06:59 | NUR ---
ASSUMED PT CARE AROUND 1930. AXOX4. VSS. NO S/S ACUTE DISTRESS NOTED OR REPORTED AT THIS TIME. WILL CONT TO MONITOR FOR ANY CHANGES IN CONDITION.
[2019-12-27 07:44] VITALS: BP 151/88
--- NOTE | 2019-12-27 08:41 | EKG ---
[facility] [place] [address] ELECTROCARDIOGRAM REPORT Name: LORENZA ARMENDARIZ Room #: 455-P ADM IN M.R.#: [id number] Admission: 12/25/19 Attend Phys: Israel Damon MD Discharge: Date of : 53 Report #: [id number] THIS REPORT FOR: cc: Kyler Carrion MD, Kirk D. MD Lundgren, Craig H. MD [facility] ~ THIS REPORT FOR: //name// [facility] ED Test Date: 2019-12-25 Test Time: 15:17:05 Pat Name: LORENZA ARMENDARIZ Department: Room: 455 Gender: M Admissions Coordinator: HYACINTH : 1955 Requested By: Melissa Guo Order Number: [id number] MD: Tim Godinez Measurements Intervals [place] Rate: 55 P: 64 NM: 143 QRS: 23 QRSD: 108 T: QT: 542 QTc: 519 Interpretive Statements Sinus rhythm Atrial premature complexes RSR' in V1 or V2, right VCD Prolonged QT interval Compared to ECG 10/31/2019 14:48:48 Atrial premature complex(es) now present Prolonged QT interval now present Electronically Signed On 12-27-2019 8:41:09 CDT by Tim Godinez [email or web address] <ELECTRONICALLY SIGNED> By: Tim Godinez MD, [facility] 12/27/19 0841 1517 Tim Godinez MD, [facility] /EPI
--- NOTE | 2019-12-27 10:15 | NUR ---
Recommend discontinue clinimix PPN/lipids and transition to pt usual home nocturnal tpn. Recommend consult pharmacy to manage pts tpn
[2019-12-27 12:01] LABS: ABSOLUTE NEUTROPHILS 1.5 thou/uL (1.4-8.2)
[2019-12-27 12:02] LABS: ANISOCYTOSIS SLIGHT; POIKILOCYTOSIS SLIGHT
--- NOTE | 2019-12-27 14:37 | NUR ---
ASSUMED CARE AT 0700. PT IS ALERT AND ORIENTED. VSSA/3-4L O2 IS BASELINE. ON TELE NSR. GI/; ILEOSTOMY IN PLACE, REG DIET. H/O SHORT BOWEL. PT STATES TROUBLE SWALLOWING. GI C/S. URINATING FINE. PICC LINE IN PLACE INFUSING WITHOUT ISSUES. PAIN MEDS GIVEN AR ORDERED. FALL PRECAUTIONS IN PLACE. EDUCATED TO CALL IF NEEDS ARISE. CALL LIGHT IN REACH. WILL CONTINUE TO MONITOR
[2019-12-27 14:58] VITALS: BP 139/64
--- NOTE | 2019-12-27 16:34 | NUR ---
pt admites related to chf. cm spoke wiht pt over the phone this day. pt is a&o x4. cm role introduced.he cont to require home tpn for gut syndrome. has [facility] and [facility] for tpn). he lives at home with family, 3 steps to enter, no stairs once inside. has dme walker, wheel chair and o2 3L nasal canula continous, home oxygen and portable tanks from [facility]. will cont following as needed for dc needs. pt is to have egd tomorrow awaiting covid test results. cm to follow as indicated with dc planning.
[2019-12-27 20:30] VITALS: BP 134/71
[2019-12-28 04:00] VITALS: BP 144/77
--- NOTE | 2019-12-28 05:24 | NUR ---
PT IS A&OX4. VSS. PT HAS PPN GOING AT 60 MLS/HR, FAT EMULSIONS AT 30 MLS/HR, SODIUM CHLORIDE AT 50 MLS/HR. PT TAKES MEDS WHOLE. PT CARES FOR HIS ILIOSTOMY. PT WAKES UP SOB. I INCREASED HIS O2 LEVEL AND CALLED RESPIRATORY FOR A TREATMENT. PT SHOWS LESS SIGN OF STRUGGLE TO BREATH. PT STATES THAT HE HAS ARTHRITIS AND HIS THUMBS ALWAYS HURTS, OTHER THAN THIS HE DENIES PAIN. PT IS RESTING IN ROOM. I WILL CONTINUE TO MONITOR.
[2019-12-28 07:21] VITALS: BP 146/63
[2019-12-28 08:33] LABS: HEMATOCRIT 28.5 % (42.0-52.0); HEMOGLOBIN 9.5 gm/dL (14.0-18.0); MCHC 33.4 g/dL (28.0-37.0); MCV 83.9 fL (80.0-100.0); RBC 3.4 mil/uL (4.50-6.00); RDW 14.1 % (10.5-14.5)
[2019-12-28 08:42] LABS: CALCIUM 7.9 mg/dL (8.5-10.1); CREATININE 0.8 mg/dL (0.7-1.3); MAGNESIUM 1.3 mg/dL (1.8-2.4); PHOSPHORUS 3.6 mg/dL (2.5-4.9); POTASSIUM 3.2 mmol/L (3.5-5.1)
--- NOTE | 2019-12-28 15:23 | NUR ---
CARE TEAM INDICATED PT IS TO HAVE EGD DONE ONCE COVID TEST RESULTS ARE BACK PT TO HAVE CHEST X RAY. CM TO FOLLOW INDICATED WITH DC PLANNING.
--- NOTE | 2019-12-28 17:46 | NUR ---
ASSUMED CARE AT 0700. PT IS ALERT AND ORIENTED. VSSA/4L O2 IS HIS BASELINE. ON TELE. ILEOSTOMY IN PLACE. NML. TOLERATING DIET. PICC INFUSING. PAIN MEDS GIVEN ORDERED. EDUCATED PT TO CALL IF NEEDS ARISE. CALL LIGHT IN REACH. WILL CONTIUE TO MONITOR
[2019-12-28 19:47] VITALS: BP 123/72
--- NOTE | 2019-12-29 05:58 | NUR ---
VSS-AFEBRILE. COUGHING UP LARGE AMOUNTS OF THICK, YELLOW SPUTUM, NAGGING COUGH. RESTED PART OF SHIFT AFTER TAKING AMBIEN. NO C/O PAIN. SELF CARE WITH OSTOMY, GREENISH BROWN STOOL NOTED. FALL PRECAUTIONS IN PLACE, CALLS APPROPRIATELY FOR ANY NEEDED ASSISTANCE.
[2019-12-29 06:15] LABS: ABSOLUTE NEUTROPHILS 1.8 thou/uL (1.4-8.2); BASOPHILS 0.5 % (0.0-2.0); EOSINOPHILS 5.5 % (0.0-3.0); HEMATOCRIT 32.2 % (42.0-52.0); HEMOGLOBIN 10.4 gm/dL (14.0-18.0); LYMPHOCYTES 32.8 % (24.0-44.0); MCH 27.2 pg (26.0-34.0); MCHC 32.4 g/dL (28.0-37.0); MCV 84.1 fL (80.0-100.0); MONOCYTES 5.4 % (1.0-8.0); PLATELET COUNT 197 thou/uL (150-400); POLYS 55.8 % (36.0-66.0); RBC 3.83 mil/uL (4.50-6.00); RDW 13.6 % (10.5-14.5); WBC 3.2 thou/uL (4.0-11.0)
[2019-12-29 06:28] LABS: ALBUMIN 2.4 g/dL (3.4-5.0); CREATININE 0.9 mg/dL (0.7-1.3); MAGNESIUM 2.1 mg/dL (1.8-2.4); TOTAL BILIRUBIN 0.5 mg/dL (0.2-1.0); TOTAL PROTEIN 6.7 g/dL (6.4-8.2)
[2019-12-29 06:31] LABS: POTASSIUM 5.3 mmol/L (3.5-5.1)
[2019-12-29 07:30] VITALS: BP 139/94
--- NOTE | 2019-12-29 08:00 | NUR ---
Assumed patient care at 0715. Vital signs stable, Rhonchi auscultated in all lung vasquez upon expiration, ABD soft and non-tender, BS x's 4, skin is clean, warm, dry and intact. Patient complains of generalized pain, "level nine", especially in bilateral shoulders. He only has po pain medication and is NPO since midnight for EGD this am. This nurse offered to call physician to get IV pain medication, he stated "I'll just wait until after the procedure and will take it by mouth." Patient is on O2 at 4 Liters per nc. Will continue to monitor.
[2019-12-29 14:04] VITALS: BP 139/80
[2019-12-29 20:12] VITALS: BP 137/74
--- NOTE | 2019-12-30 03:13 | NUR ---
VSS-AFEBRILE. ALERT AND ORIENTED X 4, LUNGS COURSE AND CONGESTED COUGH. COPIOUS AMOUNT OF THICK, YELLOW SPUTUM. C/O GENERALIZED ALL OVER BODY ACHES AND PAINS, PARTIALLY RELIEVED WITH PO PAIN MEDICATION. NPO AFTER MIDNIGHT FOR SCHEDULED EGD. VOIDING AND STOOLING WELL. FALL PRECAUTIONS IN PLACE, CALLS APPRORPIATELY FOR ANY NEEDED ASSISTANCE. REMAINS ON 4LNC.
[2019-12-30 07:27] VITALS: BP 123/73
--- NOTE | 2019-12-30 07:49 | NUR ---
Assumed patient care at 0715. Vital signs stable, Lung sounds are coarse, diminished. ABD soft and non-tender, BS x's 4. Skin is clean, warm, dry and intact. Patient complains of pain, level nine (generalized). Pain is partially controlled with Oxycodone po. He continues on TPN and Intralipids IV. He continues on Oxygen at 4 Liters per nc. Patient to have EGD this am. He plans to return home today after procedure is completed. He states that he has a ride home. Patient has been NPO since midnight. Will continue to monitor.
[2019-12-30 10:27] LABS: CALCIUM 8.7 mg/dL (8.5-10.1); MAGNESIUM 1.9 mg/dL (1.8-2.4); PHOSPHORUS 4.1 mg/dL (2.5-4.9); POTASSIUM 4.3 mmol/L (3.5-5.1)
--- NOTE | 2019-12-30 10:45 | NUR ---
pt out of room for egd this am. per bedside nurse pt wants to go home today after egd. will cont following as needed for dc needs.
[2019-12-30 16:14] VITALS: BP 146/82
[2019-12-30 20:18] VITALS: BP 139/66
--- NOTE | 2019-12-31 03:53 | NUR ---
VSS-AFEBRILE. VERY TIRED AND SLEEPY THROUGH SHIFT. ALERT AND ORIENTED X 4, 3LNC IN PLACE. C/O GENERALIZED ALL OVER BODY PAIN, RELIEF NOTED WITH PO PAIN MEDICATION. POOR APPETITE, DID NOT EAT ANY DINNER BEFORE SHIFT STARTED. VOIDING AND STOOLING WELL. CALLS APPROPRIATELY FOR ANY NEEDED ASSISTANCE.
[2019-12-31 07:48] VITALS: BP 136/97
[2019-12-31] MEDS ORDERED: CEFDINIR S250 MG/5 M PO (11:02)
[2019-12-31] MEDS ORDERED: SYNTHROID75 MCG PO (11:02)
[2019-12-31] MEDS ORDERED: NYSTATIN100000 UNI SW&SWALLOW (11:02)
[2019-12-31] MEDS ORDERED: NORVASC5 M1 PO (11:20)
[2019-12-31 11:23] LABS: CALCIUM 8.6 mg/dL (8.5-10.1); CREATININE 1.1 mg/dL (0.7-1.3); PHOSPHORUS 5.7 mg/dL (2.5-4.9); POTASSIUM 5.4 mmol/L (3.5-5.1)
--- NOTE | 2019-12-31 13:42 | NUR ---
pt is going to dc home today with resuming [facility]) infusion for tpn. tpn order read and faxed to [facility]. takes about 4 hr to mix up for it to be at his house this evening. chary visited with suad via phone rt who picking him up. he will call his brother.
[2019-12-31 13:44] VITALS: BP 136/97
--- NOTE | 2019-12-31 13:48 | NUR ---
PT IS A&OX4, AMBULATES WITH ONE PERSON ASSIST, PT IS WEAK AND HAS SOB AND IS ON 3L. EDG IS DONE. ILEOSTOMY IS SELF CARE, WITH OUTPUT OF 400ML, URINE OUTPUT OF 700CC, RIGHT UPPER ARM PICC. FALL PRECAUTIONS IN PLACE, WILL CONTINUE TO MONITOR.
[2019-12-31 14:04] VITALS: BP 136/97
[2019-12-31 14:20] LABS: CALCIUM 8.9 mg/dL (8.5-10.1); CREATININE 0.9 mg/dL (0.7-1.3)
[2019-12-31 14:32] LABS: POTASSIUM 4.4 mmol/L (3.5-5.1)
[2019-12-31 16:36] VITALS: BP 166/70
--- NOTE | 2019-12-31 16:45 | NUR ---
FAXED DC ORDERS/SUMMARY TO [facility] ([facility] RECEIVED CONFIRMATION. THEY WILL NOTIFY PT TO SET UP VISITS.
--- NOTE | 2020-01-03 10:53 | P ---
[facility] [place] [address] PROCEDURE REPORT Name: LORENZA ARMENDARIZ Room #: 455-P [facility] IN M.R.#: [id number] Admission: 12/25/19 Attend Phys: Israel Damon MD Discharge: 12/31/19 Date of : 53 Report #: [id number] THIS REPORT FOR: cc: Kyler Carrion MD, Kirk D. MD Thesing, John A. MD ~ CC: Israel Carrion INPATIENT UPPER ENDOSCOPY REPORT BRIEF HISTORY: The patient is a 64-year-old male known to me with recurrent solid food dysphagia. He has recurrent symptoms of solid food dysphagia. He has been dilated several times in the past. He has a known Schatzki's ring. PREOPERATIVE DIAGNOSIS: Recurrent dysphagia. POSTOPERATIVE DIAGNOSES: 1. Schatzki's ring. 2. Small less than 2 cm sliding type hiatus hernia. 3. 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 MEDICATIONS: Deep sedation with propofol per anesthesia. SPECIMEN: None. ESTIMATED BLOOD LOSS: None. PROCEDURE: Esophagogastroduodenoscopy with dilation of esophagus over a guidewire. FINDINGS: Prior to propofol sedation, procedure of upper endoscopy and dilation was discussed with the patient as well as potential risks and its complications. He indicates he understands and desires to proceed. DESCRIPTION OF PROCEDURE: With the patient in left lateral decubitus position, the Olympus video endoscope was inserted in the cervical esophagus under direct vision with minimal difficulty. Examination of this organ through its entire length revealed normal esophageal mucosa in the past. He had Barbara esophagitis. There was no evidence of Barbara esophagitis today. Squamocolumnar junction was inspected and noted to be intact. Intermittently, a ring was seen. The scope was advanced easily through the ring and he had an intermittently seen sliding type hiatus hernia, less than 2 cm. ____ hernia was unremarkable. The scope was advanced in the stomach, was examined on end views as well as retroflexed views. The stomach was coated with bile. There was no evidence of ulcers or erosions. Upon retroflexion, no mass lesions were seen. The pylorus was unremarkable. Duodenal bulb was unremarkable. In the [address] [address] PROCEDURE REPORT Name: LORENZA ARMENDARIZ YESICA Room #: 455-P [facility] IN .R.#: [id number] Admission: 12/25/19 Attend Phys: Israel Damon MD Discharge: 12/31/19 Date of : 53 Report #: [id number] portion of duodenum, a duodenal diverticulum was seen. The papilla could not be seen. At that point, the scope was slowly withdrawn and careful circumferential views were obtained. We then attempted to dilate with a Uriostegui dilator; however, it would not pass in the upper esophagus. Therefore, the endoscope was reinserted and a guidewire was passed through the channel of the endoscope into the antrum of the stomach. The scope was withdrawn over the wire and he was dilated with passage of 51-Nepalese Uriostegui dilator. DISPOSITION: The patient with recurrent dysphagia. The patient dilated once again as described. He is to return for dilation on an as needed basis. <ELECTRONICALLY SIGNED> By: Michael Michael MD 01/03/20 1053 1124 [id number] Michael Michael MD /nt
== END 2019-12-31 19:00 | disposition home health service (06) | DRG 314 ==
LOC: ER 15:09 → 4W 18:45 → EROBS 18:45 → 4W 12-26 01:10
PROVIDERS: Hospitalist; Internal Medicine; Physician Assistant; ADMIT Internal Medicine; ATTEND Internal Medicine
PROC: 05HY33Z Insertion of Infusion Device into Upper Vein, Percutaneous Approach (ICD-10-PCS; principal; 2019-12-28)
PROC: 0D758ZZ Dilation of Esophagus, Via Natural or Artificial Opening Endoscopic (ICD-10-PCS; 2019-12-30)
DX: I95.89 Other hypotension (principal); E43 Unspecified severe protein-calorie malnutrition; R65.11 Systemic inflammatory response syndrome (SIRS) of non-infectious origin with acute organ dysfunction; J96.01 Acute respiratory failure with hypoxia; B37.81 Candidal esophagitis; K91.2 Postsurgical malabsorption, not elsewhere classified; I13.0 Hypertensive heart and chronic kidney disease with heart failure and stage 1 through stage 4 chronic kidney disease, or unspecified chronic kidney disease; E86.0 Dehydration; J44.9 Chronic obstructive pulmonary disease, unspecified; R13.19 Other dysphagia; K74.69 Other cirrhosis of liver; I50.9 Heart failure, unspecified; N18.9 Chronic kidney disease, unspecified; I25.10 Atherosclerotic heart disease of native coronary artery without angina pectoris; K22.2 Esophageal obstruction; E87.6 Hypokalemia; K57.10 Diverticulosis of small intestine without perforation or abscess without bleeding; K44.9 Diaphragmatic hernia without obstruction or gangrene; F17.210 Nicotine dependence, cigarettes, uncomplicated; F32.9 Major depressive disorder, single episode, unspecified; N40.0 Benign prostatic hyperplasia without lower urinary tract symptoms; D63.8 Anemia in other chronic diseases classified elsewhere; E03.9 Hypothyroidism, unspecified; D64.9 Anemia, unspecified; E83.42 Hypomagnesemia; Z20.828 Contact with and (suspected) exposure to other viral communicable diseases; I25.2 Old myocardial infarction; Z93.2 Ileostomy status; Z86.73 Personal history of transient ischemic attack (TIA), and cerebral infarction without residual deficits; Z79.82 Long term (current) use of aspirin; Z79.899 Other long term (current) drug therapy
CPT/HCPCS: 10045; 62110; 62900; 70005

== ENCOUNTER 2020-01-18 10:38 | Emergency (ER) | payer OTHER ==
[~2020-01-18] VITALS: Ht 165.1 cm; Wt 55.3 kg
[~2020-01-18 10:38] MED LIST changes: +ALBUTEROL0.63 MG/3 INH; +CEFDINIR S250 MG/5 M PO; +FUROSEMIDE 20 M20 M1 PO; +NORVASC5 M1 PO; +NYSTATIN100000 UNI SW&SWALLOW; +OXYCODON-ACETA1 EAC1 PO; +PROAIR HFA8.5 GM INH; +SYNTHROID75 MCG PO
[2020-01-18 11:34] VITALS: BP 139/53
== END 2020-01-18 12:02 | disposition home or self-care (01) ==
LOC: ER 10:38
DX: K40.90 Unilateral inguinal hernia, without obstruction or gangrene, not specified as recurrent (principal); J44.9 Chronic obstructive pulmonary disease, unspecified; N18.9 Chronic kidney disease, unspecified; I50.9 Heart failure, unspecified; I25.10 Atherosclerotic heart disease of native coronary artery without angina pectoris; F17.210 Nicotine dependence, cigarettes, uncomplicated; Z79.899 Other long term (current) drug therapy

== ENCOUNTER 2020-06-21 21:35 | Inpatient (IN) | payer OTHER ==
[~2020-06-21] VITALS: Ht 165.1 cm; Wt 52.6 kg
[2020-06-21 20:34] VITALS: BP 92/54
[2020-06-21 23:09] LABS: HEMATOCRIT 27.6 % (42.0-52.0); HEMOGLOBIN 8.8 gm/dL (14.0-18.0); MCH 25.5 pg (26.0-34.0); MCHC 31.7 g/dL (28.0-37.0); MCV 80.4 fL (80.0-100.0); RBC 3.44 mil/uL (4.50-6.00); RDW 15.7 % (10.5-14.5); WBC 3.8 thou/uL (4.0-11.0)
[2020-06-21 23:22] LABS: CALCIUM 7.9 mg/dL (8.5-10.1); CREATININE 1.6 mg/dL (0.7-1.3); POTASSIUM 4.1 mmol/L (3.5-5.1)
[2020-06-21 23:29] LABS: ALBUMIN 1.9 g/dL (3.4-5.0); MAGNESIUM 2.5 mg/dL (1.8-2.4); TOTAL BILIRUBIN 0.3 mg/dL (0.2-1.0); TOTAL PROTEIN 6.5 g/dL (6.4-8.2)
[2020-06-22] VITALS (8 sets, daily range): BP systolic 97–126; BP diastolic 43–64
[2020-06-22] MEDS ORDERED: TYLENOL325 M1 PO (03:51)
[2020-06-22] MEDS ORDERED: LITE COAT ASPI325 MG PO (03:52)
[2020-06-22] MEDS ORDERED: LIPITOR40 MG PO (03:53)
[2020-06-22] MEDS ORDERED: CELEXA 20 MG TA20 MG PO (03:55)
[2020-06-22] MEDS ORDERED: PULMICORT0.5 MG/2 M INH (03:55)
[2020-06-22] MEDS ORDERED: MORPHINE SU4 MG/1 M1 IV (03:58)
[2020-06-22] MEDS ORDERED: ONDANSETRON4 MG/2 M1 IV (03:59)
[2020-06-22] MEDS ORDERED: ROXICODONE5 M2 PO (04:02)
[2020-06-22] MEDS ORDERED: PROTONIX40 M2 PO (04:02)
[2020-06-22] MEDS ORDERED: FLOMAX0.4 MG PO (04:03)
[2020-06-22] MEDS ORDERED: AMBIEN 5 MG TABL5 M1 PO (04:04)
[2020-06-22] MEDS ORDERED: AMBIEN 10 MG TA10 MG PO (04:05)
--- NOTE | 2020-06-22 06:04 | NUR ---
PT ADMITTED FROM [facility] WITH PERSISTENT PNEUMOTHORAX TO THE RIGHT LUNG. CHEST TUBE IN PLACE, NO AIR LEAK NOTED, CONNECTED TO WALL SUCTION. PT CONTINUES TO C/O SOB, WITH O2 SATs < 97 ON 4L O2 NC. ADMISSION COMPLETED AND ALL ASSESSMENTS DOCUMENTED. THIS MORNING, PT SOB SEEM TO HAVE INCREASE, MANIFESTED WITH AXIOUSNESS AND FRUSTRATION. BREATHING TREATMENT GIVEN, WITH MINIMAL RELIEF. CATEGORY DIRECTOR DENTAL FLOSS PACKER NOTIFIED. 1 MG OF HALDOL ORDERED. PT REPORTS HE LEFT HIS TRILOGY AT [facility] AND WOULD LIKE IT BROUGHT TO [facility]. CALLED [facility], AND CONFIRMED PATIENT LEFT SOME BELONGINGS THERE. [facility] WILL WORK TO GET BELONGINGS TO FAMILY. WILL CONTINUE TO MONITOR.
--- NOTE | 2020-06-22 11:03 | 2DMMODE ---
[address] [address] 2 D/M-MODE ECHOCARDIOGRAM Name: LORENZA ARMENDARIZ Room #: 200-I ADM IN M.R.#: [id number] Admission: 06/21/20 Attend Phys: Dee Kumar Discharge: Date of : 53 Report #: [id number] THIS REPORT FOR: cc: FAM - Family physician unknown FAM - Family physician unknown Chintan López MD ~ APPROVED REPORT Study performed: 06/22/2020 08:53:07 EXAM: Comprehensive 2D, Doppler, and color-flow Echocardiogram Patient Location: Bedside Room #: 200 Status: routine BSA: 1.55 HR: 82 bpm BP: 108/52 mmHg Rhythm: NSR Other Information Study Quality: Technically Difficult Indications Congestive Heart Failure COPD Dyspnea CAD 2D Dimensions IVC: 16.00 mm Aortic Valve AoV Peak Jose J.: 1.55 m/s AO Peak Gr.: 9.62 mmHg LVOT Max P.29 mmHg LVOT Max V: 1.35 m/s Mitral Valve E/A Ratio: 0.7 MV Decel. Time: 122.96 ms MV E Max Jose J.: 0.75 m/s MV A Jose J.: 1.07 m/s MV PHT: 35.66 ms IVRT: 119.[address] [address] 2 D/M-MODE ECHOCARDIOGRAM Name: LORENZA ARMENDARIZ Room #: 200-I ADM IN M.R.#: [id number] Admission: 06/21/20 Attend Phys: Dee Amaral Discharge: Date of : 53 Report #: [id number] Tricuspid Valve TR Peak Jose J.: 3.20 m/s TR Peak Gr.: 40.91 mmHg PA Pressure: 46.00 mmHg Left Ventricle The left ventricle is normal size. There is normal LV segmental wall motion. There is normal left ventricular wall thickness. The left ventricular systolic function is normal. The left ventricular ejection fraction is within the normal range. LVEF is 55-60%. Grade I - abnormal relaxation pattern. Right Ventricle The right ventricle is normal size. The right ventricular systolic function is normal. Atria Left atrium is dilated. Right atrium is dilated. Aortic Valve The aortic valve is normal in structure. No aortic regurgitation is present. There is no aortic valvular stenosis. Mitral Valve The mitral valve is normal in structure. Mild mitral regurgitation. No evidence of mitral valve stenosis. Tricuspid Valve The tricuspid valve is normal in structure. There is mild tricuspid regurgitation. Estimated PAP 46 mmHg. There is moderate pulmonary hypertension. Pulmonic Valve The pulmonary valve is normal in structure. There is no pulmonic valvular regurgitation. Great Vessels The aortic root is normal in size. IVC is normal in size and collapses >50% with inspiration. Pericardium There is no pericardial effusion. <Conclusion> The left ventricle is normal size. LVEF is 55-60%. [facility] [address] [place] [address] 2 D/M-MODE ECHOCARDIOGRAM Name: LORENZA ARMENDARIZ Room #: 200-I ADM IN M.R.#: [id number] Admission: 06/21/20 Attend Phys: Dee Amaral Discharge: Date of : 53 Report #: [id number] Left atrium is dilated. Right atrium is dilated. The aortic valve is normal in structure. The mitral valve is normal in structure. Mild mitral regurgitation. The tricuspid valve is normal in structure. There is mild tricuspid regurgitation. Estimated PAP 46 mmHg. There is moderate pulmonary hypertension. The pulmonary valve is normal in structure. There is no pericardial effusion. <ELECTRONICALLY SIGNED> By: Chintan López MD 06/22/20 1103 02 02 Chintan López MD /INF
--- NOTE | 2020-06-22 13:22 | NUR ---
INITIAL ASSESSMENT: SW reviewed chart. Pt was transferred to [facility] from [facility] due to pneumothorax. Pt has chest tube in place. SW met with pt at bedside. Introduced role of SW. Pt known to SW from previous hospitalizations. Pt is alert/orientated x 4. Pt reports he lives at home with family. Prior to admission, pt was independent with ADLs. Pt has a walker, wc and home O2. Pt's home O2 is through [facility]. Pt has a trilogy machine. Pt is normally on 4L of O2. Pt has nocturnal TPN at home provided by [facility]. Pt states that an RN from [facility] comes out weekly for PICC line care. Pt has used [facility] in the past. Pt's PCP is Dr. Kyler Carrion. Pt's goal is to return home when medically stable. SW is following to assist as needed with discharge planning.
--- NOTE | 2020-06-22 17:10 | NUR ---
ASSUMED CARE OF PT AT SHIFT CHANGE. ASSESSMENTS CHARTED. MEDS GIVEN PER JUL. PT A&OX4, NO C/O PAIN. PT HAS POOR APPETITE, WILL START TPN THIS EVENING. CHEST TUBE IN WATER SEALED, MONITOR FOR SOA. WILL CONTINUE TO MONITOR FOR CHANGES AND FOLLOW POC.
[2020-06-23] VITALS (7 sets, daily range): BP systolic 142–167; BP diastolic 67–90
--- NOTE | 2020-06-23 03:48 | NUR ---
PT ALERT ANS ORIENTED. CONTINUE TO HAVE SOB, DESPITE CHEST TUBE CONNECTION TO SUCTION. PT UNABLE TO BE PAIN ALLEVIATE BY PRN HYDRCODONE. ACCOUNTANT CLERK JAVA ARCHITECT NOTIFIED FOR ONETIME MORPHINE. WILL CONTINUE TO MONITOR ,
[2020-06-23 05:32] LABS: HEMATOCRIT 27.8 % (42.0-52.0); HEMOGLOBIN 8.8 gm/dL (14.0-18.0); MCH 26.3 pg (26.0-34.0); MCHC 31.7 g/dL (28.0-37.0); MCV 82.9 fL (80.0-100.0); RBC 3.35 mil/uL (4.50-6.00); RDW 16.3 % (10.5-14.5); WBC 5.7 thou/uL (4.0-11.0)
[2020-06-23 05:59] LABS: CALCIUM 8.7 mg/dL (8.5-10.1); CREATININE 1.4 mg/dL (0.7-1.3); MAGNESIUM 2.5 mg/dL (1.8-2.4); PHOSPHORUS 2.9 mg/dL (2.5-4.9)
--- NOTE | 2020-06-23 11:05 | NUR ---
Case discussed with the care team. No weekend dc anticipated. Pt with chest tube in place. CTS/Pulm have talked with the pt and hospice referral recommended as he is not a surgical candidate. Pt is in agreement and would like to consider going home for a few days and then to hospice house. This would give him time "to say goodbye". He notes his sister Isabella has a broken knee and his sister Casi will be his designated visitor as she lives here in the city. He would like Casi to the be contact for dc planning efforts and involved with a hospice meeting. Message left for Casi [phone] and she will be added to the spokespersons list. Pt going to call his mother and son later today to update them as well on his coversation with the physicians and hospice recommendation. DC emergency planner to fax referral to hospice for eval and info visit to discuss option for home as well as the hospice house. Support provided. Pt reports good pain control at this time. [facility] updated on possible hospice referral as the pt may or may not need continued TPN at dc. Pt did request DNR per the attending. Will follow to coordinate hospice mtg with the pt and family this weekend.
--- NOTE | 2020-06-23 12:12 | HC ---
[facility] [place] [address] CONSULTATION Name: LORENZA ARMENDARIZ Room #: 200-I ADM IN M.R.#: [id number] Admission: 06/21/20 Attend Phys: Dee Kumar Discharge: Date of : 53 Report #: [id number] THIS REPORT FOR: cc: FAM - Family physician unknown FAM - Family physician unknown Michael Munoz MD ~ DATE OF SERVICE: 06/22/2020 HISTORY OF PRESENT ILLNESS: We were asked to see the patient by the hospitalist. The patient was admitted in transfer from [place]. I have spoken with Dr. Max, who had placed a small chest tube for spontaneous pneumothorax. The patient, it appeared, had persistent pneumothorax. It was not clear whether there is an active air leak, but Dr. Max said whenever the patient was placed to [facility], he became short of breath. The initial small became kinked and a new tube was placed and the patient was transferred to this facility for more definitive treatment. Upon arrival, when I saw the patient, there is no obvious air leak, but the tube was not well connected to the atrium valved pleural drainage collection system and we spliced in a more satisfactory adapter. Chest x-ray is pending. PAST MEDICAL HISTORY: Significant for multiple medical problems. The patient is status post coronary artery bypass surgery approximately 15 years ago. Approximately 11 years ago, the patient developed intestinal ischemia and had to have a total colectomy with ileostomy. The patient has lost sufficient weight such that the sternal wires were beginning to protrude and they were removed. The patient also has important chronic obstructive pulmonary disease related to long smoking history. 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 DRUG ALLERGIES: None known. MEDICATIONS AT HOME: Combivent inhaler, nystatin swish and swallow, levothyroxine, cefdinir suspension, amlodipine, pantoprazole. The patient also states that he takes Ambien for sleep. REVIEW OF SYSTEMS: GENERAL: The patient denies fever. The patient denies recent weight loss, but has trouble maintaining his weight. EYES: The patient wears glasses. HEENT: Denies headache, sore throat, nasal discharge. CARDIAC: Denies angina or palpitations. [address] [address] CONSULTATION Name: LORENZA ARMENDARIZ Room #: 200-I [facility] IN M.R.#: [id number] Admission: 06/21/20 Attend Phys: Dee Kumar Discharge: Date of : 53 Report #: [id number] RESPIRATORY: Shortness of breath with pneumothorax and with problems with the chest tube. GASTROINTESTINAL: As mentioned, short bowel syndrome, watery output from ileostomy is chronic. No new abdominal pain or bleeding. GENITOURINARY: No burning, frequency, urgency. MUSCULOSKELETAL: No bone or joint problems. SKIN: No rash or infection. NEUROLOGIC: No motor or sensory dysfunction. ENDOCRINE: No goiter, no tremor. HEMATOLOGIC: Chronic anemia. No bruit. No bruisability. PHYSICAL EXAMINATION: VITAL SIGNS: The patient is a very thin fellow, O2 sat 98 on 4 liters, temperature 36.3, heart rate 64, blood pressure 107/54, respiratory rate 20. HEENT: No scleral icterus. I see no arcus. NECK: No mass. I hear no bruit. CHEST: Decreased breath sounds bilaterally, but this sounds symmetric. HEART: Heart tones are distant. I do not hear a murmur. ABDOMEN: Ileostomy noted. EXTREMITIES: No clubbing, cyanosis or edema, but skin is quite pale. MUSCULOSKELETAL: No bone or joint asymmetry or deformity. NEUROLOGIC: The patient is sitting in bed, cross legged and no obvious motor or sensory dysfunction. PSYCHIATRIC: Shows insight into problem. Detailed mental status exam was not done. The patient is oriented and appropriate. Chest x-ray shows pneumothorax, but this was before we found the ill-fitting connector between chest tube and atrium. ASSESSMENT: The patient has a history of recent spontaneous pneumothorax treated with chest tube. There is no current air leak. As such, we will reassess chest x-ray now that the pleural drainage system is operative and decide whether or not more intervention is appropriate. The patient is clearly a thin fellow, who is at risk for perioperative complications due to frailty if nothing else. Thank you for the consult. <ELECTRONICALLY SIGNED> By: Michael Munoz MD 06/23/20 1212 1320 1339 Michael Munoz MD /nt
--- NOTE | 2020-06-23 18:22 | NUR ---
ASSUMED CARE SHIFT CHANGE. ASSESSMENTS CHARTED.MEDS GIVEN. PT C/O MORE SOB THIS AM, PT TACHYNPNEIC. PULM NOTIFIED, CTS NOTIFIED. REFER TO PHYSICIAN NOTES. PT NOT CANDIDATE FOR SURGICAL INTERVENTION. CHEST TUBE REMAINS IN PLACE TO SUCTION. CODE STATUS CHANGED PER DR MATHEWS. PLAN FOR HOSPICE EVAL. FAMILY UPDATED. PT CALM REST OF SHIFT, OCCASIONALLY C/O SOB, RESOLVED WITH REPOSITIONING. PT CURRENTLY SLEEPING COMFORTABLY. CONTINUING TO MONITOR. WILL PASS ON REPORT TO NOC RN.
--- NOTE | 2020-06-24 05:25 | NUR ---
Assumed pt care at 1900, pt is awake, alert and oriented, able to make needs known, assessments as charted, sr/sb on the monitor, meds given as per jul, states feeling better tonight, pain partially relieved by oxycodone, chest tube remains hooked to suction, patent, no leakage noted, no acute events noted, slept some part of the night, will sit up in bed if sob, refused blood gas this morning, will continue to monitor
[2020-06-24 05:30] VITALS: BP 146/77
[2020-06-24 05:55] LABS: ABSOLUTE NEUTROPHILS 3.3 thou/uL (1.4-8.2); BASOPHILS 0.2 % (0.0-2.0); EOSINOPHILS 0.1 % (0.0-3.0); LYMPHOCYTES 13.2 % (24.0-44.0); MCH 25.8 pg (26.0-34.0); MCHC 31.8 g/dL (28.0-37.0); MCV 81.4 fL (80.0-100.0); MONOCYTES 4.1 % (1.0-8.0); PLATELET COUNT 114 thou/uL (150-400); POLYS 82.4 % (36.0-66.0); RBC 3.08 mil/uL (4.50-6.00); RDW 16.3 % (10.5-14.5)
[2020-06-24 06:14] LABS: ALBUMIN 2.1 g/dL (3.4-5.0); CREATININE 1.4 mg/dL (0.7-1.3); TOTAL BILIRUBIN 0.4 mg/dL (0.2-1.0); TOTAL PROTEIN 6.4 g/dL (6.4-8.2)
[2020-06-24 06:20] LABS: POTASSIUM 5.2 mmol/L (3.5-5.1)
[2020-06-24 08:11] VITALS: BP 139/74
[2020-06-24 11:47] VITALS: BP 163/90
[2020-06-24 15:24] VITALS: BP 131/62
--- NOTE | 2020-06-24 15:50 | NUR ---
PT ALERT AND ORIENTED TIMES FOUR. VSS. PT C/O PAIN PRN PAIN MEDICATIONS GIVEN WITH SOME RELEIF. RIGHT SIDE CHEST TUBE INTACT TO WALL SUCTION. PT TOLERATES MEDS, BUT EATS SMALL PORTIONS OF MEALS. HOSPICE NURSE HERE THIS AFTERNOON FOR EVAL. SPOKE WITH PT SISTER TO UPDATE ON CARE. PT SON AT BEDSIDE THIS AFTERNOON. POSSIBLE PLAN TO DC HOME WITH HOSPICE ON FRIDAY. WILL CONTINUE TO MONITOR.
[2020-06-24 19:01] VITALS: BP 150/52
[2020-06-24 22:16] VITALS: BP 150/52
--- NOTE | 2020-06-25 03:31 | NUR ---
pt care assumed at 1900. pt is awake, alert and orientedx4, c/o pain to the right chest tube sie, pain meds given with partial relief, vss, meds given as per jul, continues on iv zozzyn, remains on 4l via nasal canulla, o2sats stable at 96-100%, chest tube remains in place to suction, site intact, small drainage noted, sr/sb on the monitor, no acute events, will continue to monitor and follow poc; possible d/c with hospice on friday
[2020-06-25 05:06] VITALS: BP 148/73
[2020-06-25 07:02] VITALS: BP 137/67
--- NOTE | 2020-06-25 10:46 | NUR ---
AAOX4. CALM, COOPERATIVE. TREATED FOR CHEST TUBE PAIN ALLOWED. SB WITH OCCASIONAL PAC'S PER TELE. FALL PRECAUTIONS IN PLACE.
[2020-06-25 11:02] VITALS: BP 126/60
[2020-06-25 15:06] VITALS: BP 153/58
[2020-06-25 21:10] VITALS: BP 115/63
[2020-06-26 03:40] VITALS: BP 103/50
--- NOTE | 2020-06-26 07:49 | NUR ---
CHEST TUBE TO WALL SUCTION;VERY SCANT DRAINAGE,PATIENT IS HOPING TO GO HOME TODAY WITH HOSPICE CARE.POC CONTINUED.
[2020-06-26 08:42] VITALS: BP 97/53
[2020-06-26 11:05] VITALS: BP 135/64
--- NOTE | 2020-06-26 11:23 | NUR ---
patient evaled by Hospice. At time of eval not a candidate for hospice house. Planned dc to home with hospice. Hospice house can accept patient with chest tube if at water seal and not to suction. Hospice would have to reeval patient for hospice house. Patient has a new chest tube placed today. Sp with patient he reports he wants to return home with hospice at discharge. He does not want to go to the hospice house. He is aware to dc home chest tube needs to be removed. He wants to observe at least 24 hours if chest tube is helping lung before removal. Updated phys. plan home with hospice once stabe to discharge.
[2020-06-26 12:34] VITALS: BP 125/56
--- NOTE | 2020-06-26 12:40 | NUR ---
[facility] called and reports patient can discharge home with chest tube. Updated phys.
--- NOTE | 2020-06-26 16:51 | NUR ---
RECEIVED PT'S CARE AROUND 0725; PT. ON BED; ALERT; BEFORE ASSESSMENT NPO ORDERS BY TITO FERREIRA; PER REPORT AND PT. POC GOING HOME WITH HOSPICE; HANNA NOTIFIED; NO NEW ORDERS; NOTIFIED PT. EATING BREAKFAST BEFORE NPO ORDER; RECEIVED CALL FROM PRE OP TO RECEIVED REPORT; DURING AM ASSESSMENT PT. AOX4; C/O PAIN; EDUCATED ABOUT NOT ABLE TO GIVE PO PAIN MEDICATION DUE TO NPO; ST. UNDERSTANDING; BACK FROM PROCEDURE AFTER 1100; C/O PAIN 02/11; PRN PAIN MEDICATION GIVEN WITH PO AM MEDICATION; REASSESSMENT PT. ST DECREASE PAIN; VS WNL; DURING PRIME TIME PER DR. MATHEWS PT. CANNOT BE D/C HOME WITH HOSPICE IF HAVING CT; PER PT. DOES NOT WANT HOSPICE HOUSE; PER PT. WANTS TO SEE IF CT "HELPS" WITH LUNG EXPANSION; ST. "I AM WILLING TO STAY LONG THE DOCTORS THINK IS NECESSARTY"; CONTROL OFFICER UNDERSTANDING; PHYSICIAN NOTIFIED; NO NEW ORDERS; PER DIETITIAN PT. RECEIVED TPN AT HOME; NOT TPN ON EMAR; PHYSICIAN NOTIFIED; DURING LUNCH PT'S BG 48; PER PT. TAKES IV FLUIDS DAILY; 1000 ML ONE DAY AND 2000 ML/ 2.5H; PHYSICIAN NOTIFIED; PER PHYSICIAN OK TO RESUME FLUIDS, BUT "HOLD TPN"; NOTIFIED ABOUT BG 48 DURING LUNCH; ORDERS ON PLACED; SB ON THE MONITOR; ASSESSMENT CHARGED; FOLLOWING POC; WILL PASS ON REPORT;
[2020-06-26 20:00] VITALS: BP 101/56
[2020-06-27] VITALS (7 sets, daily range): BP systolic 113–135; BP diastolic 54–73
--- NOTE | 2020-06-27 04:50 | NUR ---
PATIENT REMAINS A/OX4. AFIBRILE. DRE WHEN SLEEPING OTHERWISE VSS. CHEST TUBE IN PLACE. USES URINAL AT THE BEDSIDE. C/O PAIN OR PROCEDURE SITE. PAIN MEDS GIVEN ORDER. TPN STARTED. TOLERATING IT WELL. DENIES NEEDS. WILL KEEP MONITORING.
[2020-06-27 05:16] LABS: ALBUMIN 1.9 g/dL (3.4-5.0); CALCIUM 8.1 mg/dL (8.5-10.1); CREATININE 1.5 mg/dL (0.7-1.3); MAGNESIUM 1.5 mg/dL (1.8-2.4); PHOSPHORUS 3.5 mg/dL (2.5-4.9); POTASSIUM 4.7 mmol/L (3.5-5.1); TOTAL BILIRUBIN 0.4 mg/dL (0.2-1.0)
[2020-06-27] MEDS ORDERED: FENTANYL PATCH75 MCG TRANSDERM (08:25)
[2020-06-27] MEDS ORDERED: OXYCODONE HCL10 MG PO (08:25)
--- NOTE | 2020-06-27 09:37 | O ---
[facility] [place] [address] OPERATIVE REPORT Name: LORENZA ARMENDARIZ Room #: 200-I ADM IN M.R.#: [id number] Admission: 06/21/20 Attend Phys: Dee Andrez Sigrid Discharge: Date of : 53 Report #: [id number] THIS REPORT FOR: cc: FAM - Family physician unknown FAM - Family physician unknown Michael Munoz MD ~ DATE OF SERVICE: 06/26/2020 PREOPERATIVE DIAGNOSIS: Persistent right pneumothorax. POSTOPERATIVE DIAGNOSIS: Persistent right pneumothorax. OPERATION: Right chest tube placement. SURGEON: Michael Munoz MD ACCOUNTS RECEIVABLE ADMINISTRATOR: TITO Hdez ANESTHESIA: Local. INDICATIONS: The patient is a 65-year-old sent from [place] with persistent pneumothorax and inadequately reexpanded lung the patient did not seem to have air leak and chest tube appeared to be in reasonable position, but the lung did not reexpand. I felt the patient was at prohibitive risk for video-assisted thoracoscopy, thought that the tube was at least suboptimal in diameter and was nearing removal on its own and that a better larger and more deeply positioned tube would be appropriate. FINDINGS AND TECHNIQUE: After local anesthesia was obtained with 1% lidocaine, an incision was made below the pectoralis and a thin part of the chest wall and this was deepened until the chest was entered. A 28-Tajik chest tube was placed and directed apically. Chest tube was then secured in position and a chest x-ray was obtained. The chest x-ray showed the tube was in satisfactory position and now the lung had reexpanded. With this information, the old chest tube was removed and sutures were placed to close the opening. Sterile dressing was applied and the patient was returned to the CCU in satisfactory condition having tolerated the procedure well. <ELECTRONICALLY SIGNED> By: Michael Munoz MD 06/27/20 0937 [id number] 1104 Michael Munoz MD /nt
--- NOTE | 2020-06-27 14:59 | NUR ---
[facility] liason met with patient today. She reports patient not interested in hospice. He reports he was told that with hospice care he would stop TPN and hydration. Patient feels that he would return home, and await his . Patient wants to cont with his TPN at this time. patient has home oxygen. [facility] provides home oxygen. [facility] supplies TPN. Patient lives with sister, mother and brother in [facility]. Patient has supportive family. Phys plans to further discuss hospice services.
--- NOTE | 2020-06-27 16:10 | NUR ---
FAXED CLINICAL UPDATE INCLUDING PHARMACY NOTE ON TPN TO [facility] RECEIVED CONFIRMATION.
--- NOTE | 2020-06-27 20:38 | NUR ---
RECEIVED PT'S CARE AROUND 0715; PT. ON BED; ALERT; C/O PAIN; NOT DUE PRN PAIN MEDICATION; DURING AM ASSESSMENT AM MEDICATIONS GIVEN; PRN PAIN MEDICATION GIVEN; SB ON THE MONITOR; FLUIDS GIVEN; PER DR. MATHEWS AND MELLISA PT. MIGHT STAY ANOTHER TWO DAYS; MONITORING CT; PER HANNA STOCKTON CT TO WATER SUCTION; THROUGH THE DAY NO C/O SOB; DURING THE MORNING HOSPICE NURSE ROUNDING ON PT.; PER HOSPICE NURSE PT. "IS NOT READY FOR HOSPICE CONCEPT"; REFUSED TO DISCONTINUE TPN AND IV FLUIDS; PHYSICIAN NOTIFIED; NO NEW ORDERS; PER DR. MATHEWS "I WILL TALK TO HIM"; DURING THE AFTERNOON MUD MIXER OPERATOR AT THE BED SIDE TOGETHER WITH SUPERVISOR LEAF SPRING FABRICATION; PT. ST. "ONE DOCTOR SAID EVERYTHING IS GOING UP. 99% LUNG EXPANDED" AND ANOTHER ONE "SAY THINGS ARE NOT GETTING BETTER"; SUPERVISOR LEAF SPRING FABRICATION EXPLAINED TO PT. ABOUT DIFFERENT PHYSICIANS; EXPLAINED ABOUT HOSPICE CONCEPT; PT. UPSET; ST. HE IS NOT READY TO ; HE DOES NOT WANT TO DISCONTINUE HIS TPN AND FLUIDS; DURING THE EVENGING AT SHIFT CHANGE; PT. UPSET; ST. NO BODY HAS EXPLAINED HIM "ANYTHING"; ST. "SORRY FOR BEING AN INCONVENIENCE"; EXPLAINED POC BASED ON PT'S DECISIONS; NOTIFIED PHYSICIAN WILL ROUND ON PT. TOMORROW 06/28/2020; UPSET; SB ON THE MONITOR; ASSESSMENT CHARGED; FOLLOWING POC; PASSED ON REPORT;
[2020-06-28] VITALS: BP 114/68
[2020-06-28 04:45] VITALS: BP 96/48
[2020-06-28 06:15] LABS: CALCIUM 8.3 mg/dL (8.5-10.1); CREATININE 1.4 mg/dL (0.7-1.3); MAGNESIUM 1.5 mg/dL (1.8-2.4); PHOSPHORUS 3.1 mg/dL (2.5-4.9); POTASSIUM 4.6 mmol/L (3.5-5.1)
[2020-06-28 08:09] VITALS: BP 94/42
[2020-06-28 11:18] VITALS: BP 127/45
[2020-06-28 15:28] VITALS: BP 104/55
--- NOTE | 2020-06-28 16:46 | NUR ---
Discussed home health and hospice with patient. he does not want to stop his TPN/Hydration. [facility] reports with continuation of TPN patient is not agreeable to hospice philosophy. Spoke with [facility] they cannot accept a patient with TPN. SP with [facility]. They completed onsite eval and report TPN is not related to ES COPD diagnosis for hospice. [facility] reports they can accept patient on service for hospice and he can continue with [facility]. Updated patient. Chest tube has been pulled today. Tenative dc in am. Notified [facility].
--- NOTE | 2020-06-28 17:52 | NUR ---
ASSUMED CARE OF PT AT SHIFT CHANGE. ASSESSMENTS CHARTED. MEDS GIVEN PER JUL. PT A&OX4, C/O PAIN TREATED WITH PO MEDS WITH PARTIAL RELIEF. TPN RUNNING. CHEST TUBE PULLED TODAY. PT EMPTIES OWN COLOSTOMY. PLAN FOR DC WITH HOSPICE TOMORROW WITH TPN IN PLACE. WILL CONTINUE TO MONITOR FOR CHANGE AND FOLLOW POC.
[2020-06-29 05:24] VITALS: BP 112/58
[2020-06-29 06:28] LABS: CREATININE 1.1 mg/dL (0.7-1.3); MAGNESIUM 1.7 mg/dL (1.8-2.4); PHOSPHORUS 2.1 mg/dL (2.6-4.7); POTASSIUM 4.4 mmol/L (3.5-5.1)
[2020-06-29 08:07] VITALS: BP 117/52
[2020-06-29 10:36] VITALS: BP 113/55
[2020-06-29 10:38] VITALS: BP 113/55
--- NOTE | 2020-06-29 10:39 | NUR ---
TPN and lipid orders faxed to [facility]. [facility] aware of dc home today. Dc senior media planner to fax final orders to both [facility] hospice and [facility]. Outside the hospital DNR from signed by the physician and will be sent home with the pt along with his pain scripts. Family to transport via car. No other needs indicated at this time.
--- NOTE | 2020-06-29 10:41 | NUR ---
ASSUMED CARE AT CHANGE OF SHIFT. ALERX4 FROM HOME. WILL DC HOME WITH HOSPICE HH. DRESSING CHANGED TO [facility] WHERE CHEST TUBE WAS REMOVED BY HANNA FRANCIS. DENIES PAIN, DENIES SOB. 4L NASAL CANNULA. SB ON TELLY, PICC LINE IN UPPER ARM TO REMAIN IN PLACE WITH DC. COLOSTOMY PT PROVIDES SELF CARE. TPN ORDERS SENT TO [facility] PER CM/PHARMACY. FAMILY TO BASKET MACHINE OPERATOR BEFORE NOON.
--- NOTE | 2020-06-29 11:12 | NUR ---
PT DISCHARGING TODAY TO HOME WITH [facility] AND [facility] FOR TPN. FAXED DC ORDERS/SUMMARY AND COPY OF SCRIPTS TO [facility] RECEIVED CONFIRMATION. FAXED DC ORDERS/SUMMARY TO [facility] RECEIVED CONFIRMATION AND SPOKE WITH INTAKE.
== END 2020-06-29 12:14 | disposition hospice, home (50) | DRG 199 ==
LOC: 2N 21:35
PROVIDERS: Nurse Practitioner Family; Pediatrics; ADMIT Hospitalist; ATTEND Hospitalist
PROC: 02HV33Z Insertion of Infusion Device into Superior Vena Cava, Percutaneous Approach (ICD-10-PCS; principal; 2020-06-23)
PROC: 0W9930Z Drainage of Right Pleural Cavity with Drainage Device, Percutaneous Approach (ICD-10-PCS; 2020-06-26)
DX: J93.83 Other pneumothorax (principal); J96.21 Acute and chronic respiratory failure with hypoxia; E43 Unspecified severe protein-calorie malnutrition; J96.22 Acute and chronic respiratory failure with hypercapnia; J44.1 Chronic obstructive pulmonary disease with (acute) exacerbation; N17.9 Acute kidney failure, unspecified; K91.2 Postsurgical malabsorption, not elsewhere classified; Z68.1 Body mass index [BMI] 19.9 or less, adult; I13.0 Hypertensive heart and chronic kidney disease with heart failure and stage 1 through stage 4 chronic kidney disease, or unspecified chronic kidney disease; R13.10 Dysphagia, unspecified; Z20.822 Contact with and (suspected) exposure to COVID-19; G30.9 Alzheimer's disease, unspecified; F02.80 Dementia in other diseases classified elsewhere, unspecified severity, without behavioral disturbance, psychotic disturbance, mood disturbance, and anxiety; N40.0 Benign prostatic hyperplasia without lower urinary tract symptoms; I25.10 Atherosclerotic heart disease of native coronary artery without angina pectoris; I50.9 Heart failure, unspecified; N18.9 Chronic kidney disease, unspecified; F32.9 Major depressive disorder, single episode, unspecified; K21.9 Gastro-esophageal reflux disease without esophagitis; F41.9 Anxiety disorder, unspecified; G47.00 Insomnia, unspecified; M19.90 Unspecified osteoarthritis, unspecified site; F17.210 Nicotine dependence, cigarettes, uncomplicated; G89.29 Other chronic pain; R91.1 Solitary pulmonary nodule; D50.9 Iron deficiency anemia, unspecified; Z86.73 Personal history of transient ischemic attack (TIA), and cerebral infarction without residual deficits; Z93.2 Ileostomy status; Z90.49 Acquired absence of other specified parts of digestive tract; Z95.1 Presence of aortocoronary bypass graft; I25.2 Old myocardial infarction; Z71.6 Tobacco abuse counseling
CPT/HCPCS: 10081; 50101; 50386; 50417; 50497; 56528

== ENCOUNTER 2020-07-28 10:36 | Inpatient (IN) | payer OTHER ==
[~2020-07-28] VITALS: Ht 165.1 cm; Wt 49.0 kg
[~2020-07-28 10:36] MED LIST changes: +FENTANYL PATCH75 MCG TRANSDERM; +LITE COAT ASPI325 MG PO; +MORPHINE SU4 MG/1 M1 IV; +ONDANSETRON4 MG/2 M1 IV; +OXYCODONE HCL10 MG PO; +PROTONIX40 M2 PO; +PULMICORT0.5 MG/2 M INH; +ROXICODONE5 M2 PO; +TYLENOL325 M1 PO
[2020-07-28 10:37] VITALS: BP 122/50
[2020-07-28 11:15] LABS: HEMATOCRIT 28.1 % (42.0-52.0); MCHC 32.2 g/dL (28.0-37.0); MCV 83.8 fL (80.0-100.0); PLATELET COUNT 225 thou/uL (150-400); RBC 3.35 mil/uL (4.50-6.00); RDW 17.6 % (10.5-14.5)
[2020-07-28 11:26] LABS: ANION GAP 5 mmol/L (7-16); BUN 26 mg/dL (7-18); CALCIUM 8.5 mg/dL (8.5-10.1); CHLORIDE 105 mmol/L (98-107); CO2 26 mmol/L (21-32); CREATININE 0.9 mg/dL (0.7-1.3); GLUCOSE 98 mg/dL (74-106); POTASSIUM 4.3 mmol/L (3.5-5.1); SODIUM 136 mmol/L (136-145)
[2020-07-28 11:36] LABS: ALBUMIN 2.2 g/dL (3.4-5.0); SGOT 46 U/L (15-37); SGPT 39 U/L (16-63); TOTAL BILIRUBIN 0.2 mg/dL (0.2-1.0); TOTAL PROTEIN 7.4 g/dL (6.4-8.2); TROPONIN-I <0.06 ng/mL (<0.06)
[2020-07-28 13:07] LABS: ABSOLUTE NEUTROPHILS 2.5 thou/uL (1.4-8.2); ANISOCYTOSIS 1+
--- NOTE | 2020-07-28 14:23 | EKG ---
[address] [address] ELECTROCARDIOGRAM REPORT Name: LORENZA ARMENDARIZ YESICA Room #: 170-6 ADM IN M.R.#: [id number] Admission: 07/28/20 Attend Phys: Enoc Sotelo MD Discharge: Date of : 53 Report #: [id number] [facility] Test Date: 2020-07-28 Test Time: 11:06:25 Pat Name: LORENZA ARMENDARIZ Department: Room: 170 6 Gender: M Natural Resource Manager: JOSÉ MIGUEL : 1955 Requested By: Enoc Sotelo Order Number: [id number] MD: Nabeel Torres Measurements Intervals [place] Rate: 51 P: 50 HI: 135 QRS: 7 QRSD: 123 T: 32 QT: 499 QTc: 460 Interpretive Statements Sinus rhythm Nonspecific intraventricular conduction delay Baseline wander in lead(s) V1 Compared to ECG 12/25/2019 15:17:05 Intraventricular conduction delay now present Atrial premature complex(es) no longer present Prolonged QT interval no longer present Electronically Signed On 07-28-2020 14:23:40 CDT by Nabeel Torres [email or web address] <ELECTRONICALLY SIGNED> By: Nabeel Torres MD, FAC 07/28/20 1423 1106 1106 Nabeel Torres MD, [facility] /EPI
[2020-07-28 15:52] VITALS: BP 116/51
[2020-07-28 16:30] VITALS: BP 116/51
[2020-07-28 16:54] VITALS: BP 127/62
--- NOTE | 2020-07-28 18:33 | NUR ---
PATIENT ADMIT TO UNIT AT 1635. A/O X4. ON 4L/NC 100% 02 SAT. NO DISTRESS NOTED. WILL KEEP MONITOR.
[2020-07-28 19:58] VITALS: BP 137/60
--- NOTE | 2020-07-28 23:04 | NUR ---
PT ADMITTED EARLIER ON DAY SHIFT. UPON ASSESSMENT PT WAS UPSET THE DR DID NOT ORDER HIM SOME IV FLUIDS. HE STATED HE IS VERY DRY AND DEHYDRATED DUE TO ILEOSTOMY OUTPUT. SHIP'S SURVEYOR AMRIT NOTIFIED. NS AT 75 STARTED ORDERED. 2 OXYCODONE GIVEN FOR C/O HIP PAIN 10/10 BILATERALLY. PT SLEEPING PRESENTLY. NO C/O PAIN PRESENTLY. VSS AFEBRILE SB ON MONITOR.
[2020-07-29 05:09] VITALS: BP 101/66
[2020-07-29 06:03] LABS: HEMATOCRIT 26.5 % (42.0-52.0); HEMOGLOBIN 8.6 gm/dL (14.0-18.0); MCH 27.2 pg (26.0-34.0); MCHC 32.5 g/dL (28.0-37.0); MCV 83.7 fL (80.0-100.0); RBC 3.17 mil/uL (4.50-6.00); RDW 17.5 % (10.5-14.5); WBC 3.6 thou/uL (4.0-11.0)
--- NOTE | 2020-07-29 06:08 | NUR ---
PT PROGRESSING TOWARDS D/C GOALS. VSS AFEBRILE. MEDICAED FOR C/O BACK, NECK AND MELISA HIP PAIN. PT NOW SLEEPING QUIETLY.NO S/S DISTRESS.
[2020-07-29 06:27] LABS: CALCIUM 8.1 mg/dL (8.5-10.1); CREATININE 1.1 mg/dL (0.7-1.3); POTASSIUM 3.8 mmol/L (3.5-5.1)
[2020-07-29 07:36] VITALS: BP 93/47
[2020-07-29 15:51] VITALS: BP 134/63
[2020-07-29 19:59] VITALS: BP 102/56
[2020-07-30] VITALS (7 sets, daily range): BP systolic 111; BP diastolic 58
--- NOTE | 2020-07-30 04:34 | NUR ---
Patient making progress towards outcome goals. Vital signs and rhythm stable. Fair pain control with oxycodone. Gait steady. Calls out appropriately for needs.
[2020-07-30] MEDS ORDERED: IPRAT-ALBUT 0.5-3 ML INH (11:29)
--- NOTE | 2020-07-30 12:52 | NUR ---
PT STATES HE IS REC'G SERVICES FROM [facility] [phone] PLACED CALL TO SENIOR DATA ANALYST ANSWERING SERVICE, SPOKE TO JACLYN LEYVA, SHE WILL PAGE SENIOR DATA ANALYST NURSE TO VERIFY PRIOR PT SERVICES
== END 2020-07-30 17:55 | disposition home health service (06) | DRG 199 ==
LOC: ER 10:36 → EROBS 12:50 → 3W 16:30
PROVIDERS: Emergency Medicine; ADMIT Hospitalist; ATTEND Hospitalist
DX: J93.83 Other pneumothorax (principal); J96.21 Acute and chronic respiratory failure with hypoxia; J44.1 Chronic obstructive pulmonary disease with (acute) exacerbation; K91.2 Postsurgical malabsorption, not elsewhere classified; E46 Unspecified protein-calorie malnutrition; Z68.1 Body mass index [BMI] 19.9 or less, adult; I13.0 Hypertensive heart and chronic kidney disease with heart failure and stage 1 through stage 4 chronic kidney disease, or unspecified chronic kidney disease; I25.10 Atherosclerotic heart disease of native coronary artery without angina pectoris; I50.9 Heart failure, unspecified; D64.9 Anemia, unspecified; I11.0 Hypertensive heart disease with heart failure; R13.10 Dysphagia, unspecified; Z20.822 Contact with and (suspected) exposure to COVID-19; N18.9 Chronic kidney disease, unspecified; F17.200 Nicotine dependence, unspecified, uncomplicated; Z66 Do not resuscitate; Z95.1 Presence of aortocoronary bypass graft; I25.2 Old myocardial infarction
CPT/HCPCS: 10080

== ENCOUNTER 2020-08-08 23:11 | Inpatient (IN) | payer OTHER ==
[~2020-08-08] VITALS: Ht 165.1 cm; Wt 51.6 kg
[2020-08-08 23:11] VITALS: BP 124/57
[~2020-08-08 23:11] MED LIST changes: +IPRAT-ALBUT 0.5-3 ML INH
[2020-08-09 00:16] LABS: ABSOLUTE NEUTROPHILS 7.2 thou/uL (1.4-8.2); BASOPHILS 0.8 % (0.0-2.0); EOSINOPHILS 0.3 % (0.0-3.0); HEMATOCRIT 25.7 % (42.0-52.0); HEMOGLOBIN 8.2 gm/dL (14.0-18.0); LYMPHOCYTES 13.4 % (24.0-44.0); MCH 26.7 pg (26.0-34.0); MCV 83.4 fL (80.0-100.0); MONOCYTES 4.6 % (1.0-8.0); PLATELET COUNT 125 thou/uL (150-400); POLYS 80.9 % (36.0-66.0); RBC 3.08 mil/uL (4.50-6.00); RDW 16.7 % (10.5-14.5); WBC 8.8 thou/uL (4.0-11.0)
[2020-08-09 00:17] LABS: ANION GAP 9 mmol/L (7-16); BUN 23 mg/dL (7-18); CALCIUM 8.1 mg/dL (8.5-10.1); CHLORIDE 107 mmol/L (98-107); CO2 22 mmol/L (21-32); CREATININE 1.2 mg/dL (0.7-1.3); GLUCOSE 73 mg/dL (74-106); POTASSIUM 3.9 mmol/L (3.5-5.1); SODIUM 138 mmol/L (136-145)
[2020-08-09 00:27] LABS: ALBUMIN 2.1 g/dL (3.4-5.0); SGOT 30 U/L (15-37); SGPT 25 U/L (30-65); TOTAL BILIRUBIN 0.4 mg/dL (0.2-1.0); TROPONIN-I <0.06 ng/mL (<0.06)
[2020-08-09 01:21] VITALS: BP 116/38
[2020-08-09] MEDS ORDERED: TRELEGY ELLIPT1 EACH INH ×2 (01:29→03:38)
[2020-08-09] MEDS ORDERED: IPRAT-ALBUT 0.5-3 ML INH (01:30)
[2020-08-09] MEDS ORDERED: AMBIEN 10 MG TA10 MG PO (01:30)
[2020-08-09] MEDS ORDERED: LIPITOR 40 MG T40 M1 PO (01:34)
[2020-08-09] MEDS ORDERED: CELEXA 20 MG TA20 MG PO (01:34)
[2020-08-09 02:47] VITALS: BP 96/57
[2020-08-09] MEDS ORDERED: CENTRUM SILVER1 EAC5 PO (03:14)
[2020-08-09] MEDS ORDERED: ACIDOPHILUS LA1 EAC1 PO (03:16)
[2020-08-09] MEDS ORDERED: NITROSTAT0.4 M1 SUBLING (03:37)
[2020-08-09] MEDS ORDERED: COMBIVENT INH (03:39)
[2020-08-09] MEDS ORDERED: BUDESONIDE0.5 MG/2 M INH (03:40)
[2020-08-09] MEDS ORDERED: OXYCODONE HCL10 MG PO (03:42)
--- NOTE | 2020-08-09 06:51 | NUR ---
PT ARRIVED FROM ER VIA CART, PLACED IN ROOM 353. ADMISSION ASSESSMENTS COMPLETED. PT ON O2 AT 4L PER NC WHICH IS HIS USAGE AT HOME. PT REPORTS OCCASIONAL NON PRODUCTIVE COUGH. REPORTS FEVER OF "102 DEGREES" AT HOME. REPORTED "RASH" TO HANDS AND FEET PER ER REPORT WHEN STARTING ZOSYN IV AND LEVAQUIN IV SIMULTANEOUSLY WHILE IN ER. SPOKE TO PRACTITIONER AND PHARMACIST ABOUT MONITORING PT WHEN ZOSYN AND LEVAQUIN DOSES ARE GIVEN. PT IN ISOLATIO FOR R/O COVID-19. INITIAL SWAB REPORTEDLY NEGATIVE. INSTRUCTED AND PT VOICED UNDERSTANDING TO CALL IF ANY REDNESS OR SENSE OF WARMTH OCCURS ON HIS HANDS/FEET.
[2020-08-09 07:24] VITALS: BP 107/43
--- NOTE | 2020-08-09 09:31 | EKG ---
[address] [address] ELECTROCARDIOGRAM REPORT Name: LORENZA ARMENDARIZ Room #: 353-P [facility] M.R.#: [id number] Admission: 08/09/20 Attend Phys: Lee Espinoza MD Discharge: Date of : 53 Report #: [id number] [facility] ED Test Date: 2020-08-09 Test Time: 00:01:34 Pat Name: LORENZA ARMENDARIZ Department: Room: 353 Gender: M Cotton Picker: Conrad : 1955 Requested By: Emerson Black Order Number: [id number] MD: Nabeel Torres Measurements Intervals [place] Rate: 60 P: 47 NC: 139 QRS: 17 QRSD: 112 T: QT: 469 QTc: 469 Interpretive Statements Sinus rhythm Incomplete right bundle branch block Compared to ECG 07/28/2020 11:06:25 Incomplete right bundle-branch block now present Intraventricular conduction delay no longer present Electronically Signed On 08-09-2020 9:31:15 CDT by Nabeel Torres [email or web address] <ELECTRONICALLY SIGNED> By: Nabeel Torres MD, [facility] 08/09/20 0931 0001 0001 Nabeel Torres MD, [facility] /EPI
--- NOTE | 2020-08-09 09:31 | EKG ---
[address] [place] [address] ELECTROCARDIOGRAM REPORT Name: LORENZA ARMENDARIZ Room #: 353-[facility] M.R.#: [id number] Admission: 08/09/20 Attend Phys: Lee Espinoza MD Discharge: Date of : 53 Report #: [id number] [facility] Test Date: 2020-08-09 Test Time: 00:03:13 Pat Name: LORENZA ARMENDARIZ Department: Room: 353 P Gender: M Ict Sales Assistant: Conrad : 1955 Requested By: Lee Espinoza Order Number: [id number] MD: Nabeel Torres Measurements Intervals [place] Rate: 61 P: 49 [place]: 140 QRS: 13 QRSD: 109 T: 31 QT: 489 QTc: 493 Interpretive Statements Sinus rhythm Probable left atrial enlargement RSR' in V1 or V2, probably normal variant Nonspecific T abnormalities, anterior leads Borderline prolonged QT interval Compared to ECG 08/09/2020 00:01:34 RSR' in V1 or V2 now present T-wave abnormality now present Incomplete right bundle-branch block no longer present Electronically Signed On 08-09-2020 9:31:23 CDT by Nabeel Torres [email or web address] <ELECTRONICALLY SIGNED> By: Nabeel Torres MD, [facility]ACC 08/09/20 0931 0003 0003 Nabeel Torres MD, FAC /EPI
--- NOTE | 2020-08-09 15:11 | NUR ---
INITIAL ASSESSMENT: JONELLE reviewed chart and spoke with nursing and attending physician. Pt was admitted from home due to pneumonia. Pt placed in Enhanced Isolation to r/o COVID. Enhanced Isolation precautions discontinued. PT is on IV abx. Pt well known to SW from previous hospitalizations. JONELLE spoke with pt via phone. Introduced role of SW. Pt is alert/orientated x 4. Pt reports he lives at home with his family. Prior to admission, pt receiving home TPN and weekly RN visits through [facility]. Pt was on hospice with [facility] briefly. Pt states his plan is to return home and resume services through [facility]. Pt has home O2 in place through [facility]. Pt's PCP is Dr. Kyler Carrion. Pt has also used [facility] in the past. JONELLE updated Vaishali at [facility] to notify of pt's admission. Discharge orders and TPN formula will need to be faxed upon discharge. JONELLE is following to assist as needed with discharge planning.
[2020-08-09 15:12] VITALS: BP 99/45
--- NOTE | 2020-08-09 17:54 | NUR ---
ASSUMED PATIENT CARE AT 0700. A/O X4. VSS. WILL KEEP MONITOR.
[2020-08-09 19:36] VITALS: BP 137/69
[2020-08-10 04:13] VITALS: BP 91/44
[2020-08-10 05:05] LABS: HEMATOCRIT 25.4 % (42.0-52.0); HEMOGLOBIN 8.1 gm/dL (14.0-18.0); MCH 26.6 pg (26.0-34.0); MCHC 31.9 g/dL (28.0-37.0); MCV 83.3 fL (80.0-100.0); RBC 3.05 mil/uL (4.50-6.00); RDW 17.4 % (10.5-14.5); WBC 7.4 thou/uL (4.0-11.0)
[2020-08-10 05:28] LABS: ALBUMIN 1.8 g/dL (3.4-5.0); CALCIUM 7.8 mg/dL (8.5-10.1); CREATININE 1.4 mg/dL (0.7-1.3); POTASSIUM 4.3 mmol/L (3.5-5.1); TOTAL BILIRUBIN 0.4 mg/dL (0.2-1.0); TOTAL PROTEIN 6.5 g/dL (6.4-8.2)
--- NOTE | 2020-08-10 06:26 | NUR ---
FOLLOWING POC WITH IVPB ANTIBIOTICS. PT WILL VOID VIA URINAL AND ILEOSTOMY. OSTOMY NURSE CONSULTED. PT HAS NON-PRODUCTIVE COUGH. PAIN MEDICATION REQUESTED X2 OVERNIGHT.
[2020-08-10 07:20] VITALS: BP 104/56
--- NOTE | 2020-08-10 08:30 | NUR ---
OSTOMY CARE; AWAKE, ALERT, STATES HE FORGOT TO BRING HIS OWN OSTOMY SUPPLIES TO [facility], STATES FAMILY MEMBER NEEDS TO BRING HIM SOME CLOTHES TODAY SO WILL BRING OSTOMY POUCHES, POUCH INTACT, NO LEAKAGE, [place] CUT TO FIT SUPPLIES PLACED AT BS TO USE IF NEEDED, PT INFORMED ON THESE ARE CUT TO FIT, STATES HE IS FAMILIAR W/ THIS PRODUCT AND OK TO USE IF NEEDED PRINT PROJECT MANAGER INFORMED
[2020-08-10 15:42] VITALS: BP 95/39
--- NOTE | 2020-08-10 18:21 | NUR ---
ASSUMED PATIENT CARE AT 0700. A/O X4. NO DISTRESS NOTED. SLOWLY TOWARDS POC GOALS.
[2020-08-10 19:42] VITALS: BP 119/58
[2020-08-11 04:48] LABS: HEMOGLOBIN 7.9 gm/dL (14.0-18.0); MCH 26.7 pg (26.0-34.0)
[2020-08-11 04:56] LABS: HEMATOCRIT 24.5 % (42.0-52.0); MCHC 32.1 g/dL (28.0-37.0); MCV 83.3 fL (80.0-100.0); PLATELET COUNT 126 thou/uL (150-400); RBC 2.94 mil/uL (4.50-6.00); RDW 17.1 % (10.5-14.5)
[2020-08-11 05:01] LABS: CALCIUM 7.6 mg/dL (8.5-10.1); CREATININE 1.4 mg/dL (0.7-1.3); POTASSIUM 4.9 mmol/L (3.5-5.1)
[2020-08-11 05:07] LABS: WBC 1.9 thou/uL (4.0-11.0)
--- NOTE | 2020-08-11 05:11 | NUR ---
CRITICAL LAB OF WBC 1.9. CALLED PROVIDER RECEIVED ORDERS TO REDRAW. PREVIOUS TWO DAYS WBC LAB 7.4 AND 8.8. PREVIOUS STAY WBC WERE 3'S AND 4'S. WILL CONTINUE TO FOLLOW.
[2020-08-11 05:53] VITALS: BP 111/55
[2020-08-11 05:59] LABS: HEMATOCRIT 23.6 % (42.0-52.0); HEMOGLOBIN 7.5 gm/dL (14.0-18.0); MCH 26.6 pg (26.0-34.0); MCHC 31.9 g/dL (28.0-37.0); MCV 83.3 fL (80.0-100.0); PLATELET COUNT 114 thou/uL (150-400); RBC 2.84 mil/uL (4.50-6.00); RDW 17.1 % (10.5-14.5)
[2020-08-11 06:02] LABS: WBC 1.8 thou/uL (4.0-11.0)
[2020-08-11 07:20] VITALS: BP 130/51
[2020-08-11 08:42] LABS: ABSOLUTE NEUTROPHILS 1.6 thou/uL (1.4-8.2); ANISOCYTOSIS 1+
[2020-08-11 10:00] LABS: ABSOLUTE NEUTROPHILS 1.4 thou/uL (1.4-8.2)
[2020-08-11 10:01] LABS: ANISOCYTOSIS 1+
--- NOTE | 2020-08-11 12:03 | NUR ---
Pt has gone 2 days without his chronic TPN. Recommend restart tpn if fever not source of pts fever/infection. Has had progressive wt loss over 8mo so rec increase his usual tpn to 225g dex, 100g protein, 250ml 20% lipids MWF, 2 liters over 12hr nocturnal.
--- NOTE | 2020-08-11 12:49 | NUR ---
JONELLE reviewed chart and spoke with nursing and attending physician. Pt is progressing towards goals for discharge. Discharge home is anticipated over the weekend. JONELLE met with pt at bedside to discuss discharge plan. Pt is aware and agreeable with discharge plan. Pt states he will have transportation home when he is discharged. His family will bring a portable O2 tank for the ride home. Pt states that he has TPN at home. Pt has not been on TPN while in the hospital. JONELLE discussed with pharmacist and attending physician. TPN to be started tonight. JONELLE contacted [facility] liaison, Vaishali, to notify of weekend discharge. [facility] must have signed orders today in order to facilitate a weekend discharge and delivery of any additional TPN. JONELLE obtained order form from [facility]. Attending physician signed. Clinical info and signed order forms faxed to [facility] for review. JONELLE updated [facility] liaison. Finalized discharge orders/summary will need to be faxed to [facility] when available. Contact info for [facility] placed in pt's discharge summary. JONELLE is available to assist should needs arise. [facility]--
[2020-08-11 15:27] VITALS: BP 125/63
--- NOTE | 2020-08-11 18:52 | NUR ---
ASSUMED PATIENT CARE AT 0700. A/0 X4. NO DISTRESS NOTED. SLOWLY TOWARDS POC GOALS.
[2020-08-11 19:12] VITALS: BP 124/67
[2020-08-12 03:32] VITALS: BP 135/59
[2020-08-12 05:11] LABS: HEMATOCRIT 23.9 % (42.0-52.0); HEMOGLOBIN 7.6 gm/dL (14.0-18.0); MCH 26.7 pg (26.0-34.0); MCHC 31.9 g/dL (28.0-37.0); MCV 83.5 fL (80.0-100.0); RBC 2.87 mil/uL (4.50-6.00); RDW 17.1 % (10.5-14.5); WBC 4.5 thou/uL (4.0-11.0)
[2020-08-12 05:31] LABS: CALCIUM 7.7 mg/dL (8.5-10.1); CREATININE 1.2 mg/dL (0.7-1.3); POTASSIUM 4.5 mmol/L (3.5-5.1)
[2020-08-12 07:35] VITALS: BP 134/59
[2020-08-12 15:23] VITALS: BP 134/65
--- NOTE | 2020-08-12 17:30 | NUR ---
ASSUMED PATIENT CARE AT 0700. A/O X4. PIAN MED GIVEN NEED, SLOWLY TOWARDS POC GOALS.
[2020-08-12 19:28] VITALS: BP 136/61
[2020-08-13 02:44] VITALS: BP 109/52
--- NOTE | 2020-08-13 03:06 | NUR ---
PT ALERT AND ORIENTED X4. VSS AFEBRILE. SATS 99-100% ON 4LNC. BS COARSE AT BASES. PRT C/O SOA. RT TX GIVEN. NOTIFIED Yoli LARSON. TPN SLOWED TO 77/HR FOR NOW . WILL NOTIFIY AM NS TO NOTIFIY DT ON DAY SHIFT. REQUESTED BY NS PRACTITIONER Yoli LARSON,
[2020-08-13 04:09] LABS: MCH 26.7 pg (26.0-34.0); MCHC 31.9 g/dL (28.0-37.0); MCV 83.7 fL (80.0-100.0); RBC 2.99 mil/uL (4.50-6.00); RDW 16.6 % (10.5-14.5); WBC 5.2 thou/uL (4.0-11.0)
[2020-08-13 04:26] LABS: CALCIUM 7.8 mg/dL (8.5-10.1); CREATININE 1.1 mg/dL (0.7-1.3); POTASSIUM 4.3 mmol/L (3.5-5.1)
--- NOTE | 2020-08-13 06:20 | NUR ---
PT RESTING QUIETLY AFTER OXYCODONE GIVEN FOR GENERALIZED PAIN. NO S/S DISTRESS.
[2020-08-13 08:19] VITALS: BP 121/54
[2020-08-13 15:35] VITALS: BP 129/63
--- NOTE | 2020-08-13 16:12 | NUR ---
ASSUMED CARE OF PATIENT AT 1600.
--- NOTE | 2020-08-13 17:47 | NUR ---
PATIENT TRANSFERED TO 4W AT THIS TIME. HE IS ALERT OREINTED X4. HAD PRN PAIN MEDICATION WHICH WAS EFFECTIVE IN CONTROLLING PAIN. RESPIRATINOS ARE EVEN NON LABORED. WILL CONT WITH PLAN OF CARE.
[2020-08-13 18:35] VITALS: BP 138/63
[2020-08-14] VITALS: BP 130/70
--- NOTE | 2020-08-14 06:00 | NUR ---
AWAKE AND ALERT. SLEPT AT INTERVALS TONIGHT. LUNGS CLEAR TPN INFUSING ORDERED. EXCELLENT URINARY OUTPUT. PT DOES HIS WON COLOSTOMY CARE. 700 CC BROWN LIQ STOOL THIS SHIFT. WILL CONT TO MONITOR
[2020-08-14 08:12] VITALS: BP 127/65
[2020-08-14 12:18] VITALS: BP 127/65
[2020-08-14] MEDS ORDERED: MUCINEX600 MG PO (15:34)
[2020-08-14] MEDS ORDERED: PREDNISONE 10 M10 M1 PO (15:35)
[2020-08-14] MEDS ORDERED: LEVOFLOXACIN750 MG PO (15:36)
--- NOTE | 2020-08-14 15:42 | NUR ---
AUDITOR/QUALITY assessment reviewed. RN agrees with AUDITOR/QUALITY assessment.
--- NOTE | 2020-08-14 15:43 | NUR ---
CARE TEAM INDICATED THAT PT IS MEDICALLY STABLE TO DC HOME THIS DAY. CM CALLED [facility] TO ENSURE THAT THEY HAD ORDERS THEY NEEDED. THEY INDICATED THEY DID THAT THEY WOULD GET TPM SHIPPED OUT THIS EVENING. CM NOTIFIE PT AND THEY INDICATED THEY WOULD CALL PT TOO. PT'S FAMILY TO BRING PORTABLE TANK FOR TRNSPORT HOME THIS DAY. CM FAXED FINAL ORDERS TO [facility]. NO OTHER CM INTERVENTION INDICATED CASE CLOSED. [facility]--
[2020-08-14 15:47] VITALS: BP 127/65
--- NOTE | 2020-08-14 16:12 | NUR ---
ASSUMED CARE OF PT AT 0700 THIS MORNING. PT WAS ADMITTED FOR PNEUMONIA. PT IS A/OX4, VERY HORSE VOICE. COUGH WITHOUT PRODUCTION. PT HAS ON TPN AND ANTIBIOTIC DRIP ON ARRIVAL. LUNGS DIMINISHED IN LOWER SCHULER, CLEAR UPPER, SKIN INTACT WITHOUT TENTING. EYES PERRLA, CR<3SEC, AMBULATES WITHOUT ASST. BOWEL SOUNDS ACTIVE AND ABD SOFT NONTENDER WITH COLOSTOMY IN PLACE. STOMA RED AND CLEAN, ASSESSMENT OTHERWISE UNREMARKABLE. CALL LIGHT AND OTHER NEEDS WITHIN REACH. PT IS BEING DISCHARGED THIS AFTERNOON PER DR. JACKMAN. PAPERWORK IS SIGNED AND PT IS READY TO GO.
[2020-08-14 16:24] VITALS: BP 128/60
== END 2020-08-14 16:00 | disposition home or self-care (01) | DRG 193 ==
LOC: ER 23:11 → 3W 08-09 01:16 → EROBS 08-09 01:16 → 3W 08-09 02:30 → 4W 08-13 15:56
PROVIDERS: Emergency Medicine; Nurse Practitioner Family; ADMIT Hospitalist; ATTEND Hospitalist
DX: J18.9 Pneumonia, unspecified organism (principal); J96.21 Acute and chronic respiratory failure with hypoxia; J93.9 Pneumothorax, unspecified; J44.1 Chronic obstructive pulmonary disease with (acute) exacerbation; J44.0 Chronic obstructive pulmonary disease with (acute) lower respiratory infection; I13.0 Hypertensive heart and chronic kidney disease with heart failure and stage 1 through stage 4 chronic kidney disease, or unspecified chronic kidney disease; D61.818 Other pancytopenia; R91.1 Solitary pulmonary nodule; I50.9 Heart failure, unspecified; R13.10 Dysphagia, unspecified; D64.9 Anemia, unspecified; N18.9 Chronic kidney disease, unspecified; F17.210 Nicotine dependence, cigarettes, uncomplicated; E78.5 Hyperlipidemia, unspecified; E03.9 Hypothyroidism, unspecified; F32.9 Major depressive disorder, single episode, unspecified; G89.4 Chronic pain syndrome; D72.819 Decreased white blood cell count, unspecified; K21.9 Gastro-esophageal reflux disease without esophagitis; I25.10 Atherosclerotic heart disease of native coronary artery without angina pectoris; Z66 Do not resuscitate; Z20.822 Contact with and (suspected) exposure to COVID-19; Z95.1 Presence of aortocoronary bypass graft; Z79.899 Other long term (current) drug therapy; Z88.1 Allergy status to other antibiotic agents; Z88.8 Allergy status to other drugs, medicaments and biological substances
CPT/HCPCS: 10045; 10879

== ENCOUNTER 2020-10-05 12:34 | Inpatient (IN) | payer OTHER ==
[~2020-10-05] VITALS: Ht 165.1 cm; Wt 53.6 kg
[~2020-10-05 12:34] MED LIST changes: +ACIDOPHILUS LA1 EAC1 PO; +BUDESONIDE0.5 MG/2 M INH; +CENTRUM SILVER1 EAC5 PO; +LEVOFLOXACIN750 MG PO; +LIPITOR 40 MG T40 M1 PO
[2020-10-05 12:35] VITALS: BP 161/83
[2020-10-05 14:54] LABS: ABSOLUTE NEUTROPHILS 2.4 thou/uL (1.4-8.2); BASOPHILS 0.5 % (0.0-2.0); EOSINOPHILS 2.2 % (0.0-3.0); HEMATOCRIT 26.4 % (42.0-52.0); HEMOGLOBIN 8.7 gm/dL (14.0-18.0); LYMPHOCYTES 20.3 % (24.0-44.0); MCH 26.9 pg (26.0-34.0); MCHC 33.1 g/dL (28.0-37.0); MCV 81.3 fL (80.0-100.0); MONOCYTES 5.3 % (1.0-8.0); PLATELET COUNT 194 thou/uL (150-400); POLYS 71.7 % (36.0-66.0); RBC 3.25 mil/uL (4.50-6.00); RDW 18.4 % (10.5-14.5); WBC 3.4 thou/uL (4.0-11.0)
[2020-10-05 15:05] LABS: URINE BILIRUBIN NEGATIVE (Negative); URINE BLOOD TRACE (Negative); URINE CLARITY CLEAR; URINE COLOR YELLOW; URINE GLUCOSE-RANDOM* NEGATIVE (Negative); URINE KETONES NEGATIVE (Negative); URINE LEUKOCYTES-REFLEX TRACE (Negative); URINE NITRITE-REFLEX NEGATIVE (Negative); URINE PROTEIN (DIPSTICK) TRACE (Negative); URINE UROBILINOGEN 0.2 E.U./dl (0.2-1.0)
[2020-10-05 15:31] LABS: ALBUMIN 1.6 g/dL (3.4-5.0); MAGNESIUM 1.9 mg/dL (1.8-2.4); TOTAL BILIRUBIN 0.3 mg/dL (0.2-1.0); TOTAL PROTEIN 5.7 g/dL (6.4-8.2); TROPONIN-I 0.09 ng/mL (<0.06)
[2020-10-05 15:37] LABS: POTASSIUM 2.4 mmol/L (3.5-5.1)
--- NOTE | 2020-10-05 16:20 | EKG ---
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 Constructor Hydraulic: : 1955 Requested By: Leonardo Krishna Order Number: [id number] MD: Tim Godinez Measurements Intervals [place] Rate: 72 P: 36 [place]: 135 QRS: 18 QRSD: 117 T: 34 QT: 449 QTc: 492 Interpretive Statements Sinus rhythm INCOMPLETE RIGHT BUNDLE BRANCH BLOCK Nonspecific T wave abnormality Compared to ECG 08/09/2020 00:03:13 No significant change was found Electronically Signed On 10-05-2020 16:19:56 CDT by Tim Godinez [email or web address] <ELECTRONICALLY SIGNED> By: Tim Godinez MD, [facility] 10/05/20 1619 1416 1416 Tim Godinez MD, FACC /EPI
[2020-10-06 05:20] LABS: MCH 27.8 pg (26.0-34.0); MCHC 33.7 g/dL (28.0-37.0); MCV 82.4 fL (80.0-100.0); PLATELET COUNT 207 thou/uL (150-400); RBC 3.88 mil/uL (4.50-6.00); RDW 18.4 % (10.5-14.5); WBC 2.2 thou/uL (4.0-11.0)
[2020-10-06 05:32] LABS: HEMOGLOBIN 10.8 gm/dL (14.0-18.0)
[2020-10-06 05:50] LABS: CALCIUM 8.3 mg/dL (8.5-10.1); CREATININE 1.1 mg/dL (0.7-1.3); MAGNESIUM 1.7 mg/dL (1.8-2.4)
[2020-10-06 05:55] LABS: POTASSIUM 4.1 mmol/L (3.5-5.1)
[2020-10-06 07:01] VITALS: BP 103/38
[2020-10-06 07:17] LABS: ABSOLUTE NEUTROPHILS 1.4 thou/uL (1.4-8.2); ANISOCYTOSIS 1+; PLATELET ESTIMATE NORMAL
--- NOTE | 2020-10-06 09:01 | 2DMMODE ---
[facility] [place] [address] 2 D/M-MODE ECHOCARDIOGRAM Name: LORENZA ARMENDARIZ Room #: 460-P ADM IN M.R.#: [id number] Admission: 10/05/20 Attend Phys: Kyler Vega MD Discharge: Date of : 53 Report #: [id number] THIS REPORT FOR: cc: FAM - Family physician unknown FAM - Family physician unknown Nabeel Torres MD [facility] ~ APPROVED REPORT Study performed: 10/05/2020 16:53:25 EXAM: Comprehensive 2D, Doppler, and color-flow Echocardiogram Patient Location: ER Room #: 5 Status: on-call BSA: 1.56 HR: 64 bpm BP: 94/48 mmHg Other Information Study Quality: Adequate Indications COPD Dyspnea Elevated Troponin Fever 2D Dimensions IVSd: 10.70 (7-11mm) LVDd: 54.75 mm PWd: 9.47 (7-11mm) Ascending Ao: 28.84 (22-36mm) LVDs: 40.39 (25-40mm) Aortic Root: 27.30 mm LV Single Plane 4CH: 60.11 % LV Single Plane 2CH: 55.05 % Biplane EF: 56.3 % Volumes Left Atrial Volume (Systole) Single Plane 4CH: 63.19 mL Single Plane 2CH: 63.12 mL LA ESV Index: 43.00 mL/m2 Aortic Valve AoV Peak Jose J.: 1.56 m/s [facility] [address] [place] [address] 2 D/M-MODE ECHOCARDIOGRAM Name: LORENZA ARMENDARIZ Room #: 460-P ADM IN M.R.#: [id number] Admission: 10/05/20 Attend Phys: Kyler Vega MD Discharge: Date of : 53 Report #: [id number] AO Peak Gr.: 9.74 mmHg LVOT Max P.95 mmHg LVOT Max V: 1.32 m/s Pulmonary Valve PV Peak Jose J.: 0.84 m/s PV Peak Gr.: 2.79 mmHg Tricuspid Valve TR Peak Jose J.: 2.21 m/s RAP Estimate: 10.00 mmHg TR Peak Gr.: 19.59 mmHg PA Pressure: 30.00 mmHg Left Ventricle The left ventricle is normal size. There is normal LV segmental wall motion. There is normal left ventricular wall thickness. Left ventricular systolic function is normal. The left ventricular ejection fraction is within the normal range. LVEF is 55-60%. This study is not technically sufficient to allow evaluation of the LV diastolic function. Right Ventricle The right ventricle is normal size. The right ventricular systolic function is normal. Atria Left atrium is moderately dilated. Right atrium is mildly dilated. Aortic Valve The aortic valve is normal in structure. No aortic regurgitation is present. There is no aortic valvular stenosis. Mitral Valve The mitral valve is normal in structure. Calcification of the mitral valve chordae (1.0cm x 0.8 cm) Mild mitral regurgitation. No evidence of mitral valve stenosis. Tricuspid Valve The tricuspid valve is normal in structure. Trace tricuspid regurgitation. Pulmonary artery pressure is 30 mmHg. Pulmonic Valve The pulmonary valve is normal in structure. There is no pulmonic valvular regurgitation. Great Vessels The aortic root is normal in size. The ascending aorta is normal in [facility] [address] [place] [address] 2 D/M-MODE ECHOCARDIOGRAM Name: SANIYAAzizaLORENZA YESICA Room #: 460-[facility] IN .R.#: [id number] Admission: 10/05/20 Attend Phys: Kyler Vega MD Discharge: Date of : 53 Report #: [id number] size. IVC is normal in size and collapses >50% with inspiration. Pericardium There is no pericardial effusion. <Conclusion> Normal left ventricle size/wall thickness Ejection fraction 60% Normal right ventricular size/function Moderate left atrial enlargement Mild right atrial enlargement Color-flow Doppler study was performed of the aortic/mitral/tricuspid/pulmonary valve Normal aortic valve structure and function Calcified chordae mitral valve, no stenosis detected Mild mitral valve insufficiency Trace tricuspid valve insufficiency Normal aortic root size No pericardial effusion <ELECTRONICALLY SIGNED> By: Nabeel Torres MD, [facility] 10/06/20900 0 0 Nabeel Torres MD, FACC /INF
--- NOTE | 2020-10-06 15:02 | NUR ---
PT ADMITTED RELATED TO PNEUMONIA, EVER, ELEVATED TROP. CM REVIEWED CHART AND SPOKE WITH CARE TEAM. CM MET WITH PT AT BEDSIDE THIS DAY. CM IS FAMILIAR WITH PT FROM PREVIOUS ADMISSIONS. PT RESIDES IN A HOUSE WITH FAMILY. PT HAS HOME O2 THROUGH [facility] AT [facility]. PT HAS TPN AND RN VISITS THROUGH [facility]. CARE TEAM INDICATED THAT THEY ANTICPATE THAT PT WILL BE HERE OVER THE WEEKEND. CM SPOKE WITH GENESIS AT [facility] AND INDICATED THAT CLINICAL UPDATES WILL BE FAXED TO NOTIFY THEM OF ANY CHANGES ONE MEDICALLY STABLE FOR DC. CM FOLLOWING FOR DC NEEDS.
[2020-10-06 16:33] VITALS: BP 126/61
--- NOTE | 2020-10-06 20:26 | NUR ---
Received pt from the ED at 7:40 am, admission completed except for consents, endorsed silva night nurse. Pt has an ileostomy which he manages himself with his own supplies. Refuses to have the bed alam on since he gets up to use the urinal, educated the pt regarding the policy. On 5 lites of O2 via NC. Poc followed, pain is managed with medications , partial relief is noted. Endorsed to the night nurse.
[2020-10-06 21:02] VITALS: BP 109/57
[2020-10-07 06:22] LABS: CALCIUM 8.2 mg/dL (8.5-10.1); MAGNESIUM 2.2 mg/dL (1.8-2.4); PHOSPHORUS 3.3 mg/dL (2.5-4.9); POTASSIUM 4.1 mmol/L (3.5-5.1)
--- NOTE | 2020-10-07 07:31 | NUR ---
ASSUMED PT CARE AROUND 1900. A&OX4. C/O BILAT HIP AND BACK PAIN. PRN PAIN MEDICATION GIVEN ORDERED. PT FREQUENTLY NEEDS TO STAND AT BEDSIDE TO USE URINAL OR EMPTY ILEOSTOMY. HE REFUSED BED ALARM. EDUCATION PROVIDED ON HOSPITAL FALL PROTOCOL BUT PT INSISTED BED ALARM BE LEFT OFF. PT DOES HAVE STEADY BALANCE WHILE STANDING AT SIDE OF BED. TPN INFUSING ORDERED. VSS. AFEBRILE. SOA W/ EXERTION. PROGRESSING SLOWLY TOWARD POC GOALS. REPORT GIVEN TO ONCOMING NURSE.
[2020-10-07 07:42] VITALS: BP 124/55
[2020-10-07 16:43] VITALS: BP 130/68
--- NOTE | 2020-10-07 17:59 | NUR ---
A/O*, calm, cooperative and pleasant; complained of generalized pain, pain medication given and worked; no n/v. self-care of stomy bag. sitting in bed, eating dinner and watching TV, will keep monitoring.
[2020-10-07 19:51] VITALS: BP 115/46
[2020-10-08 04:14] VITALS: BP 159/80
--- NOTE | 2020-10-08 06:00 | NUR ---
Pt. rested at short intervals during the night when checked on during frequent rounds. He can get easily short of air with activity. O2 on at 5 liters per a nasal canula. Po pain meds given for c/o pain (see emar) with some relief noted.
[2020-10-08 07:31] LABS: HEMATOCRIT 28.6 % (42.0-52.0); HEMOGLOBIN 9.1 gm/dL (14.0-18.0); MCH 26.7 pg (26.0-34.0); MCHC 31.9 g/dL (28.0-37.0); MCV 83.6 fL (80.0-100.0); RBC 3.42 mil/uL (4.50-6.00); WBC 7.4 thou/uL (4.0-11.0)
[2020-10-08 07:44] LABS: CREATININE 0.9 mg/dL (0.7-1.3); POTASSIUM 4.5 mmol/L (3.5-5.1)
[2020-10-08 07:57] VITALS: BP 117/71
--- NOTE | 2020-10-08 17:37 | NUR ---
Assumed pt care this am, vs stable. Pt refused to have his fluids turned back on claiming he was over loading thus the . POC followed with no signs or verbalizations of disress noted. Uses the urinal, get angry when be alarm is turned on educated on the policy. PICC line care and protocol followed. TPN scheduled at night. Very poor oral intake noted.
[2020-10-08 17:39] VITALS: BP 149/76
[2020-10-08 20:01] VITALS: BP 144/65
[2020-10-08 21:01] VITALS: BP 144/65
[2020-10-08 21:57] LABS: CALCIUM 8.3 mg/dL (8.5-10.1); CREATININE 1.1 mg/dL (0.7-1.3)
--- NOTE | 2020-10-09 03:08 | NUR ---
UPON SHIFT ASSESSMENT, PT AOX4 WITH HOARSE TONE. PT REPORTS 10/10 PAIN IN BOTH HIPS AND LOWER BACK. PT RECEIVING PRN PO OXYCODONE Q4HR WITH PRN PO APAP Q4HR AVAILABLE. PT REPORTS SOB WITH EXERTION, REMAINS ON 5L WITHOUT DESATURATIONS. PT REFUSING IVF AND TPN DUE TO REPORTS OF OVERLOAD. PT WITH POOR APPETITE, TOLERATING PO INTAKE OF FLUIDS AND REGULAR DIET WITHOUT ISSUE. PT WITHOUT NAUSEA OR EMESIS. PT AMBULATING INDEPENDENTLY IN ROOM, VOIDING PER URINAL. ILEOSTOMY IN PLACE, PATENT, NO CARE REQUIRED, PT NOTED TO PROVIDE CARES, SUPERVISION ONLY. FREQUENT REPOSITIONING ENCOURAGED WHILE IN BED, PT NOTED TO SHIFT INDEPENDENTLY. SENSATION INTACT, CAPILLARY REFILL LESS THAN 3SEC, PERIPHERAL PULSES PALPABLE IN ALL EXTREMITIES. PT ENCOURAGED TO NOTIFY STAFF FOR ALL NEEDS, CALL LIGHT WITHIN REACH, BED LOCKED IN LOWEST POSITION, FREQUENT MONITORING WILL CONTINUE.
[2020-10-09 06:13] LABS: HEMATOCRIT 26.4 % (42.0-52.0); HEMOGLOBIN 8.7 gm/dL (14.0-18.0); MCH 26.9 pg (26.0-34.0); MCHC 33.1 g/dL (28.0-37.0); MCV 81.4 fL (80.0-100.0); RBC 3.25 mil/uL (4.50-6.00); RDW 18.4 % (10.5-14.5); WBC 5.4 thou/uL (4.0-11.0)
[2020-10-09 06:22] LABS: ANION GAP 4 mmol/L (7-16); BUN 28 mg/dL (7-18); CALCIUM 8.2 mg/dL (8.5-10.1); CHLORIDE 101 mmol/L (98-107); CO2 33 mmol/L (21-32); CREATININE 1.1 mg/dL (0.7-1.3); GLUCOSE 115 mg/dL (74-106); POTASSIUM 4.6 mmol/L (3.5-5.1); SODIUM 138 mmol/L (136-145)
[2020-10-09 10:44] LABS: CHOLESTEROL 67 mg/dL (<200); HDL CHOLESTEROL 38 mg/dL (>40); LDL CHOLESTEROL 19 mg/dL (<100); TC:HDL 1.8 Ratio (Not establshd); TRIGLYCERIDE 51 mg/dL (<150); VLDL 10 mg/dL (<40)
--- NOTE | 2020-10-09 15:53 | NUR ---
PT CONTINUES ON IV ABX. CARE TEAM INDICATED THAT PT IS SLOWLY PROGRESSING TOWARD GOAL OF DISCHARGING HOME. CM FOLLOWING REGARDING DC PLANNING.
--- NOTE | 2020-10-09 19:52 | NUR ---
ASSUMED PT CARE THIS AM. PT IS ALERT & ORIENTED X4. PT HAS R UA PICC LINE. PT HAS L UQ ILEOSTOMY AND URINAL. PT IS ACCUCHECK Q6H. PT C/O OF PAIN AND GIVEN PAIN MEDICATION PER PT REQUEST. PT HAS 02 5L NC. PT IS ON TELE MONITOR. DID NOT INFUSED VANCO THIS AFTERNOON DUE TO VANCO TROUGH LEVEL WAS 34. PT TOLERATED DIET WELL DURING THE SHIFT. NO C/O OF NAUSEA AND VOMITING. PT ON THE BED, BED ON THE LOWEST POSITION, SIDE RAILS UP, CALL LIGHT WITHIN REACH. WILL CONTINUE TO MONITOR PT. FOLLOW POC.
[2020-10-09 20:17] VITALS: BP 118/59
--- NOTE | 2020-10-10 02:43 | NUR ---
PT IS A/O X4 AND IS UP AD EL. 5 LITERS O2 NC AND IS SOA WITH EXERTION. ILEOSTOMY IN PLACE AND DRAINING APPROPRIATELY. PT IS PROVIDING SELF CARE TO THIS. URINAL AT THE BEDSIDE. CONTINUES ON CONTACT ISOLATION. PT REFUSED TPN. Q6 HR BLOOD SUGAR WNL AND DID NOT REQUIRE INSULIN. PT REFUSED ANTICOAGULANT INJECTION. CALL LIGHT IS WITHIN REACH. PT CALLS OUT APPROPRIATELY. WILL CONTINUE TO MONITOR.
[2020-10-10 08:04] VITALS: BP 99/49
--- NOTE | 2020-10-10 15:29 | NUR ---
Received awake on bed. Due medications given as prescribed, able to swallow meds w/o difficulty. On telemetry; no complains and signs of chest pain, crushing sensation and heaviness. On O2 at 5lpm via nasal cannula. On regular diet- tolerating well- needs encouragement in eating and drinking; no nausea, no vomiting and no abdominal pain noted. On blood sugar monitoring every 6 hrs. With ileostomy at [facility]- pt self caring with ileostomy; output measured and recorded accordingly. With R UA PICC line- IV nurse aware re: line; With NS at 75cc/hr, infusing well. Night RN refusing to have TPN- Dr Vega informed re: this; as well as refusing Heparin. Complained of pain, due PRN pain meds given as prescribed. To continue monitoring patient.
[2020-10-10 16:02] VITALS: BP 134/66
[2020-10-10 20:03] VITALS: BP 132/60
--- NOTE | 2020-10-11 00:30 | NUR ---
Pt. demanding that he be given lasix because he feels like he is starting to swell. No pedal edema, but pt. says it is around his abdomen. Blank VAZQUEZ called and notified with new orders. See cpoe.
--- NOTE | 2020-10-11 04:31 | NUR ---
Pt. rested quietly at short intervals during the night when checked on during frequent rounds. He does get easily short of air with activity. Pt. c/o pain all over and po pain med given (see emar) with some relief noted. Voiding per urinal.
[2020-10-11 07:21] LABS: HEMATOCRIT 28.2 % (42.0-52.0); HEMOGLOBIN 9.1 gm/dL (14.0-18.0); MCHC 32.2 g/dL (28.0-37.0); MCV 83.8 fL (80.0-100.0); RBC 3.37 mil/uL (4.50-6.00); RDW 18.7 % (10.5-14.5); WBC 10.1 thou/uL (4.0-11.0)
[2020-10-11 07:29] LABS: CALCIUM 8.3 mg/dL (8.5-10.1); CREATININE 0.9 mg/dL (0.7-1.3); POTASSIUM 4.2 mmol/L (3.5-5.1)
[2020-10-11 07:56] VITALS: BP 114/59
[2020-10-11 15:22] VITALS: BP 120/56
--- NOTE | 2020-10-11 15:37 | NUR ---
CARE TEAM INDICATED POSSIBLE DC HOME TOMORROW. CM CALLED [facility] AND NOTIFIED THEM OF POSSIBLE DC. CM FAXED CLINICAL UPDATE TO THEM. THEY WILL NEED FINAL ORDERS TOMORROW. PRIOR TO DC. CM FOLLOWING REGARDING DC PLANNING.
--- NOTE | 2020-10-11 16:55 | NUR ---
CARE ASSUMMED AT 0700, PT ALERT AND ORIENTED X4, DENIES ANY CHEST PAIN, NAUSEA AND VOMITTING. PAIN MED GIVEN FOR. ILEOSTOSMY IN PLACE, HAD A 500ML OUTPUT. PT PICC LINE IN P-LACE. FALL PRECAUTIONS IN PLACE. CONTINUE TO BE ON 5L OF OXYGEN, PT BASELINE. DENIES ANY NEEDS AT MOMENT. WILL CONTINUE TO MONITOR
[2020-10-11 19:22] VITALS: BP 126/69
[2020-10-12 05:14] LABS: HEMATOCRIT 28.3 % (42.0-52.0); HEMOGLOBIN 9.2 gm/dL (14.0-18.0); MCHC 32.4 g/dL (28.0-37.0); MCV 83.5 fL (80.0-100.0); RBC 3.39 mil/uL (4.50-6.00); RDW 18.6 % (10.5-14.5); WBC 8.9 thou/uL (4.0-11.0)
[2020-10-12 05:35] LABS: CALCIUM 7.9 mg/dL (8.5-10.1); CREATININE 0.8 mg/dL (0.7-1.3); POTASSIUM 4.9 mmol/L (3.5-5.1)
[2020-10-12 07:34] VITALS: BP 137/69
--- NOTE | 2020-10-12 08:16 | NUR ---
RECEIVED CARE OF THIS PATIENT AT 1900. PATIENT ALERT AND ORIENTED X4. C/O PAIN, MED GIVEN. HAS TPN AND NS INFUSING VIA DOUBLE LUMAN PICC. HAS ILLIOSTOMY WHICH HE TAKES CARE OF HIMSELF. USES URINAL. ACCUCHECKS Q6HRS. AT MN WAS 131 AND THIS AM WAS 225, HE RECEIVED 4 UNITS LISPRO INSULIN. SLEPT OFF AND ON DURING NIGHT.
--- NOTE | 2020-10-12 12:10 | NUR ---
PATIENT HAS REFUSED BOTH AM BREATHING TREATMENTS. PATIENT LAYING ON RIGHT SIDE. PATIENT ON A 4L NC MAINTAINING A SAT OF 98%-100%. PATIENT HAS NPC ENCOURGE PATIENT TO TAKE TREATMENT BUT REFUSED
[2020-10-12 15:46] VITALS: BP 135/66
--- NOTE | 2020-10-12 16:36 | NUR ---
CARE TEAM INDICATED THAT PT ISN'T DC READY YET. ID ORDERED REPEAT CULTURES AWAITING RESULTS. CM SPOUKE WITH [facility] AND UPDATED THEM. CM FOLLWIING DC PLANNING.
[2020-10-12 19:08] VITALS: BP 98/56
--- NOTE | 2020-10-12 19:54 | NUR ---
Assumed pt care this am, VS stable. Would refuse breathing treatments stating "i am just tired of all of this" but would complain of SOB.Pt went down for x-ray. POC followed, appetite is very poor, TPN at night. Endorsed to the night nurse.
--- NOTE | 2020-10-13 05:05 | NUR ---
Pt. rested quietly at intervals during the night when checked on during frequent rounds. He has been given po pain med (see emar). Pt. voiced that he did not want to woken up during the night unless he called. So, midnoc blood sugar not done. He also refused his sub-q heparin. No c/o increased shortness of air. O2 on at 5l per a nasal canula.
[2020-10-13 06:51] LABS: HEMATOCRIT 27.7 % (42.0-52.0); HEMOGLOBIN 8.8 gm/dL (14.0-18.0); MCH 26.5 pg (26.0-34.0); MCHC 31.6 g/dL (28.0-37.0); MCV 84.1 fL (80.0-100.0); RBC 3.3 mil/uL (4.50-6.00); RDW 19.2 % (10.5-14.5); WBC 9.3 thou/uL (4.0-11.0)
[2020-10-13 06:56] LABS: CALCIUM 8.2 mg/dL (8.5-10.1); CREATININE 0.9 mg/dL (0.7-1.3); MAGNESIUM 2.8 mg/dL (1.8-2.4); POTASSIUM 5.5 mmol/L (3.5-5.1)
[2020-10-13 07:56] VITALS: BP 122/68
[2020-10-13 15:22] VITALS: BP 144/63
--- NOTE | 2020-10-13 15:36 | NUR ---
CARE TEAM INDICATED THAT PT MAY BE MEDICALLY STABLE TO DISCHARGE HOME TOMORROW Friday10/14/20. DC ORDERS AND SUMMERY WILL NEED TO BE FAXED TO [facility] AT F: P: . PT'S FAMILY WILL NEED TO BE CONTACTED FOR TRANSPORT AND A PORTABLE O2 TANK.
--- NOTE | 2020-10-13 19:53 | NUR ---
Assumed pt care this am, refused some medicatiosn towards the evening. Diet is still poor, wanted to be left alone an d not waken up. Is able to cough out phlem as stated by the pt. POC followed, informed night nurse of missed dose and to try to give it later on in pm. NO signs or verbalizations of distress noted.
[2020-10-13 20:15] VITALS: BP 136/61
--- NOTE | 2020-10-14 05:02 | NUR ---
patient aox4 makes needs known. tpn started at 1999. patient on 5l of oxygen no soa or distress noted this shift.patient refused midnight insulin. fall precaution in place. patient in bed asleep at this time breathing regular and unlaboured.
[2020-10-14 06:50] LABS: HEMATOCRIT 28.2 % (42.0-52.0); HEMOGLOBIN 9.3 gm/dL (14.0-18.0); MCH 27.4 pg (26.0-34.0); MCHC 32.8 g/dL (28.0-37.0); MCV 83.6 fL (80.0-100.0); RBC 3.38 mil/uL (4.50-6.00); WBC 9.8 thou/uL (4.0-11.0)
[2020-10-14 06:59] LABS: CALCIUM 8.2 mg/dL (8.5-10.1); CREATININE 0.9 mg/dL (0.7-1.3); MAGNESIUM 2.4 mg/dL (1.8-2.4); POTASSIUM 5.2 mmol/L (3.5-5.1)
[2020-10-14 07:35] VITALS: BP 115/69
--- NOTE | 2020-10-14 11:55 | NUR ---
Received awake on bed. Due medications given as prescribed, able to swallow meds w/o difficulty. Vital signs stable. On telemetry; no complains and signs of chest pain, crushing sensation and heaviness. Assisted in ADLs. On O2 at 5lpm via nasal cannula- pt's baseline as reported. On regular diet and supplements; assisted and encouraged in eating and drinking d/t poor appetite; no nausea, no vomiting and no abdominal pain noted. On blood sugar monitoring, taken and recorded accordingly. With ileostomy in place- pt self caring; output measured and recorded accordingly. Able to use urinal as well- output measured and recorded accordingly. Falls bundle in place. With ongoing TPN at 90cc/hr, infusing well at R upper arm(double lumen); on IV antibiotics as well. Complained of pain, due PO PRN pain meds given as prescribed. Pt seen and examined by Dr Damon this am, for possible discharge tomorrow- pt updated and aware. To continue monitoring patient.
[2020-10-14 15:35] VITALS: BP 121/62
[2020-10-14 19:59] VITALS: BP 108/53
[2020-10-15 05:35] LABS: HEMATOCRIT 27.7 % (42.0-52.0); HEMOGLOBIN 9.1 gm/dL (14.0-18.0); MCH 27.8 pg (26.0-34.0); MCHC 32.9 g/dL (28.0-37.0); MCV 84.4 fL (80.0-100.0); RBC 3.29 mil/uL (4.50-6.00); RDW 19.6 % (10.5-14.5); WBC 8.8 thou/uL (4.0-11.0)
[2020-10-15 05:51] LABS: CALCIUM 8.1 mg/dL (8.5-10.1); CREATININE 0.9 mg/dL (0.7-1.3); MAGNESIUM 2.3 mg/dL (1.8-2.4); POTASSIUM 5.2 mmol/L (3.5-5.1)
--- NOTE | 2020-10-15 07:19 | NUR ---
pain controlled this shift. tpn started [place] [address] alcazar followed. patient refused midnight blood sugar and am insulin. patient in bed asleep at this time breathing regular and unlaboured.
[2020-10-15 08:23] VITALS: BP 112/852
[2020-10-15] MEDS ORDERED: PREDNISONE 10 M10 MG PO (12:54)
[2020-10-15] MEDS ORDERED: DOXYCYCLINE 10100 M2 PO (12:55)
[2020-10-15 13:47] VITALS: BP 112/852
--- NOTE | 2020-10-15 14:59 | NUR ---
Assumed pt care this am, vs stable. refused insulin and heparin. Diet is poor but in TPN. On 5 liters via NC, would ge sob with activity. Uses the urinal at the bedside. Productive cough is noted and is able to cough out phlegm. Mild ditress noted but non verbalizaed. Ileostomy in place draining yellow brown liquid. PICC line patent, to be kept in place since pt has TPN at home. DC instructions given to the pt, awaiting family to pick the pt up, DC instructions and summary faxed to [facility] confirmation received. 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
== END 2020-10-15 15:40 | disposition home health service (06) | DRG 193 ==
LOC: ER 12:34 → 4W 19:13 → EROBS 19:13 → 4W 10-06 07:13
PROVIDERS: Emergency Medicine; Internal Medicine; Nurse Practitioner; Specialist; ADMIT Hospitalist; ATTEND Hospitalist
DX: J18.9 Pneumonia, unspecified organism (principal); E43 Unspecified severe protein-calorie malnutrition; J96.21 Acute and chronic respiratory failure with hypoxia; J44.1 Chronic obstructive pulmonary disease with (acute) exacerbation; J44.0 Chronic obstructive pulmonary disease with (acute) lower respiratory infection; N39.0 Urinary tract infection, site not specified; I50.32 Chronic diastolic (congestive) heart failure; I42.9 Cardiomyopathy, unspecified; J90 Pleural effusion, not elsewhere classified; Z68.1 Body mass index [BMI] 19.9 or less, adult; E87.6 Hypokalemia; D64.9 Anemia, unspecified; R62.7 Adult failure to thrive; F32.9 Major depressive disorder, single episode, unspecified; E78.5 Hyperlipidemia, unspecified; F17.210 Nicotine dependence, cigarettes, uncomplicated; R77.8 Other specified abnormalities of plasma proteins; R13.10 Dysphagia, unspecified; N18.9 Chronic kidney disease, unspecified; I25.10 Atherosclerotic heart disease of native coronary artery without angina pectoris; Z20.822 Contact with and (suspected) exposure to COVID-19; Z66 Do not resuscitate; Z95.1 Presence of aortocoronary bypass graft; I25.2 Old myocardial infarction; Z88.1 Allergy status to other antibiotic agents; Z88.8 Allergy status to other drugs, medicaments and biological substances; Z79.899 Other long term (current) drug therapy
CPT/HCPCS: 10045

== ENCOUNTER 2020-12-12 10:30 | Inpatient (IN) | payer OTHER ==
[~2020-12-12] VITALS: Ht 165.1 cm; Wt 58.5 kg
[2020-12-12 10:30] VITALS: BP 123/68
[~2020-12-12 10:30] MED LIST changes: +DOXYCYCLINE 10100 M2 PO
--- NOTE | 2020-12-12 11:11 | EKG ---
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: con : 1955 Requested By: Cain Garza Order Number: [id number] MD: Nabeel Torres Measurements Intervals [place] Rate: 60 P: 46 FL: 147 QRS: 2 QRSD: 118 T: -4 QT: 553 QTc: 553 Interpretive Statements Sinus rhythm Incomplete right bundle branch block Compared to ECG 10/05/2020 14:16:02 T-wave abnormality no longer present Electronically Signed On 12-12-2020 11:10:57 CDT by Nabeel Torres [email or web address] <ELECTRONICALLY SIGNED> By: Nabeel Torres MD, [facility] 12/12/20 1110 1050 1050 Nabeel Torres MD, FACC /EPI
[2020-12-12 11:23] LABS: BE(vivo) 7.9 mmol/L (-2 to +3); HCO3 32.4 mmol/L (22.0-26.0); PCO2 45.2 mmHg (35.0-45.0); PO2 300.1 mmHg (80.0-100.0); pH 7.473 (7.360-7.450); sO2 99.7 % (92.0-98.0)
[2020-12-12 11:24] LABS: ABSOLUTE NEUTROPHILS 2.3 thou/uL (1.4-8.2); BASOPHILS 0.5 % (0.0-2.0); EOSINOPHILS 6.8 % (0.0-3.0); HEMATOCRIT 26.3 % (42.0-52.0); HEMOGLOBIN 8.5 gm/dL (14.0-18.0); LYMPHOCYTES 24.1 % (24.0-44.0); MCH 26.4 pg (26.0-34.0); MCHC 32.3 g/dL (28.0-37.0); MCV 81.8 fL (80.0-100.0); MONOCYTES 10.4 % (1.0-8.0); PLATELET COUNT 131 thou/uL (150-400); POLYS 58.2 % (36.0-66.0); RBC 3.21 mil/uL (4.50-6.00); RDW 16.8 % (10.5-14.5)
[2020-12-12 11:36] LABS: CALCIUM 8.3 mg/dL (8.5-10.1); CREATININE 1.4 mg/dL (0.7-1.3); POTASSIUM 4.5 mmol/L (3.5-5.1)
[2020-12-12 11:46] LABS: ALBUMIN 1.9 g/dL (3.4-5.0); TOTAL BILIRUBIN 0.4 mg/dL (0.2-1.0); TOTAL PROTEIN 6.6 g/dL (6.4-8.2)
[2020-12-12 11:49] LABS: TROPONIN-I 1.3 ng/mL (<0.06)
--- NOTE | 2020-12-12 17:23 | NUR ---
65 year old male presenting to the ED via EMS ground with productive cough. Pt was recently discharged from [facility] for similar symptoms 2 days ago. EMS reports O2 saturation at baseline 6L was 76%. EMS put the pt on 15 L via nonrebreather and O2 saturation improved to 100%. Upon arrival to the ED, EMS decreased O2 flow to 12 L and pt saturations noted at 100%. Pt denies COVID-19 infection as he had a negative test at [facility]. In the ED the patient was found to be negative via [facility] Now and The patient has been admitted with Dyspnea, COPD exacerbation, elevated troponin Patient last discharged on 10-15-20 to home with home infusion of [facility]. At last admission patient does have 02 in the home. Sister Estrella at [phone] and son Zan at [phone] as well as another sister Casi at [phone]. CM will follow this patient for discharge needs.
[2020-12-12 18:28] VITALS: BP 152/70
[2020-12-12 19:29] VITALS: BP 164/73
[2020-12-12 19:40] VITALS: BP 168/77
[2020-12-12 23:41] VITALS: BP 131/59
[2020-12-13 00:20] VITALS: BP 131/59
--- NOTE | 2020-12-13 02:23 | NUR ---
PT ADMITTED FROM ED AT AROUND 1940 FOR COPD EXERCEBATION AND DYSPNEA, PT ALERT AND ORIENTED, SR/SB ON TELE WITH BBB, DENIES CP, PAIN MEDS GIVEN PER JUL FOR GENERALIZED PAIN WITH RELIEF, ADMISSION ASSESSMENT, HISTORY AND EDUCATION COMPLETED, REFUSED LOVENOX AND SCDS, PT EDUCATED THE IMPORTANCE OF BOTH, PT ADMITTED WITH PICC LINE TO THE TRUNG, STATES HE USES IT AT HOME FOR TPN, COLOSTOMY IN PLACE, ON 6L NC O2SATS STABLE, MEDS GIVEN PER JUL, DENIES NEEDS AT THIS TIME, WILL CONTINUE TO MONITOR AND FOLLOW POC
[2020-12-13 04:48] VITALS: BP 131/64
[2020-12-13 05:16] LABS: HEMOGLOBIN 8.8 gm/dL (14.0-18.0)
[2020-12-13 05:21] LABS: HEMATOCRIT 26.6 % (42.0-52.0); MCH 26.9 pg (26.0-34.0); MCV 81.5 fL (80.0-100.0); RBC 3.27 mil/uL (4.50-6.00); RDW 16.8 % (10.5-14.5)
[2020-12-13 05:31] LABS: WBC 1.9 thou/uL (4.0-11.0)
[2020-12-13 05:49] LABS: CALCIUM 7.8 mg/dL (8.5-10.1); CREATININE 1.6 mg/dL (0.7-1.3); POTASSIUM 4.5 mmol/L (3.5-5.1)
[2020-12-13 07:45] VITALS: BP 141/65
--- NOTE | 2020-12-13 08:57 | NUR ---
PT REFUSED OT EVAL AND DOES NOT FEEL HE NEEDS OR WANTS. PLEASE SEE OT VARIANCE
--- NOTE | 2020-12-13 14:21 | NUR ---
ORDERS RECEIVED FOR PT EVAL AND TREAT. Pt LIVES W/ SISTER AND BROTHER. ONE LORNA. NO AD IN HOME BUT MOSTLY HOMEBOUND. STATED 'I DON'T MOVE AROUND MUCH AT HOME.' WITH REGARDS TO PT, STATED 'I DON'T NEED IT' POLITELY. HAS BEEN USING URINAL AT [facility] ON HIS OWN HE REPORTED. ASKING ABOUT GETTING A COVID VACCINE - EDUCATED ON [facility]. Pt DECLINING PT NEEDS AT THIS TIME. ACUTE PT TO SIGN OFF. PLEASE CONSIDER RE-CONSULTING PT SERVICES IF Pt'S STATUS CHANGES.
[2020-12-13 15:08] VITALS: BP 95/47
--- NOTE | 2020-12-13 16:29 | NUR ---
Met with patient who transferred from [facility] to [facility] with SOA.Patient is A/Ox4. Patient resides in home with family, sister, brother and mother. patient on service with [facility] infusion for TPN. His RN Floridalma with weekly visits. Patient has home oxygen with [employer] usu at 5 liters. Patient has been on service with [facility] hospice in past. Spoke with [facility] and faxed udated information.
--- NOTE | 2020-12-13 17:21 | NUR ---
PT ASSESSED AT START OF SHIFT. STATES BREATHING IS BETTER. ON 5LNC AT HOME AND HERE NOW. HAS CHRONIC PAIN AND TAKES MEDS REGULARLY FOR IT WHICH HELPS SOME. PT DECLINED TO AMBULATE OR SIT IN CHAIR STATING HE SITS UP CROSS-LEGGED IN BED APPETITE IS FAIR. WILL START HS TPN THIS EVENING HE IS ON AT HOME.
[2020-12-13 21:00] VITALS: BP 136/74
[2020-12-14 05:43] VITALS: BP 160/70
[2020-12-14 06:18] LABS: HEMOGLOBIN 9.1 gm/dL (14.0-18.0); MCH 27.7 pg (26.0-34.0); MCHC 33.7 g/dL (28.0-37.0); MCV 82.2 fL (80.0-100.0); RBC 3.28 mil/uL (4.50-6.00); RDW 16.9 % (10.5-14.5); WBC 5.3 thou/uL (4.0-11.0)
[2020-12-14 06:45] LABS: CALCIUM 7.1 mg/dL (8.5-10.1); CREATININE 1.5 mg/dL (0.7-1.3); MAGNESIUM 2.6 mg/dL (1.8-2.4); PHOSPHORUS 4.2 mg/dL (2.5-4.9); POTASSIUM 4.2 mmol/L (3.5-5.1)
[2020-12-14 07:33] VITALS: BP 131/58
--- NOTE | 2020-12-14 07:55 | NUR ---
SLEPT MOST OF SHIFT. PAIN MEDICATION GIVEN NEEDED WITH NOTED RELIEF. WORKING ON GOALS AND PLAN OF CARE FOR NOC. DANGLES AT SIDE OF BED TO VOID NEEDED WITH NOTED SHORTNESS OF BREATH. CONTINUE ASSES.
[2020-12-14 11:41] VITALS: BP 111/62
[2020-12-14 15:12] VITALS: BP 119/52
--- NOTE | 2020-12-14 15:34 | NUR ---
Consult rec'd for hospice info visit. Pt has been on with [facility] in 2019 and [place] Sanjiv Lagos here to visit with the pt. Referral faxed to intake. After discussion, all parties planning for dc home with [facility] on Friday. He would like to see if his respiratory status can improve a little over the weekend. His hospice dx is enstage COPD and they will setup home o2 for him. [facility] will continue to supply and manage his TPN as it is not related to his copd. At the point that he is transitioning they will make the decision to stop his TPN. [facility] updated. Family here as well as in agreement. They are working on taking turns helping with his care as his 87 yr old mother is exhausted and can no longer be his primary caregiver. All parties updated. Will need to reassess his transport needs on Friday and fax orders to both [facility] and [facility].
[2020-12-14 20:15] VITALS: BP 136/64
--- NOTE | 2020-12-14 21:54 | NUR ---
PT IS AXOX4, PLEASANT; VSS, AFEBRILE, SR BBB ON THE MONITOR. C/O GENERALIZED PAIN. RX OXYCODONE GIVEN. CASE MGMT CONSULTED. [facility] EVALUATION COMPLETED THIS AFTERNOON. DR JACKMAN CONSULTED. POC IS TO CONTINUE PAIN MGMT, TPN AT NIGHT FOR NUTRITION, AND CONTINUE BREATHING TX. FALL PRECAUTIONS IN PLACE. POSS D/C HOME WITH HOSPICE. NO CONCERNS AT THIS TIME.
[2020-12-15 04:45] VITALS: BP 154/68
[2020-12-15 06:47] LABS: HEMOGLOBIN 8.5 gm/dL (14.0-18.0); MCH 27.2 pg (26.0-34.0); MCHC 32.6 g/dL (28.0-37.0); MCV 83.5 fL (80.0-100.0); RBC 3.11 mil/uL (4.50-6.00); RDW 16.5 % (10.5-14.5); WBC 6.4 thou/uL (4.0-11.0)
[2020-12-15 07:08] LABS: CREATININE 1.3 mg/dL (0.7-1.3); POTASSIUM 4.4 mmol/L (3.5-5.1)
--- NOTE | 2020-12-15 07:44 | NUR ---
SLEPT MOST OF SHIFT. PAIN MEDICATION GIVEN NEEDED FOR COMFORT. TURNS SELF AND DANGLES TO VOID. TPN INFUSING OVERNOC. WORKING ON GOALS AND PLAN OF CARE FOR NOC. WORKING ON GOALS AND PLAN OF CARE FOR NOC. CONTINUE TO ASSES.
[2020-12-15 07:45] VITALS: BP 141/61
[2020-12-15 11:13] VITALS: BP 128/60
[2020-12-15 15:15] VITALS: BP 127/59
--- NOTE | 2020-12-15 18:02 | NUR ---
ASSESSMENT CHARTED - MEDS PER JUL - GIVEN PERCOCET X 2 DOSES TODAY FOR CO'S OF BACK/ GEN PAIN WITH MOD RELIEF. PT UP TO THE SIDE OF THE BED TO VOID. RADHA DIET AND FLUIDS IN SMALL AMOUNTS - NO CO'S OF NASUEA. TPN D/C'D THIS AM. NEW BAG TO BE HUNG THIS EVENING. PT WITH SEVERE SOB WITH MIN EXERTION - MOIST COUGH. STATES HE IN COMFORTABLE AT THE PRESENT TIME.
[2020-12-15 20:50] VITALS: BP 126/70
[2020-12-16 04:45] VITALS: BP 153/94
--- NOTE | 2020-12-16 06:06 | NUR ---
SLEPT MOST OF SHIFT. STATES IS FEELING MUCH BETTER AND ALMOST READY TO GO HOME ON HOSPICE FRIDAY. WORKING ON GOALS AND PLAN OF CARE FOR NOC. CONTINUE TO CHERRIE SCHUSTER.
[2020-12-16 07:20] VITALS: BP 137/77
[2020-12-16 15:50] VITALS: BP 122/77
--- NOTE | 2020-12-16 20:14 | NUR ---
PT IS AXOX4, PLEASANT; C/O GENERALIZED PAIN /. VSS, AFEBRILE, SR WITH BBB ON MONITOR. PT C/O FEELING FULL, AND DIFFICULTY BREATHING. PT RECEIVED TPN OVERNIGHT, HAS POOR APPETITE THROUGH OUT DAY. DR FARIA CONSULTED. [email or web address] FRIDAY. FALL PRECAUTIONS IN PLACE DUE TO GENERALIZED WEAKNESS. CONTINUE PAIN MGMT. NO CONCERNS AT THIS TIME.
[2020-12-16 20:15] VITALS: BP 132/59
[2020-12-17 03:58] VITALS: BP 134/60
[2020-12-17 05:04] LABS: CALCIUM 7.1 mg/dL (8.5-10.1); CREATININE 1.1 mg/dL (0.7-1.3); PHOSPHORUS 2.8 mg/dL (2.5-4.9); POTASSIUM 4.7 mmol/L (3.5-5.1)
[2020-12-17 07:55] VITALS: BP 127/67
[2020-12-17 16:05] VITALS: BP 137/74
--- NOTE | 2020-12-17 16:49 | NUR ---
Assumed pt care this am. Pt is A&O x4, plesant and cooperative. Currently on 5L NC, congested cough. Pt reported generalized pain this afternoon, received PRN oxycodone. Pt states that he is ready to go home. Pt denies any other needs at this time. Will continue to monitor.
[2020-12-17 22:34] VITALS: BP 129/65
[2020-12-18 04:35] VITALS: BP 131/58
--- NOTE | 2020-12-18 04:45 | NUR ---
SLEPT MOST OF SHIFT. PAIN MEDICATION GIVEN NEEDED WITH NOTED RELIEF. TPN INFUSING OVER NOC PER ORDERS. WORKING ON GOALS AND PLAN OF CARE FOR NOC. STANDS AT BEDSIDE WITH SBA TO VOID. ASSIST WITH COLOSTOMY CARE NEEDED. CONTINUE TO ASSES. PLANS FOR DISCHARGE HOME WITH HOSPICE TODAY.
[2020-12-18 07:35] VITALS: BP 148/67
--- NOTE | 2020-12-18 10:38 | NUR ---
Assumed care of pt this AM. Pt is A&O x4, on 5L NC. TPN stopped at 0930. Pt standby assist for urinal. Fine crackles heard in the bases. Plan to d/c home today with hospice. PRN oxycodone this morning given this AM for generalized pain. Pt denies any other needs at this time. Will continue to monitor.
[2020-12-18 12:29] VITALS: BP 148/67
[2020-12-18 14:03] VITALS: BP 148/67
[2020-12-18 14:22] VITALS: BP 148/67
[2020-12-18 16:22] VITALS: BP 148/67
--- NOTE | 2020-12-18 16:30 | NUR ---
spoke with Yolis at [facility] who reports they cannot accept patient if he discharges home with hospice unless hospice pays out of pocket for TPN. Yolis reports they cannot accept and bill insurance for infusion and hospice. Sp with Collin at [facility] who sp with Yolis directly. Jamie reports they will not cont with TPN if rec hospice. Sp with patient regarding stopping TPN. Patient reports prev he was rec [facility] and TPN and he rec a bill. He reports he wants to cont with TPN services. He wanted hospice services for more assistance at home. Patient prefers return home with his current services. Patient dc home, family transported home. Arranged HH with [facility] ordered. Requested PT/OT and SW ordered. Faxed orders to [facility]. Patient already left for home. [facility] to call patient at home.
--- NOTE | 2020-12-19 14:30 | NUR ---
Rec call from [facility] that patient is registered sex offender and they are unable to accept patient. Sp with [facility] care and they do not service area. [facility] can accept. Santiago from [facility] faxed clinical information to DARSHAN.
== END 2020-12-18 16:49 | disposition home health service (06) | DRG 291 ==
LOC: ER 10:30 → EROBS 12:28 → 2N 12:28 → EROBS 14:15 → 2N 19:37
PROVIDERS: Emergency Medicine; Nurse Practitioner; ADMIT Hospitalist; ATTEND Hospitalist
DX: I50.23 Acute on chronic systolic (congestive) heart failure (principal); N17.0 Acute kidney failure with tubular necrosis; J96.21 Acute and chronic respiratory failure with hypoxia; J44.1 Chronic obstructive pulmonary disease with (acute) exacerbation; K91.2 Postsurgical malabsorption, not elsewhere classified; J93.9 Pneumothorax, unspecified; I50.22 Chronic systolic (congestive) heart failure; R77.8 Other specified abnormalities of plasma proteins; N18.9 Chronic kidney disease, unspecified; E78.5 Hyperlipidemia, unspecified; F17.210 Nicotine dependence, cigarettes, uncomplicated; I08.1 Rheumatic disorders of both mitral and tricuspid valves; D64.9 Anemia, unspecified; I25.10 Atherosclerotic heart disease of native coronary artery without angina pectoris; G89.4 Chronic pain syndrome; F32.9 Major depressive disorder, single episode, unspecified; Z20.822 Contact with and (suspected) exposure to COVID-19; I25.2 Old myocardial infarction; Z95.1 Presence of aortocoronary bypass graft; Z79.899 Other long term (current) drug therapy; Z88.1 Allergy status to other antibiotic agents; Z86.73 Personal history of transient ischemic attack (TIA), and cerebral infarction without residual deficits; Z93.2 Ileostomy status
CPT/HCPCS: 10081

== ENCOUNTER 2021-02-01 18:48 | Inpatient (IN) | payer OTHER ==
[~2021-02-01] VITALS: Ht 165.1 cm; Wt 53.5 kg
[2021-02-01 18:49] VITALS: BP 165/73
[2021-02-01 19:55] LABS: HEMATOCRIT 25.8 % (42.0-52.0); HEMOGLOBIN 8.3 gm/dL (14.0-18.0); MCH 26.1 pg (26.0-34.0); MCHC 32.1 g/dL (28.0-37.0); MCV 81.4 fL (80.0-100.0); PLATELET COUNT 137 thou/uL (150-400); RBC 3.17 mil/uL (4.50-6.00); RDW 18.1 % (10.5-14.5); WBC 2.9 thou/uL (4.0-11.0)
[2021-02-01 20:03] LABS: CALCIUM 8.7 mg/dL (8.5-10.1); CREATININE 0.8 mg/dL (0.7-1.3); POTASSIUM 4.2 mmol/L (3.5-5.1)
[2021-02-01 20:13] LABS: ALBUMIN 1.9 g/dL (3.4-5.0); TOTAL BILIRUBIN 0.3 mg/dL (0.2-1.0); TOTAL PROTEIN 6.7 g/dL (6.4-8.2)
[2021-02-01 20:41] LABS: ABSOLUTE NEUTROPHILS 1.3 thou/uL (1.4-8.2)
[2021-02-01 20:42] LABS: ANISOCYTOSIS 2+; PLATELET ESTIMATE DECREASED; POIKILOCYTOSIS 1+
[2021-02-02] VITALS (7 sets, daily range): BP systolic 127–170; BP diastolic 55–79
[2021-02-02] MEDS ORDERED: ZOLPIDEM TARTRA10 MG PO (05:12)
[2021-02-02] MEDS ORDERED: FENTANYL1 EAC1 TRANSDERM (05:12)
[2021-02-02] MEDS ORDERED: IRON325 PO (05:13)
[2021-02-02] MEDS ORDERED: OXYCODONE-APAP1 TAB PO (05:13)
--- NOTE | 2021-02-02 08:00 | NUR ---
PT ARRIVES ON UNIT FROM ED.
--- NOTE | 2021-02-02 08:09 | EKG ---
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 : 1955 Requested By: Akhil Jurado Order Number: [id number] MD: Nabeel Torres Measurements Intervals [place] Rate: 59 P: 21 MT: 137 QRS: 6 QRSD: 121 T: -27 QT: 501 QTc: 497 Interpretive Statements Sinus rhythm Atrial premature complex Right bundle branch block Minimal ST elevation, lateral leads Compared to ECG 12/12/2020 10:50:23 Atrial premature complex(es) now present Right bundle-branch block now present ST (T wave) deviation now present Incomplete right bundle-branch block no longer present Electronically Signed On 02-02-2021 8:08:53 CDT by Nabeel Torres [email or web address] <ELECTRONICALLY SIGNED> By: Nabeel Torres MD, FACC 02/02/21807 03 03 Nabeel Torres MD, FAC /EPI
--- NOTE | 2021-02-02 17:49 | NUR ---
RECEIVED PT FROM ED AT THE BEGINNING OF THE SHIFT. PT HAS BEEN PLEASANT WITH ONLY COMPLAINTS OF PAIN, REQUESTING PAIN MEDICATION. MEDICATION PROVIDED PT STATED HE RECEIVED RELIEF. PT HAS BEEN ABLE TO EMPTY HIS OWN OSTOMY WITHOUT DIFFICULTY.
[2021-02-03 04:21] VITALS: BP 149/67
--- NOTE | 2021-02-03 05:02 | NUR ---
RECEIVED PATIENT AT 1900H.PATIENT IS ALERT AND ORIENTED X4.ON OXYGEN SUPPORT VIA NASAL CANNULA.WITH PICC LINE AT RIGHT FOREARM INTACT, TPN STARTED ORDERED.WITH OSTOMY INTACT.ALL NEEDS ATTENDED. TO CONTINOUSLY MONITOR.
[2021-02-03 06:09] LABS: HEMATOCRIT 24.4 % (42.0-52.0); HEMOGLOBIN 7.8 gm/dL (14.0-18.0); MCH 26.3 pg (26.0-34.0); MCHC 31.8 g/dL (28.0-37.0); MCV 82.6 fL (80.0-100.0); RBC 2.95 mil/uL (4.50-6.00); RDW 18.3 % (10.5-14.5); WBC 4.4 thou/uL (4.0-11.0)
[2021-02-03 06:24] LABS: CALCIUM 8.5 mg/dL (8.5-10.1); MAGNESIUM 2.2 mg/dL (1.8-2.4)
[2021-02-03 08:00] VITALS: BP 130/68
[2021-02-03 12:00] VITALS: BP 151/77
--- NOTE | 2021-02-03 12:50 | NUR ---
Assumed pt care at 7am.Pt in bed half asleep early this am very fussy and angry.When rn asked what's the problem.Pt said he just started sleeping when rns came in for shift report.Assessment completed.vss. Tpn completed infusing before breakfast.Pt c/o generalized pain and oxy tab given as ordered with relief.Pt voided per urinal at bs. No further c/o. Will continue to monitor.
[2021-02-03 15:48] VITALS: BP 143/74
--- NOTE | 2021-02-03 17:46 | NUR ---
PATIENT SLOWLY PROGRESSING TOWARDS THE PLAN OF CARE.
[2021-02-03 21:20] VITALS: BP 147/65
[2021-02-04 05:47] VITALS: BP 144/65
[2021-02-04 08:20] VITALS: BP 123/70
--- NOTE | 2021-02-04 09:37 | NUR ---
PT LYING IN BED. VOIDING PER URINAL. COLOSTOMY--SELF CARE. OXY IR PROVIDING PAIN RELIEF. RESTING COMFORTABLY. NO NEEDS VOICED. CALL LIGHT WITHIN REACH. FREQUENT OBSERVATION.
[2021-02-04 12:30] VITALS: BP 148/80
[2021-02-04 15:30] VITALS: BP 141/73
--- NOTE | 2021-02-04 16:42 | NUR ---
TOOK OVER CARE FOR THIS PATIENT AT 0700. PATIENT RESTING IN BED. PATIENT REPORTS NOT TOLERATING LAYING FLAT. PATIENT AXOX4. PATIENT WEARING 5.0 L O2 VIA NASAL CANNULA. PATIENT SOA WITH EXERTION. C/O OF PAIN IN SHOULDERS AND LOWER BACK; PRN PAIN MEDICATION ADMINISTERED WITH PARTIAL PAIN RELIEF. PATIENT CONCERNED REGARDING FLUID RETENTION; EDUCATED PATIENT ON HAVING GOOD URINE OUTPUT AND TRACE EDEMA TO BLE. PATIENT REFUSED 1500 NORMAL SALINE; REPORTED PATIENT'S REFUSAL AND CONCERNS TO DR. FARIA. CHANGED ORDER TO 1000 ML NS DAILY. PATIENT DENIES ANY OTHER CONCERS OR NEEDS AT THIS TIME. FALL PRECAUTIONS IN PLACE AND CALL LIGHT WITHIN REACH.
[2021-02-04 19:55] VITALS: BP 136/65
[2021-02-05 05:50] VITALS: BP 155/79
[2021-02-05 06:39] LABS: ALBUMIN 2.1 g/dL (3.4-5.0); CALCIUM 8.5 mg/dL (8.5-10.1); CREATININE 0.9 mg/dL (0.7-1.3); MAGNESIUM 2.3 mg/dL (1.8-2.4); PHOSPHORUS 3.5 mg/dL (2.6-4.7); POTASSIUM 4.8 mmol/L (3.5-5.1); TOTAL BILIRUBIN 0.3 mg/dL (0.2-1.0); TOTAL PROTEIN 6.8 g/dL (6.4-8.2)
[2021-02-05 07:00] VITALS: BP 134/68
[2021-02-05 12:00] VITALS: BP 117/61
[2021-02-05] MEDS ORDERED: PREDNISONE 10 M10 M1 PO (13:07)
[2021-02-05 15:30] VITALS: BP 123/77
--- NOTE | 2021-02-05 15:57 | NUR ---
Patient resides in home with brother, sister, and mother. He reports limited support at home. patient has [facility] home infusion for TPN. patient reports he will dc home as no where accepts him in facility with TPN. Discussed some facilities accept TPN. Patient interested in [facility] or any facility near by that accepts TPN. Faxed referral for review. Discussed with patient skilled with [facility] and director long term care care with application of [place] medicaid. Patient unaware SS check to facility. He is reconsidering home. Patient reports family is not supportive with his eating and food. he reports his brother is "crazy" sister works all the time and mother elderly. Appears noone able to assist with food preparation. Spoke with Daysi with [employer] and faxed clinical for review.
[2021-02-05 20:36] VITALS: BP 140/71
--- NOTE | 2021-02-06 05:50 | NUR ---
patient transfered from , admitted for copd exacerbation. patient aox4 makes needs known. patient refused tpn d/t ble +2 edema. patient educated to elevate ble. patient on 5l of oxygen no soa or distress noted. patient is not a fall risk. patient has a colostomy bag and empties himself. patient uses urinal.patient in bed asleep at this time breathing regular and unlaboured.
[2021-02-06 08:00] VITALS: BP 139/65
--- NOTE | 2021-02-06 12:28 | NUR ---
REFERRALS HAD BEEN SENT TO [facility]. JULIANNE ARTEAGA CAN'T ACCEPT DUE NOCUTURNAL TITRATION. CM REACHED OUT TO [facility] AN LEFT VM WITH ADMISSION. CM FOLLOWING REGARDING DC PLANNING. CARE TEAM INDICATED THAT PT IS MEDICALLY STABLE TO DC.
[2021-02-06 16:00] VITALS: BP 140/66
--- NOTE | 2021-02-06 19:54 | NUR ---
Assumed pt care this am, colostomy in place. Diet and medications are tolerated well +2 edma noted on BLE, resolved with lasix. POC followed, maintianed on 5 Liters of O2 via NC. Endorsed to the night nurse.
[2021-02-06 20:59] VITALS: BP 120/66
--- NOTE | 2021-02-07 05:55 | NUR ---
ASSUMED CARE OF PT AT 1900HRS. PT IS AOX4 AND LETS NEEDS BE KNOWN. 5L O2 VIA NC CONTINUED. COLOSTOMY IN PLACE. ASSESSMENT CHARTED. PT DENIED PAIN, NAUSEA OR SOA. PT SLEPT PART OF THE SHIFT. NO S/S OF ACUTE DISTRESS. WILL CONTINUE TO MONITOR.
[2021-02-07 09:16] VITALS: BP 157/77
[2021-02-07 12:43] VITALS: BP 149/76
[2021-02-07] MEDS ORDERED: LASIX 20 MG TAB20 MG PO (13:34)
--- NOTE | 2021-02-07 14:00 | NUR ---
PT IS TO DC TO [facility] THIS DAY. PT IS AWARE AND AGREEABLE. CHART COPY MADE. ORDERS FAXED. NURSE CALLED REPORT TO FACILITY. NO OTHER CM INTERVENTION INDICATED. CASE CLOSED.
--- NOTE | 2021-02-07 14:19 | NUR ---
TODAY THIS PT HAS BEEN D/C HE DIDN'T HAVE ANY PAIN FOR ME AND HE DID GET A DOSE OF LASIX FOR HIS SLIGHT EDEMA. HE TOLERATED HIS ANTIBIOTICS WELL AND USED THE URINAL WITH NO PROBLEMS. REPORT CALLED AND GIVEN TO HIS NEW FACILITY.
--- NOTE | 2021-02-08 15:53 | NUR ---
HARSHAL NOTIFIED BY UR NURSE THAT [facility] HAD CALLED ASKING FOR SOME ADDITIONAL INFO FOR SKILLED AUTH TODAY. [facility] HAD INDICATED THAT THEY HAD AUTH AND WERE ABLE TO ACCEPT PT YESTERDAY WHICH PT DISCHARGED THERE. CM ATTEMPTED PT TO [facility] THIS DAY TO PROVIDE CONTACT FOR MARISA AT [facility] P: F1 . CM AWAITING CALL BACK.
== END 2021-02-07 14:49 | DRG 291 ==
LOC: ER 18:48 → EROBS 21:58 → 4W 21:58 → 2N 21:58 → 4W 02-05 20:01
PROVIDERS: Emergency Medicine; Internal Medicine Pulmonary Disease; Nurse Practitioner Family; ADMIT Hospitalist; ATTEND Hospitalist
PROC: 05HY33Z Insertion of Infusion Device into Upper Vein, Percutaneous Approach (ICD-10-PCS; principal; 2021-02-03)
PROC: 3E02340 Introduction of Influenza Vaccine into Muscle, Percutaneous Approach (ICD-10-PCS; principal; 2021-02-03)
DX: I13.0 Hypertensive heart and chronic kidney disease with heart failure and stage 1 through stage 4 chronic kidney disease, or unspecified chronic kidney disease (principal); I50.31 Acute diastolic (congestive) heart failure; J96.21 Acute and chronic respiratory failure with hypoxia; E43 Unspecified severe protein-calorie malnutrition; R65.11 Systemic inflammatory response syndrome (SIRS) of non-infectious origin with acute organ dysfunction; J44.1 Chronic obstructive pulmonary disease with (acute) exacerbation; K91.2 Postsurgical malabsorption, not elsewhere classified; I25.10 Atherosclerotic heart disease of native coronary artery without angina pectoris; R13.10 Dysphagia, unspecified; F32.A Depression, unspecified; D64.9 Anemia, unspecified; R91.1 Solitary pulmonary nodule; N18.9 Chronic kidney disease, unspecified; G89.29 Other chronic pain; N40.0 Benign prostatic hyperplasia without lower urinary tract symptoms; F32.9 Major depressive disorder, single episode, unspecified; F41.9 Anxiety disorder, unspecified; F03.90 Unspecified dementia, unspecified severity, without behavioral disturbance, psychotic disturbance, mood disturbance, and anxiety; Y82.8 Other medical devices associated with adverse incidents; F17.210 Nicotine dependence, cigarettes, uncomplicated; Z20.822 Contact with and (suspected) exposure to COVID-19; K21.9 Gastro-esophageal reflux disease without esophagitis; Y83.8 Other surgical procedures as the cause of abnormal reaction of the patient, or of later complication, without mention of misadventure at the time of the procedure; Z95.1 Presence of aortocoronary bypass graft; Z79.899 Other long term (current) drug therapy; I25.2 Old myocardial infarction; Z86.16 Personal history of COVID-19; Z88.1 Allergy status to other antibiotic agents; Z88.8 Allergy status to other drugs, medicaments and biological substances; Z86.73 Personal history of transient ischemic attack (TIA), and cerebral infarction without residual deficits; Z93.2 Ileostomy status; Z90.49 Acquired absence of other specified parts of digestive tract; Z71.6 Tobacco abuse counseling; Z99.81 Dependence on supplemental oxygen; Z23 Encounter for immunization
CPT/HCPCS: 10040; 10045; 10081